=== PATIENT | female | born 1990 | race Caucasian/White ===

== ENCOUNTER 2016-08-03 22:09 | Emergency (ER) | payer SELFPAY ==
[2016-08-03 23:50] VITALS: BP 94/60
[2016-08-04 00:18] LABS: Basophils % (Auto) 0.7 % (0.0-1.8); Eosinophils % (Auto) 3.5 % (0.0-4.3); Hemoglobin 12.5 gm/dl (10.1-14.3); Mean Corpuscular HGB Conc 34 % (30-34); Mean Corpuscular Hemoglobin 29 pg (28-32); Mean Corpuscular Volume 86 fl (79-97); Platelet Count 288 K/mm3 (140-440); Red Cell Distribution Width 12.1 % (13.2-15.2); White Blood Count 9.9 K/mm3 (4.5-11.0)
--- NOTE | 2016-08-08 05:40 | ED Elopement Review ---
ED Pt Elopement review - Results review Lab results: Laboratory Tests 08/03/16 08/03/16 08/03/16 23:59 23:59 23:59 WBC 9.9 RBC 4.30 Hgb 12.5 Hct 37.0 MCV 86 MCH 29 MCHC 34 RDW 12.1 L Plt Count 288 Lymph % (Auto) 38.6 H [place] % (Auto) 7.2 Eos % (Auto) 3.5 Baso % (Auto) 0.7 Lymph # 3.8 [place] # 0.7 Eos # 0.3 Baso # 0.1 Seg Neutrophils % 50.0 Seg Neutrophils # 4.9 HCG, Quant 845.8 H Blood Type O POSITIVE Antibody Screen Negative - Call Back decision Pt Call Back Decision: Pt to F/U with PMD
== END 2016-08-04 17:20 | disposition left against medical advice (07) ==
LOC: ED 22:09
DX: N93.9 Abnormal uterine and vaginal bleeding, unspecified (principal); Z53.21 Procedure and treatment not carried out due to patient leaving prior to being seen by health care provider
CPT/HCPCS: 36415; 84702; 85025; 86850; 86900; 86901

== ENCOUNTER 2017-02-27 22:30 | Emergency (ER) | payer OTHER ==
[2017-02-27 22:49] VITALS: BP 97/64
[2017-02-28 00:12] LABS: Basophils % (Auto) 0.2 % (0.0-1.8); Eosinophils % (Auto) 0.8 % (0.0-4.3); Hematocrit 32.8 % (30.3-42.9); Hemoglobin 11.1 gm/dl (10.1-14.3); Mean Corpuscular HGB Conc 34 % (30-34); Mean Corpuscular Hemoglobin 29 pg (28-32); Mean Corpuscular Volume 86 fl (79-97); Platelet Count 206 K/mm3 (140-440); Red Blood Count 3.81 M/mm3 (3.65-5.03); Red Cell Distribution Width 13.1 % (13.2-15.2); White Blood Count 12.5 K/mm3 (4.5-11.0)
[2017-02-28 00:22] LABS: Albumin 3.6 g/dL (3.9-5); Albumin/Globulin Ratio 1.2 %; BUN/Creatinine Ratio 15.21; Calcium 8.8 mg/dL (8.4-10.2); Chloride 88.2 mmol/L (98-107); Potassium 3.3 mmol/L (3.6-5.0); Total Protein 6.7 g/dL (6.3-8.2)
[2017-02-28 03:52] LABS: Bacteria,Urine 4+ /HPF (Negative); Bilirubin,Urine SM (Negative); Blood,Urine SM (Negative); Ketones,Urine NEG (Negative); Leukocyte Esterase,Urine MOD (Negative); Mucus,Urine 3+ /HPF; Nitrite,Urine NEG (Negative); Urobilinogen,Urine < 2.0 mg/dL (<2.0)
[2017-02-28 03:56] LABS: Protein,Urine >500 mg/dL (Negative)
[2017-02-28 03:57] LABS: WBC,Urine > 182.0 /HPF (0.0-6.0)
== END 2017-02-27 23:31 | disposition left against medical advice (07) ==
LOC: ED 22:30
DX: R11.10 Vomiting, unspecified (principal); R51 Headache; Z53.21 Procedure and treatment not carried out due to patient leaving prior to being seen by health care provider
CPT/HCPCS: 36415; 80053; 81001; 83690; 85025

== ENCOUNTER 2017-02-28 11:05 | Inpatient (IN) | payer SELFPAY ==
[~2017-02-28 11:05] MED LIST: SYNTHROID IV SCH
[2017-02-28] MEDS ORDERED: NACL 0.9% 1000 ML 1,000 ML IV ONE ×4 (11:11→19:29)
[2017-02-28] MEDS ORDERED: LEVAQUIN 500MG/100ML 500 MG/100 ML BAG IV ONE (11:12)
[2017-02-28] MEDS ORDERED: ZOFRAN ONE (11:14)
[2017-02-28] MEDS ORDERED: REGLAN IV ONE (11:14)
[2017-02-28] MEDS ORDERED: VANCOMYCIN/NS 1 GM/250 ML 1 GM/250 ML BAG IV ONE (11:19)
[2017-02-28] MEDS ORDERED: ZOSYN/NS 4.5GM/100ML 4.5 GM/100 ML VIAL IV ONE (11:19)
--- NOTE | 2017-02-28 11:21 | Emergency Department Report ---
HPI - General Time Seen by Provider: 02/28/17 11:10 - HPI HPI: Room 2 The patient is a 26-year-old female presenting with a chief complaint of nausea vomiting and diarrhea. Patient states for the past 4-5 days she has had diffuse abdominal pain nausea vomiting and diarrhea. The patient came to the ED yesterday and labs drawn for left prior to being evaluated. Per EMS the patient was hypotensive with a systolic blood pressure in the 50s and found to be tachycardic in addition to hypoglycemic (40s). Patient was administered one half amp of D50 and a liter of IV fluid prior to arrival. Patient denies dysuria Location: Gastrointestinal system Duration: 4-5 days Quality: Pain Severity: Moderate Modifying factors: [see above] Context: [see above] Mode of transportation: [not driving] ED Past Medical Hx - Past Medical History Additional medical history: Hypothyroidism - Surgical History Past Surgical History?: No - Family History Family history: no significant - Social History Smoking Status: Never Smoker Substance Use Type: None - Medications Home Medications: Home Medications Medication Instructions Recorded Confirmed Last Taken Type Acetaminophen/Codeine [Tylenol #3] 1 tab PO Q6H PRN #30 tab 07/27/15 Unknown Rx Cephalexin [Keflex] 500 mg PO Q8HR #42 cap 07/27/15 Unknown Rx ED Review of Systems ROS: Stated complaint: ABD PAIN Other details as noted in HPI Comment: All other systems reviewed and negative Constitutional: weakness ENT: denies: ear pain, throat pain Respiratory: denies: cough, shortness of breath, wheezing Cardiovascular: denies: chest pain, palpitations Endocrine: no symptoms reported Gastrointestinal: abdominal pain, nausea, vomiting, diarrhea Genitourinary: denies: dysuria Musculoskeletal: denies: back pain, joint swelling, arthralgia Skin: denies: rash, lesions Neurological: denies: headache, weakness, paresthesias Psychiatric: denies: anxiety, depression Hematological/Lymphatic: denies: easy bleeding, easy bruising Physical Exam - Physical Exam Physical Exam: GENERAL: The patient is well-developed female appearing lethargic but responsive to questions HEENT: Normocephalic. Atraumatic. Extraocular motions are intact. Patient has dry lips NECK: Supple. Trachea midline CHEST/LUNGS: Clear to auscultation. There is no respiratory distress noted. HEART/CARDIOVASCULAR: Regular. There is tachycardia. There is no gallop rub or murmur. ABDOMEN: Abdomen is soft, with discomfort to palpation in the left abdomen. There is no rebound or guarding. Patient has normal bowel sounds. There is no abdominal distention. SKIN: There is no rash. There is no edema. There is no diaphoresis. NEURO: The patient is awake, alert, and oriented. The patient is cooperative. The patient has normal speech MUSCULOSKELETAL: There is no evidence of acute injury. ED Medical Decision Making - Lab Data Result diagrams: 02/28/17 12:03 02/28/17 12:03 Laboratory Tests 02/28/17 02/28/17 02/28/17 11:40 11:44 12:03 WBC 5.2 RBC 2.95 L Hgb 8.7 L Hct 25.7 L D MCV 87 MCH 30 MCHC 34 RDW 12.9 L Plt Count 109 L Lymph % (Auto) 22.8 [place] % (Auto) 2.2 Eos % (Auto) 1.2 Baso % (Auto) 0.2 Lymph # 1.2 [place] # 0.1 Eos # 0.1 Baso # 0.0 Seg Neutrophils % 73.6 H Seg Neutrophils # 3.8 Sodium Potassium Chloride Carbon Dioxide Anion Gap BUN Creatinine Estimated GFR BUN/Creatinine Ratio Glucose POC Glucose 69 L Calcium Total Bilirubin AST ALT Alkaline Phosphatase Total Creatine Kinase CK-MB (CK-2) CK-MB (CK-2) Rel Index Troponin T Total Protein Albumin Albumin/Globulin Ratio Lipase TSH Free T4 HCG, Qual Urine Color Yellow Urine Turbidity Cloudy Urine pH 5.0 Ur Specific [place] 1.015 Urine Protein 100 mg/dl Urine Glucose (UA) Neg Urine Ketones Neg Urine Blood Sm Urine Nitrite Neg Urine Bilirubin Neg Urine Urobilinogen < 2.0 Ur Leukocyte Esterase Lg Urine WBC (Auto) 80.0 H Urine RBC (Auto) 4.0 U Epithel Cells (Auto) 1.0 Urine Bacteria (Auto) 1+ Urine Mucus 1+ Blood Type Antibody Screen TEJAL Antibody Screen Crossmatch 02/28/17 02/28/17 02/28/17 12:03 12:03 12:03 WBC RBC Hgb Hct MCV MCH MCHC RDW Plt Count Lymph % (Auto) [place] % (Auto) Eos % (Auto) Baso % (Auto) Lymph # [place] # Eos # Baso # Seg Neutrophils % Seg Neutrophils # Sodium 132 L Potassium 3.8 Chloride 103.1 Carbon Dioxide 12 L Anion Gap 21 BUN 36 H Creatinine 2.2 H Estimated GFR 27 BUN/Creatinine Ratio 16.36 Glucose 112 H POC Glucose Calcium 5.6 L* D Total Bilirubin 0.90 AST 23 ALT 11 Alkaline Phosphatase 53 Total Creatine Kinase 56 CK-MB (CK-2) 1.4 CK-MB (CK-2) Rel Index 2.5 Troponin T < 0.010 Total Protein 4.3 L D Albumin 2.0 L Albumin/Globulin Ratio 0.9 Lipase 6 L TSH Free T4 HCG, Qual Negative Urine Color Urine Turbidity Urine pH Ur Specific [place] Urine Protein Urine Glucose (UA) Urine Ketones Urine Blood Urine Nitrite Urine Bilirubin Urine Urobilinogen Ur Leukocyte Esterase Urine WBC (Auto) Urine RBC (Auto) U Epithel Cells (Auto) Urine Bacteria (Auto) Urine Mucus Blood Type O POSITIVE Antibody Screen TNR TEJAL Antibody Screen Negative Crossmatch See Detail 02/28/17 12:03 WBC RBC Hgb Hct MCV MCH MCHC RDW Plt Count Lymph % (Auto) [place] % (Auto) Eos % (Auto) Baso % (Auto) Lymph # [place] # Eos # Baso # Seg Neutrophils % Seg Neutrophils # Sodium Potassium Chloride Carbon Dioxide Anion Gap BUN Creatinine Estimated GFR BUN/Creatinine Ratio Glucose POC Glucose Calcium Total Bilirubin AST ALT Alkaline Phosphatase Total Creatine Kinase CK-MB (CK-2) CK-MB (CK-2) Rel Index Troponin T Total Protein Albumin Albumin/Globulin Ratio Lipase TSH 58.000 H Free T4 0.41 L HCG, Qual Urine Color Urine Turbidity Urine pH Ur Specific [place] Urine Protein Urine Glucose (UA) Urine Ketones Urine Blood Urine Nitrite Urine Bilirubin Urine Urobilinogen Ur Leukocyte Esterase Urine WBC (Auto) Urine RBC (Auto) U Epithel Cells (Auto) Urine Bacteria (Auto) Urine Mucus Blood Type Antibody Screen TEJAL Antibody Screen Crossmatch Corrected calcium 7.2 - EKG Data -: EKG Interpreted by Me EKG shows normal: sinus rhythm Rate: tachycardia (107 bpm) - EKG Data When compared to previous EKG there are: previous EKG unavailable Interpretation: other (no ischemic changes seen) - Radiology Data Radiology results: report reviewed (CT abdomen and pelvis), image reviewed (CT abdomen and pelvis, chest x-ray) interpreted by me: Chest [id number] haziness in all lung chairez. No definite focal infiltrates. No pneumothorax CT abdomen and pelvis (read by radiologist)-borderline hepatomegaly. Pancreatic tail enlargement suggestive of possible acute pancreatitis. Mild ascites which is predominantly perihepatic. Normal pelvis. An appendix is not visualized. - Medical Decision Making Review of yesterday's labs when the patient left without treatment reveal significant UTI and negative test. - Differential Diagnosis sepsis, UTI Critical Care Time: Yes Critical care time in (mins) excluding proc time.: 45 Critical care attestation.: If time is entered above; I have spent that time in minutes in the direct care of this critically ill patient, excluding procedure time. ED Disposition Clinical Impression: Sepsis, UTI (urinary tract infection), Dehydration, Symptomatic anemia, Hypocalcemia, Hypoalbuminemia, Hypothyroid, Acute renal failure Disposition: OP ADMIT IP TO THIS HOSP Is pt being admited?: Yes Does the pt Need Aspirin: No Condition: Serious Referrals: PRIMARY CARE, [Primary Care Provider] - 3-5 Days Time of Disposition: 13:42 (Hospitalist notified) Blank Doc - Documentation Documentation: Central line note Consent was obtained verbally Location: Right femoral The site was prepped and draped in a sterile fashion Site was anesthetized with lidocaine 1% approximately 3 mL Landmarks identified and needle introduced until return of dark nonpulsatile blood Blood was obtained on first attempt Guidewire introduced using Seldinger technique and triple lumen catheter placed over guidewire There was blood return from all 3 ports Catheter was secured to patient by adhesive The patient tolerated procedure well There were no complications
[2017-02-28] MEDS ORDERED: ZOFRAN IV ONE (11:47)
[2017-02-28] MEDS ORDERED: LEVOPHED DRIP 4 MG/NS 250 ML 4 MG/250 ML BAG IV ONE (11:53)
[2017-02-28 12:06] LABS: Bacteria,Urine 1+ /HPF (Negative); Bilirubin,Urine NEG (Negative); Blood,Urine SM (Negative); Ketones,Urine NEG (Negative); Leukocyte Esterase,Urine LG (Negative); Mucus,Urine 1+ /HPF; Nitrite,Urine NEG (Negative); Urobilinogen,Urine < 2.0 mg/dL (<2.0)
[2017-02-28 12:22] LABS: Basophils % (Auto) 0.2 % (0.0-1.8); Eosinophils % (Auto) 1.2 % (0.0-4.3); Hematocrit 25.7 % (30.3-42.9); Hemoglobin 8.7 gm/dl (10.1-14.3); Mean Corpuscular HGB Conc 34 % (30-34); Mean Corpuscular Hemoglobin 30 pg (28-32); Mean Corpuscular Volume 87 fl (79-97); Platelet Count 109 K/mm3 (140-440); Red Blood Count 2.95 M/mm3 (3.65-5.03); Red Cell Distribution Width 12.9 % (13.2-15.2); White Blood Count 5.2 K/mm3 (4.5-11.0)
[2017-02-28] MEDS ORDERED: ZOSYN/NS 3.375GM/50ML 3.375 GM/50 ML BAG IV SCH (12:30)
[2017-02-28] MEDS ORDERED: SUBLIMAZE IV PRN (12:39)
[2017-02-28 12:44] LABS: Creatine Kinase MB 1.4 ng/mL (0.0-4.0)
[2017-02-28 12:45] LABS: Alanine Aminotransferase 11 units/L (7-56); Albumin/Globulin Ratio 0.9 %; Alkaline Phosphatase 53 units/L (35-129); Anion Gap 21 mmol/L; BUN/Creatinine Ratio 16.36; Blood Urea Nitrogen 36 mg/dL (7-17); Carbon Dioxide 12 mmol/L (22-30); Chloride 103.1 mmol/L (98-107); Creatine Kinase 56 units/L (30-135); Glucose 112 mg/dL (65-100); Lipase 6 units/L (13-60); Potassium 3.8 mmol/L (3.6-5.0); Sodium 132 mmol/L (137-145); Total Protein 4.3 g/dL (6.3-8.2)
[2017-02-28 13:05] LABS: Calcium 5.6 mg/dL (8.4-10.2)
[2017-02-28] MEDS ORDERED: NACL 0.9% 500 ML 500 ML IV ONE (13:22)
--- NOTE | 2017-02-28 13:27 | Cat Scan Report ---
CT ABDOMEN AND PELVIS WITHOUT CONTRAST: 02/28/17 11:05:00 CLINICAL:Abdominal pain and anemia. TECHNIQUE: Volumetric acquisition and 1.25 millimeter scan reconstructions from the lung bases through the iliac crest. The study was performed without oral contrast. FINDINGS: Abdomen:The liver is borderline-enlarged with the right lobe measuring 17 cm in length. No liver mass. Mild perihepatic ascites. Fluid in the dorcas hepatis and adjacent to the gallbladder. The gallbladder is normal normally distended with no stones. The gallbladder wall is thin and normal. Normal bile ducts. Stomach, duodenum and spleen. The pancreatic tail is relatively large and there is peripancreatic fluid. The body and head are normal. No pancreatic calcifications or hemorrhage. Normal adrenal glands and kidneys. The renal collecting systems and ureters are nondilated. Normal aorta and inferior vena cava. The small bowel and colon are normal. An appendix is not identified. Pelvis: Normal urinary bladder and uterus. Fluid in the rectum and sigmoid colon. Ovaries are not well imaged. Mild pelvic ascites.A right femoral venous catheter. IMPRESSION: 1. Borderline hepatomegaly. 2. Pancreatic tail enlargement suggestive of possible acute pancreatitis. 3. Mild ascites which is predominantly perihepatic. 4. Normal pelvis. 5. An appendix is not identified.
[2017-02-28] MEDS ORDERED: CALCIUM GLUCONATE 1,000 MG in NACL 0.9% 100 ML IV ONE (13:29)
--- NOTE | 2017-02-28 13:48 | History and Physical Report ---
History of Present Illness Chief complaint: I just feel sick History of present illness: 26 YO Female with Hypothyroidism presents to ED for evaluation. Pt states that she has experienced nausea, vomiting, and multiple episodes of loose stools over the past 5 days with worsening symptoms over the past 8 hours. Pt seen and evaluated in ED and found to have sepsis IAW hypovolemic shock. Pt treated IAW sepsis protocol. Pt does not provide additional history. Pt denies fever, chills , CP, Palpitations, Syncope, skin rash, recent ill contacts. The patient came to the ED yesterday and labs drawn for left prior to being evaluated. As per EMS, the patient was hypotensive with a systolic blood pressure in the 50's and found to be tachycardic, and hypoglycemic with serum glucose in the 40's. Past History Past Medical History: hypothyroidism Past Surgical History: No surgical history, Other (reviewed) Social history: single. denies: smoking, alcohol abuse, prescription drug abuse Family history: hypertension Medications and Allergies Allergies Allergy/AdvReac Type Severity Reaction Status Date / Time No Known Allergies Allergy Verified 07/26/15 20:16 Home Medications Medication Instructions Recorded Confirmed Last Taken Type Acetaminophen/Codeine [Tylenol #3] 1 tab PO Q6H PRN #30 tab 07/27/15 Unknown Rx Cephalexin [Keflex] 500 mg PO Q8HR #42 cap 07/27/15 Unknown Rx Active Meds: Active Medications Fentanyl (Sublimaze) 50 mcg IV ONCE PRN PRN Reason: Pain Piperacillin Sod/Tazobactam Sod (Zosyn/Ns 3.375gm/50ml) 3.375 gm in 50 mls @ 100 mls/hr IV Q6H NICOLE Norepinephrine (Levophed Drip 4 Mg/Ns 250 Ml) 4 mg in 250 mls @ 22.5 mls/hr IV TITR ONE; 6 MCG/MIN PRN Reason: Protocol Stop: 02/28/17 22:59 Last Admin: 02/28/17 12:27 Dose: 6 mcg/min, 22.5 mls/hr Review of Systems All systems: negative Constitutional: weight loss Ears, nose, mouth and throat: no ear pain, no nasal discharge Breasts: no swelling Cardiovascular: no chest pain Respiratory: no cough, no cough with sputum Gastrointestinal: nausea, vomiting, diarrhea Genitourinary Female: no pelvic pain, no flank pain Rectal: no pain Musculoskeletal: no neck stiffness, no neck pain Integumentary: no rash Neurological: no head injury Psychiatric: no anxiety Endocrine: no cold intolerance, no heat intolerance Hematologic/Lymphatic: no easy bruising, no easy bleeding Allergic/Immunologic: no urticaria Exam - Constitutional Vitals: Temp Pulse Resp BP Pulse Ox 105 H 22 64/37 94 02/28/17 11:52 02/28/17 11:52 02/28/17 11:52 02/28/17 11:52 General appearance: Present: severe distress - EENT Eyes: Present: PERRL ENT: hearing intact, clear oral mucosa - Neck Neck: Present: supple, normal ROM - Respiratory Respiratory effort: normal Respiratory: bilateral: CTA - Cardiovascular Rhythm: regular Heart Sounds: Present: S1 & S2 - Extremities Extremities: pulses symmetrical, No edema Peripheral Pulses: within normal limits - Abdominal General gastrointestinal: Present: soft, non-tender, non-distended - Integumentary Integumentary: Present: clear, dry - Musculoskeletal Musculoskeletal: generalized weakness - Psychiatric Psychiatric: cooperative - Neurologic Neurologic: CNII-XII intact, moves all extremities Results - Labs CBC & Chem 7: 02/28/17 12:03 02/28/17 12:03 Labs: Abnormal lab results 02/28/17 02/28/17 02/28/17 Range/Units 11:40 11:44 12:03 RBC 2.95 L (3.65-5.03) M/mm3 Hgb 8.7 L (10.1-14.3) gm/dl Hct 25.7 L D (30.3-42.9) % RDW 12.9 L (13.2-15.2) % Plt Count 109 L (140-440) K/mm3 Seg Neutrophils % 73.6 H (40.0-70.0) % Sodium (137-145) mmol/L Carbon Dioxide (22-30) mmol/L BUN (7-17) mg/dL Creatinine (0.7-1.2) mg/dL Glucose (65-100) mg/dL POC Glucose 69 L (70-105) Calcium (8.4-10.2) mg/dL Total Protein (6.3-8.2) g/dL Albumin (3.9-5) g/dL Lipase (13-60) units/L TSH (0.270-4.200) mlU/mL Free T4 (0.76-1.46) ng/dL Urine WBC (Auto) 80.0 H (0.0-6.0) /HPF Crossmatch 02/28/17 02/28/17 02/28/17 Range/Units 12:03 12:03 12:03 RBC (3.65-5.03) M/mm3 Hgb (10.1-14.3) gm/dl Hct (30.3-42.9) % RDW (13.2-15.2) % Plt Count (140-440) K/mm3 Seg Neutrophils % (40.0-70.0) % Sodium 132 L (137-145) mmol/L Carbon Dioxide 12 L (22-30) mmol/L BUN 36 H (7-17) mg/dL Creatinine 2.2 H (0.7-1.2) mg/dL Glucose 112 H (65-100) mg/dL POC Glucose (70-105) Calcium 5.6 L* D (8.4-10.2) mg/dL Total Protein 4.3 L D (6.3-8.2) g/dL Albumin 2.0 L (3.9-5) g/dL Lipase 6 L (13-60) units/L TSH 58.000 H (0.270-4.200) mlU/mL Free T4 0.41 L (0.76-1.46) ng/dL Urine WBC (Auto) (0.0-6.0) /HPF Crossmatch See Detail Assessment and Plan - Patient Problems (1) Sepsis Current Visit: Yes Status: Acute Qualifiers: Sepsis type: S Plan to address problem: Sepsis protocol: IV abx, IVF, monitor uop q shift, serial lactic acid, blood cultures, (2) Metabolic acidosis Current Visit: Yes Status: Acute Plan to address problem: Treat sepsis, IVF replacement, repeat bmp (3) Myxedema coma Current Visit: Yes Status: Acute Plan to address problem: Iv synthroid replacment therapy, steroid therapy (4) Acute renal failure Current Visit: Yes Status: Acute Qualifiers: Acute renal failure type: A Plan to address problem: IVF replacement, monitor uop q shift, repeat bmp (5) UTI (urinary tract infection) Current Visit: Yes Status: Acute Qualifiers: Urinary tract infection type: U Hematuria presence: H Indwelling urinary catheter type: I Encounter type: E Plan to address problem: IV abx, supportive care (6) DVT prophylaxis Current Visit: Yes Status: Acute
[2017-02-28] MEDS ORDERED: DULCOLAX PR PRN (13:56)
[2017-02-28] MEDS ORDERED: ALUM-MAG HYDROX-SIMETH 200-200-20MG/5ML PO PRN (13:56)
[2017-02-28] MEDS ORDERED: MILK OF MAGNESIA PO PRN (13:56)
[2017-02-28] MEDS ORDERED: VANCOMYCIN VIAL IV ONE (13:58)
[2017-02-28] MEDS ORDERED: VANCOMYCIN PHARMACY TO DOSE IV SCH (14:00)
[2017-02-28] MEDS ORDERED: INTROPIN DRIP 800 MG/D5W 250 ML 800 MG/250 ML BAG IV ONE ×2 (14:26→14:42)
--- NOTE | 2017-02-28 14:41 | XRay Report ---
FINAL REPORT EXAM: XR CHEST 1V AP HISTORY: hypotension TECHNIQUE: Single, portable chest x-ray. PRIORS: None. FINDINGS: Cardiac and mediastinal silhouette within normal limits. Lungs are normally expanded and show mild, but diffusely increased interstitial and probable airspace opacities scattered bilaterally. No focal consolidation or apparent pneumothorax. IMPRESSION: 1. Findings which may represent vascular congestion or mild edema versus nonspecific postinflammatory change, including bronchitis or pneumonitis, of uncertain etiology or chronicity. Clinical correlation and followup suggested.
[2017-02-28] MEDS ORDERED: NACL 0.9% 1000 ML IV ONE (15:00)
[2017-02-28] MEDS ORDERED: ROCEPHIN/NS 2 GM/100 ML 2 GM/100 ML BAG IV SCH (15:30)
[2017-02-28] MEDS: SYNTHROID IV SCH (15:30)
[2017-02-28] MEDS ORDERED: MORPHINE IV ONE (18:59)
[2017-02-28] MEDS: NACL 0.9% 1000 ML 1,000 ML IV SCH (19:19)
[2017-02-28] MEDS ORDERED: TYLENOL PO PRN (19:21)
--- NOTE | 2017-02-28 20:38 | XRay Report ---
FINAL REPORT EXAM: XR ABDOMEN 2V HISTORY: Abdominal pain TECHNIQUE: Supine and upright views of abdomen. PRIORS: None. FINDINGS: Nonspecific bowel gas pattern, including prominent or mildly dilated and gas-filled bowel loops projected over left upper quadrant. Otherwise, paucity of bowel gas. No apparent pneumoperitoneum. No abnormal calcifications. Mild levoconvex curvature of lumbar spine. Central vascular catheter projects over right inguinal region and lower quadrant. IMPRESSION: 1. Nonspecific bowel gas pattern, which may represent adynamic ileus. Mechanical small bowel obstruction not completely excluded, and followup may be warranted.
[2017-02-28] MEDS: ZOSYN/NS 2.25 GM/50ML 2.25 GM/50 ML BAG IV SCH (20:57)
[2017-02-28] MEDS: Vasostrict 20 UNIT in NACL 0.9% 100 ML IV SCH (23:35)
[2017-03-01] MEDS: MORPHINE IV PRN ×2 (01:50→07:31)
[2017-03-01] MEDS: NACL 0.9% 1000 ML 1,000 ML IV SCH ×2 (01:53→07:48)
[2017-03-01] MEDS: LEVOPHED DRIP 4 MG/NS 250 ML 4 MG/250 ML BAG IV SCH ×2 (02:49→08:55)
[2017-03-01] MEDS: ZOSYN/NS 2.25 GM/50ML 2.25 GM/50 ML BAG IV SCH ×3 (04:07→21:28)
[2017-03-01] MEDS: Vasostrict 20 UNIT in NACL 0.9% 100 ML IV SCH ×2 (07:49→16:12)
[2017-03-01] MEDS ORDERED: NACL 0.9% 1000 ML 2,000 ML IV ONE (09:06)
--- NOTE | 2017-03-01 09:14 | Admit Criteria Form ---
Admission Criteria Documentation: SEVERE SEPSIS Clinical Indications for Admission to Inpatient Care (Place 'X' for any and all applicable criteria): Hospital admission is needed for appropriate care of the patient because of ANY ONE of the following: [X]I. Hemodynamic instability indicated by ANY ONE of the following(1)(2)(3)( 4)(5): [X]a. Vital sign abnormality not readily corrected by appropriate treatment within 12 to 24 hours indicated by ANY ONE of the following: []i) Tachycardia that persists despite appropriate treatment [X]ii) Hypotension that persists despite appropriate treatment []iii) Orthostatic vital sign changes that persist despite appropriate treatment [X]b. Vital sign abnormality that is severe indicated by ANY ONE of the following: [X]i. Inadequate perfusion indicated by ANY ONE of the following: [X]1) Lactic acidosis (greater than 2 mmol/L) []2) New abnormal capillary refill (greater than 3 seconds) []3) Reduced urine output []4) New altered mental status []5) Myocardial Ischemia []ii. Mean arterial pressure [A] less than 60 mm Hg []iii. Mean arterial pressure[A] less than 70 mm Hg after 30 minutes of appropriate treatment (eg, fluid resuscitation) []iv. Sustained heart rate greater than 120 beats per minute in adult []v. IV inotropic or vasopressor medication required to maintain adequate blood pressure or perfusion [X]II. Systemic or infectious condition causing severe symptoms or findings not responsive to emergency or observation care treatment (as appropriate) indicated by ANY ONE of the following: []a. Cardiac arrhythmias of immediate concern(1)(2)(3) [X]b. Severe endocrine disorder (eg, thyrotoxicosis, adrenal insufficiency)(4)(5) []c. Seizures (eg, new or recurrent)(6) []d. New-onset end organ failure or dysfunction as indicated by ANY ONE of the following: []i. Acute unexplained hypoxemia (eg, not from lung infection or chronic disease)(7)(8)(9) []ii. Acute renal failure as indicated by new onset of ANY ONE of the following(10)(11)(12)(13)(14): []1) 3-fold rise in serum creatinine from baseline []2) Serum creatinine greater than 4 mg/dL (354 micromoles/L) with acute rise greater than 0.5 mg/dL (44.2 micromoles/L) []3) Reduction of more than 75% in estimated glomerular filtration rate from baseline. []4) Estimated glomerular filtration rate less than 35 mL/min/1.73m2 ( 0.59 mL/sec/1.73m2) in child younger than 18 years. []5) Cessation of urine output indicated by ALL of the following: []A. Adequate volume status []B. Inadequate urine output as indicated by ANY ONE of the following: []a. Urine output less than 0.3 mL/kg/hr for 24 hours []b. Anuria (urine output less than 0.1 mL/kg/hr) for 12 hours []iii. Acute mental status changes(15) []iv. Acute hepatic failure (eg, plasma bilirubin greater than 4 mg/ dL (68 micromoles/L), new INR greater than 2.0)(16)(17) []e. Unmanageable nausea and vomiting(18) []f. New-onset or uncontrolled central diabetes insipidus(19)(20) []g. Clinically significant dehydration(18)(21) []h. Hypoglycemia(22) []i. Acidosis (pH less than 7.35) or alkalosis (pH greater than 7.45)( 22)(23) []j. Toxic drug level that indicates need for specific monitoring or treatment(24)(25) []k. Severe electrolyte abnormalities indicated by ALL of the following( 1)(2)(3): []i. Electrolytes and associated findings are not as expected for patient baseline or acceptable treatment effects. []ii. Severe abnormalities indicated by ANY ONE of the following: []1) Sodium less than 130 mEq/L (mmol/L) (new) []2) Sodium less than 135 mEq/L (mmol/L) with ANY ONE of the following: []A. Uncorrectable (to near normal or chronic baseline) after trial of outpatient and emergency treatment []B. Altered mental status []C. Seizures []D. Severe medical etiology requiring inpatient management (eg , heart failure, hypovolemia) []3) Sodium greater than 155 mEq/L (mmol/L) []4) Sodium greater than 150 mEq/L (mmol/L) with ANY ONE of the following: []A. Uncorrectable (to near normal or chronic baseline) with outpatient and emergency treatment []B. Altered mental status []C. Seizures []D. Severe medical etiology (eg, hypovolemia, diabetes insipidus) []5) Potassium less than 2.5 mEq/L (mmol/L) despite outpatient and emergency treatment []6) Potassium less than 3 mEq/L (mmol/L) with ANY ONE of the following : []A. Weakness []B. Cardiac abnormality (eg, arrhythmia, conduction disturbance ) []C. Cardiac ischemia []D. Ileus []E. Ongoing medical cause requiring inpatient management (eg, acute renal wasting or SIADH) []F. Other severe symptoms []7) Potassium greater than 6.5 mEq/L (mmol/L) []8) Potassium greater than 5 mEq/L (mmol/L) with ANY ONE of the following: []A. Uncorrectable (to near normal or chronic baseline) with outpatient and emergency treatment []B. Severe ECG findings[A] []C. Acute worsening of renal failure (creatinine greater than 2.5 mg/dL (221 micromoles/L) or significant elevation for age and size) []D. Severe weakness []E. Severe medical etiology (eg, hemolysis, infection, drug overdose) []9) Calcium less than 7 mg/dL (1.75 mmol/L) despite outpatient and emergency treatment(5) []10) Calcium less than 8 mg/dL (2 mmol/L) with significant symptoms or findings (eg, altered mental status, muscle spasms, seizures, breathing difficulty, cardiac abnormality (eg, arrhythmia or conduction disturbance))(5) []11) Calcium greater than 14 mg/dL (3.5 mmol/L)(5) []12) Calcium greater than 12 mg/dL (3 mmol/L) with ANY ONE of the following(5): []A. Uncorrectable (to near normal or chronic baseline) with outpatient and emergency treatment []B. Significant dehydration or hypovolemia as indicated by ALL of the following(3)(6)(7): []a. Not resolved with initial treatments []b. Clinically significant dehydration as indicated by ANY ONE of the following: [](1) Vomiting refractory to outpatient treatment (ie, precluding oral rehydration) [](2) Inability to drink [](3) Hypernatremia or other electrolyte abnormality unable to be corrected with outpatient and emergency treatment [](4) Failure to remain hydrated with outpatient therapy [](5) Reduced urine output [](6) Hypotension [](7) Serious cause for dehydration requiring acute hospitalization ( eg, bowel obstruction, increased intracranial pressure, infectious cause) [](8) Child with ANY ONE of the following(8): [](i) Severe abdominal tenderness [](ii) Adequate care not available at home [](iii) Severe dehydration (greater than 9% loss of body weight) []C. Significant symptoms or findings (eg, altered mental status , cardiac abnormality (eg, arrhythmia, conduction disturbance), malignant etiology requiring inpatient treatment) []13) Phosphorus less than 1 mg/dL (0.32 mmol/L) []14) Phosphorus less than 1.5 mg/dL (0.48 mmol/L) with ANY ONE of the following: []A. Patient unresponsive to outpatient and emergency treatment []B. Significant symptoms or findings (eg, weakness, altered mental status, breathing difficulty, seizures, rhabdomyolysis) []15) Phosphorus greater than 10 mg/dL (3.2 mmol/L) []16) Phosphorus greater than 4.5 mg/dL (1.45 mmol/L) (new) with ANY ONE of the following: []A. Severe medical etiology (eg, crush injury, acute renal failure) []B. Associated hypocalcemia with significant findings (eg, neurologic symptoms, altered mental status, muscle spasms, seizures, breathing difficulty, cardiac abnormality (eg, arrhythmia, conduction disturbance)) []16) Magnesium less than 1 mg/dL (0.41 mmol/L) []17) Magnesium less than 1.5 mg/dL (0.62 mmol/L) with ANY ONE of the following: []A. Patient unresponsive to outpatient and emergency treatment []B. Associated hypocalcemia with significant findings (eg, altered mental status, muscle spasms, seizures, breathing difficulty, cardiac abnormality (eg, arrhythmia, conduction disturbance)) []C. Associated hypokalemia (potassium less than 3 mEq/L (mmol/L )) with risk of arrhythmia []18) Magnesium greater than 4 mEq/L (2 mmol/L) []19) Magnesium greater than 2.5 mEq/L (1.25 mmol/L) with significant symptoms or findings (eg, weakness, altered mental status, cardiac abnormality (eg, arrhythmia, conduction disturbance), breathing difficulty, severe medical etiology (eg, renal failure, hypovolemia)) []20) Uric acid greater than 20 mg/dL (1190 micromoles/L)(9) []21) Uric acid greater than 8 mg/dL (476 micromoles/L) with significant symptoms or findings of tumor lysis syndrome (eg, creatinine greater than 1.5 times upper limit of normal, cardiac abnormality (eg , arrhythmia, conduction disturbance), seizure)(9) []III. High fever or other high-risk infection situation as indicated by ANY ONE of the following(26)(27)(28): []a. Outpatient and observation care antimicrobial treatment unavailable, not effective, or not appropriate []b. Documented bacteremia []c. Temperature greater than 104.9 degrees F (40.5 degrees C) (oral) []d. Temperature greater than 103.1 degrees F (39.5 degrees C) (oral) or less than 96.8 degrees F (36 degrees C) (rectal) that does not respond to emergency treatment and observation care []IV. High-risk febrile neutropenia[A] as indicated by ANY ONE of the following(29)(30)(31)(32): []a. Profound neutropenia[B] anticipated to extend for more than 7 days []b. Hemodynamic instability []c. Hypoxemia []d. Tachypnea []e. Altered mental status []f. New-onset abdominal pain []g. New-onset vomiting or diarrhea []h. Oral or gastrointestinal mucositis that interferes with swallowing or causes severe diarrhea []i. Focal infection (eg, cellulitis, pneumonia, central line or catheter infection, perirectal abscess) []j. Renal insufficiency (eg, GFR of less than 30 mL/min/1.73m2 (0.5 mL/sec /1.73m2)). []k. Severe liver dysfunction (transaminase levels greater than 5 times normal) []l. Platelet count less than 50,000/mm3 (50 x109/L)(33) []m. Leukemia or lymphoma induction therapy []n. Leukemia not in complete remission or with evidence of disease progression []o. Bone marrow transplant patient []p. Alemtuzumab being used for therapy []q. [employer] Support[employer] Care in Cancer (MASCC) Risk Index score of less than 21[C](33)(35). []V. Isolation required (eg, tuberculosis that requires isolation, Ebola infection)[D](36)(37)(38)(39)(40) []. Gangrene that requires treatment beyond emergency or observation level care(41)(42) []VII. Antitoxin administration and ongoing observation required (eg, tetanus, botulism)(43)(44) []. Suspected infection with rapid progression or severe symptoms as indicated by ANY ONE of the following(45): []a. Streptococcal or staphylococcal toxic shock(46) []b. Diphtheria(47) []c. Hantavirus(48) []d. Severe acute respiratory syndrome(8)(49) []e. Anthrax(50) []f. Ebola[D](36)(37)(38) []g. Necrotizing soft tissue infection(41)(42) []h. Plague(50) []i. Other suspected infection that requires care beyond emergency or observation level care []VII. Severe adverse drug or systemic toxin reaction as indicated by ANY ONE of the following(24): []a. Serotonin syndrome(51)(52) []b. Neuroleptic malignant syndrome(51)(52) []c. Cholinergic syndrome with severe symptoms (eg, bronchorrhea, weakness , mental status changes, seizures)(53) []d. Anticholinergic syndrome []e. Sympathetic syndrome with severe symptoms (eg, seizures, mental status changes, cardiac dysrhythmias) []f. Other severe adverse drug or systemic toxin reaction that remains after emergency or observation level care (as appropriate) []VIII. Allergic reaction with severe symptoms (not responsive to emergency or observation care treatment as appropriate), including ANY ONE of the following(54): []a. Airway edema (pharyngeal, epiglottic, or laryngeal edema) []b. Stridor []c. Respiratory failure []d. Bronchospasm []e. Hypotension []IX. Environmental emergency (not responsive to emergency or observation care treatment as appropriate) as indicated by ANY ONE of the following(55)(56): []a. Hyperthermia []b. Heat stroke []c. Heat exhaustion []d. Hypothermia (temperature less than 95 degrees F (35 degrees C) rectal) (57) []e. Electrocution(58) []X. Complications of transplanted organ (ie, not covered elsewhere)[E] indicated by ANY ONE of the following(59): []a. Acute graft rejection (or graft vs. host disease)[F] requiring inpatient management (eg, intravenous immunosuppression)(60)(61)(62)( 63) []b. Acute failure of transplanted organ necessitating inpatient care (eg, cannot be managed in other setting) []c. Infection requiring inpatient management (eg, Hemodynamic instability, need for intravenous antimicrobial treatment)(64)(65) []d. Other complication of transplanted organ requiring inpatient management []XI. Systemic or Infectious Condition condition, symptom, or finding for which emergency and observation care have failed or are not considered appropriate. See General Criteria: Observation Care, General Admission Criteria or Pediatric General Admission Criteria guideline as appropriate. (Contents from SEVERE SEPSIS and SYSTEMIC OR INFECTIOUS CONDITION clinical indications for admission to inpatient care have been integrated in this form) The [facility] content [facility] by [facility] has been revised. The portions of the content which have been revised are identified through the use of italic text or in bold and [facility] has neither reviewed nor approved the modified material. All other unmodified content is copyright [facility]. Please see references footnoted in the original [facility] edition 2016 Admission Criteria Met: Yes
[2017-03-01] MEDS: LEVOPHED 8 MG in NACL 0.9% 250ML 242 ML IV SCH ×2 (10:11→15:26)
[2017-03-01] MEDS: SYNTHROID IV SCH (10:12)
[2017-03-01 10:38] LABS: Hemoglobin 12.6 gm/dl (10.1-14.3); Mean Corpuscular HGB Conc 32 % (30-34); Mean Corpuscular Hemoglobin 29 pg (28-32); Mean Corpuscular Volume 89 fl (79-97); Platelet Count 165 K/mm3 (140-440); Red Blood Count 4.38 M/mm3 (3.65-5.03); Red Cell Distribution Width 14.4 % (13.2-15.2)
[2017-03-01] MEDS: DILAUDID IV PRN ×2 (10:42→21:29)
[2017-03-01 10:56] LABS: Albumin 2.3 g/dL (3.9-5); Albumin/Globulin Ratio 0.7 %; BUN/Creatinine Ratio 21.53; Bilirubin,Total 4.8 mg/dL (0.1-1.2); Chloride 109.6 mmol/L (98-107); Total Protein 5.4 g/dL (6.3-8.2)
[2017-03-01 10:59] LABS: White Blood Count 28.6 K/mm3 (4.5-11.0)
[2017-03-01 11:21] LABS: Potassium 5.2 mmol/L (3.6-5.0)
[2017-03-01] MEDS ORDERED: D50W (25GM) Vial 50 ML IV ONE ×2 (11:22→11:23)
[2017-03-01] MEDS ORDERED: D50W (25GM) Vial IV PRN (11:32)
[2017-03-01 11:34] LABS: Basophils % (Manual) 0 % (0.0-1.8); Blastocytes % (Manual) 0 %; Eosinophils % (Manual) 0 % (0.0-4.3)
[2017-03-01 11:35] LABS: Burr Cells 2+; Diff Status Complete
[2017-03-01] MEDS ORDERED: CALCIUM GLUCONATE 1,000 MG in NACL 0.9% 100 ML IV ONE (13:35)
[2017-03-01] MEDS ORDERED: VANCOMYCIN 750 MG in NACL 0.9% 250ML 250 ML IV SCH (15:00)
--- NOTE | 2017-03-01 15:04 | Consultation ---
History of Present Illness Consult date: 03/01/17 Requesting physician: JILLIAN FARAH Reason for consult: other (sepsis) History of present illness: 26 yo admitted with several days of increased N/V/D, abd pain, weakness, confusion. Found to have hypotension on levophed and dopamine and also hypoglycemia. She cannot provide history as she is arousable but confused due to just receiving Dilaudid. Per family ? hx of an within past few months, details not known. Active Medications Acetaminophen (Tylenol) 650 mg PO Q6H PRN PRN Reason: Pain, Mild (1-3) Al Hydrox/Mg Hydrox/Simethicone (Alum-Mag Hydrox-Simeth [phone]/5ml) 30 ml PO Q4H PRN PRN Reason: Indigestion Bisacodyl (Dulcolax) 10 mg AK QDAY PRN PRN Reason: constipation unrelieved by MOM Dextrose (D50w (25gm)) 25 gm IV PRN PRN PRN Reason: Hypoglycemia Enoxaparin Sodium (Lovenox) 40 mg SUB-Q DAILY NICOLE Fentanyl (Sublimaze) 50 mcg IV ONCE PRN PRN Reason: Pain Last Admin: 02/28/17 15:56 Dose: 50 mcg Hydrocortisone Sodium Succinate (Solu-Cortef) 100 mg IV Q8H NICOLE Last Admin: 03/01/17 06:15 Dose: 100 mg Hydromorphone HCl (Dilaudid) 0.5 mg IV Q3H PRN PRN Reason: Pain , Severe (7-10) Last Admin: 03/01/17 10:42 Dose: 0.5 mg Sodium Chloride (Nacl 0.9% 1000 Ml) 1,000 mls @ 125 mls/hr IV DIRECT NICOLE Last Admin: 03/01/17 07:48 Dose: 125 mls/hr Piperacillin Sod/Tazobactam Sod (Zosyn/Ns 2.25 Gm/50ml) 2.25 gm in 50 mls @ 100 mls/hr IV Q8H NICOLE Last Admin: 03/01/17 12:40 Dose: 100 mls/hr Dopamine HCl/Dextrose (Intropin Drip 800 Mg/D5w 250 Ml) 800 mg in 250 mls @ 1.361 mls/hr IV TITR ONE; 2 MCG/KG/MIN PRN Reason: Protocol Stop: 03/08/17 06:23 Last Titration: 03/01/17 02:00 Dose: 0 mcg/kg/min, 0 mls/hr Vasopressin 20 unit/ Sodium (Chloride) 101 mls @ 9.09 mls/hr IV TITR NICOLE; 0.03 UNITS/MIN PRN Reason: Protocol Last Admin: 03/01/17 07:49 Dose: 0.03 units/min, 9.09 mls/hr Norepinephrine 8 mg/ Sodium (Chloride) 250 mls @ 3.75 mls/hr IV TITR NICOLE; 2 MCG /MIN PRN Reason: Protocol Last Admin: 03/01/17 10:11 Dose: 28 mcg/min, 52.5 mls/hr Vancomycin HCl 750 mg/ Sodium (Chloride) 265 mls @ 132.5 mls/hr IV Q24H NICOLE Levothyroxine Sodium (Synthroid) 100 mcg IV DAILY@0600 NICOLE Last Admin: 03/01/17 10:12 Dose: Not Given Magnesium Hydroxide (Milk Of Magnesia) 30 ml PO Q4H PRN PRN Reason: Constipation Vancomycin HCl (Vancomycin Pharmacy To Dose) 1 each IV PKCONSULT NICOLE PRN Reason: Protocol Past History Past Medical History: hypothyroidism Past Surgical History: No surgical history, Other (reviewed) Social history: single. denies: smoking, alcohol abuse, prescription drug abuse Family history: hypertension Medications and Allergies Allergies Allergy/AdvReac Type Severity Reaction Status Date / Time No Known Allergies Allergy Verified 07/26/15 20:16 Home Medications Medication Instructions Recorded Confirmed Last Taken Type Acetaminophen/Codeine [Tylenol #3] 1 tab PO Q6H PRN #30 tab 07/27/15 Unknown Rx Cephalexin [Keflex] 500 mg PO Q8HR #42 cap 07/27/15 Unknown Rx Active Meds: Active Medications Acetaminophen (Tylenol) 650 mg PO Q6H PRN PRN Reason: Pain, Mild (1-3) Al Hydrox/Mg Hydrox/Simethicone (Alum-Mag Hydrox-Simeth [phone]/5ml) 30 ml PO Q4H PRN PRN Reason: Indigestion Bisacodyl (Dulcolax) 10 mg AK QDAY PRN PRN Reason: constipation unrelieved by MOM Dextrose (D50w (25gm)) 25 gm IV PRN PRN PRN Reason: Hypoglycemia Enoxaparin Sodium (Lovenox) 40 mg SUB-Q DAILY NICOLE Fentanyl (Sublimaze) 50 mcg IV ONCE PRN PRN Reason: Pain Last Admin: 02/28/17 15:56 Dose: 50 mcg Hydrocortisone Sodium Succinate (Solu-Cortef) 100 mg IV Q8H NICOLE Last Admin: 03/01/17 06:15 Dose: 100 mg Hydromorphone HCl (Dilaudid) 0.5 mg IV Q3H PRN PRN Reason: Pain , Severe (7-10) Last Admin: 03/01/17 10:42 Dose: 0.5 mg Sodium Chloride (Nacl 0.9% 1000 Ml) 1,000 mls @ 125 mls/hr IV DIRECT NICOLE Last Admin: 03/01/17 07:48 Dose: 125 mls/hr Piperacillin Sod/Tazobactam Sod (Zosyn/Ns 2.25 Gm/50ml) 2.25 gm in 50 mls @ 100 mls/hr IV Q8H NICOLE Last Admin: 03/01/17 12:40 Dose: 100 mls/hr Dopamine HCl/Dextrose (Intropin Drip 800 Mg/D5w 250 Ml) 800 mg in 250 mls @ 1.361 mls/hr IV TITR ONE; 2 MCG/KG/MIN PRN Reason: Protocol Stop: 03/08/17 06:23 Last Titration: 03/01/17 02:00 Dose: 0 mcg/kg/min, 0 mls/hr Vasopressin 20 unit/ Sodium (Chloride) 101 mls @ 9.09 mls/hr IV TITR NICOLE; 0.03 UNITS/MIN PRN Reason: Protocol Last Admin: 03/01/17 07:49 Dose: 0.03 units/min, 9.09 mls/hr Norepinephrine 8 mg/ Sodium (Chloride) 250 mls @ 3.75 mls/hr IV TITR NICOLE; 2 MCG /MIN PRN Reason: Protocol Last Admin: 03/01/17 10:11 Dose: 28 mcg/min, 52.5 mls/hr Vancomycin HCl 750 mg/ Sodium (Chloride) 265 mls @ 132.5 mls/hr IV Q24H NICOLE Levothyroxine Sodium (Synthroid) 100 mcg IV DAILY@0600 NICOLE Last Admin: 03/01/17 10:12 Dose: Not Given Magnesium Hydroxide (Milk Of Magnesia) 30 ml PO Q4H PRN PRN Reason: Constipation Vancomycin HCl (Vancomycin Pharmacy To Dose) 1 each IV PKCONSULT NICOLE PRN Reason: Protocol Review of Systems ROS unobtainable: due to mental status Physical Examination Vital signs: Vital Signs Pulse Resp 104 H 15 02/28/17 10:56 02/28/17 10:56 Vital Signs - 24 hr 02/28/17 02/28/17 02/28/17 15:51 16:00 16:10 Temperature 98.4 F Pulse Rate 131 H 139 H 96 H Pulse Rate [ Apical] Pulse Rate [ From Monitor] Respiratory 16 Rate Respiratory Rate [Abdomen] Blood Pressure 84/54 O2 Sat by Pulse 69 L 96 Oximetry 02/28/17 02/28/17 02/28/17 16:19 16:20 16:30 Temperature Pulse Rate 105 H 112 H Pulse Rate [ Apical] Pulse Rate [ From Monitor] Respiratory 20 24 Rate Respiratory Rate [Abdomen] Blood Pressure 103/68 97/61 O2 Sat by Pulse 97 94 99 Oximetry 02/28/17 02/28/17 02/28/17 16:40 16:50 17:00 Temperature Pulse Rate 113 H 109 H 116 H Pulse Rate [ Apical] Pulse Rate [ From Monitor] Respiratory 25 H 24 24 Rate Respiratory Rate [Abdomen] Blood Pressure 103/68 91/58 68/37 O2 Sat by Pulse 97 100 100 Oximetry 02/28/17 02/28/17 02/28/17 17:10 17:20 17:30 Temperature Pulse Rate 109 H 109 H 108 H Pulse Rate [ Apical] Pulse Rate [ From Monitor] Respiratory 17 29 H 13 Rate Respiratory Rate [Abdomen] Blood Pressure 97/61 105/79 115/75 O2 Sat by Pulse 73 L 83 L 87 Oximetry 02/28/17 02/28/17 02/28/17 17:35 17:40 17:50 Temperature Pulse Rate 111 H 115 H Pulse Rate [ Apical] Pulse Rate [ 110 H From Monitor] Respiratory 19 20 22 Rate Respiratory Rate [Abdomen] Blood Pressure 115/75 102/75 O2 Sat by Pulse 97 87 99 Oximetry 02/28/17 02/28/17 02/28/17 18:00 18:10 18:20 Temperature Pulse Rate 114 H 120 H 115 H Pulse Rate [ Apical] Pulse Rate [ From Monitor] Respiratory 24 15 13 Rate Respiratory Rate [Abdomen] Blood Pressure 102/69 102/69 95/66 O2 Sat by Pulse 97 87 95 Oximetry 02/28/17 02/28/17 02/28/17 18:30 18:40 18:50 Temperature Pulse Rate 117 H 111 H 111 H Pulse Rate [ Apical] Pulse Rate [ From Monitor] Respiratory 18 17 12 Rate Respiratory Rate [Abdomen] Blood Pressure 95/66 95/66 99/74 O2 Sat by Pulse 92 85 94 Oximetry 02/28/17 02/28/17 02/28/17 19:00 19:10 19:20 Temperature Pulse Rate 105 H 110 H 116 H Pulse Rate [ Apical] Pulse Rate [ From Monitor] Respiratory 16 23 19 Rate Respiratory Rate [Abdomen] Blood Pressure 108/82 108/82 103/74 O2 Sat by Pulse 82 L 93 96 Oximetry 02/28/17 02/28/17 02/28/17 19:30 19:40 19:47 Temperature 98.8 F Pulse Rate 118 H 112 H Pulse Rate [ Apical] Pulse Rate [ From Monitor] Respiratory 17 16 Rate Respiratory Rate [Abdomen] Blood Pressure 96/64 96/64 O2 Sat by Pulse 73 L 81 L Oximetry 02/28/17 02/28/17 02/28/17 19:49 19:50 20:00 Temperature Pulse Rate Pulse Rate [ 140 H Apical] Pulse Rate [ 135 H From Monitor] Respiratory 31 H 31 H Rate Respiratory Rate [Abdomen] Blood Pressure 123/99 123/99 O2 Sat by Pulse 81 L 91 Oximetry 02/28/17 02/28/17 02/28/17 20:10 20:20 20:29 Temperature Pulse Rate 113 H Pulse Rate [ Apical] Pulse Rate [ From Monitor] Respiratory 28 H Rate Respiratory Rate [Abdomen] Blood Pressure 123/99 101/76 O2 Sat by Pulse 82 L 100 100 Oximetry 02/28/17 02/28/17 02/28/17 20:30 20:40 20:50 Temperature Pulse Rate 109 H 110 H 116 H Pulse Rate [ Apical] Pulse Rate [ From Monitor] Respiratory 16 15 24 Rate Respiratory Rate [Abdomen] Blood Pressure 101/76 101/73 103/80 O2 Sat by Pulse 82 L Oximetry 02/28/17 02/28/17 02/28/17 21:00 21:10 21:20 Temperature Pulse Rate 118 H 119 H 118 H Pulse Rate [ Apical] Pulse Rate [ From Monitor] Respiratory 31 H 17 17 Rate Respiratory Rate [Abdomen] Blood Pressure 103/80 99/74 101/73 O2 Sat by Pulse 100 Oximetry 02/28/17 02/28/17 02/28/17 21:30 21:40 21:50 Temperature Pulse Rate 116 H 114 H 120 H Pulse Rate [ Apical] Pulse Rate [ From Monitor] Respiratory 32 H 20 21 Rate Respiratory Rate [Abdomen] Blood Pressure 101/73 101/73 117/94 O2 Sat by Pulse 100 Oximetry 02/28/17 02/28/17 02/28/17 22:00 22:10 22:20 Temperature Pulse Rate 113 H 111 H 113 H Pulse Rate [ Apical] Pulse Rate [ From Monitor] Respiratory 33 H 16 22 Rate Respiratory 22 Rate [Abdomen] Blood Pressure 117/94 135/98 99/53 O2 Sat by Pulse Oximetry 02/28/17 02/28/17 02/28/17 22:30 22:40 22:50 Temperature Pulse Rate 112 H 108 H 111 H Pulse Rate [ Apical] Pulse Rate [ From Monitor] Respiratory 23 19 25 H Rate Respiratory Rate [Abdomen] Blood Pressure 91/59 91/59 135/98 O2 Sat by Pulse Oximetry 02/28/17 02/28/17 02/28/17 23:00 23:10 23:20 Temperature Pulse Rate 107 H 111 H 109 H Pulse Rate [ Apical] Pulse Rate [ From Monitor] Respiratory 18 24 28 H Rate Respiratory Rate [Abdomen] Blood Pressure 87/51 94/58 90/69 O2 Sat by Pulse 91 93 91 Oximetry 02/28/17 02/28/17 02/28/17 23:30 23:38 23:40 Temperature 97.8 F Pulse Rate 108 H 110 H Pulse Rate [ Apical] Pulse Rate [ From Monitor] Respiratory 22 12 Rate Respiratory Rate [Abdomen] Blood Pressure 85/61 85/61 O2 Sat by Pulse 77 L Oximetry 02/28/17 02/28/17 03/01/17 23:50 23:54 00:00 Temperature Pulse Rate 113 H 115 H 113 H Pulse Rate [ 124 H Apical] Pulse Rate [ 119 H From Monitor] Respiratory 22 23 26 H Rate Respiratory Rate [Abdomen] Blood Pressure 86/63 78/50 72/50 O2 Sat by Pulse 77 L 65 L Oximetry 03/01/17 03/01/17 03/01/17 00:10 00:20 00:30 Temperature Pulse Rate 111 H 110 H 110 H Pulse Rate [ Apical] Pulse Rate [ From Monitor] Respiratory 31 H 21 38 H Rate Respiratory Rate [Abdomen] Blood Pressure 93/63 76/47 53/33 O2 Sat by Pulse 43 L 69 L 86 Oximetry 03/01/17 03/01/17 03/01/17 00:40 00:50 01:00 Temperature Pulse Rate 108 H 104 H 106 H Pulse Rate [ Apical] Pulse Rate [ From Monitor] Respiratory 25 H 17 21 Rate Respiratory Rate [Abdomen] Blood Pressure 99/72 104/78 90/69 O2 Sat by Pulse 82 L 93 Oximetry 03/01/17 03/01/17 03/01/17 01:10 01:20 01:30 Temperature Pulse Rate 108 H 111 H 108 H Pulse Rate [ Apical] Pulse Rate [ From Monitor] Respiratory 19 20 17 Rate Respiratory Rate [Abdomen] Blood Pressure 98/76 98/75 O2 Sat by Pulse 97 98 97 Oximetry 03/01/17 03/01/17 03/01/17 01:41 01:50 01:51 Temperature Pulse Rate 105 H 111 H Pulse Rate [ Apical] Pulse Rate [ From Monitor] Respiratory 16 16 18 Rate Respiratory Rate [Abdomen] Blood Pressure 100/75 97/74 O2 Sat by Pulse 96 100 Oximetry 03/01/17 03/01/17 03/01/17 02:01 02:10 02:20 Temperature Pulse Rate 110 H 109 H Pulse Rate [ Apical] Pulse Rate [ From Monitor] Respiratory 17 21 15 Rate Respiratory Rate [Abdomen] Blood Pressure 78/51 86/52 O2 Sat by Pulse 98 94 Oximetry 03/01/17 03/01/17 03/01/17 02:21 02:30 02:40 Temperature Pulse Rate 108 H 107 H 109 H Pulse Rate [ Apical] Pulse Rate [ From Monitor] Respiratory 16 16 15 Rate Respiratory Rate [Abdomen] Blood Pressure 82/57 82/58 86/59 O2 Sat by Pulse Oximetry 03/01/17 03/01/17 03/01/17 02:51 03:00 03:11 Temperature Pulse Rate 108 H 107 H 106 H Pulse Rate [ Apical] Pulse Rate [ From Monitor] Respiratory 19 20 18 Rate Respiratory Rate [Abdomen] Blood Pressure 84/60 80/56 86/65 O2 Sat by Pulse 63 L 100 Oximetry 03/01/17 03/01/17 03/01/17 03:21 03:24 03:30 Temperature 97.5 F L Pulse Rate 108 H 106 H Pulse Rate [ Apical] Pulse Rate [ From Monitor] Respiratory 20 19 Rate Respiratory Rate [Abdomen] Blood Pressure 73/55 84/63 O2 Sat by Pulse 100 Oximetry 03/01/17 03/01/17 03/01/17 03:40 03:50 04:00 Temperature Pulse Rate 105 H 105 H 108 H Pulse Rate [ 112 H Apical] Pulse Rate [ 109 H From Monitor] Respiratory 20 21 23 Rate Respiratory Rate [Abdomen] Blood Pressure 84/58 84/60 97/71 O2 Sat by Pulse 100 82 L Oximetry 03/01/17 03/01/17 03/01/17 04:11 04:21 04:31 Temperature Pulse Rate 109 H 106 H 104 H Pulse Rate [ Apical] Pulse Rate [ From Monitor] Respiratory 22 24 24 Rate Respiratory Rate [Abdomen] Blood Pressure 97/71 107/61 107/61 O2 Sat by Pulse 69 L Oximetry 03/01/17 03/01/17 03/01/17 04:41 04:51 05:00 Temperature Pulse Rate 107 H 105 H 105 H Pulse Rate [ Apical] Pulse Rate [ From Monitor] Respiratory 30 H 18 23 Rate Respiratory Rate [Abdomen] Blood Pressure 97/71 88/58 83/60 O2 Sat by Pulse 99 Oximetry 03/01/17 03/01/17 03/01/17 05:11 05:21 05:30 Temperature Pulse Rate 102 H 107 H 108 H Pulse Rate [ Apical] Pulse Rate [ From Monitor] Respiratory 24 18 20 Rate Respiratory Rate [Abdomen] Blood Pressure 83/60 80/51 72/50 O2 Sat by Pulse Oximetry 03/01/17 03/01/17 03/01/17 05:40 05:50 06:00 Temperature Pulse Rate 104 H 104 H 103 H Pulse Rate [ Apical] Pulse Rate [ From Monitor] Respiratory 24 25 H 21 Rate Respiratory Rate [Abdomen] Blood Pressure 84/54 83/61 87/62 O2 Sat by Pulse 80 L 95 Oximetry 03/01/17 03/01/17 03/01/17 06:11 06:21 06:30 Temperature Pulse Rate 104 H 103 H 102 H Pulse Rate [ Apical] Pulse Rate [ From Monitor] Respiratory 17 22 22 Rate Respiratory Rate [Abdomen] Blood Pressure 96/72 83/58 85/61 O2 Sat by Pulse 90 89 Oximetry 03/01/17 03/01/17 03/01/17 06:40 06:50 07:01 Temperature Pulse Rate 103 H 100 H 99 H Pulse Rate [ Apical] Pulse Rate [ From Monitor] Respiratory 22 27 H 20 Rate Respiratory Rate [Abdomen] Blood Pressure 85/64 87/61 83/61 O2 Sat by Pulse 78 L Oximetry 03/01/17 03/01/17 03/01/17 07:11 07:20 07:30 Temperature Pulse Rate 102 H 101 H 98 H Pulse Rate [ Apical] Pulse Rate [ From Monitor] Respiratory 27 H 26 H 19 Rate Respiratory Rate [Abdomen] Blood Pressure 87/65 81/57 91/67 O2 Sat by Pulse 35 L 85 Oximetry 03/01/17 03/01/17 03/01/17 07:31 07:41 07:51 Temperature Pulse Rate 100 H 99 H Pulse Rate [ Apical] Pulse Rate [ From Monitor] Respiratory 24 16 15 Rate Respiratory Rate [Abdomen] Blood Pressure 91/67 82/49 O2 Sat by Pulse 97 Oximetry 03/01/17 03/01/17 03/01/17 08:00 08:11 08:21 Temperature 97.6 F Pulse Rate 104 H 99 H 99 H Pulse Rate [ Apical] Pulse Rate [ From Monitor] Respiratory 15 22 19 Rate Respiratory Rate [Abdomen] Blood Pressure 68/46 77/53 76/57 O2 Sat by Pulse 97 96 Oximetry 03/01/17 03/01/17 03/01/17 08:30 08:41 08:51 Temperature Pulse Rate 99 H 97 H 103 H Pulse Rate [ Apical] Pulse Rate [ From Monitor] Respiratory 24 15 26 H Rate Respiratory Rate [Abdomen] Blood Pressure 84/54 84/54 76/57 O2 Sat by Pulse 99 98 99 Oximetry 03/01/17 03/01/17 03/01/17 09:00 09:11 09:21 Temperature Pulse Rate 99 H 99 H 101 H Pulse Rate [ Apical] Pulse Rate [ From Monitor] Respiratory 21 17 30 H Rate Respiratory Rate [Abdomen] Blood Pressure 91/47 91/47 84/60 O2 Sat by Pulse 83 L Oximetry 03/01/17 03/01/17 03/01/17 09:30 09:41 09:51 Temperature Pulse Rate 97 H 99 H Pulse Rate [ Apical] Pulse Rate [ From Monitor] Respiratory 15 22 17 Rate Respiratory Rate [Abdomen] Blood Pressure 86/58 86/58 111/82 O2 Sat by Pulse 57 L Oximetry 08/02/0803/01/17 03/01/17 10:00 10:11 10:21 Temperature Pulse Rate 97 H 97 H 95 H Pulse Rate [ Apical] Pulse Rate [ From Monitor] Respiratory 15 16 14 Rate Respiratory Rate [Abdomen] Blood Pressure 84/60 84/60 88/62 O2 Sat by Pulse 82 L Oximetry 03/01/17 03/01/17 03/01/17 10:30 10:41 10:51 Temperature Pulse Rate 95 H 96 H 93 H Pulse Rate [ Apical] Pulse Rate [ From Monitor] Respiratory 16 15 15 Rate Respiratory Rate [Abdomen] Blood Pressure 77/46 77/46 89/52 O2 Sat by Pulse Oximetry 03/01/17 03/01/17 03/01/17 11:01 11:11 11:21 Temperature Pulse Rate 92 H 93 H 96 H Pulse Rate [ Apical] Pulse Rate [ From Monitor] Respiratory 11 L 18 13 Rate Respiratory Rate [Abdomen] Blood Pressure 104/76 104/76 86/55 O2 Sat by Pulse Oximetry 03/01/17 03/01/17 03/01/17 11:31 11:41 11:51 Temperature Pulse Rate 97 H 96 H 95 H Pulse Rate [ Apical] Pulse Rate [ From Monitor] Respiratory 14 12 15 Rate Respiratory Rate [Abdomen] Blood Pressure 72/34 96/41 90/56 O2 Sat by Pulse 100 Oximetry 03/01/17 03/01/17 12:00 12:11 Temperature 97.4 F L Pulse Rate 93 H 94 H Pulse Rate [ Apical] Pulse Rate [ From Monitor] Respiratory 15 15 Rate Respiratory Rate [Abdomen] Blood Pressure 88/54 88/54 O2 Sat by Pulse Oximetry General appearance: other (somnolent, easily arousable, moans, critically ill on pressors) Eyes: non-icteric ENT: oropharynx moist Effort: normal (good effort) Ascultation: Bilateral: clear Cardiovascular: regular rate and rhythm (no mrg) Gastrointestinal: normoactive bowel sounds, soft, non-distended, other (TTP throughout) Extremities: no cyanosis, no edema, pink and warm non-focal exam, pupils equal and round, CN II-XII normal mood appropriate, affect normal Results - Laboratory Findings CBC and BMP: 03/01/17 10:20 03/01/17 10:20 Abnormal lab findings: Abnormal Labs 02/28/17 02/28/17 03/01/17 20:00 Unknown 10:20 WBC 28.6 H Lymphocytes % (Manual) 2.5 L Seg Neutrophils # Man 16.6 H Lymphocytes # (Manual) 0.7 L Monocytes # (Manual) 1.4 H Potassium Chloride Carbon Dioxide BUN Creatinine Glucose Lactic Acid 3.50 H* 2.60 H* Calcium Total Bilirubin AST Total Protein Albumin 03/01/17 10:20 WBC Lymphocytes % (Manual) Seg Neutrophils # Man Lymphocytes # (Manual) Monocytes # (Manual) Potassium 5.2 H D Chloride 109.6 H Carbon Dioxide 11 L BUN 28 H Creatinine 1.3 H Glucose 29 L* Lactic Acid Calcium 6.0 L Total Bilirubin 4.80 H AST 89 H Total Protein 5.4 L D Albumin 2.3 L - Diagnostic Findings Chest x-ray: report reviewed, image reviewed (mild interstitial prominence, ? early pulm edema) Assessment and Plan Imp: 1. UTI 2. Sepsis/bacteremia 2/2 #1 but r/o biliary source also given worsening LFTs; Lipase is normal 3. Lactic acidosis 4. Hyperkalemia 5. SHAIHD 6. Hypocalcemia 7. Hypoglycemia 8. Metabolic encephalopathy Rec: 1. D/c Rocephin; Cont. Vanco/Zosyn; f/u cultures 2. Extra 2L NS bolus today 3. Repeat Ca Gluconate; check ABG as may need some bicarb; repeat K in 4 hours 4. Wean pressors to keep MAP > 65 5. Keep NPO; check RUQ US; consider GI evaluation re: LFTs; trend LFTs 6. IV Synthroid 7. DVT PPx 8. Prognosis is guarded; d/w family, they understand/agree with plan of care CCT 31 minutes
[2017-03-01] MEDS: LOVENOX SUB-Q SCH (15:26)
[2017-03-01 16:10] LABS: Albumin 2.1 g/dL (3.9-5); Albumin/Globulin Ratio 0.7 %; BUN/Creatinine Ratio 25.45; Bilirubin,Total 5.5 mg/dL (0.1-1.2); Chloride 111.3 mmol/L (98-107); Potassium 5.4 mmol/L (3.6-5.0); Total Protein 5.1 g/dL (6.3-8.2)
[2017-03-01 16:18] LABS: Calcium 5.9 mg/dL (8.4-10.2)
[2017-03-01] MEDS ORDERED: SODIUM BICARBONATE IV ONE ×2 (16:27→17:00)
--- NOTE | 2017-03-01 16:39 | Progress Note ---
Assessment and Plan Assessment and plan: 26 YO Female with Hypothyroidism presents to ED for evaluation. Pt states that she has experienced nausea, vomiting, and multiple episodes of loose stools over the past 5 days with worsening symptoms over the past 8 hours. Pt seen and evaluated in ED and found to have sepsis IAW hypovolemic shock. Pt treated IAW sepsis protocol. Pt does not provide additional history. Pt denies fever, chills , CP, Palpitations, Syncope, skin rash, recent ill contacts. The patient came to the ED yesterday and labs drawn for left prior to being evaluated. As per EMS, the patient was hypotensive with a systolic blood pressure in the 50's and found to be tachycardic, and hypoglycemic with serum glucose in the 40's. 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 * Electrolyte derrangement- Hyperkalemia, Hypocalcemia corrected to 7.4 * Replace CA, K correction modality * Severe protein calorie malnutrition * Nutrition consult * Acute Kidney Injury * Resolved. secondary to vasomotor nephropathy * Hypoglycemia * start on D5NS * DVT/GI prophy * Prognosis guarded, no family available at the time of my eval, call placed. * Rounded with am and pm nursing staff this morning. The high probability of a clinically significant, sudden or life threatening deterioration of the [VASCULAR, ENDOCRINE, GI ] system(s) required my full and direct attention, intervention and personal management. The aggregate critical care time was [35] minutes. This time is in addition to time spent performing reported procedures but includes the following: [X] Data Review and interpretation [X] Patient assessment and monitoring of vital signs [X] Documentation [X] Medication orders and management History Interval history: Patient seen and examined this morning complains of pain at the abdomen area. Denies any nausea vomiting diarrhea. Hospitalist Physical - Physical exam Narrative exam: VITAL SIGNS: Reviewed. GENERAL: The patient appeared in mild distress secondary to abdominal pain. Vital signs as documented. HEAD: No signs of head trauma. EYES: Pupils are equal. Extraocular motions intact. EARS: Hearing grossly intact. MOUTH: Oropharynx is normal. NECK: No adenopathy, no JVD. CHEST: Chest with clear breath sounds bilaterally. No wheezes, rales, or rhonchi. CARDIAC: Regular rate and rhythm. S1 and S2, without murmurs, gallops, or rubs. VASCULAR: No Edema. Peripheral pulses normal and equal in all extremities. ABDOMEN: Soft, tender. No sign of distention. No rebound or guarding, and no masses palpated. Bowel Sounds hypoactive MUSCULOSKELETAL: Good range of motion of all major joints. Extremities without clubbing, cyanosis or edema. NEUROLOGIC EXAM: Alert and oriented x 3. No focal sensory or strength deficits. Speech normal. Follows commands. PSYCHIATRIC: Mood normal. SKIN: No rash or lesions. - Constitutional Vitals: Temp Pulse Resp BP Pulse Ox 97.4 F L 91 H 12 97/72 100 03/01/17 12:00 03/01/17 15:51 03/01/17 15:51 03/01/17 15:51 03/01/17 15:53 General appearance: Present: severe distress Results - Labs CBC & Chem 7: 03/01/17 10:20 03/01/17 15:30 Labs: Laboratory Last Values WBC 28.6 K/mm3 (4.5-11.0) H 03/01/17 10:20 RBC 4.38 M/mm3 (3.65-5.03) 03/01/17 10:20 Hgb 12.6 gm/dl (10.1-14.3) D 03/01/17 10:20 Hct 39.0 % (30.3-42.9) D 03/01/17 10:20 MCV 89 fl (79-97) 03/01/17 10:20 MCH 29 pg (28-32) 03/01/17 10:20 MCHC 32 % (30-34) 03/01/17 10:20 RDW 14.4 % (13.2-15.2) 03/01/17 10:20 Plt Count 165 K/mm3 (140-440) 03/01/17 10:20 Lymph % (Auto) 22.8 % (13.4-35.0) 02/28/17 12:03 [place] % (Auto) 2.2 % (0.0-7.3) 02/28/17 12:03 Eos % (Auto) 1.2 % (0.0-4.3) 02/28/17 12:03 Baso % (Auto) 0.2 % (0.0-1.8) 02/28/17 12:03 Lymph # 1.2 K/mm3 (1.2-5.4) 02/28/17 12:03 [place] # 0.1 K/mm3 (0.0-0.8) 02/28/17 12:03 Eos # 0.1 K/mm3 (0.0-0.4) 02/28/17 12:03 Baso # 0.0 K/mm3 (0.0-0.1) 02/28/17 12:03 Add Manual Diff Complete 03/01/17 10:20 Total Counted 200 03/01/17 10:20 Seg Neutrophils % 73.6 % (40.0-70.0) H 02/28/17 12:03 Seg Neuts % (Manual) 58.0 % (40.0-70.0) 03/01/17 10:20 Band Neutrophils % 34.5 % 03/01/17 10:20 Lymphocytes % (Manual) 2.5 % (13.4-35.0) L 03/01/17 10:20 Reactive Lymphs % (Man) 0 % 03/01/17 10:20 Monocytes % (Manual) 5.0 % (0.0-7.3) 03/01/17 10:20 Eosinophils % (Manual) 0 % (0.0-4.3) 03/01/17 10:20 Basophils % (Manual) 0 % (0.0-1.8) 03/01/17 10:20 Metamyelocytes % 0 % 03/01/17 10:20 Myelocytes % 0 % 03/01/17 10:20 Promyelocytes % 0 % 03/01/17 10:20 Blast Cells % 0 % 03/01/17 10:20 Nucleated RBC % Not Reportable 03/01/17 10:20 Seg Neutrophils # 3.8 K/mm3 (1.8-7.7) 02/28/17 12:03 Seg Neutrophils # Man 16.6 K/mm3 (1.8-7.7) H 03/01/17 10:20 Band Neutrophils # 9.9 K/mm3 03/01/17 10:20 Lymphocytes # (Manual) 0.7 K/mm3 (1.2-5.4) L 03/01/17 10:20 Abs React Lymphs (Man) 0.0 K/mm3 03/01/17 10:20 Monocytes # (Manual) 1.4 K/mm3 (0.0-0.8) H 03/01/17 10:20 Eosinophils # (Manual) 0.0 K/mm3 (0.0-0.4) 03/01/17 10:20 Basophils # (Manual) 0.0 K/mm3 (0.0-0.1) 03/01/17 10:20 Metamyelocytes # 0.0 K/mm3 03/01/17 10:20 Myelocytes # 0.0 K/mm3 03/01/17 10:20 Promyelocytes # 0.0 K/mm3 03/01/17 10:20 Blast Cells # 0.0 K/mm3 03/01/17 10:20 WBC Morphology Not Reportable 03/01/17 10:20 Hypersegmented Neuts Not Reportable 03/01/17 10:20 Hyposegmented Neuts Not Reportable 03/01/17 10:20 Hypogranular Neuts Not Reportable 03/01/17 10:20 Smudge Cells Not Reportable 03/01/17 10:20 Toxic Granulation Not Reportable 03/01/17 10:20 Toxic Vacuolation Not Reportable 03/01/17 10:20 Dohle Bodies Not Reportable 03/01/17 10:20 Pelger-Huet Anomaly Not Reportable 03/01/17 10:20 Linda Rods Not Reportable 03/01/17 10:20 Platelet Estimate Appears normal 03/01/17 10:20 Clumped Platelets Not Reportable 03/01/17 10:20 Plt Clumps, EDTA Not Reportable 03/01/17 10:20 Large Platelets Not Reportable 03/01/17 10:20 Giant Platelets Not Reportable 03/01/17 10:20 Platelet Satelliting Not Reportable 03/01/17 10:20 Plt Morphology Comment Not Reportable 03/01/17 10:20 RBC Morphology Not Reportable 03/01/17 10:20 Dimorphic RBCs Not Reportable 03/01/17 10:20 Polychromasia Not Reportable 03/01/17 10:20 Hypochromasia Not Reportable 03/01/17 10:20 Poikilocytosis Not Reportable 03/01/17 10:20 Anisocytosis Not Reportable 03/01/17 10:20 Microcytosis Not Reportable 03/01/17 10:20 Macrocytosis Not Reportable 03/01/17 10:20 Spherocytes Not Reportable 03/01/17 10:20 Pappenheimer Bodies Not Reportable 03/01/17 10:20 Sickle Cells Not Reportable 03/01/17 10:20 Target Cells Not Reportable 03/01/17 10:20 Tear Drop Cells Not Reportable 03/01/17 10:20 Ovalocytes Not Reportable 03/01/17 10:20 Helmet Cells Not Reportable 03/01/17 10:20 [place] Bodies Not Reportable 03/01/17 10:20 [place] Rings Not Reportable 03/01/17 10:20 Teri Cells 2+ 03/01/17 10:20 Bite Cells Not Reportable 03/01/17 10:20 Crenated Cell Not Reportable 03/01/17 10:20 Elliptocytes Not Reportable 03/01/17 10:20 Acanthocytes (Spur) Not Reportable 03/01/17 10:20 Rouleaux Not Reportable 03/01/17 10:20 Hemoglobin C Crystals Not Reportable 03/01/17 10:20 Schistocytes Not Reportable 03/01/17 10:20 Malaria parasites Not Reportable 03/01/17 10:20 Charlie Bodies Not Reportable 03/01/17 10:20 Hem Pathologist Commnt No 03/01/17 10:20 Sodium 138 mmol/L (137-145) 03/01/17 10:20 Potassium 5.2 mmol/L (3.6-5.0) H D 03/01/17 10:20 Chloride 109.6 mmol/L (98-107) H 03/01/17 10:20 Carbon Dioxide 10 mmol/L (22-30) L 03/01/17 15:30 Anion Gap 23 mmol/L 03/01/17 10:20 BUN 28 mg/dL (7-17) H 03/01/17 15:30 Creatinine 1.1 mg/dL (0.7-1.2) 03/01/17 15:30 Estimated GFR 60 ml/min 03/01/17 15:30 BUN/Creatinine Ratio 25.45 % 03/01/17 15:30 Glucose 79 mg/dL (65-100) 03/01/17 15:30 POC Glucose 69 (70-105) L 02/28/17 11:44 Lactic Acid 2.60 mmol/L (0.7-2.0) H* 02/28/17 Unknown Calcium 5.9 mg/dL (8.4-10.2) L* 03/01/17 15:30 Total Bilirubin 5.50 mg/dL (0.1-1.2) H 03/01/17 15:30 AST 135 units/L (5-40) H 03/01/17 15:30 ALT 46 units/L (7-56) 03/01/17 15:30 Alkaline Phosphatase 78 units/L (35-129) 03/01/17 15:30 Total Creatine Kinase 56 units/L (30-135) 02/28/17 12:03 CK-MB (CK-2) 1.4 ng/mL (0.0-4.0) 02/28/17 12:03 CK-MB (CK-2) Rel Index 2.5 (0-4) 02/28/17 12:03 Troponin T < 0.010 ng/mL (0.00-0.029) 02/28/17 12:03 Total Protein 5.1 g/dL (6.3-8.2) L 03/01/17 15:30 Albumin 2.1 g/dL (3.9-5) L 03/01/17 15:30 Albumin/Globulin Ratio 0.7 % 03/01/17 15:30 Lipase 6 units/L (13-60) L 02/28/17 12:03 TSH 58.000 mlU/mL (0.270-4.200) H 02/28/17 12:03 Free T4 0.41 ng/dL (0.76-1.46) L 02/28/17 12:03 HCG, Qual Negative (Negative) 02/28/17 12:03 Urine Color Yellow (Yellow) 02/28/17 11:40 Urine Turbidity Cloudy (Clear) 02/28/17 11:40 Urine pH 5.0 (5.0-7.0) 02/28/17 11:40 Ur Specific [place] 1.015 (1.003-1.030) 02/28/17 11:40 Urine Protein 100 mg/dl mg/dL (Negative) 02/28/17 11:40 Urine Glucose (UA) Neg mg/dL (Negative) 02/28/17 11:40 Urine Ketones Neg mg/dL (Negative) 02/28/17 11:40 Urine Blood Sm (Negative) 02/28/17 11:40 Urine Nitrite Neg (Negative) 02/28/17 11:40 Urine Bilirubin Neg (Negative) 02/28/17 11:40 Urine Urobilinogen < 2.0 mg/dL (<2.0) 02/28/17 11:40 Ur Leukocyte Esterase Lg (Negative) 02/28/17 11:40 Urine WBC (Auto) 80.0 /HPF (0.0-6.0) H 02/28/17 11:40 Urine RBC (Auto) 4.0 /HPF (0.0-6.0) 02/28/17 11:40 U Epithel Cells (Auto) 1.0 /HPF (0-13.0) 02/28/17 11:40 Urine Bacteria (Auto) 1+ /HPF (Negative) 02/28/17 11:40 Urine Mucus 1+ /HPF 02/28/17 11:40 Random Vancomycin 5.7 ug/mL (0-40.0) 03/01/17 12:53 Blood Type O POSITIVE 02/28/17 12:03 Antibody Screen TNR 02/28/17 12:03 TEJAL Antibody Screen Negative 02/28/17 12:03 Crossmatch See Detail 02/28/17 12:03 - Imaging and Cardiology CT scan - abdomen: image reviewed (Pancreatitis)
[2017-03-01] MEDS ORDERED: CALCIUM GLUCONATE 2,000 MG in NACL 0.9% 100 ML IV ONE (17:00)
[2017-03-01] MEDS: D5NS IV SCH (17:25)
[2017-03-01] MEDS: SODIUM BICARBONATE IV SCH (17:25)
[2017-03-01] MEDS ORDERED: NACL 0.9% 1000 ML 1,000 ML with SODIUM BICARBONATE 50 MEQ IV SCH (17:30)
[2017-03-01 22:16] LABS: ISTAT Base Excess -19; ISTAT HCO3 10.2; ISTAT PCO2 29.9 (35-45); ISTAT PO2 149 (80-105); ISTAT SO2 99; ISTAT TCO2 11
[2017-03-01] MEDS ORDERED: ZOFRAN IV PRN (22:52)
[2017-03-02] MEDS: LEVOPHED 8 MG in NACL 0.9% 250ML 242 ML IV SCH ×2 (02:03→06:12)
[2017-03-02] MEDS: SODIUM BICARBONATE IV SCH (03:00)
[2017-03-02] MEDS: D5NS IV SCH (03:00)
[2017-03-02] MEDS: Vasostrict 20 UNIT in NACL 0.9% 100 ML IV SCH ×2 (03:01→13:30)
[2017-03-02] MEDS: ZOSYN/NS 2.25 GM/50ML 2.25 GM/50 ML BAG IV SCH (03:07)
[2017-03-02 05:23] LABS: Hematocrit 36.2 % (30.3-42.9); Hemoglobin 11.9 gm/dl (10.1-14.3); Mean Corpuscular HGB Conc 33 % (30-34); Mean Corpuscular Hemoglobin 29 pg (28-32); Mean Corpuscular Volume 87 fl (79-97); Platelet Count 139 K/mm3 (140-440); Red Blood Count 4.16 M/mm3 (3.65-5.03); Red Cell Distribution Width 14.5 % (13.2-15.2)
[2017-03-02 05:24] LABS: White Blood Count 23.5 K/mm3 (4.5-11.0)
[2017-03-02] MEDS: SYNTHROID IV SCH (05:38)
[2017-03-02 05:50] LABS: Albumin 2.1 g/dL (3.9-5); Bilirubin,Total 5.9 mg/dL (0.1-1.2); Calcium 6.6 mg/dL (8.4-10.2); Chloride 111.2 mmol/L (98-107); Magnesium 1.3 mg/dL (1.7-2.3); Phosphorous 4.5 mg/dL (2.5-4.5); Potassium 4.1 mmol/L (3.6-5.0); Total Protein 4.3 g/dL (6.3-8.2)
[2017-03-02 06:32] LABS: Anisocytosis 1+; Blastocytes % (Manual) 0 %; Burr Cells 1+; Eosinophils % (Manual) 0 % (0.0-4.3); Hypochromasia 1+
[2017-03-02 06:33] LABS: Diff Status Complete; Platelet Estimate Consistent w Auto
--- NOTE | 2017-03-02 08:23 | Ultrasound Report ---
ULTRASOUND ABDOMEN COMPLETE: Technique: Transabdominal ultrasound with color Doppler interrogation. History: Sepsis, bacteremia, elevated liver function tests, evaluate for cholangitis or cholecystitis. Findings: Compared to the CT abdomen pelvis without contrast performed 02/28/17. Small ascites and small to medium bilateral pleural effusions are identified. There is no evidence for cholelithiasis or sludge in the gallbladder. The gallbladder is not distended. There is nonspecific thickening of the gallbladder wall up to 6 mm which could be secondary to ascites. The CBD measures 2 mm. Low suspicion for acute cholecystitis. The liver parenchyma demonstrates normal echogenicity. No mass or disease is appreciated. Both kidneys are markedly echogenic suggesting advanced renal parenchymal disease or acute renal failure. No focal renal lesion, cystic disease, nephrolithiasis or hydronephrosis is appreciated. The bladder was not imaged. The spleen is unremarkable and measures 9.3 cm. The pancreas and aorta are within normal limits. IMPRESSION: No evidence for cholelithiasis or biliary dilatation. Nonspecific gallbladder wall thickening is suspected. Unremarkable liver on ultrasound and noncontrast CT. If there is concern for cholangitis, CT abdomen with contrast is recommended. Advanced renal parenchymal disease or acute renal failure. Small ascites and bilateral pleural effusions.
[2017-03-02] MEDS ORDERED: PERCOCET 5/325 PO PRN (08:51)
[2017-03-02] MEDS ORDERED: MAGNESIUM SULFATE 4GM/100ML 4 GM/100 ML BAG IV ONE (09:00)
[2017-03-02] MEDS ORDERED: VANCOMYCIN 750 MG in NACL 0.9% 250ML 250 ML IV SCH (10:00)
--- NOTE | 2017-03-02 10:01 | Gastroenterology Consultation ---
History of Present Illness - Reason for Consult Consult date: 03/02/17 persistent N/V Requesting physician: JILLIAN FARAH - History of Present Illness Patient is a 26 y/o female who was admitted for abd pain, N/V/D, weakness, and confusion that progressively worsened over the past 4 to 5 days. She was found to have hypotension and hypoglycemia. Currently she is on levophed and dopamine. She is drowsy from pain medication, but easily arroused. Oriented to person and place, but still slightly confused. No family at bedside. History received from chart review and pt. She reports having a recent , unclear on details or exact time of occurrence. Her LFTs are found to be elevated. She denies a hx or Fhx of liver disease or ETOH use. Her AST was elevated at 145 on 08/10 according to chart review. She states her N/V has now improved but still having generalized abd pain. Denies fever, wt loss, hematemesis, dysphagia, melena, constipation, or hematochezia. Past History Past Medical History: hypothyroidism Past Surgical History: Other () Social history: single, lives with family. denies: smoking, alcohol abuse, prescription drug abuse Family history: hypertension Medications and Allergies Allergies Allergy/AdvReac Type Severity Reaction Status Date / Time No Known Allergies Allergy Verified 07/26/15 20:16 Home Medications Medication Instructions Recorded Confirmed Last Taken Type Acetaminophen/Codeine [Tylenol #3] 1 tab PO Q6H PRN #30 tab 07/27/15 Unknown Rx Cephalexin [Keflex] 500 mg PO Q8HR #42 cap 07/27/15 Unknown Rx Active Meds: Active Medications Acetaminophen (Tylenol) 650 mg PO Q6H PRN PRN Reason: Pain, Mild (1-3) Bisacodyl (Dulcolax) 10 mg AL QDAY PRN PRN Reason: constipation unrelieved by MOM Dextrose (D50w (25gm)) 25 gm IV PRN PRN PRN Reason: Hypoglycemia Enoxaparin Sodium (Lovenox) 40 mg SUB-Q DAILY [facility] Last Admin: 03/01/17 15:26 Dose: 40 mg Hydrocortisone Sodium Succinate (Solu-Cortef) 100 mg IV Q8H NICOLE Last Admin: 03/02/17 05:41 Dose: 100 mg Dopamine HCl/Dextrose (Intropin Drip 800 Mg/D5w 250 Ml) 800 mg in 250 mls @ 1.361 mls/hr IV TITR ONE; 2 MCG/KG/MIN PRN Reason: Protocol Stop: 03/08/17 06:23 Last Titration: 03/01/17 02:00 Dose: 0 mcg/kg/min, 0 mls/hr Vasopressin 20 unit/ Sodium (Chloride) 101 mls @ 9.09 mls/hr IV TITR NICOLE; 0.03 UNITS/MIN PRN Reason: Protocol Last Admin: 03/02/17 03:01 Dose: 0.03 units/min, 9.09 mls/hr Norepinephrine 8 mg/ Sodium (Chloride) 250 mls @ 3.75 mls/hr IV TITR NICOLE; 2 MCG /MIN PRN Reason: Protocol Last Admin: 03/02/17 06:12 Dose: 12 mcg/min, 22.5 mls/hr Sodium Bicarbonate 50 meq/ (Dextrose/Sodium Chloride) 1,050 mls @ 125 mls/hr IV DIRECT NICOLE Last Admin: 03/02/17 03:00 Dose: 125 mls/hr Piperacillin Sod/Tazobactam Sod (Zosyn/Ns 4.5gm/100ml) 4.5 gm in 100 mls @ 200 mls/hr IV Q8HR NICOLE Vancomycin HCl 750 mg/ Sodium (Chloride) 265 mls @ 132.5 mls/hr IV BID NICOLE Magnesium Sulfate (Magnesium Sulfate 4gm/100ml) 4 gm in 100 mls @ 25 mls/hr IV ONCE ONE Stop: 03/02/17 12:59 Levothyroxine Sodium (Synthroid) 100 mcg IV DAILY@0600 [facility] Last Admin: 03/02/17 05:38 Dose: 100 mcg Lorazepam (Ativan) 1 mg IV Q4H PRN PRN Reason: Agitation Magnesium Hydroxide (Milk Of Magnesia) 30 ml PO Q4H PRN PRN Reason: Constipation Morphine Sulfate (Morphine) 2 mg IV Q4H PRN PRN Reason: Pain, Moderate (4-6) Ondansetron HCl (Zofran) 4 mg IV Q4H PRN PRN Reason: Nausea Oxycodone/Acetaminophen (Percocet 5/325) 2 tab PO Q6H PRN PRN Reason: Pain, Moderate (4-6) Vancomycin HCl (Vancomycin Pharmacy To Dose) 1 each IV PKCONSULT NICOLE PRN Reason: Protocol Review of Systems - Review of Systems All systems: negative Constitutional: weakness Gastrointestinal: abdominal pain, nausea, vomiting, other (loose stools) Neurological: other (confusion) Exam - Constitutional Vital Signs: Temp Pulse Resp BP Pulse Ox 97.6 F 92 H 22 99/75 91 03/02/17 08:00 03/02/17 09:15 03/02/17 09:15 03/02/17 09:15 03/02/17 09:15 General appearance: mild distress, well-nourished - EENT Eyes: PERRL, EOM intact ENT: hearing intact - Neck Neck: supple, normal ROM - Respiratory Respiratory: bilateral: CTA (anterior) - Cardiovascular Rhythm: regular Heart Sounds: Present: S1 & S2 Extremities: No edema - Gastrointestinal General gastrointestinal: Present: soft, tender (generalized), non-distended, normal bowel sounds - Integumentary Integumentary: Present: warm, dry - Neurologic Neurological: oriented to person, oriented to place - Psychiatric Psychiatric: cooperative - Labs CBC & Chem 7: 03/02/17 05:00 03/02/17 05:00 Lab Results: Laboratory Results - last 24 hr 03/01/17 03/01/17 03/01/17 10:20 10:20 11:15 WBC 28.6 H RBC 4.38 Hgb 12.6 D Hct 39.0 D MCV 89 MCH 29 MCHC 32 RDW 14.4 Plt Count 165 Add Manual Diff Complete Total Counted 200 Seg Neuts % (Manual) 58.0 Band Neutrophils % 34.5 Lymphocytes % (Manual) 2.5 L Reactive Lymphs % (Man) 0 Monocytes % (Manual) 5.0 Eosinophils % (Manual) 0 Basophils % (Manual) 0 Metamyelocytes % 0 Myelocytes % 0 Promyelocytes % 0 Blast Cells % 0 Nucleated RBC % Not Reportable Seg Neutrophils # Man 16.6 H Band Neutrophils # 9.9 Lymphocytes # (Manual) 0.7 L Abs React Lymphs (Man) 0.0 Monocytes # (Manual) 1.4 H Eosinophils # (Manual) 0.0 Basophils # (Manual) 0.0 Metamyelocytes # 0.0 Myelocytes # 0.0 Promyelocytes # 0.0 Blast Cells # 0.0 WBC Morphology Not Reportable Hypersegmented Neuts Not Reportable Hyposegmented Neuts Not Reportable Hypogranular Neuts Not Reportable Smudge Cells Not Reportable Toxic Granulation Not Reportable Toxic Vacuolation Not Reportable Dohle Bodies Not Reportable Pelger-Huet Anomaly Not Reportable Linda Rods Not Reportable Platelet Estimate Appears normal Clumped Platelets Not Reportable Plt Clumps, EDTA Not Reportable Large Platelets Not Reportable Giant Platelets Not Reportable Platelet Satelliting Not Reportable Plt Morphology Comment Not Reportable RBC Morphology Not Reportable Dimorphic RBCs Not Reportable Polychromasia Not Reportable Hypochromasia Not Reportable Poikilocytosis Not Reportable Anisocytosis Not Reportable Microcytosis Not Reportable Macrocytosis Not Reportable Spherocytes Not Reportable Pappenheimer Bodies Not Reportable Sickle Cells Not Reportable Target Cells Not Reportable Tear Drop Cells Not Reportable Ovalocytes Not Reportable Helmet Cells Not Reportable Sal-[place] Bodies Not Reportable [place] Rings Not Reportable Holcomb Cells 2+ Bite Cells Not Reportable Crenated Cell Not Reportable Elliptocytes Not Reportable Acanthocytes (Spur) Not Reportable Rouleaux Not Reportable Hemoglobin C Crystals Not Reportable Schistocytes Not Reportable Malaria parasites Not Reportable Charlie Bodies Not Reportable Hem Pathologist Commnt No POC ABG pH POC ABG pCO2 POC ABG pO2 POC ABG HCO3 POC ABG Total CO2 POC ABG O2 Sat POC ABG Base Excess FiO2 Sodium 138 Potassium 5.2 H D Chloride 109.6 H Carbon Dioxide 11 L Anion Gap 23 BUN 28 H Creatinine 1.3 H Estimated GFR 49 BUN/Creatinine Ratio 21.53 Glucose 29 L* POC Glucose < 40 L Lactic Acid Calcium 6.0 L Phosphorus Magnesium Total Bilirubin 4.80 H AST 89 H ALT 32 Alkaline Phosphatase 81 Total Protein 5.4 L D Albumin 2.3 L Albumin/Globulin Ratio 0.7 Random Vancomycin 03/01/17 03/01/17 03/01/17 12:17 12:53 15:30 WBC RBC Hgb Hct MCV MCH MCHC RDW Plt Count Add Manual Diff Total Counted Seg Neuts % (Manual) Band Neutrophils % Lymphocytes % (Manual) Reactive Lymphs % (Man) Monocytes % (Manual) Eosinophils % (Manual) Basophils % (Manual) Metamyelocytes % Myelocytes % Promyelocytes % Blast Cells % Nucleated RBC % Seg Neutrophils # Man Band Neutrophils # Lymphocytes # (Manual) Abs React Lymphs (Man) Monocytes # (Manual) Eosinophils # (Manual) Basophils # (Manual) Metamyelocytes # Myelocytes # Promyelocytes # Blast Cells # WBC Morphology Hypersegmented Neuts Hyposegmented Neuts Hypogranular Neuts Smudge Cells Toxic Granulation Toxic Vacuolation Dohle Bodies Pelger-Huet Anomaly Linda Rods Platelet Estimate Clumped Platelets Plt Clumps, EDTA Large Platelets Giant Platelets Platelet Satelliting Plt Morphology Comment RBC Morphology Dimorphic RBCs Polychromasia Hypochromasia Poikilocytosis Anisocytosis Microcytosis Macrocytosis Spherocytes Pappenheimer Bodies Sickle Cells Target Cells Tear Drop Cells Ovalocytes Helmet Cells Sal-[place] Bodies [place] Rings Teri Cells Bite Cells Crenated Cell Elliptocytes Acanthocytes (Spur) Rouleaux Hemoglobin C Crystals Schistocytes Malaria parasites Charlie Bodies Hem Pathologist Commnt POC ABG pH POC ABG pCO2 POC ABG pO2 POC ABG HCO3 POC ABG Total CO2 POC ABG O2 Sat POC ABG Base Excess FiO2 Sodium Potassium Chloride Carbon Dioxide 10 L Anion Gap BUN 28 H Creatinine 1.1 Estimated GFR 60 BUN/Creatinine Ratio 25.45 Glucose 79 POC Glucose 129 H Lactic Acid Calcium 5.9 L* Phosphorus Magnesium Total Bilirubin 5.50 H AST 135 H ALT 46 Alkaline Phosphatase 78 Total Protein 5.1 L Albumin 2.1 L Albumin/Globulin Ratio 0.7 Random Vancomycin 5.7 03/01/17 03/01/17 03/01/17 15:36 21:13 21:15 WBC RBC Hgb Hct MCV MCH MCHC RDW Plt Count Add Manual Diff Total Counted Seg Neuts % (Manual) Band Neutrophils % Lymphocytes % (Manual) Reactive Lymphs % (Man) Monocytes % (Manual) Eosinophils % (Manual) Basophils % (Manual) Metamyelocytes % Myelocytes % Promyelocytes % Blast Cells % Nucleated RBC % Seg Neutrophils # Man Band Neutrophils # Lymphocytes # (Manual) Abs React Lymphs (Man) Monocytes # (Manual) Eosinophils # (Manual) Basophils # (Manual) Metamyelocytes # Myelocytes # Promyelocytes # Blast Cells # WBC Morphology Hypersegmented Neuts Hyposegmented Neuts Hypogranular Neuts Smudge Cells Toxic Granulation Toxic Vacuolation Dohle Bodies Pelger-Huet Anomaly Linda Rods Platelet Estimate Clumped Platelets Plt Clumps, EDTA Large Platelets Giant Platelets Platelet Satelliting Plt Morphology Comment RBC Morphology Dimorphic RBCs Polychromasia Hypochromasia Poikilocytosis Anisocytosis Microcytosis Macrocytosis Spherocytes Pappenheimer Bodies Sickle Cells Target Cells Tear Drop Cells Ovalocytes Helmet Cells Sal-[place] Bodies [place] Rings Teri Cells Bite Cells Crenated Cell Elliptocytes Acanthocytes (Spur) Rouleaux Hemoglobin C Crystals Schistocytes Malaria parasites Charlie Bodies Hem Pathologist Commnt POC ABG pH POC ABG pCO2 POC ABG pO2 POC ABG HCO3 POC ABG Total CO2 POC ABG O2 Sat POC ABG Base Excess FiO2 Sodium Potassium Chloride Carbon Dioxide Anion Gap BUN Creatinine Estimated GFR BUN/Creatinine Ratio Glucose POC Glucose 210 H 98 Lactic Acid 2.40 H* Calcium Phosphorus Magnesium Total Bilirubin AST ALT Alkaline Phosphatase Total Protein Albumin Albumin/Globulin Ratio Random Vancomycin 03/01/17 03/01/17 03/02/17 22:08 23:53 04:40 WBC RBC Hgb Hct MCV MCH MCHC RDW Plt Count Add Manual Diff Total Counted Seg Neuts % (Manual) Band Neutrophils % Lymphocytes % (Manual) Reactive Lymphs % (Man) Monocytes % (Manual) Eosinophils % (Manual) Basophils % (Manual) Metamyelocytes % Myelocytes % Promyelocytes % Blast Cells % Nucleated RBC % Seg Neutrophils # Man Band Neutrophils # Lymphocytes # (Manual) Abs React Lymphs (Man) Monocytes # (Manual) Eosinophils # (Manual) Basophils # (Manual) Metamyelocytes # Myelocytes # Promyelocytes # Blast Cells # WBC Morphology Hypersegmented Neuts Hyposegmented Neuts Hypogranular Neuts Smudge Cells Toxic Granulation Toxic Vacuolation Dohle Bodies Pelger-Huet Anomaly Linda Rods Platelet Estimate Clumped Platelets Plt Clumps, EDTA Large Platelets Giant Platelets Platelet Satelliting Plt Morphology Comment RBC Morphology Dimorphic RBCs Polychromasia Hypochromasia Poikilocytosis Anisocytosis Microcytosis Macrocytosis Spherocytes Pappenheimer Bodies Sickle Cells Target Cells Tear Drop Cells Ovalocytes Helmet Cells Sal-[place] Bodies [place] Rings Teri Cells Bite Cells Crenated Cell Elliptocytes Acanthocytes (Spur) Rouleaux Hemoglobin C Crystals Schistocytes Malaria parasites Charlie Bodies Hem Pathologist Commnt POC ABG pH 7.140 L POC ABG pCO2 29.9 L POC ABG pO2 149 H POC ABG HCO3 10.2 POC ABG Total CO2 11 POC ABG O2 Sat 99 POC ABG Base Excess -19 FiO2 36 Sodium Potassium Chloride Carbon Dioxide Anion Gap BUN Creatinine Estimated GFR BUN/Creatinine Ratio Glucose POC Glucose 125 H 147 H Lactic Acid Calcium Phosphorus Magnesium Total Bilirubin AST ALT Alkaline Phosphatase Total Protein Albumin Albumin/Globulin Ratio Random Vancomycin 03/02/17 03/02/17 03/02/17 05:00 05:00 05:00 WBC 23.5 H RBC 4.16 Hgb 11.9 Hct 36.2 MCV 87 MCH 29 MCHC 33 RDW 14.5 Plt Count 139 L Add Manual Diff Complete Total Counted 100 Seg Neuts % (Manual) 34.0 L Band Neutrophils % 47.0 Lymphocytes % (Manual) 13.0 L Reactive Lymphs % (Man) 0 Monocytes % (Manual) 4.0 Eosinophils % (Manual) 0 Basophils % (Manual) Metamyelocytes % 2.0 Myelocytes % 0 Promyelocytes % 0 Blast Cells % 0 Nucleated RBC % Not Reportable Seg Neutrophils # Man 8.0 H Band Neutrophils # 11.0 Lymphocytes # (Manual) 3.1 Abs React Lymphs (Man) 0.0 Monocytes # (Manual) 0.9 H Eosinophils # (Manual) 0.0 Basophils # (Manual) 0.0 Metamyelocytes # 0.5 Myelocytes # 0.0 Promyelocytes # 0.0 Blast Cells # 0.0 WBC Morphology Not Reportable Hypersegmented Neuts Not Reportable Hyposegmented Neuts Not Reportable Hypogranular Neuts Not Reportable Smudge Cells Not Reportable Toxic Granulation Not Reportable Toxic Vacuolation Not Reportable Dohle Bodies Not Reportable Pelger-Huet Anomaly Not Reportable Linda Rods Not Reportable Platelet Estimate Consistent w auto Clumped Platelets Not Reportable Plt Clumps, EDTA Not Reportable Large Platelets Not Reportable Giant Platelets Not Reportable Platelet Satelliting Not Reportable Plt Morphology Comment Not Reportable RBC Morphology Not Reportable Dimorphic RBCs Not Reportable Polychromasia Not Reportable Hypochromasia 1+ Poikilocytosis Not Reportable Anisocytosis 1+ Microcytosis Not Reportable Macrocytosis Not Reportable Spherocytes Not Reportable Pappenheimer Bodies Not Reportable Sickle Cells Not Reportable Target Cells Not Reportable Tear Drop Cells Not Reportable Ovalocytes Not Reportable Helmet Cells Not Reportable Sal-[place] Bodies Not Reportable [place] Rings Not Reportable Holcomb Cells 1+ Bite Cells Not Reportable Crenated Cell Not Reportable Elliptocytes Not Reportable Acanthocytes (Spur) Not Reportable Rouleaux Not Reportable Hemoglobin C Crystals Not Reportable Schistocytes Not Reportable Malaria parasites Not Reportable Charlie Bodies Not Reportable Hem Pathologist Commnt No POC ABG pH POC ABG pCO2 POC ABG pO2 POC ABG HCO3 POC ABG Total CO2 POC ABG O2 Sat POC ABG Base Excess FiO2 Sodium 141 Potassium 4.1 D Chloride 111.2 H Carbon Dioxide 13 L Anion Gap 21 BUN 33 H Creatinine 1.1 Estimated GFR 60 BUN/Creatinine Ratio 30.00 Glucose 148 H POC Glucose Lactic Acid 2.30 H* Calcium 6.6 L Phosphorus 4.50 Magnesium 1.30 L Total Bilirubin 5.90 H AST 159 H ALT 54 Alkaline Phosphatase 127 Total Protein 4.3 L Albumin 2.1 L Albumin/Globulin Ratio 1.0 Random Vancomycin Assessment and Plan 1.N/V 2.abd pain 3.elevated LFTs 4.sepsis-UTI with underlying possible pancreatitis 5.septic shock 6.possible myxedema coma -WBC-23.5 -afebrile -T.farrah 5.9, AST 159 -ALT, Alk phos, and Lipase-WNL -abd CT-revealed borderline hepatomegaly, pancreatic tail enlargement suggestive of possible acute pancreatitis, mild ascites -abd u/s-revealed no evidence for cholelithiasis or biliary dilatation, and nonspecific gall bladder wall thickening -an abd CT with contrast is pending for today -etiology- unclear at this time -will order further lab work to r/o other possible causes of elevated LFTs to include hepatitis panel, RIVER, AMA, ASMA, alpha 1 antitrypsin, alpha fetoprotein , ceruloplasmin, and ferritin -N/V has now improved -continue supportive care with IVFs, antimetics, pain medication, and f/u labs -will follow
[2017-03-02] MEDS: LOVENOX SUB-Q SCH (10:08)
[2017-03-02] MEDS: MORPHINE IV PRN (10:08)
[2017-03-02] MEDS ORDERED: SODIUM BICARBONATE 150 MEQ in D5W 1,000 ML IV ONE (11:00)
[2017-03-02] MEDS: VANCOMYCIN 750 MG in NACL 0.9% 250ML 250 ML IV SCH ×2 (11:00→22:17)
--- NOTE | 2017-03-02 11:55 | Progress Note ---
Assessment and Plan Imp: 1. UTI 2. Sepsis/bacteremia 2/2 #1 but r/o biliary source also given worsening LFTs; Lipase is normal 3. Lactic acidosis 4. Hyperkalemia, better 5. SHAHID, better 6. Hypocalcemia 7. Hypoglycemia, better 8. Metabolic encephalopathy Rec: 1. Cont. Vanco/Zosyn; f/u blood/urine culture ID/sens. 2. 3 amps of bicarb in 1L of D5W and run at 125mL/hour for now; repeat ABG today 3. Replete mag 4. Wean pressors to keep MAP > 65 5. Keep NPO; for CT a/p with IV/PO contrast; GI on board 6. IV Synthroid 7. DVT PPx 8. PICC line 9. Prognosis is guarded; d/w family, they understand/agree with plan of care CCT 31 minutes Subjective Date of service: 03/02/17 Principal diagnosis: Sepsis Interval history: Remains on Vaso 0.03 units/min and Levophed down to 12 mcg. On bicarb drip. Sleepy after Morphine but easily arouses and respiratory effort is good. Active Medications Acetaminophen (Tylenol) 650 mg PO Q6H PRN PRN Reason: Pain, Mild (1-3) Bisacodyl (Dulcolax) 10 mg HI QDAY PRN PRN Reason: constipation unrelieved by MOM Dextrose (D50w (25gm)) 25 gm IV PRN PRN PRN Reason: Hypoglycemia Enoxaparin Sodium (Lovenox) 40 mg SUB-Q DAILY [facility] Last Admin: 03/02/17 10:08 Dose: 40 mg Hydrocortisone Sodium Succinate (Solu-Cortef) 100 mg IV Q8H NICOLE Last Admin: 03/02/17 05:41 Dose: 100 mg Dopamine HCl/Dextrose (Intropin Drip 800 Mg/D5w 250 Ml) 800 mg in 250 mls @ 1.361 mls/hr IV TITR ONE; 2 MCG/KG/MIN PRN Reason: Protocol Stop: 03/08/17 06:23 Last Titration: 03/01/17 02:00 Dose: 0 mcg/kg/min, 0 mls/hr Vasopressin 20 unit/ Sodium (Chloride) 101 mls @ 9.09 mls/hr IV TITR NICOLE; 0.03 UNITS/MIN PRN Reason: Protocol Last Admin: 03/02/17 03:01 Dose: 0.03 units/min, 9.09 mls/hr Norepinephrine 8 mg/ Sodium (Chloride) 250 mls @ 3.75 mls/hr IV TITR NICOLE; 2 MCG /MIN PRN Reason: Protocol Last Admin: 03/02/17 06:12 Dose: 12 mcg/min, 22.5 mls/hr Piperacillin Sod/Tazobactam Sod (Zosyn/Ns 4.5gm/100ml) 4.5 gm in 100 mls @ 200 mls/hr IV Q8HR NICOLE Vancomycin HCl 750 mg/ Sodium (Chloride) 265 mls @ 132.5 mls/hr IV BID NICOLE Magnesium Sulfate (Magnesium Sulfate 4gm/100ml) 4 gm in 100 mls @ 25 mls/hr IV ONCE ONE Stop: 03/02/17 12:59 Sodium Bicarbonate 150 meq/ (Dextrose) 1,150 mls @ 125 mls/hr IV DIRECT ONE Stop: 03/02/17 20:11 Levothyroxine Sodium (Synthroid) 100 mcg IV DAILY@0600 [facility] Last Admin: 03/02/17 05:38 Dose: 100 mcg Lorazepam (Ativan) 1 mg IV Q4H PRN PRN Reason: Agitation Magnesium Hydroxide (Milk Of Magnesia) 30 ml PO Q4H PRN PRN Reason: Constipation Morphine Sulfate (Morphine) 2 mg IV Q4H PRN PRN Reason: Pain, Moderate (4-6) Last Admin: 03/02/17 10:08 Dose: 2 mg Ondansetron HCl (Zofran) 4 mg IV Q4H PRN PRN Reason: Nausea Oxycodone/Acetaminophen (Percocet 5/325) 2 tab PO Q6H PRN PRN Reason: Pain, Moderate (4-6) Vancomycin HCl (Vancomycin Pharmacy To Dose) 1 each IV PKCONSULT NICOLE PRN Reason: Protocol Objective Vital Signs - 12hr 03/02/17 03/02/17 03/02/17 00:00 00:15 00:30 Temperature 97.8 F Pulse Rate 96 H 92 H 93 H Pulse Rate [ From Monitor] Respiratory 20 12 11 L Rate Blood Pressure 103/64 97/66 93/67 O2 Sat by Pulse 100 100 Oximetry 03/02/17 03/02/17 03/02/17 00:45 01:00 01:15 Temperature Pulse Rate 91 H 91 H 91 H Pulse Rate [ From Monitor] Respiratory 12 11 L 14 Rate Blood Pressure 93/66 95/66 92/67 O2 Sat by Pulse 100 98 100 Oximetry 03/02/17 03/02/17 03/02/17 01:30 01:45 02:00 Temperature Pulse Rate 91 H 90 90 Pulse Rate [ From Monitor] Respiratory 13 13 13 Rate Blood Pressure 99/69 92/67 95/68 O2 Sat by Pulse 95 100 100 Oximetry 03/02/17 03/02/17 03/02/17 02:15 02:30 02:45 Temperature Pulse Rate 91 H 101 H 95 H Pulse Rate [ From Monitor] Respiratory 15 16 15 Rate Blood Pressure 96/66 93/61 50/19 O2 Sat by Pulse 98 98 Oximetry 03/02/17 03/02/17 03/02/17 03:01 03:15 03:31 Temperature Pulse Rate 94 H 94 H 94 H Pulse Rate [ From Monitor] Respiratory 14 16 21 Rate Blood Pressure 96/47 81/54 89/52 O2 Sat by Pulse 74 L Oximetry 03/02/17 03/02/17 03/02/17 03:45 04:00 04:15 Temperature 97.6 F Pulse Rate 98 H 93 H 93 H Pulse Rate [ 93 H From Monitor] Respiratory 11 L 19 18 Rate Blood Pressure 108/70 98/70 98/70 O2 Sat by Pulse 98 Oximetry 03/02/17 03/02/17 03/02/17 04:30 04:45 04:51 Temperature Pulse Rate 95 H 92 H 95 H Pulse Rate [ From Monitor] Respiratory 15 19 Rate Blood Pressure 81/54 90/68 O2 Sat by Pulse 80 L 97 Oximetry 03/02/17 03/02/17 03/02/17 05:00 05:15 05:30 Temperature Pulse Rate 93 H 97 H 92 H Pulse Rate [ From Monitor] Respiratory 14 21 16 Rate Blood Pressure 89/54 91/63 101/75 O2 Sat by Pulse 96 92 Oximetry 03/02/17 03/02/17 03/02/17 05:45 06:01 06:15 Temperature Pulse Rate 90 95 H 94 H Pulse Rate [ From Monitor] Respiratory 19 20 26 H Rate Blood Pressure 97/69 94/64 97/70 O2 Sat by Pulse 98 99 97 Oximetry 08/08/17 08/08/17 08/08/17 06:30 06:45 07:00 Temperature Pulse Rate 90 91 H 96 H Pulse Rate [ From Monitor] Respiratory 21 12 12 Rate Blood Pressure 96/68 95/64 96/65 O2 Sat by Pulse 96 98 98 Oximetry 03/02/17 03/02/17 03/02/17 07:15 07:30 07:45 Temperature Pulse Rate 91 H 96 H 102 H Pulse Rate [ From Monitor] Respiratory 21 11 L 17 Rate Blood Pressure 92/57 75/47 84/50 O2 Sat by Pulse 99 100 97 Oximetry 03/02/17 03/02/17 03/02/17 08:00 08:01 08:02 Temperature 97.6 F Pulse Rate 104 H Pulse Rate [ From Monitor] Respiratory 17 17 Rate Blood Pressure 104/74 104/74 O2 Sat by Pulse 98 83 L 98 Oximetry 03/02/17 03/02/17 03/02/17 08:15 08:31 08:45 Temperature Pulse Rate 94 H 94 H 100 H Pulse Rate [ From Monitor] Respiratory 20 20 27 H Rate Blood Pressure 100/69 83/28 95/65 O2 Sat by Pulse 98 100 Oximetry 03/02/17 03/02/17 03/02/17 09:00 09:15 09:31 Temperature Pulse Rate 96 H 92 H 96 H Pulse Rate [ From Monitor] Respiratory 25 H 22 17 Rate Blood Pressure 97/58 99/75 97/58 O2 Sat by Pulse 100 91 Oximetry 03/02/17 03/02/17 03/02/17 09:45 10:01 10:15 Temperature Pulse Rate 97 H 91 H 90 Pulse Rate [ From Monitor] Respiratory 22 24 18 Rate Blood Pressure 89/55 97/75 91/65 O2 Sat by Pulse 100 Oximetry 03/02/17 03/02/17 03/02/17 10:30 11:19 11:30 Temperature Pulse Rate 87 95 H 95 H Pulse Rate [ From Monitor] Respiratory 12 17 16 Rate Blood Pressure 100/66 103/72 O2 Sat by Pulse 100 98 Oximetry Constitutional: other (somnolent, easily arousable, moans, critically ill on pressors) Eyes: non-icteric ENT: oropharynx moist Effort: normal (good effort) Ascultation: Bilateral: rhonchi (minimal bilaterally) Cardiovascular: regular rate and rhythm (no mrg) Gastrointestinal: normoactive bowel sounds, soft, non-distended, other (TTP throughout) Extremities: no cyanosis, no edema, pink and warm Neurologic: non-focal exam, pupils equal and round, CN II-XII normal Psychiatric: mood appropriate, affect normal CBC and BMP: 03/02/17 05:00 03/02/17 05:00 ABG, PT/INR, D-dimer: ABG POC ABG pH 7.140 (7.35-7.45) L 03/01/17 22:08 POC ABG pCO2 29.9 (35-45) L 03/01/17 22:08 POC ABG pO2 149 (80-105) H 03/01/17 22:08 POC ABG HCO3 10.2 03/01/17 22:08 POC ABG Total CO2 11 03/01/17 22:08 POC ABG O2 Sat 99 03/01/17 22:08 Abnormal lab findings: Abnormal Labs 02/28/17 02/28/17 03/01/17 20:00 Unknown 10:20 WBC 28.6 H Plt Count Seg Neuts % (Manual) Lymphocytes % (Manual) 2.5 L Seg Neutrophils # Man 16.6 H Lymphocytes # (Manual) 0.7 L Monocytes # (Manual) 1.4 H POC ABG pH POC ABG pCO2 POC ABG pO2 Potassium Chloride Carbon Dioxide BUN Creatinine Glucose POC Glucose Lactic Acid 3.50 H* 2.60 H* Calcium Magnesium Total Bilirubin AST Total Protein Albumin 03/01/17 03/01/17 03/01/17 10:20 11:15 12:17 WBC Plt Count Seg Neuts % (Manual) Lymphocytes % (Manual) Seg Neutrophils # Man Lymphocytes # (Manual) Monocytes # (Manual) POC ABG pH POC ABG pCO2 POC ABG pO2 Potassium 5.2 H D Chloride 109.6 H Carbon Dioxide 11 L BUN 28 H Creatinine 1.3 H Glucose 29 L* POC Glucose < 40 L 129 H Lactic Acid Calcium 6.0 L Magnesium Total Bilirubin 4.80 H AST 89 H Total Protein 5.4 L D Albumin 2.3 L 03/01/17 03/01/17 03/01/17 15:30 15:36 21:15 WBC Plt Count Seg Neuts % (Manual) Lymphocytes % (Manual) Seg Neutrophils # Man Lymphocytes # (Manual) Monocytes # (Manual) POC ABG pH POC ABG pCO2 POC ABG pO2 Potassium Chloride Carbon Dioxide 10 L BUN 28 H Creatinine Glucose POC Glucose 210 H Lactic Acid 2.40 H* Calcium 5.9 L* Magnesium Total Bilirubin 5.50 H AST 135 H Total Protein 5.1 L Albumin 2.1 L 03/01/17 03/01/17 03/02/17 22:08 23:53 04:40 WBC Plt Count Seg Neuts % (Manual) Lymphocytes % (Manual) Seg Neutrophils # Man Lymphocytes # (Manual) Monocytes # (Manual) POC ABG pH 7.140 L POC ABG pCO2 29.9 L POC ABG pO2 149 H Potassium Chloride Carbon Dioxide BUN Creatinine Glucose POC Glucose 125 H 147 H Lactic Acid Calcium Magnesium Total Bilirubin AST Total Protein Albumin 03/02/17 03/02/17 03/02/17 05:00 05:00 05:00 WBC 23.5 H Plt Count 139 L Seg Neuts % (Manual) 34.0 L Lymphocytes % (Manual) 13.0 L Seg Neutrophils # Man 8.0 H Lymphocytes # (Manual) Monocytes # (Manual) 0.9 H POC ABG pH POC ABG pCO2 POC ABG pO2 Potassium Chloride 111.2 H Carbon Dioxide 13 L BUN 33 H Creatinine Glucose 148 H POC Glucose Lactic Acid 2.30 H* Calcium 6.6 L Magnesium 1.30 L Total Bilirubin 5.90 H AST 159 H Total Protein 4.3 L Albumin 2.1 L Chest x-ray: report reviewed, image reviewed
--- NOTE | 2017-03-02 12:41 | Cat Scan Report ---
CT SCAN OF THE ABDOMEN AND PELVIS WITH CONTRAST: HISTORY: Abdominal pain. TECHNIQUE: Helical CT in 1.25mm intervals following IV contrast. Sagittal and coronal reconstructions. FINDINGS: Large bilateral pleural effusions and moderate ascites has developed since 02/28/17 exam. The liver is slightly hypodense suggesting fatty infiltration. No parenchymal disease or mass is appreciated. There is nonspecific gallbladder wall edema. No obvious gallstones or biliary dilatation. The CBD is within normal limits. The spleen and pancreas demonstrate a normal size and attenuation with no evidence of abnormal mass. Subtle perfusion defects are suspected in the right kidney. This could represent right pyelonephritis. The left kidney is unremarkable. The ureters and bladder are within normal limits. The adrenal glands are normal. The abdominal aorta is normal caliber. Mild circumferential thickening is identified in the ascending colon which may represent a mild colitis. The remaining bowel loops are unremarkable. The appendix is not confidently identified. The uterus and adnexa are unremarkable. There is no evidence of peritoneal air or fluid. There is no evidence of any abnormal masses or fluid collections within the pelvis. No adenopathy is identified. IMPRESSION: Large pleural effusions and moderate ascites has developed since the exam 2 days ago. Right pyelonephritis is suspected. Please correlate with the patient. The proximal colon is thickened consistent with a nonspecific colitis.
[2017-03-02 13:22] LABS: Iron 19 ug/dL (37-170); Total Iron Binding Capacity 96 mcg/dL (250-450)
[2017-03-02] MEDS: ZOSYN/NS 4.5GM/100ML 4.5 GM/100 ML VIAL IV SCH ×2 (13:34→21:55)
[2017-03-02 13:42] LABS: ISTAT Base Excess -13; ISTAT HCO3 14.8; ISTAT PCO2 35.3 (35-45); ISTAT PH 7.232 (7.35-7.45); ISTAT PO2 127 (80-105); ISTAT SO2 98; ISTAT TCO2 16
--- NOTE | 2017-03-02 14:26 | XRay Report ---
AP CHEST: HISTORY: Right arm PICC placement The right arm PICC terminates near the cavoatrial junction. Mild pulmonary venous congestion and small to medium bilateral pleural effusions have developed since 02/28/17. Heart size remains within normal limits. There is mild bibasilar atelectasis but no obvious pneumonia or pneumothorax. IMPRESSION: Adequate placement of a right arm PICC. Mild volume overload.
[2017-03-02] MEDS: ATIVAN IV PRN (17:00)
[2017-03-02] MEDS: SODIUM BICARBONATE 150 MEQ in D5W 1,000 ML IV SCH (21:54)
[2017-03-03] MEDS: Vasostrict 20 UNIT in NACL 0.9% 100 ML IV SCH (03:54)
[2017-03-03] MEDS: LEVOPHED 8 MG in NACL 0.9% 250ML 242 ML IV SCH (03:54)
[2017-03-03 04:38] LABS: Hematocrit 27.9 % (30.3-42.9); Hemoglobin 9.5 gm/dl (10.1-14.3); Mean Corpuscular HGB Conc 34 % (30-34); Mean Corpuscular Hemoglobin 29 pg (28-32); Mean Corpuscular Volume 86 fl (79-97); Red Blood Count 3.27 M/mm3 (3.65-5.03); Red Cell Distribution Width 14.6 % (13.2-15.2); White Blood Count 12.9 K/mm3 (4.5-11.0)
[2017-03-03 04:46] LABS: Platelet Count 97 K/mm3 (140-440)
[2017-03-03 04:56] LABS: Alanine Aminotransferase 154 units/L (7-56); Albumin/Globulin Ratio 0.8 %; Alkaline Phosphatase 198 units/L (35-129); BUN/Creatinine Ratio 51.66; Blood Urea Nitrogen 31 mg/dL (7-17); Carbon Dioxide 33 mmol/L (22-30); Chloride 97.7 mmol/L (98-107); Sodium 139 mmol/L (137-145); Total Protein 4.4 g/dL (6.3-8.2)
[2017-03-03 05:14] LABS: C-Reactive Protein 22.5 mg/dL (0.00-1.30); Potassium 2.7 mmol/L (3.6-5.0)
[2017-03-03 05:15] LABS: Anion Gap 11 mmol/L
[2017-03-03 05:18] LABS: Glucose TNR mg/dL (65-100)
[2017-03-03 05:36] LABS: Anisocytosis 1+; Basophils % (Manual) 0 % (0.0-1.8); Blastocytes % (Manual) 0 %; Diff Status Complete; Eosinophils % (Manual) 0 % (0.0-4.3); Hypochromasia 1+; Platelet Estimate Consistent w Auto
[2017-03-03] MEDS: ZOSYN/NS 4.5GM/100ML 4.5 GM/100 ML VIAL IV SCH ×3 (06:44→22:14)
[2017-03-03] MEDS: SYNTHROID IV SCH (06:45)
[2017-03-03 07:01] LABS: INR 1.29 (0.87-1.13)
[2017-03-03 07:03] LABS: Blood Urea Nitrogen 35 mg/dL (7-17); Calcium 6.8 mg/dL (8.4-10.2); Carbon Dioxide 20 mmol/L (22-30); Chloride 108.2 mmol/L (98-107); Glucose 167 mg/dL (65-100); Potassium 3.5 mmol/L (3.6-5.0); Sodium 143 mmol/L (137-145)
[2017-03-03 07:04] LABS: Anion Gap 18 mmol/L
[2017-03-03] MEDS: SODIUM BICARBONATE 150 MEQ in D5W 1,000 ML IV SCH ×2 (08:20→20:36)
[2017-03-03] MEDS: VANCOMYCIN 750 MG in NACL 0.9% 250ML 250 ML IV SCH (10:03)
--- NOTE | 2017-03-03 10:15 | Gastroenterology Progress Note ---
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 farrah 5.9) -plt- 97 -INR 1.29 -CRP- 22.5 -Lipase- 7 -HBV and HCV- negative -repeat abd CT- revealed nonspecific gallbladder wall edema, no obvious gallstones or biliary dilatation, CBD within normal imits, pancreas demonstrates a normal size, development of large pleural effusions and moderate ascites, right pyelonephritis, and nonspecific colitis in proximal colon -abd u/s-revealed no evidence for cholelithiasis or biliary dilatation, and nonspecific gall bladder wall thickening -etiology of elevated LFTs- unclear at this time -possible shock liver vs metabolic (thyroid) vs other- doubt pancreatitis - RIVER, AMA, ASMA, alpha 1 antitrypsin, alpha fetoprotein, ceruloplasmin, ferritin- pending -unable to do liver bx at this time due to instability of pt's condition -if pt's condition continues to progress toward acute liver failure, would consider transferring to a tertiary facility once stable from an endocrine and hemodynamic standpoint -N/V -resolved -continue supportive care with IVFs, antimetics, pain medication, and f/u labs -will follow Subjective Date of service: 03/03/17 Principal diagnosis: abd pain/N/V/elevated LFTs Interval history: Patient drowsy but easily aroused. Confused and in restraints. No episodes of N/ V overnight or this am. Denies abd pain but abdomen squeegee tender to palpation. Currently on levophed, VSS. Objective - Constitutional Vitals: Temp Pulse Resp BP Pulse Ox 98 F 97 H 23 105/77 99 03/03/17 08:00 03/03/17 07:15 03/03/17 07:15 03/03/17 07:15 03/03/17 08:20 General appearance: mild distress, other (drowsy, confused) - Respiratory Respiratory: bilateral: rhonchi (mild) - Cardiovascular Rhythm: other (tachycardia) Heart Sounds: Present: S1 & S2 - Gastrointestinal General gastrointestinal: Present: soft, tender (generalized), non-distended, normal bowel sounds - Neurologic Neurological: disoriented - Psychiatric Psychiatric: other (restless) - Labs CBC & Chem 7: 03/03/17 04:00 03/03/17 06:37 Labs: Laboratory Results - last 24 hr 03/02/17 03/02/17 03/02/17 07:57 11:41 12:15 WBC RBC Hgb Hct MCV MCH MCHC RDW Plt Count Add Manual Diff Total Counted Seg Neuts % (Manual) Band Neutrophils % Lymphocytes % (Manual) Reactive Lymphs % (Man) Monocytes % (Manual) Eosinophils % (Manual) Basophils % (Manual) Metamyelocytes % Myelocytes % Promyelocytes % Blast Cells % Nucleated RBC % Seg Neutrophils # Man Band Neutrophils # Lymphocytes # (Manual) Abs React Lymphs (Man) Monocytes # (Manual) Eosinophils # (Manual) Basophils # (Manual) Metamyelocytes # Myelocytes # Promyelocytes # Blast Cells # WBC Morphology Hypersegmented Neuts Hyposegmented Neuts Hypogranular Neuts Smudge Cells Toxic Granulation Toxic Vacuolation Dohle Bodies Pelger-Huet Anomaly Linda Rods Platelet Estimate Clumped Platelets Plt Clumps, EDTA Large Platelets Giant Platelets Platelet Satelliting Plt Morphology Comment RBC Morphology Dimorphic RBCs Polychromasia Hypochromasia Poikilocytosis Anisocytosis Microcytosis Macrocytosis Spherocytes Pappenheimer Bodies Sickle Cells Target Cells Tear Drop Cells Ovalocytes Helmet Cells Sal-Daniels Bodies [place] Rings Teri Cells Bite Cells Crenated Cell Elliptocytes Acanthocytes (Spur) Rouleaux Hemoglobin C Crystals Schistocytes Malaria parasites Charlie Bodies Hem Pathologist Commnt PT INR POC ABG pH POC ABG pCO2 POC ABG pO2 POC ABG HCO3 POC ABG Total CO2 POC ABG O2 Sat POC ABG Base Excess FiO2 Sodium Potassium Chloride Carbon Dioxide Anion Gap BUN Creatinine Estimated GFR BUN/Creatinine Ratio Glucose POC Glucose 135 H 146 H Calcium Magnesium Iron TIBC Ferritin Total Bilirubin AST ALT Alkaline Phosphatase C-Reactive Protein Total Protein Albumin Albumin/Globulin Ratio Lipase Hep Bs Antigen Hepatitis C Antibody Non-reactive 03/02/17 03/02/17 03/02/17 12:15 12:15 12:15 WBC RBC Hgb Hct MCV MCH MCHC RDW Plt Count Add Manual Diff Total Counted Seg Neuts % (Manual) Band Neutrophils % Lymphocytes % (Manual) Reactive Lymphs % (Man) Monocytes % (Manual) Eosinophils % (Manual) Basophils % (Manual) Metamyelocytes % Myelocytes % Promyelocytes % Blast Cells % Nucleated RBC % Seg Neutrophils # Man Band Neutrophils # Lymphocytes # (Manual) Abs React Lymphs (Man) Monocytes # (Manual) Eosinophils # (Manual) Basophils # (Manual) Metamyelocytes # Myelocytes # Promyelocytes # Blast Cells # WBC Morphology Hypersegmented Neuts Hyposegmented Neuts Hypogranular Neuts Smudge Cells Toxic Granulation Toxic Vacuolation Dohle Bodies Pelger-Huet Anomaly Linda Rods Platelet Estimate Clumped Platelets Plt Clumps, EDTA Large Platelets Giant Platelets Platelet Satelliting Plt Morphology Comment RBC Morphology Dimorphic RBCs Polychromasia Hypochromasia Poikilocytosis Anisocytosis Microcytosis Macrocytosis Spherocytes Pappenheimer Bodies Sickle Cells Target Cells Tear Drop Cells Ovalocytes Helmet Cells Sal-Daniels Bodies [place] Teri Cells Bite Cells Crenated Cell Elliptocytes Acanthocytes (Spur) Rouleaux Hemoglobin C Crystals Schistocytes Malaria parasites Charlie Bodies Hem Pathologist Commnt PT INR POC ABG pH POC ABG pCO2 POC ABG pO2 POC ABG HCO3 POC ABG Total CO2 POC ABG O2 Sat POC ABG Base Excess FiO2 Sodium Potassium Chloride Carbon Dioxide Anion Gap BUN Creatinine Estimated GFR BUN/Creatinine Ratio Glucose POC Glucose Calcium Magnesium Iron 19 L TIBC 96 L Ferritin 1802.0 H Total Bilirubin AST ALT Alkaline Phosphatase C-Reactive Protein Total Protein Albumin Albumin/Globulin Ratio Lipase Hep Bs Antigen Non-reactive Hepatitis C Antibody 03/02/17 03/02/17 03/02/17 13:34 15:42 20:22 WBC RBC Hgb Hct MCV MCH MCHC RDW Plt Count Add Manual Diff Total Counted Seg Neuts % (Manual) Band Neutrophils % Lymphocytes % (Manual) Reactive Lymphs % (Man) Monocytes % (Manual) Eosinophils % (Manual) Basophils % (Manual) Metamyelocytes % Myelocytes % Promyelocytes % Blast Cells % Nucleated RBC % Seg Neutrophils # Man Band Neutrophils # Lymphocytes # (Manual) Abs React Lymphs (Man) Monocytes # (Manual) Eosinophils # (Manual) Basophils # (Manual) Metamyelocytes # Myelocytes # Promyelocytes # Blast Cells # WBC Morphology Hypersegmented Neuts Hyposegmented Neuts Hypogranular Neuts Smudge Cells Toxic Granulation Toxic Vacuolation Dohle Bodies Pelger-Huet Anomaly Linda Rods Platelet Estimate Clumped Platelets Plt Clumps, EDTA Large Platelets Giant Platelets Platelet Satelliting Plt Morphology Comment RBC Morphology Dimorphic RBCs Polychromasia Hypochromasia Poikilocytosis Anisocytosis Microcytosis Macrocytosis Spherocytes Pappenheimer Bodies Sickle Cells Target Cells Tear Drop Cells Ovalocytes Helmet Cells Sal-Daniels Bodies [place] Cells Bite Cells Crenated Cell Elliptocytes Acanthocytes (Spur) Rouleaux Hemoglobin C Crystals Schistocytes Malaria parasites Charlie Bodies Hem Pathologist Commnt PT INR POC ABG pH 7.232 L POC ABG pCO2 35.3 POC ABG pO2 127 H POC ABG HCO3 14.8 POC ABG Total CO2 16 POC ABG O2 Sat 98 POC ABG Base Excess -13 FiO2 36 Sodium Potassium Chloride Carbon Dioxide Anion Gap BUN Creatinine Estimated GFR BUN/Creatinine Ratio Glucose POC Glucose 159 H 161 H Calcium Magnesium Iron TIBC Ferritin Total Bilirubin AST ALT Alkaline Phosphatase C-Reactive Protein Total Protein Albumin Albumin/Globulin Ratio Lipase Hep Bs Antigen Hepatitis C Antibody 03/02/17 03/03/17 03/03/17 23:27 03:59 04:00 WBC RBC Hgb Hct MCV MCH MCHC RDW Plt Count Add Manual Diff Total Counted Seg Neuts % (Manual) Band Neutrophils % Lymphocytes % (Manual) Reactive Lymphs % (Man) Monocytes % (Manual) Eosinophils % (Manual) Basophils % (Manual) Metamyelocytes % Myelocytes % Promyelocytes % Blast Cells % Nucleated RBC % Seg Neutrophils # Man Band Neutrophils # Lymphocytes # (Manual) Abs React Lymphs (Man) Monocytes # (Manual) Eosinophils # (Manual) Basophils # (Manual) Metamyelocytes # Myelocytes # Promyelocytes # Blast Cells # WBC Morphology Hypersegmented Neuts Hyposegmented Neuts Hypogranular Neuts Smudge Cells Toxic Granulation Toxic Vacuolation Dohle Bodies Pelger-Huet Anomaly Linda Rods Platelet Estimate Clumped Platelets Plt Clumps, EDTA Large Platelets Giant Platelets Platelet Satelliting Plt Morphology Comment RBC Morphology Dimorphic RBCs Polychromasia Hypochromasia Poikilocytosis Anisocytosis Microcytosis Macrocytosis Spherocytes Pappenheimer Bodies Sickle Cells Target Cells Tear Drop Cells Ovalocytes Helmet Cells Sal-Daniels Bodies [place] Cells Bite Cells Crenated Cell Elliptocytes Acanthocytes (Spur) Rouleaux Hemoglobin C Crystals Schistocytes Malaria parasites Charlie Bodies Hem Pathologist Commnt PT INR POC ABG pH POC ABG pCO2 POC ABG pO2 POC ABG HCO3 POC ABG Total CO2 POC ABG O2 Sat POC ABG Base Excess FiO2 Sodium Potassium Chloride Carbon Dioxide Anion Gap BUN Creatinine Estimated GFR BUN/Creatinine Ratio Glucose POC Glucose 166 H 161 H Calcium Magnesium Iron TIBC Ferritin Total Bilirubin AST ALT Alkaline Phosphatase C-Reactive Protein 22.50 H Total Protein Albumin Albumin/Globulin Ratio Lipase 7 L Hep Bs Antigen Hepatitis C Antibody 03/03/17 03/03/17 03/03/17 04:00 04:00 06:22 WBC 12.9 H RBC 3.27 L Hgb 9.5 L Hct 27.9 L D MCV 86 MCH 29 MCHC 34 RDW 14.6 Plt Count 97 L Add Manual Diff Complete Total Counted 100 Seg Neuts % (Manual) 77.0 H Band Neutrophils % 10.0 Lymphocytes % (Manual) 6.0 L Reactive Lymphs % (Man) 0 Monocytes % (Manual) 7.0 Eosinophils % (Manual) 0 Basophils % (Manual) 0 Metamyelocytes % 0 Myelocytes % 0 Promyelocytes % 0 Blast Cells % 0 Nucleated RBC % Not Reportable Seg Neutrophils # Man 9.9 H Band Neutrophils # 1.3 Lymphocytes # (Manual) 0.8 L Abs React Lymphs (Man) 0.0 Monocytes # (Manual) 0.9 H Eosinophils # (Manual) 0.0 Basophils # (Manual) 0.0 Metamyelocytes # 0.0 Myelocytes # 0.0 Promyelocytes # 0.0 Blast Cells # 0.0 WBC Morphology Not Reportable Hypersegmented Neuts Not Reportable Hyposegmented Neuts Not Reportable Hypogranular Neuts Not Reportable Smudge Cells Not Reportable Toxic Granulation Not Reportable Toxic Vacuolation Not Reportable Dohle Bodies Not Reportable Pelger-Huet Anomaly Not Reportable Linda Rods Not Reportable Platelet Estimate Consistent w auto Clumped Platelets Not Reportable Plt Clumps, EDTA Not Reportable Large Platelets Not Reportable Giant Platelets Not Reportable Platelet Satelliting Not Reportable Plt Morphology Comment Not Reportable RBC Morphology Not Reportable Dimorphic RBCs Not Reportable Polychromasia Not Reportable Hypochromasia 1+ Poikilocytosis Not Reportable Anisocytosis 1+ Microcytosis Not Reportable Macrocytosis Not Reportable Spherocytes Not Reportable Pappenheimer Bodies Not Reportable Sickle Cells Not Reportable Target Cells Not Reportable Tear Drop Cells Not Reportable Ovalocytes Not Reportable Helmet Cells Not Reportable Sal-Daniels Bodies Not Reportable [place] Rings Not Reportable [place] Cells Not Reportable Bite Cells Not Reportable Crenated Cell Not Reportable Elliptocytes Not Reportable Acanthocytes (Spur) Not Reportable Rouleaux Not Reportable Hemoglobin C Crystals Not Reportable Schistocytes Not Reportable Malaria parasites Not Reportable Charlie Bodies Not Reportable Hem Pathologist Commnt No PT 16.8 H INR 1.29 H POC ABG pH POC ABG pCO2 POC ABG pO2 POC ABG HCO3 POC ABG Total CO2 POC ABG O2 Sat POC ABG Base Excess FiO2 Sodium 139 Potassium 2.7 L* D Chloride 97.7 L Carbon Dioxide 33 H D Anion Gap 11 BUN 31 H Creatinine 0.6 L Estimated GFR > 60 BUN/Creatinine Ratio 51.66 Glucose TNR POC Glucose Calcium 6.0 L Magnesium 2.20 Iron TIBC Ferritin Total Bilirubin 4.50 H AST 398 H ALT 154 H Alkaline Phosphatase 198 H C-Reactive Protein Total Protein 4.4 L Albumin 2.0 L Albumin/Globulin Ratio 0.8 Lipase Hep Bs Antigen Hepatitis C Antibody 03/03/17 03/03/17 06:37 08:11 WBC RBC Hgb Hct MCV MCH MCHC RDW Plt Count Add Manual Diff Total Counted Seg Neuts % (Manual) Band Neutrophils % Lymphocytes % (Manual) Reactive Lymphs % (Man) Monocytes % (Manual) Eosinophils % (Manual) Basophils % (Manual) Metamyelocytes % Myelocytes % Promyelocytes % Blast Cells % Nucleated RBC % Seg Neutrophils # Man Band Neutrophils # Lymphocytes # (Manual) Abs React Lymphs (Man) Monocytes # (Manual) Eosinophils # (Manual) Basophils # (Manual) Metamyelocytes # Myelocytes # Promyelocytes # Blast Cells # WBC Morphology Hypersegmented Neuts Hyposegmented Neuts Hypogranular Neuts Smudge Cells Toxic Granulation Toxic Vacuolation Dohle Bodies Pelger-Huet Anomaly Linda Rods Platelet Estimate Clumped Platelets Plt Clumps, EDTA Large Platelets Giant Platelets Platelet Satelliting Plt Morphology Comment RBC Morphology Dimorphic RBCs Polychromasia Hypochromasia Poikilocytosis Anisocytosis Microcytosis Macrocytosis Spherocytes Pappenheimer Bodies Sickle Cells Target Cells Tear Drop Cells Ovalocytes Helmet Cells Sal-Daniels Bodies [place] Teri Cells Bite Cells Crenated Cell Elliptocytes Acanthocytes (Spur) Rouleaux Hemoglobin C Crystals Schistocytes Malaria parasites Charlie Bodies Hem Pathologist Commnt PT INR POC ABG pH POC ABG pCO2 POC ABG pO2 POC ABG HCO3 POC ABG Total CO2 POC ABG O2 Sat POC ABG Base Excess FiO2 Sodium 143 Potassium 3.5 L D Chloride 108.2 H Carbon Dioxide 20 L D Anion Gap 18 BUN 35 H Creatinine 0.7 Estimated GFR > 60 BUN/Creatinine Ratio 50.00 Glucose 167 H POC Glucose 156 H Calcium 6.8 L Magnesium Iron TIBC Ferritin Total Bilirubin AST ALT Alkaline Phosphatase C-Reactive Protein Total Protein Albumin Albumin/Globulin Ratio Lipase Hep Bs Antigen Hepatitis C Antibody
[2017-03-03] MEDS: LOVENOX SUB-Q SCH (10:42)
[2017-03-03] MEDS: MORPHINE IV PRN (11:50)
--- NOTE | 2017-03-03 13:45 | Progress Note ---
Assessment and Plan Assessment and plan: 26 YO Female with Hypothyroidism presents to ED for evaluation. Pt states that she has experienced nausea, vomiting, and multiple episodes of loose stools over 5 days with worsening symptoms over the past 8 hours. She was admitted for sepsis, aspirin her cousin she was not compliant with Synthroid at home because she does not have insurance. Her Cousin believes she has a history of polysubstance abuse, including etoh Gram-negative septicemia/UTI * ID input appreciated, continue broad-spectrum antibiotics Septic shock * Continue IV fluids, continue IV pressors Shock Liver. Abdominal pain * Continue IV fluids, continue supportive care continue bowel rest * pancreatitis ruled out- lipase was negative * Viral Hepatitis serologies negative, HIV negative * GI consult appreciated * CT abdomen and pelvis; Large pleural effusions and moderate ascites. Right pyelonephritis suspected. Proximal colon is thickened consistent with nonspecific colitis. Delirium tremens/alcohol withdrawal * Continue CIWA protocol Metabolic encephalopathy * Most likely due to sepsis and delirium tremens, continue supportive care Severe hypothyroidism * Continue thyroid replacement therapy Severe Metabolic Acidosis * Continue Sodium bicarb Recent * pelvic and transvaginal ultrasound were performed and did not show any remnants, therefore not a contributor to sepsis Severe malnutrition * dietitian consults, patient will need to be started on either diets, and several nutrition or TPN when medically improved Electrolyte derrangement- Hypokalemia, Hypocalcemia, hypomagnesemia * Continue to replete electrolytes as necessary daily, and medically rx * pseudohypocalcemia due to low albumin, corrected Ca is 8.1 Acute Kidney Injury * Resolved with IVF. secondary to vasomotor nephropathy Hypoglycemia * resolved with dextrose * Prognosis guarded, case discussed with her cousin Karla Darden, her phone number is [phone]. Her parents are in [place] and not currently reachable The high probability of a clinically significant, sudden or life threatening deterioration of the [VASCULAR, ENDOCRINE, GI ] system(s) required my full and direct attention, intervention and personal management. The aggregate critical care time was [35] minutes. This time is in addition to time spent performing reported procedures but includes the following: [X] Data Review and interpretation [X] Patient assessment and monitoring of vital signs [X] Documentation [X] Medication orders and management History Interval history: She has waxing and waning episodes of confusion. At this time she has received some medication so she is calm and cooperative but somnolent Hospitalist Physical - Physical exam Narrative exam: General: Toxic appearance, has been doughy appearance of her face HEENT: MMM, EOMI, scleral icterus cardiac: S1-S2 heard lungs: clear to auscultation, abdomen: soft, suprapubic tenderness, moderately distended with shifting dullness bowel sounds positive extremities: Nonpitting, doughy edema of lower extremities Skin: no rash or lesion Neuro: no gross focal deficit Psych, obeys commands, pleasant. Has episodes of agitation - Constitutional Vitals: Temp Pulse Resp BP Pulse Ox 98 F 97 H 23 105/77 99 03/03/17 08:00 03/03/17 07:15 03/03/17 07:15 03/03/17 07:15 03/03/17 08:20 Results - Labs CBC & Chem 7: 03/04/17 Unknown 03/05/17 06:25 Labs: Laboratory Last Values WBC 12.9 K/mm3 (4.5-11.0) H 03/03/17 04:00 RBC 3.27 M/mm3 (3.65-5.03) L 03/03/17 04:00 Hgb 9.5 gm/dl (10.1-14.3) L 03/03/17 04:00 Hct 27.9 % (30.3-42.9) L D 03/03/17 04:00 MCV 86 fl (79-97) 03/03/17 04:00 MCH 29 pg (28-32) 03/03/17 04:00 MCHC 34 % (30-34) 03/03/17 04:00 RDW 14.6 % (13.2-15.2) 03/03/17 04:00 Plt Count 97 K/mm3 (140-440) L 03/03/17 04:00 Lymph % (Auto) 22.8 % (13.4-35.0) 02/28/17 12:03 [place] % (Auto) 2.2 % (0.0-7.3) 02/28/17 12:03 Eos % (Auto) 1.2 % (0.0-4.3) 02/28/17 12:03 Baso % (Auto) 0.2 % (0.0-1.8) 02/28/17 12:03 Lymph # 1.2 K/mm3 (1.2-5.4) 02/28/17 12:03 [place] # 0.1 K/mm3 (0.0-0.8) 02/28/17 12:03 Eos # 0.1 K/mm3 (0.0-0.4) 02/28/17 12:03 Baso # 0.0 K/mm3 (0.0-0.1) 02/28/17 12:03 Add Manual Diff Complete 03/03/17 04:00 Total Counted 100 03/03/17 04:00 Seg Neutrophils % 73.6 % (40.0-70.0) H 02/28/17 12:03 Seg Neuts % (Manual) 77.0 % (40.0-70.0) H 03/03/17 04:00 Band Neutrophils % 10.0 % 03/03/17 04:00 Lymphocytes % (Manual) 6.0 % (13.4-35.0) L 03/03/17 04:00 Reactive Lymphs % (Man) 0 % 03/03/17 04:00 Monocytes % (Manual) 7.0 % (0.0-7.3) 03/03/17 04:00 Eosinophils % (Manual) 0 % (0.0-4.3) 03/03/17 04:00 Basophils % (Manual) 0 % (0.0-1.8) 03/03/17 04:00 Metamyelocytes % 0 % 03/03/17 04:00 Myelocytes % 0 % 03/03/17 04:00 Promyelocytes % 0 % 03/03/17 04:00 Blast Cells % 0 % 03/03/17 04:00 Nucleated RBC % Not Reportable 03/03/17 04:00 Seg Neutrophils # 3.8 K/mm3 (1.8-7.7) 02/28/17 12:03 Seg Neutrophils # Man 9.9 K/mm3 (1.8-7.7) H 03/03/17 04:00 Band Neutrophils # 1.3 K/mm3 03/03/17 04:00 Lymphocytes # (Manual) 0.8 K/mm3 (1.2-5.4) L 03/03/17 04:00 Abs React Lymphs (Man) 0.0 K/mm3 03/03/17 04:00 Monocytes # (Manual) 0.9 K/mm3 (0.0-0.8) H 03/03/17 04:00 Eosinophils # (Manual) 0.0 K/mm3 (0.0-0.4) 03/03/17 04:00 Basophils # (Manual) 0.0 K/mm3 (0.0-0.1) 03/03/17 04:00 Metamyelocytes # 0.0 K/mm3 03/03/17 04:00 Myelocytes # 0.0 K/mm3 03/03/17 04:00 Promyelocytes # 0.0 K/mm3 03/03/17 04:00 Blast Cells # 0.0 K/mm3 03/03/17 04:00 WBC Morphology Not Reportable 03/03/17 04:00 Hypersegmented Neuts Not Reportable 03/03/17 04:00 Hyposegmented Neuts Not Reportable 03/03/17 04:00 Hypogranular Neuts Not Reportable 03/03/17 04:00 Smudge Cells Not Reportable 03/03/17 04:00 Toxic Granulation Not Reportable 03/03/17 04:00 Toxic Vacuolation Not Reportable 03/03/17 04:00 Dohle Bodies Not Reportable 03/03/17 04:00 Pelger-Huet Anomaly Not Reportable 03/03/17 04:00 Linda Rods Not Reportable 03/03/17 04:00 Platelet Estimate Consistent w auto 03/03/17 04:00 Clumped Platelets Not Reportable 03/03/17 04:00 Plt Clumps, EDTA Not Reportable 03/03/17 04:00 Large Platelets Not Reportable 03/03/17 04:00 Giant Platelets Not Reportable 03/03/17 04:00 Platelet Satelliting Not Reportable 03/03/17 04:00 Plt Morphology Comment Not Reportable 03/03/17 04:00 RBC Morphology Not Reportable 03/03/17 04:00 Dimorphic RBCs Not Reportable 03/03/17 04:00 Polychromasia Not Reportable 03/03/17 04:00 Hypochromasia 1+ 03/03/17 04:00 Poikilocytosis Not Reportable 03/03/17 04:00 Anisocytosis 1+ 03/03/17 04:00 Microcytosis Not Reportable 03/03/17 04:00 Macrocytosis Not Reportable 03/03/17 04:00 Spherocytes Not Reportable 03/03/17 04:00 Pappenheimer Bodies Not Reportable 03/03/17 04:00 Sickle Cells Not Reportable 03/03/17 04:00 Target Cells Not Reportable 03/03/17 04:00 Tear Drop Cells Not Reportable 03/03/17 04:00 Ovalocytes Not Reportable 03/03/17 04:00 Helmet Cells Not Reportable 03/03/17 04:00 Sal-[place] Bodies Not Reportable 03/03/17 04:00 [place] Rings Not Reportable 03/03/17 04:00 [place] Cells Not Reportable 03/03/17 04:00 Bite Cells Not Reportable 03/03/17 04:00 Crenated Cell Not Reportable 03/03/17 04:00 Elliptocytes Not Reportable 03/03/17 04:00 Acanthocytes (Spur) Not Reportable 03/03/17 04:00 Rouleaux Not Reportable 03/03/17 04:00 Hemoglobin C Crystals Not Reportable 03/03/17 04:00 Schistocytes Not Reportable 03/03/17 04:00 Malaria parasites Not Reportable 03/03/17 04:00 Charlie Bodies Not Reportable 03/03/17 04:00 Hem Pathologist Commnt No 03/03/17 04:00 PT 16.8 Sec. (12.2-14.9) H 03/03/17 06:22 INR 1.29 (0.87-1.13) H 03/03/17 06:22 POC ABG pH 7.232 (7.35-7.45) L 03/02/17 13:34 POC ABG pCO2 35.3 (35-45) 03/02/17 13:34 POC ABG pO2 127 (80-105) H 03/02/17 13:34 POC ABG HCO3 14.8 03/02/17 13:34 POC ABG Total CO2 16 03/02/17 13:34 POC ABG O2 Sat 98 03/02/17 13:34 POC ABG Base Excess -13 03/02/17 13:34 FiO2 36 % 03/02/17 13:34 Sodium 143 mmol/L (137-145) 03/03/17 06:37 Potassium 3.5 mmol/L (3.6-5.0) L D 03/03/17 06:37 Chloride 108.2 mmol/L (98-107) H 03/03/17 06:37 Carbon Dioxide 20 mmol/L (22-30) L D 03/03/17 06:37 Anion Gap 18 mmol/L 03/03/17 06:37 BUN 35 mg/dL (7-17) H 03/03/17 06:37 Creatinine 0.7 mg/dL (0.7-1.2) 03/03/17 06:37 Estimated GFR > 60 ml/min 03/03/17 06:37 BUN/Creatinine Ratio 50.00 % 03/03/17 06:37 Glucose 167 mg/dL (65-100) H 03/03/17 06:37 POC Glucose 156 (70-105) H 03/03/17 08:11 Lactic Acid 2.30 mmol/L (0.7-2.0) H* 03/02/17 05:00 Calcium 6.8 mg/dL (8.4-10.2) L 03/03/17 06:37 Phosphorus 4.50 mg/dL (2.5-4.5) 03/02/17 05:00 Magnesium 2.20 mg/dL (1.7-2.3) 03/03/17 04:00 Iron 19 ug/dL (37-170) L 03/02/17 12:15 TIBC 96 mcg/dL (250-450) L 03/02/17 12:15 Ferritin 1802.0 ng/mL (13.0-400.0) H 03/02/17 12:15 Total Bilirubin 4.50 mg/dL (0.1-1.2) H 03/03/17 04:00 AST 398 units/L (5-40) H 03/03/17 04:00 ALT 154 units/L (7-56) H 03/03/17 04:00 Alkaline Phosphatase 198 units/L (35-129) H 03/03/17 04:00 Total Creatine Kinase 56 units/L (30-135) 02/28/17 12:03 CK-MB (CK-2) 1.4 ng/mL (0.0-4.0) 02/28/17 12:03 CK-MB (CK-2) Rel Index 2.5 (0-4) 02/28/17 12:03 Troponin T < 0.010 ng/mL (0.00-0.029) 02/28/17 12:03 C-Reactive Protein 22.50 mg/dL (0.00-1.30) H 03/03/17 04:00 Total Protein 4.4 g/dL (6.3-8.2) L 03/03/17 04:00 Albumin 2.0 g/dL (3.9-5) L 03/03/17 04:00 Albumin/Globulin Ratio 0.8 % 03/03/17 04:00 Lipase 7 units/L (13-60) L 03/03/17 04:00 TSH 58.000 mlU/mL (0.270-4.200) H 02/28/17 12:03 Free T4 0.41 ng/dL (0.76-1.46) L 02/28/17 12:03 HCG, Qual Negative (Negative) 02/28/17 12:03 Urine Color Yellow (Yellow) 02/28/17 11:40 Urine Turbidity Cloudy (Clear) 02/28/17 11:40 Urine pH 5.0 (5.0-7.0) 02/28/17 11:40 Ur Specific [place] 1.015 (1.003-1.030) 02/28/17 11:40 Urine Protein 100 mg/dl mg/dL (Negative) 02/28/17 11:40 Urine Glucose (UA) Neg mg/dL (Negative) 02/28/17 11:40 Urine Ketones Neg mg/dL (Negative) 02/28/17 11:40 Urine Blood Sm (Negative) 02/28/17 11:40 Urine Nitrite Neg (Negative) 02/28/17 11:40 Urine Bilirubin Neg (Negative) 02/28/17 11:40 Urine Urobilinogen < 2.0 mg/dL (<2.0) 02/28/17 11:40 Ur Leukocyte Esterase Lg (Negative) 02/28/17 11:40 Urine WBC (Auto) 80.0 /HPF (0.0-6.0) H 02/28/17 11:40 Urine RBC (Auto) 4.0 /HPF (0.0-6.0) 02/28/17 11:40 U Epithel Cells (Auto) 1.0 /HPF (0-13.0) 02/28/17 11:40 Urine Bacteria (Auto) 1+ /HPF (Negative) 02/28/17 11:40 Urine Mucus 1+ /HPF 02/28/17 11:40 Random Vancomycin 5.7 ug/mL (0-40.0) 03/01/17 12:53 Hep Bs Antigen Non-reactive (Negative) 03/02/17 12:15 Hepatitis C Antibody Non-reactive (NonReactive) 03/02/17 12:15 Blood Type O POSITIVE 02/28/17 12:03 Antibody Screen TNR 02/28/17 12:03 TEJAL Antibody Screen Negative 02/28/17 12:03 Crossmatch See Detail 02/28/17 12:03
--- NOTE | 2017-03-03 13:45 | Progress Note ---
Assessment and Plan Assessment and plan: Assessment and Plan Assessment and plan: 26 YO Female with Hypothyroidism presents to ED for evaluation. Pt states that she has experienced nausea, vomiting, and multiple episodes of loose stools over 5 days with worsening symptoms over the past 8 hours. She was admitted for sepsis, aspirin her cousin she was not compliant with Synthroid at home because she does not have insurance. Her Cousin believes she has a history of polysubstance abuse, including etoh Gram-negative septicemia/UTI * ID input appreciated, continue broad-spectrum antibiotics Septic shock * Continue IV fluids, continue IV pressors Shock Liver. Abdominal pain * Continue IV fluids, continue supportive care continue bowel rest * pancreatitis ruled out- lipase was negative * Viral Hepatitis serologies negative, HIV negative * GI consult pending * CT abdomen and pelvis; Large pleural effusions and moderate ascites. Right pyelonephritis suspected. Proximal colon is thickened consistent with nonspecific colitis. Delirium tremens/alcohol withdrawal * Continue CIWA protocol Metabolic encephalopathy * Most likely due to sepsis and delirium tremens, continue supportive care Severe hypothyroidism * Continue thyroid replacement therapy Severe Metabolic Acidosis * Continue Sodium bicarb Recent * Obtain pelvic and transvaginal ultrasound to rule out retained products Severe malnutrition * dietitian consults, patient will need to be started on either diets, and several nutrition or TPN when medically improved Electrolyte derrangement- Hyperkalemia, Hypocalcemia, hypomagnesemia * electrolytes have been repleted, and medically rx * pseudohypocalcemia due to low albumin, corrected Ca is 8.1 Acute Kidney Injury * Resolved with IVF. secondary to vasomotor nephropathy Hypoglycemia * resolved with dextrose * Prognosis guarded, case discussed with her cousin Karla Darden, her phone number is [phone]. Her parents are in [place] and not currently reachable The high probability of a clinically significant, sudden or life threatening deterioration of the [VASCULAR, ENDOCRINE, GI ] system(s) required my full and direct attention, intervention and personal management. The aggregate critical care time was [35] minutes. This time is in addition to time spent performing reported procedures but includes the following: [X] Data Review and interpretation [X] Patient assessment and monitoring of vital signs [X] Documentation [X] Medication orders and management History Interval history: She has waxing and waning episodes of confusion. At this time she has received some medication so she is calm and cooperative but somnolent Hospitalist Physical - Physical exam Narrative exam: General: Toxic appearance, has been doughy appearance of her face HEENT: MMM, EOMI, scleral icterus cardiac: S1-S2 heard lungs: clear to auscultation, abdomen: soft, suprapubic tenderness, moderately distended with shifting dullness bowel sounds positive extremities: Nonpitting, doughy edema of lower extremities Skin: no rash or lesion Neuro: no gross focal deficit Psych, obeys commands, pleasant. Has episodes of agitation - Constitutional Vitals: Temp Pulse Resp BP Pulse Ox 98 F 97 H 23 105/77 99 03/03/17 08:00 03/03/17 07:15 03/03/17 07:15 03/03/17 07:15 03/03/17 08:20 General appearance: Present: severe distress Results - Labs CBC & Chem 7: 03/04/17 Unknown 03/05/17 06:25 Labs: Laboratory Last Values WBC 12.9 K/mm3 (4.5-11.0) H 03/03/17 04:00 RBC 3.27 M/mm3 (3.65-5.03) L 03/03/17 04:00 Hgb 9.5 gm/dl (10.1-14.3) L 03/03/17 04:00 Hct 27.9 % (30.3-42.9) L D 03/03/17 04:00 MCV 86 fl (79-97) 03/03/17 04:00 MCH 29 pg (28-32) 03/03/17 04:00 MCHC 34 % (30-34) 03/03/17 04:00 RDW 14.6 % (13.2-15.2) 03/03/17 04:00 Plt Count 97 K/mm3 (140-440) L 03/03/17 04:00 Lymph % (Auto) 22.8 % (13.4-35.0) 02/28/17 12:03 [place] % (Auto) 2.2 % (0.0-7.3) 02/28/17 12:03 Eos % (Auto) 1.2 % (0.0-4.3) 02/28/17 12:03 Baso % (Auto) 0.2 % (0.0-1.8) 02/28/17 12:03 Lymph # 1.2 K/mm3 (1.2-5.4) 02/28/17 12:03 [place] # 0.1 K/mm3 (0.0-0.8) 02/28/17 12:03 Eos # 0.1 K/mm3 (0.0-0.4) 02/28/17 12:03 Baso # 0.0 K/mm3 (0.0-0.1) 02/28/17 12:03 Add Manual Diff Complete 03/03/17 04:00 Total Counted 100 03/03/17 04:00 Seg Neutrophils % 73.6 % (40.0-70.0) H 02/28/17 12:03 Seg Neuts % (Manual) 77.0 % (40.0-70.0) H 03/03/17 04:00 Band Neutrophils % 10.0 % 03/03/17 04:00 Lymphocytes % (Manual) 6.0 % (13.4-35.0) L 03/03/17 04:00 Reactive Lymphs % (Man) 0 % 03/03/17 04:00 Monocytes % (Manual) 7.0 % (0.0-7.3) 03/03/17 04:00 Eosinophils % (Manual) 0 % (0.0-4.3) 03/03/17 04:00 Basophils % (Manual) 0 % (0.0-1.8) 03/03/17 04:00 Metamyelocytes % 0 % 03/03/17 04:00 Myelocytes % 0 % 03/03/17 04:00 Promyelocytes % 0 % 03/03/17 04:00 Blast Cells % 0 % 03/03/17 04:00 Nucleated RBC % Not Reportable 03/03/17 04:00 Seg Neutrophils # 3.8 K/mm3 (1.8-7.7) 02/28/17 12:03 Seg Neutrophils # Man 9.9 K/mm3 (1.8-7.7) H 03/03/17 04:00 Band Neutrophils # 1.3 K/mm3 03/03/17 04:00 Lymphocytes # (Manual) 0.8 K/mm3 (1.2-5.4) L 03/03/17 04:00 Abs React Lymphs (Man) 0.0 K/mm3 03/03/17 04:00 Monocytes # (Manual) 0.9 K/mm3 (0.0-0.8) H 03/03/17 04:00 Eosinophils # (Manual) 0.0 K/mm3 (0.0-0.4) 03/03/17 04:00 Basophils # (Manual) 0.0 K/mm3 (0.0-0.1) 03/03/17 04:00 Metamyelocytes # 0.0 K/mm3 03/03/17 04:00 Myelocytes # 0.0 K/mm3 03/03/17 04:00 Promyelocytes # 0.0 K/mm3 03/03/17 04:00 Blast Cells # 0.0 K/mm3 03/03/17 04:00 WBC Morphology Not Reportable 03/03/17 04:00 Hypersegmented Neuts Not Reportable 03/03/17 04:00 Hyposegmented Neuts Not Reportable 03/03/17 04:00 Hypogranular Neuts Not Reportable 03/03/17 04:00 Smudge Cells Not Reportable 03/03/17 04:00 Toxic Granulation Not Reportable 03/03/17 04:00 Toxic Vacuolation Not Reportable 03/03/17 04:00 Dohle Bodies Not Reportable 03/03/17 04:00 Pelger-Huet Anomaly Not Reportable 03/03/17 04:00 Linda Rods Not Reportable 03/03/17 04:00 Platelet Estimate Consistent w auto 03/03/17 04:00 Clumped Platelets Not Reportable 03/03/17 04:00 Plt Clumps, EDTA Not Reportable 03/03/17 04:00 Large Platelets Not Reportable 03/03/17 04:00 Giant Platelets Not Reportable 03/03/17 04:00 Platelet Satelliting Not Reportable 03/03/17 04:00 Plt Morphology Comment Not Reportable 03/03/17 04:00 RBC Morphology Not Reportable 03/03/17 04:00 Dimorphic RBCs Not Reportable 03/03/17 04:00 Polychromasia Not Reportable 03/03/17 04:00 Hypochromasia 1+ 03/03/17 04:00 Poikilocytosis Not Reportable 03/03/17 04:00 Anisocytosis 1+ 03/03/17 04:00 Microcytosis Not Reportable 03/03/17 04:00 Macrocytosis Not Reportable 03/03/17 04:00 Spherocytes Not Reportable 03/03/17 04:00 Pappenheimer Bodies Not Reportable 03/03/17 04:00 Sickle Cells Not Reportable 03/03/17 04:00 Target Cells Not Reportable 03/03/17 04:00 Tear Drop Cells Not Reportable 03/03/17 04:00 Ovalocytes Not Reportable 03/03/17 04:00 Helmet Cells Not Reportable 03/03/17 04:00 [place] Bodies Not Reportable 03/03/17 04:00 [place] Rings Not Reportable 03/03/17 04:00 [place] Cells Not Reportable 03/03/17 04:00 Bite Cells Not Reportable 03/03/17 04:00 Crenated Cell Not Reportable 03/03/17 04:00 Elliptocytes Not Reportable 03/03/17 04:00 Acanthocytes (Spur) Not Reportable 03/03/17 04:00 Rouleaux Not Reportable 03/03/17 04:00 Hemoglobin C Crystals Not Reportable 03/03/17 04:00 Schistocytes Not Reportable 03/03/17 04:00 Malaria parasites Not Reportable 03/03/17 04:00 Charlie Bodies Not Reportable 03/03/17 04:00 Hem Pathologist Commnt No 03/03/17 04:00 PT 16.8 Sec. (12.2-14.9) H 03/03/17 06:22 INR 1.29 (0.87-1.13) H 03/03/17 06:22 POC ABG pH 7.232 (7.35-7.45) L 03/02/17 13:34 POC ABG pCO2 35.3 (35-45) 03/02/17 13:34 POC ABG pO2 127 (80-105) H 03/02/17 13:34 POC ABG HCO3 14.8 03/02/17 13:34 POC ABG Total CO2 16 03/02/17 13:34 POC ABG O2 Sat 98 03/02/17 13:34 POC ABG Base Excess -13 03/02/17 13:34 FiO2 36 % 03/02/17 13:34 Sodium 143 mmol/L (137-145) 03/03/17 06:37 Potassium 3.5 mmol/L (3.6-5.0) L D 03/03/17 06:37 Chloride 108.2 mmol/L (98-107) H 03/03/17 06:37 Carbon Dioxide 20 mmol/L (22-30) L D 03/03/17 06:37 Anion Gap 18 mmol/L 03/03/17 06:37 BUN 35 mg/dL (7-17) H 03/03/17 06:37 Creatinine 0.7 mg/dL (0.7-1.2) 03/03/17 06:37 Estimated GFR > 60 ml/min 03/03/17 06:37 BUN/Creatinine Ratio 50.00 % 03/03/17 06:37 Glucose 167 mg/dL (65-100) H 03/03/17 06:37 POC Glucose 156 (70-105) H 03/03/17 08:11 Lactic Acid 2.30 mmol/L (0.7-2.0) H* 03/02/17 05:00 Calcium 6.8 mg/dL (8.4-10.2) L 03/03/17 06:37 Phosphorus 4.50 mg/dL (2.5-4.5) 03/02/17 05:00 Magnesium 2.20 mg/dL (1.7-2.3) 03/03/17 04:00 Iron 19 ug/dL (37-170) L 03/02/17 12:15 TIBC 96 mcg/dL (250-450) L 03/02/17 12:15 Ferritin 1802.0 ng/mL (13.0-400.0) H 03/02/17 12:15 Total Bilirubin 4.50 mg/dL (0.1-1.2) H 03/03/17 04:00 AST 398 units/L (5-40) H 03/03/17 04:00 ALT 154 units/L (7-56) H 03/03/17 04:00 Alkaline Phosphatase 198 units/L (35-129) H 03/03/17 04:00 Total Creatine Kinase 56 units/L (30-135) 02/28/17 12:03 CK-MB (CK-2) 1.4 ng/mL (0.0-4.0) 02/28/17 12:03 CK-MB (CK-2) Rel Index 2.5 (0-4) 02/28/17 12:03 Troponin T < 0.010 ng/mL (0.00-0.029) 02/28/17 12:03 C-Reactive Protein 22.50 mg/dL (0.00-1.30) H 03/03/17 04:00 Total Protein 4.4 g/dL (6.3-8.2) L 03/03/17 04:00 Albumin 2.0 g/dL (3.9-5) L 03/03/17 04:00 Albumin/Globulin Ratio 0.8 % 03/03/17 04:00 Lipase 7 units/L (13-60) L 03/03/17 04:00 TSH 58.000 mlU/mL (0.270-4.200) H 02/28/17 12:03 Free T4 0.41 ng/dL (0.76-1.46) L 02/28/17 12:03 HCG, Qual Negative (Negative) 02/28/17 12:03 Urine Color Yellow (Yellow) 02/28/17 11:40 Urine Turbidity Cloudy (Clear) 02/28/17 11:40 Urine pH 5.0 (5.0-7.0) 02/28/17 11:40 Ur Specific [place] 1.015 (1.003-1.030) 02/28/17 11:40 Urine Protein 100 mg/dl mg/dL (Negative) 02/28/17 11:40 Urine Glucose (UA) Neg mg/dL (Negative) 02/28/17 11:40 Urine Ketones Neg mg/dL (Negative) 02/28/17 11:40 Urine Blood Sm (Negative) 02/28/17 11:40 Urine Nitrite Neg (Negative) 02/28/17 11:40 Urine Bilirubin Neg (Negative) 02/28/17 11:40 Urine Urobilinogen < 2.0 mg/dL (<2.0) 02/28/17 11:40 Ur Leukocyte Esterase Lg (Negative) 02/28/17 11:40 Urine WBC (Auto) 80.0 /HPF (0.0-6.0) H 02/28/17 11:40 Urine RBC (Auto) 4.0 /HPF (0.0-6.0) 02/28/17 11:40 U Epithel Cells (Auto) 1.0 /HPF (0-13.0) 02/28/17 11:40 Urine Bacteria (Auto) 1+ /HPF (Negative) 02/28/17 11:40 Urine Mucus 1+ /HPF 02/28/17 11:40 Random Vancomycin 5.7 ug/mL (0-40.0) 03/01/17 12:53 Hep Bs Antigen Non-reactive (Negative) 03/02/17 12:15 Hepatitis C Antibody Non-reactive (NonReactive) 03/02/17 12:15 Blood Type O POSITIVE 02/28/17 12:03 Antibody Screen TNR 02/28/17 12:03 TEJAL Antibody Screen Negative 02/28/17 12:03 Crossmatch See Detail 02/28/17 12:03
--- NOTE | 2017-03-03 14:26 | Progress Note ---
Assessment and Plan Imp: 1. UTI/pyelonephritis 2. Sepsis/bacteremia 2/2 #1 3. Lactic acidosis 4. Hyperkalemia, better 5. SHAHID, better 6. Hypocalcemia 7. Hypoglycemia, better 8. Metabolic encephalopathy 9. Thrombocytopenia, prob 2/2 sepsis/zosyn/liver failure 10. Hepatic failure Rec: 1. Cultures show bowden-sens E.coli; continue Zosyn and d/c Vanco; surveillance cultures done 2. 3 amps of bicarb in 1L of D5W, and decrease rate to 50mL/hour 3. Replete K 4. Wean pressors to keep MAP > 65; taper steroids once off pressors 5. Keep NPO; consider TFs or TPN if unable to eat in next 1-2 days 6. IV Synthroid 7. DVT PPx 8. PICC line done 9. Duonebs QID given wheezing 10. Stop PRN Tylenol and Percocet 11. Prognosis is guarded; d/w family, they understand/agree with plan of care CCT 31 minutes Subjective Date of service: 03/03/17 Principal diagnosis: abd pain/N/V/elevated LFTs Interval history: Off Vaso and Levophed down to 4 mcg. On bicarb drip. Sleepy after Morphine but easily arouses and respiratory effort is good. Active Medications Acetaminophen (Tylenol) 650 mg PO Q6H PRN PRN Reason: Pain, Mild (1-3) Albuterol/Ipratropium (Duoneb *Not For Prn Use*) 1 ampul IH QIDRT [facility] Bisacodyl (Dulcolax) 10 mg LA QDAY PRN PRN Reason: constipation unrelieved by MOM Dextrose (D50w (25gm)) 25 gm IV PRN PRN PRN Reason: Hypoglycemia Enoxaparin Sodium (Lovenox) 40 mg SUB-Q DAILY [facility] Last Admin: 03/03/17 10:42 Dose: 40 mg Hydrocortisone Sodium Succinate (Solu-Cortef) 100 mg IV Q8H [facility] Last Admin: 03/03/17 06:44 Dose: 100 mg Vasopressin 20 unit/ Sodium (Chloride) 101 mls @ 9.09 mls/hr IV TITR NICOLE; 0.03 UNITS/MIN PRN Reason: Protocol Last Titration: 03/03/17 08:00 Dose: 0 units/min, 0 mls/hr Norepinephrine 8 mg/ Sodium (Chloride) 250 mls @ 3.75 mls/hr IV TITR NICOLE; 2 MCG /MIN PRN Reason: Protocol Last Titration: 03/03/17 10:01 Dose: 6 mcg/min, 11.25 mls/hr Piperacillin Sod/Tazobactam Sod (Zosyn/Ns 4.5gm/100ml) 4.5 gm in 100 mls @ 200 mls/hr IV Q8HR [facility] Last Admin: 03/03/17 06:44 Dose: 200 mls/hr Sodium Bicarbonate 150 meq/ (Dextrose) 1,150 mls @ 50 mls/hr IV DIRECT [facility] Last Admin: 03/03/17 08:20 Dose: 125 mls/hr Potassium Chloride (Kcl 20meq/100ml) 20 meq in 100 mls @ 100 mls/hr IV Q1H [facility] Stop: 03/03/17 15:59 Levothyroxine Sodium (Synthroid) 100 mcg IV DAILY@0600 [facility] Last Admin: 03/03/17 06:45 Dose: 100 mcg Lorazepam (Ativan) 1 mg IV Q4H PRN PRN Reason: Agitation Last Admin: 03/02/17 17:00 Dose: 1 mg Magnesium Hydroxide (Milk Of Magnesia) 30 ml PO Q4H PRN PRN Reason: Constipation Morphine Sulfate (Morphine) 2 mg IV Q4H PRN PRN Reason: Pain, Moderate (4-6) Last Admin: 03/03/17 11:50 Dose: 2 mg Ondansetron HCl (Zofran) 4 mg IV Q4H PRN PRN Reason: Nausea Oxycodone/Acetaminophen (Percocet 5/325) 2 tab PO Q6H PRN PRN Reason: Pain, Moderate (4-6) Objective Vital Signs - 12hr 03/03/17 03/03/17 03/03/17 02:30 02:45 03:00 Temperature Pulse Rate 95 H 96 H 100 H Respiratory 21 19 26 H Rate Blood Pressure 104/71 105/82 111/86 O2 Sat by Pulse 100 100 Oximetry 03/03/17 03/03/17 03/03/17 03:15 03:30 03:45 Temperature Pulse Rate 99 H 100 H 100 H Respiratory 22 26 H 30 H Rate Blood Pressure 111/89 112/84 108/87 O2 Sat by Pulse 74 L 92 89 Oximetry 03/03/17 03/03/17 03/03/17 04:00 04:15 04:30 Temperature 97.1 F L Pulse Rate 97 H 96 H 95 H Respiratory 19 19 22 Rate Blood Pressure 106/81 105/75 106/76 O2 Sat by Pulse 100 100 Oximetry 03/03/17 03/03/17 03/03/17 04:45 05:00 05:15 Temperature Pulse Rate 95 H 95 H 95 H Respiratory 21 21 21 Rate Blood Pressure 102/78 102/77 106/72 O2 Sat by Pulse 100 99 Oximetry 03/03/17 03/03/17 03/03/17 05:30 05:45 06:00 Temperature Pulse Rate 96 H 96 H 96 H Respiratory 21 20 22 Rate Blood Pressure 110/77 107/82 109/79 O2 Sat by Pulse 100 Oximetry 03/03/17 03/03/17 03/03/17 06:15 06:31 06:45 Temperature Pulse Rate 101 H 104 H 101 H Respiratory 27 H 32 H 16 Rate Blood Pressure 109/79 68/19 105/81 O2 Sat by Pulse 100 85 99 Oximetry 03/03/17 03/03/17 03/03/17 07:00 07:15 08:00 Temperature 98 F Pulse Rate 103 H 97 H Respiratory 19 23 Rate Blood Pressure 108/80 105/77 O2 Sat by Pulse Oximetry 03/03/17 08:20 Temperature Pulse Rate Respiratory Rate Blood Pressure O2 Sat by Pulse 99 Oximetry Constitutional: other (somnolent, easily arousable, moans, critically ill on pressors) Eyes: non-icteric ENT: oropharynx moist Effort: normal (good effort) Ascultation: Bilateral: wheezes, rhonchi (minimal bilaterally) Cardiovascular: regular rate and rhythm (no mrg) Gastrointestinal: normoactive bowel sounds, soft, non-distended, other (TTP throughout) Extremities: no cyanosis, no edema, pink and warm Neurologic: non-focal exam, pupils equal and round, CN II-XII normal Psychiatric: mood appropriate, affect normal CBC and BMP: 03/03/17 04:00 03/03/17 06:37 ABG, PT/INR, D-dimer: ABG POC ABG pH 7.232 (7.35-7.45) L 03/02/17 13:34 POC ABG pCO2 35.3 (35-45) 03/02/17 13:34 POC ABG pO2 127 (80-105) H 03/02/17 13:34 POC ABG HCO3 14.8 03/02/17 13:34 POC ABG Total CO2 16 03/02/17 13:34 POC ABG O2 Sat 98 03/02/17 13:34 PT/INR, D-dimer PT 16.8 Sec. (12.2-14.9) H 03/03/17 06:22 INR 1.29 (0.87-1.13) H 03/03/17 06:22 Abnormal lab findings: Abnormal Labs 02/28/17 02/28/17 03/01/17 20:00 Unknown 10:20 WBC 28.6 H RBC Hgb Hct Plt Count Seg Neuts % (Manual) Lymphocytes % (Manual) 2.5 L Seg Neutrophils # Man 16.6 H Lymphocytes # (Manual) 0.7 L Monocytes # (Manual) 1.4 H PT INR POC ABG pH POC ABG pCO2 POC ABG pO2 Potassium Chloride Carbon Dioxide BUN Creatinine Glucose POC Glucose Lactic Acid 3.50 H* 2.60 H* Calcium Magnesium Iron TIBC Ferritin Total Bilirubin AST ALT Alkaline Phosphatase C-Reactive Protein Total Protein Albumin Lipase 03/01/17 03/01/17 03/01/17 10:20 11:15 12:17 WBC RBC Hgb Hct Plt Count Seg Neuts % (Manual) Lymphocytes % (Manual) Seg Neutrophils # Man Lymphocytes # (Manual) Monocytes # (Manual) PT INR POC ABG pH POC ABG pCO2 POC ABG pO2 Potassium 5.2 H D Chloride 109.6 H Carbon Dioxide 11 L BUN 28 H Creatinine 1.3 H Glucose 29 L* POC Glucose < 40 L 129 H Lactic Acid Calcium 6.0 L Magnesium Iron TIBC Ferritin Total Bilirubin 4.80 H AST 89 H ALT Alkaline Phosphatase C-Reactive Protein Total Protein 5.4 L D Albumin 2.3 L Lipase 03/01/17 03/01/17 03/01/17 15:30 15:36 21:15 WBC RBC Hgb Hct Plt Count Seg Neuts % (Manual) Lymphocytes % (Manual) Seg Neutrophils # Man Lymphocytes # (Manual) Monocytes # (Manual) PT INR POC ABG pH POC ABG pCO2 POC ABG pO2 Potassium Chloride Carbon Dioxide 10 L BUN 28 H Creatinine Glucose POC Glucose 210 H Lactic Acid 2.40 H* Calcium 5.9 L* Magnesium Iron TIBC Ferritin Total Bilirubin 5.50 H AST 135 H ALT Alkaline Phosphatase C-Reactive Protein Total Protein 5.1 L Albumin 2.1 L Lipase 03/01/17 03/01/17 03/02/17 22:08 23:53 04:40 WBC RBC Hgb Hct Plt Count Seg Neuts % (Manual) Lymphocytes % (Manual) Seg Neutrophils # Man Lymphocytes # (Manual) Monocytes # (Manual) PT INR POC ABG pH 7.140 L POC ABG pCO2 29.9 L POC ABG pO2 149 H Potassium Chloride Carbon Dioxide BUN Creatinine Glucose POC Glucose 125 H 147 H Lactic Acid Calcium Magnesium Iron TIBC Ferritin Total Bilirubin AST ALT Alkaline Phosphatase C-Reactive Protein Total Protein Albumin Lipase 03/02/17 03/02/17 03/02/17 05:00 05:00 05:00 WBC 23.5 H RBC Hgb Hct Plt Count 139 L Seg Neuts % (Manual) 34.0 L Lymphocytes % (Manual) 13.0 L Seg Neutrophils # Man 8.0 H Lymphocytes # (Manual) Monocytes # (Manual) 0.9 H PT INR POC ABG pH POC ABG pCO2 POC ABG pO2 Potassium Chloride 111.2 H Carbon Dioxide 13 L BUN 33 H Creatinine Glucose 148 H POC Glucose Lactic Acid 2.30 H* Calcium 6.6 L Magnesium 1.30 L Iron TIBC Ferritin Total Bilirubin 5.90 H AST 159 H ALT Alkaline Phosphatase C-Reactive Protein Total Protein 4.3 L Albumin 2.1 L Lipase 03/02/17 03/02/17 03/02/17 07:57 11:41 12:15 WBC RBC Hgb Hct Plt Count Seg Neuts % (Manual) Lymphocytes % (Manual) Seg Neutrophils # Man Lymphocytes # (Manual) Monocytes # (Manual) PT INR POC ABG pH POC ABG pCO2 POC ABG pO2 Potassium Chloride Carbon Dioxide BUN Creatinine Glucose POC Glucose 135 H 146 H Lactic Acid Calcium Magnesium Iron TIBC Ferritin 1802.0 H Total Bilirubin AST ALT Alkaline Phosphatase C-Reactive Protein Total Protein Albumin Lipase 03/02/17 03/02/17 03/02/17 12:15 13:34 15:42 WBC RBC Hgb Hct Plt Count Seg Neuts % (Manual) Lymphocytes % (Manual) Seg Neutrophils # Man Lymphocytes # (Manual) Monocytes # (Manual) PT INR POC ABG pH 7.232 L POC ABG pCO2 POC ABG pO2 127 H Potassium Chloride Carbon Dioxide BUN Creatinine Glucose POC Glucose 159 H Lactic Acid Calcium Magnesium Iron 19 L TIBC 96 L Ferritin Total Bilirubin AST ALT Alkaline Phosphatase C-Reactive Protein Total Protein Albumin Lipase 03/02/17 03/02/17 03/03/17 20:22 23:27 03:59 WBC RBC Hgb Hct Plt Count Seg Neuts % (Manual) Lymphocytes % (Manual) Seg Neutrophils # Man Lymphocytes # (Manual) Monocytes # (Manual) PT INR POC ABG pH POC ABG pCO2 POC ABG pO2 Potassium Chloride Carbon Dioxide BUN Creatinine Glucose POC Glucose 161 H 166 H 161 H Lactic Acid Calcium Magnesium Iron TIBC Ferritin Total Bilirubin AST ALT Alkaline Phosphatase C-Reactive Protein Total Protein Albumin Lipase 03/03/17 03/03/17 03/03/17 04:00 04:00 04:00 WBC 12.9 H RBC 3.27 L Hgb 9.5 L Hct 27.9 L D Plt Count 97 L Seg Neuts % (Manual) 77.0 H Lymphocytes % (Manual) 6.0 L Seg Neutrophils # Man 9.9 H Lymphocytes # (Manual) 0.8 L Monocytes # (Manual) 0.9 H PT INR POC ABG pH POC ABG pCO2 POC ABG pO2 Potassium 2.7 L* D Chloride 97.7 L Carbon Dioxide 33 H D BUN 31 H Creatinine 0.6 L Glucose POC Glucose Lactic Acid Calcium 6.0 L Magnesium Iron TIBC Ferritin Total Bilirubin 4.50 H AST 398 H ALT 154 H Alkaline Phosphatase 198 H C-Reactive Protein 22.50 H Total Protein 4.4 L Albumin 2.0 L Lipase 7 L 03/03/17 03/03/17 03/03/17 06:22 06:37 08:11 WBC RBC Hgb Hct Plt Count Seg Neuts % (Manual) Lymphocytes % (Manual) Seg Neutrophils # Man Lymphocytes # (Manual) Monocytes # (Manual) PT 16.8 H INR 1.29 H POC ABG pH POC ABG pCO2 POC ABG pO2 Potassium 3.5 L D Chloride 108.2 H Carbon Dioxide 20 L D BUN 35 H Creatinine Glucose 167 H POC Glucose 156 H Lactic Acid Calcium 6.8 L Magnesium Iron TIBC Ferritin Total Bilirubin AST ALT Alkaline Phosphatase C-Reactive Protein Total Protein Albumin Lipase Chest x-ray: report reviewed (bilateral effusions)
[2017-03-03] MEDS: KCL 20MEQ/100ML 20 MEQ/100 ML BAG IV SCH ×2 (14:34→15:30)
[2017-03-03] MEDS: DUONEB *Not for PRN Use IH SCH ×2 (15:18→20:03)
--- NOTE | 2017-03-03 19:51 | Ultrasound Report ---
FINAL REPORT PROCEDURE: Transabdominal pelvic ultrasound. TECHNIQUE: Real-time transabdominal sonography in multiple planes of pelvis was performed with image documentation. This examination was performed without Doppler. Vascular abnormalities, including ovarian torsion, will not be detectable without Doppler evaluation. CPT 47413 HISTORY: Recent , sepsis. COMPARISON: No prior studies are available for comparison. FINDINGS: The uterus measures 8.5 centimeters x 3.9 centimeters x 4.8 centimeters. The myometrium appears grossly normal. There are no uterine masses. The endometrial echo complex appears normal and measures 3.5 millimeters. There is no evidence of retained products of conception. Both ovaries appear normal in size. There is a small complex cyst in the left ovary measuring 1.0 centimeters in diameter. There is a large amount of free fluid in the pelvis. IMPRESSION: No evidence of retained products of conception. Large amount of free pelvic fluid.
--- NOTE | 2017-03-03 19:56 | Ultrasound Report ---
FINAL REPORT PROCEDURE: Transvaginal pelvic ultrasound. TECHNIQUE: Real-time transvaginal sonography in multiple planes of the pelvis was performed with image documentation. This examination was performed without Doppler. Vascular abnormalities, including ovarian torsion, will not be detectable without Doppler evaluation. CPT 81455 HISTORY: Recent , sepsis, suspected retained products. COMPARISON: No prior studies are available for comparison. FINDINGS: The uterus is normal in size. There is a small hypoechoic area in the anterior portion of the lower uterus. This may represent a small leiomyoma. It could also represent a nabothian cyst. The endometrial echo complex is thin and measures 3.5 millimeters. There are no definite retained products. Both ovaries are normal in size. There is a small cyst in the right ovary measuring 1.0 centimeters. There is a small cyst in the left ovary measuring 8.5 millimeters. There is a large volume of free fluid in the pelvis. IMPRESSION: Abnormal free fluid in the pelvis. No significant abnormality identified in the uterus or ovaries.
[2017-03-04] MEDS: ATIVAN IV PRN ×4 (00:44→21:39)
[2017-03-04] MEDS: ZOSYN/NS 4.5GM/100ML 4.5 GM/100 ML VIAL IV SCH (05:10)
[2017-03-04] MEDS: SYNTHROID IV SCH (05:11)
[2017-03-04] MEDS: LEVOPHED 8 MG in NACL 0.9% 250ML 242 ML IV SCH (05:13)
[2017-03-04 08:20] LABS: Hematocrit 30.1 % (30.3-42.9); Hemoglobin 10.4 gm/dl (10.1-14.3); Mean Corpuscular HGB Conc 35 % (30-34); Mean Corpuscular Hemoglobin 30 pg (28-32); Mean Corpuscular Volume 86 fl (79-97); Red Blood Count 3.51 M/mm3 (3.65-5.03); Red Cell Distribution Width 14.5 % (13.2-15.2)
[2017-03-04 08:37] LABS: Alanine Aminotransferase 197 units/L (7-56); Albumin 2.4 g/dL (3.9-5); Albumin/Globulin Ratio 0.8 %; Alkaline Phosphatase 207 units/L (35-129); Blood Urea Nitrogen 26 mg/dL (7-17); Calcium 7.1 mg/dL (8.4-10.2); Carbon Dioxide 29 mmol/L (22-30); Glucose 117 mg/dL (65-100); Potassium 3.4 mmol/L (3.6-5.0); Sodium 146 mmol/L (137-145); Total Protein 5.4 g/dL (6.3-8.2)
[2017-03-04 08:39] LABS: Anion Gap 14 mmol/L
[2017-03-04 08:40] LABS: Platelet Count 95 K/mm3 (140-440)
[2017-03-04 09:18] LABS: Basophils % (Manual) 0 % (0.0-1.8); Blastocytes % (Manual) 0 %; Eosinophils % (Manual) 0 % (0.0-4.3)
[2017-03-04 09:19] LABS: Anisocytosis 1+; Diff Status Complete; Hypochromasia 1+; Platelet Estimate Consistent w Auto
--- NOTE | 2017-03-04 09:26 | Consultation ---
History of Present Illness - Reason for Consult Consult date: 03/04/17 Septic Shock Requesting physician: PATRICIA HOOD - History of Present Illness Ms. Jon is [id number] woman who is presently in the ICU with septic shock of uncertain origin. She is unable to provide a history. History is therefore obtained from the medical record, the patient's nurse and the patient' s female relative who is at the bedside. The patient is originally from [place] and was presumably in a normal state of health until a few days prior to admission. She had tested positive for and reportedly attempted medical termination of the . It is unknown what specifically transpired thereafter, but the patient presented to the hospital 4 days ago with repeated episodes of nausea, emesis and loose BMs. A CT abdomen/ pelvis on admission showed possible acute pancreatitis, also mild ascites and a normal pelvis. The appendix was not visualized. A follow-up abdominal ultrasound showed no evidence of cholelithasis or biliary dilatation. There was mild gallbladder wall thickening and small bilateral pleural effusions noted. Pelvic and transvaginal ultrasound imaging failed to show retained products of conception. Also, repeat CT imaging of the abdomen/ pelvis showed increased size of pleural effusions and now moderate ascites. Blood and urine cultures are positive for growth of E coli. She has been receiving Zosyn, but continues to be in septic shock requiring 8 mcg/min of Vasopressin. ID consultation is requested for further evaluation and treatment recommendations. Past History Past Medical History: hypothyroidism Past Surgical History: Other () Social history: single, lives with family. denies: smoking, alcohol abuse, prescription drug abuse Family history: hypertension Medications and Allergies Allergies Allergy/AdvReac Type Severity Reaction Status Date / Time No Known Allergies Allergy Verified 07/26/15 20:16 Home Medications Medication Instructions Recorded Confirmed Last Taken Type Acetaminophen/Codeine [Tylenol #3] 1 tab PO Q6H PRN #30 tab 07/27/15 Unknown Rx Cephalexin [Keflex] 500 mg PO Q8HR #42 cap 07/27/15 Unknown Rx Active Meds: Active Medications Albuterol/Ipratropium (Duoneb *Not For Prn Use*) 1 ampul IH QIDRT [facility] [place] Last Admin: 03/03/17 20:03 Dose: 1 ampul Bisacodyl (Dulcolax) 10 mg [place] QDAY PRN PRN Reason: constipation unrelieved by MOM Dextrose (D50w (25gm)) 25 gm IV PRN PRN PRN Reason: Hypoglycemia Enoxaparin Sodium (Lovenox) 40 mg SUB-Q DAILY [facility] [place] Last Admin: 03/03/17 10:42 Dose: 40 mg Hydrocortisone Sodium Succinate (Solu-Cortef) 100 mg IV Q8H [facility] Last Admin: 03/04/17 05:11 Dose: 100 mg Vasopressin 20 unit/ Sodium (Chloride) 101 mls @ 9.09 mls/hr IV TITR NICOLE; 0.03 UNITS/MIN PRN Reason: Protocol Last Titration: 03/03/17 08:00 Dose: 0 units/min, 0 mls/hr Norepinephrine 8 mg/ Sodium (Chloride) 250 mls @ 3.75 mls/hr IV TITR NICOLE; 2 MCG /MIN PRN Reason: Protocol Last Admin: 03/04/17 05:13 Dose: 4 mcg/min, 7.5 mls/hr Piperacillin Sod/Tazobactam Sod (Zosyn/Ns 4.5gm/100ml) 4.5 gm in 100 mls @ 200 mls/hr IV Q8HR [facility] Last Admin: 03/04/17 05:10 Dose: 200 mls/hr Sodium Bicarbonate 150 meq/ (Dextrose) 1,150 mls @ 50 mls/hr IV DIRECT [facility] Last Admin: 03/03/17 20:36 Dose: 125 mls/hr Levothyroxine Sodium (Synthroid) 100 mcg IV DAILY@0600 [facility] Last Admin: 03/04/17 05:11 Dose: 100 mcg Lorazepam (Ativan) 1 mg IV Q4H PRN PRN Reason: Agitation Last Admin: 03/04/17 00:44 Dose: 1 mg Magnesium Hydroxide (Milk Of Magnesia) 30 ml PO Q4H PRN PRN Reason: Constipation Morphine Sulfate (Morphine) 2 mg IV Q4H PRN PRN Reason: Pain, Moderate (4-6) Last Admin: 03/03/17 11:50 Dose: 2 mg Ondansetron HCl (Zofran) 4 mg IV Q4H PRN PRN Reason: Nausea Review of Systems ROS unobtainable: due to mental status Physical Examination - Constitutional Vitals: Vital Signs Temp Pulse Resp BP Pulse Ox 97.9 F 116 H 17 119/39 75 L 03/04/17 08:00 03/04/17 08:30 03/04/17 08:30 03/04/17 08:30 03/04/17 08:30 Temperature -Last 24 Hours Temperature 97.9 F Temperature 97.8 F Temperature 97.7 F Temperature 98.8 F Temperature 98 F Temperature 98.1 F Requiring 8 mcg Vasopressin General appearance: Present: mild distress (thrashing and yelling out in bed), well-nourished - EENT Eyes: Absent: scleral icterus, conjunctival injection - Neck Neck: Present: supple - Respiratory Respiratory effort: normal Respiratory: bilateral: CTA, negative: rales, rhonchi - Cardiovascular Rhythm: regular (borderline tachycardic) Heart Sounds: Present: S1 & S2 - Extremities Extremities: No edema - Abdominal General gastrointestinal: Present: soft, non-distended, other (unable to reliably discern tenderness) Female genitourinary: Present: other (Port[place] in place; vaginal bleeding noted) - Integumentary Integumentary: Present: clear. Absent: rash - Psychiatric Psychiatric: agitated - Neurologic Neurologic: moves all extremities Results - Labs CBC & Chem 7: 03/04/17 Unknown 03/04/17 Unknown Labs: Abnormal lab results 03/02/17 03/03/17 03/03/17 Range/Units 12:15 08:11 11:42 RBC (3.65-5.03) M/mm3 Hct (30.3-42.9) % MCHC (30-34) % Plt Count (140-440) K/mm3 Seg Neuts % (Manual) (40.0-70.0) % Lymphocytes % (Manual) (13.4-35.0) % Nucleated RBC % (0.0-0.9) % Seg Neutrophils # Man (1.8-7.7) K/mm3 Lymphocytes # (Manual) (1.2-5.4) K/mm3 Fibrinogen (211-480) mg/dl Sodium (137-145) mmol/L Potassium (3.6-5.0) mmol/L BUN (7-17) mg/dL Creatinine (0.7-1.2) mg/dL Glucose (65-100) mg/dL POC Glucose 156 H 163 H (70-105) Calcium (8.4-10.2) mg/dL Total Bilirubin (0.1-1.2) mg/dL AST (5-40) units/L ALT (7-56) units/L Alkaline Phosphatase (35-129) units/L Total Protein (6.3-8.2) g/dL Albumin (3.9-5) g/dL Qrggp-9-Tkudkmuperc 257 H (83-199) mg/dL 03/03/17 03/03/17 03/03/17 Range/Units 16:38 17:06 21:48 RBC (3.65-5.03) M/mm3 Hct (30.3-42.9) % MCHC (30-34) % Plt Count (140-440) K/mm3 Seg Neuts % (Manual) (40.0-70.0) % Lymphocytes % (Manual) (13.4-35.0) % Nucleated RBC % (0.0-0.9) % Seg Neutrophils # Man (1.8-7.7) K/mm3 Lymphocytes # (Manual) (1.2-5.4) K/mm3 Fibrinogen 556 H (211-480) mg/dl Sodium (137-145) mmol/L Potassium (3.6-5.0) mmol/L BUN (7-17) mg/dL Creatinine (0.7-1.2) mg/dL Glucose (65-100) mg/dL POC Glucose 124 H 126 H (70-105) Calcium (8.4-10.2) mg/dL Total Bilirubin (0.1-1.2) mg/dL AST (5-40) units/L ALT (7-56) units/L Alkaline Phosphatase (35-129) units/L Total Protein (6.3-8.2) g/dL Albumin (3.9-5) g/dL Jzkbs-8-Aqyhoafqudx (83-199) mg/dL 03/04/17 03/04/17 03/04/17 Range/Units 01:56 05:41 Unknown RBC 3.51 L (3.65-5.03) M/mm3 Hct 30.1 L (30.3-42.9) % MCHC 35 H (30-34) % Plt Count 95 L (140-440) K/mm3 Seg Neuts % (Manual) 88.0 H (40.0-70.0) % Lymphocytes % (Manual) 5.0 L (13.4-35.0) % Nucleated RBC % 1.0 H (0.0-0.9) % Seg Neutrophils # Man 8.8 H (1.8-7.7) K/mm3 Lymphocytes # (Manual) 0.5 L (1.2-5.4) K/mm3 Fibrinogen (211-480) mg/dl Sodium (137-145) mmol/L Potassium (3.6-5.0) mmol/L BUN (7-17) mg/dL Creatinine (0.7-1.2) mg/dL Glucose (65-100) mg/dL POC Glucose 128 H 118 H (70-105) Calcium (8.4-10.2) mg/dL Total Bilirubin (0.1-1.2) mg/dL AST (5-40) units/L ALT (7-56) units/L Alkaline Phosphatase (35-129) units/L Total Protein (6.3-8.2) g/dL Albumin (3.9-5) g/dL Eknje-0-Nzwhvfrxaon (83-199) mg/dL 03/04/17 Range/Units Unknown RBC (3.65-5.03) M/mm3 Hct (30.3-42.9) % MCHC (30-34) % Plt Count (140-440) K/mm3 Seg Neuts % (Manual) (40.0-70.0) % Lymphocytes % (Manual) (13.4-35.0) % Nucleated RBC % (0.0-0.9) % Seg Neutrophils # Man (1.8-7.7) K/mm3 Lymphocytes # (Manual) (1.2-5.4) K/mm3 Fibrinogen (211-480) mg/dl Sodium 146 H (137-145) mmol/L Potassium 3.4 L (3.6-5.0) mmol/L BUN 26 H (7-17) mg/dL Creatinine 0.4 L (0.7-1.2) mg/dL Glucose 117 H (65-100) mg/dL POC Glucose (70-105) Calcium 7.1 L (8.4-10.2) mg/dL Total Bilirubin 4.00 H (0.1-1.2) mg/dL AST 332 H (5-40) units/L ALT 197 H (7-56) units/L Alkaline Phosphatase 207 H (35-129) units/L Total Protein 5.4 L D (6.3-8.2) g/dL Albumin 2.4 L (3.9-5) g/dL Iplxp-7-Xllhmpkqnnk (83-199) mg/dL Microbiology 02/28/17 23:15 Peripheral/Venous Blood Culture - Preliminary NO GROWTH AFTER 72 HOURS 03/02/17 14:55 Peripheral/Venous Blood Culture - Preliminary NO GROWTH AFTER 24 HOURS 03/02/17 14:48 Peripheral/Venous Blood Culture - Preliminary NO GROWTH AFTER 24 HOURS 02/28/17 11:40 Urine,[place] Urine Culture - Final Escherichia Coli 02/28/17 11:15 Peripheral/Venous Blood Culture - Final Escherichia Coli - Imaging and Cardiology Chest x-ray: report reviewed Abdominal x-ray: report reviewed CT scan - abdomen: report reviewed Assessment and Plan - Patient Problems (1) Septic shock Current Visit: Yes Status: Acute Plan to address problem: 1. Patient is more severely ill than would be expected for likely urosepsis/ bacteremia. 2. Recommend CT or ultrasound imaging of neck. 3. Will screen for HIV infection. 4. I am broadening antibiotic coverage empirically pending further evaluation.
[2017-03-04] MEDS: LOVENOX SUB-Q SCH (09:36)
[2017-03-04] MEDS: MORPHINE IV PRN (09:43)
[2017-03-04] MEDS: DUONEB *Not for PRN Use IH SCH ×5 (10:29→21:22)
[2017-03-04] MEDS ORDERED: VANCOMYCIN/NS 1 GM/250 ML 1 GM/250 ML BAG IV SCH (11:00)
[2017-03-04] MEDS: VANCOMYCIN/NS 1 GM/250 ML 1 GM/250 ML BAG IV SCH ×2 (11:38→18:14)
[2017-03-04 12:00] LABS: INR 1.31 (0.87-1.13)
[2017-03-04 12:01] LABS: Partial Thromboplastin Time 30.1 Sec. (24.2-36.6)
[2017-03-04] MEDS: KCL 20MEQ/100ML 20 MEQ/100 ML BAG IV SCH ×2 (12:02→13:42)
[2017-03-04] MEDS: MERREM 1,000 MG in NACL 0.9% 100 ML IV SCH ×2 (12:03→18:15)
[2017-03-04] MEDS: D5/0.45NS 1,000 ML IV SCH (12:03)
[2017-03-04 12:20] LABS: Albumin 2.5 g/dL (3.9-5); Albumin/Globulin Ratio 0.8 %; Bilirubin,Direct 2.9 mg/dL (0-0.2); Bilirubin,Indirect 1.1 mg/dL; Total Protein 5.7 g/dL (6.3-8.2)
--- NOTE | 2017-03-04 12:40 | Progress Note ---
Assessment and Plan Imp: 1. UTI/pyelonephritis 2. Sepsis/bacteremia 2/2 #1 3. Lactic acidosis 4. Hyperkalemia, better 5. SHAHID, better 6. Hypocalcemia 7. Hypoglycemia, better 8. Metabolic encephalopathy 9. Thrombocytopenia, prob 2/2 sepsis/zosyn/liver failure 10. Hepatic failure 11. Ascites Rec: 1. Cultures show bowden-sens E.coli; surveillance cultures done neg; ABX per ID 2. D/c bicarp drip; change to D5 1/2 NS since sodium is creeping up 3. Replete K 4. Wean pressors to keep MAP > 65; taper steroids once off pressors 5. Keep NPO; consider TFs or TPN if unable to eat in next 1-2 days 6. IV Synthroid 7. DVT PPx; platelets are low likely due to sepsis and Vanco/Zosyn; doubt HIT on Lovenox but if platelets drop further will stop and check HIT 8. PICC line done 9. Duonebs QID given wheezing 10. Stopped PRN Tylenol and Percocet 11. Prognosis is guarded; hemodynamics and labs seem to be improving slowly 12. Complex patient/decision-making; no family present Subjective Date of service: 03/04/17 Principal diagnosis: abd pain/N/V/elevated LFTs Interval history: Off Vaso and Levophed down to 2 mcg. On bicarb drip. Sleepy after Morphine but easily arouses and respiratory effort is good. Active Medications Albuterol/Ipratropium (Duoneb *Not For Prn Use*) 1 ampul IH QIDRT [facility] Last Admin: 03/04/17 10:29 Dose: 1 ampul Bisacodyl (Dulcolax) 10 mg MD QDAY PRN PRN Reason: constipation unrelieved by MOM Dextrose (D50w (25gm)) 25 gm IV PRN PRN PRN Reason: Hypoglycemia Enoxaparin Sodium (Lovenox) 40 mg SUB-Q DAILY [facility] Last Admin: 03/04/17 09:36 Dose: 40 mg Hydrocortisone Sodium Succinate (Solu-Cortef) 100 mg IV Q8H [facility] Last Admin: 03/04/17 05:11 Dose: 100 mg Vasopressin 20 unit/ Sodium (Chloride) 101 mls @ 9.09 mls/hr IV TITR NICOLE; 0.03 UNITS/MIN PRN Reason: Protocol Last Titration: 03/03/17 08:00 Dose: 0 units/min, 0 mls/hr Norepinephrine 8 mg/ Sodium (Chloride) 250 mls @ 3.75 mls/hr IV TITR NICOLE; 2 MCG /MIN PRN Reason: Protocol Last Admin: 03/04/17 05:13 Dose: 4 mcg/min, 7.5 mls/hr Meropenem 1,000 mg/ Sodium (Chloride) 100 mls @ 100 mls/hr IV Q8H NICOLE PRN Reason: Protocol Last Admin: 03/04/17 12:03 Dose: 100 mls/hr Vancomycin HCl (Vancomycin/Ns 1 Gm/250 Ml) 1 gm in 250 mls @ 166.667 mls/hr IV Q8H NICOLE Last Admin: 03/04/17 11:38 Dose: 166.667 mls/hr Dextrose/Sodium Chloride (D5/0.45ns) 1,000 mls @ 50 mls/hr IV DIRECT NICOLE Last Admin: 03/04/17 12:03 Dose: 50 mls/hr Potassium Chloride (Kcl 20meq/100ml) 20 meq in 100 mls @ 100 mls/hr IV Q1H NICOLE Stop: 03/04/17 13:59 Last Admin: 03/04/17 12:02 Dose: 100 mls/hr Levothyroxine Sodium (Synthroid) 100 mcg IV DAILY@0600 NICOLE Last Admin: 03/04/17 05:11 Dose: 100 mcg Lorazepam (Ativan) 1 mg IV Q4H PRN PRN Reason: Agitation Last Admin: 03/04/17 09:44 Dose: 1 mg Magnesium Hydroxide (Milk Of Magnesia) 30 ml PO Q4H PRN PRN Reason: Constipation Morphine Sulfate (Morphine) 2 mg IV Q4H PRN PRN Reason: Pain, Moderate (4-6) Last Admin: 03/04/17 09:43 Dose: 2 mg Ondansetron HCl (Zofran) 4 mg IV Q4H PRN PRN Reason: Nausea Objective Vital Signs - 12hr 03/04/17 03/04/17 03/04/17 00:45 01:00 01:15 Temperature Pulse Rate 95 H 94 H 89 Respiratory 15 19 23 Rate Blood Pressure 107/73 101/71 96/64 O2 Sat by Pulse 100 98 100 Oximetry 03/04/17 03/04/17 03/04/17 01:30 01:45 02:00 Temperature Pulse Rate 90 89 90 Respiratory 21 21 20 Rate Blood Pressure 100/68 97/70 98/69 O2 Sat by Pulse 100 100 100 Oximetry 03/04/17 03/04/17 03/04/17 02:15 02:30 02:45 Temperature Pulse Rate 91 H 92 H 92 H Respiratory 28 H 24 25 H Rate Blood Pressure 108/68 107/71 106/78 O2 Sat by Pulse 100 100 100 Oximetry 03/04/17 03/04/17 03/04/17 03:00 03:15 03:30 Temperature Pulse Rate 94 H 93 H 91 H Respiratory 18 22 22 Rate Blood Pressure 108/71 105/76 111/72 O2 Sat by Pulse 100 99 98 Oximetry 03/04/17 03/04/17 03/04/17 03:45 04:00 04:15 Temperature 97.8 F Pulse Rate 92 H 91 H 98 H Respiratory 22 23 23 Rate Blood Pressure 106/77 107/75 106/80 O2 Sat by Pulse 100 100 100 Oximetry 03/04/17 03/04/17 03/04/17 04:30 04:45 05:00 Temperature Pulse Rate 95 H 93 H 93 H Respiratory 16 15 19 Rate Blood Pressure 105/73 104/75 110/67 O2 Sat by Pulse 100 100 100 Oximetry 03/04/17 03/04/17 03/04/17 05:15 05:30 05:45 Temperature Pulse Rate 102 H 113 H 101 H Respiratory 23 15 22 Rate Blood Pressure 111/84 77/48 75/49 O2 Sat by Pulse 99 100 100 Oximetry 03/04/17 03/04/17 03/04/17 06:00 06:15 06:30 Temperature Pulse Rate 95 H 93 H 91 H Respiratory 18 17 17 Rate Blood Pressure 108/72 102/77 95/71 O2 Sat by Pulse 100 100 100 Oximetry 03/04/17 03/04/17 03/04/17 06:45 07:00 07:16 Temperature Pulse Rate 94 H 112 H 112 H Respiratory 18 19 19 Rate Blood Pressure 106/76 95/75 O2 Sat by Pulse 100 100 96 Oximetry 03/04/17 03/04/17 03/04/17 07:30 07:45 08:00 Temperature 97.9 F Pulse Rate 111 H 111 H 94 H Respiratory 28 H 23 19 Rate Blood Pressure 100/82 109/73 111/81 O2 Sat by Pulse 100 100 100 Oximetry 03/04/17 03/04/17 08:15 08:30 Temperature Pulse Rate 95 H 116 H Respiratory 21 17 Rate Blood Pressure 108/73 119/39 O2 Sat by Pulse 100 75 L Oximetry Constitutional: other (somnolent, easily arousable, moans, critically ill on pressors) Eyes: non-icteric ENT: oropharynx moist Effort: normal (good effort) Ascultation: Bilateral: wheezes, rhonchi (minimal bilaterally) Cardiovascular: other (mildly tachy, RR; no mrg) Gastrointestinal: normoactive bowel sounds, soft, non-distended, other (TTP throughout) Extremities: no cyanosis, no edema, pink and warm Neurologic: non-focal exam, pupils equal and round, CN II-XII normal Psychiatric: mood appropriate, affect normal CBC and BMP: 03/04/17 Unknown 03/04/17 Unknown ABG, PT/INR, D-dimer: ABG POC ABG pH 7.232 (7.35-7.45) L 03/02/17 13:34 POC ABG pCO2 35.3 (35-45) 03/02/17 13:34 POC ABG pO2 127 (80-105) H 03/02/17 13:34 POC ABG HCO3 14.8 03/02/17 13:34 POC ABG Total CO2 16 03/02/17 13:34 POC ABG O2 Sat 98 03/02/17 13:34 PT/INR, D-dimer PT 16.2 Sec. (12.2-14.9) H 03/04/17 11:22 INR 1.31 (0.87-1.13) H 03/04/17 11:22 Abnormal lab findings: Abnormal Labs 02/28/17 02/28/17 03/01/17 20:00 Unknown 10:20 WBC 28.6 H RBC Hgb Hct MCHC Plt Count Seg Neuts % (Manual) Lymphocytes % (Manual) 2.5 L Nucleated RBC % Seg Neutrophils # Man 16.6 H Lymphocytes # (Manual) 0.7 L Monocytes # (Manual) 1.4 H PT INR Fibrinogen POC ABG pH POC ABG pCO2 POC ABG pO2 Sodium Potassium Chloride Carbon Dioxide BUN Creatinine Glucose POC Glucose Lactic Acid 3.50 H* 2.60 H* Calcium Magnesium Iron TIBC Ferritin Total Bilirubin Direct Bilirubin AST ALT Alkaline Phosphatase C-Reactive Protein Total Protein Albumin Inhwc-6-Finpbhwzzmt Lipase 03/01/17 03/01/17 03/01/17 10:20 11:15 12:17 WBC RBC Hgb Hct MCHC Plt Count Seg Neuts % (Manual) Lymphocytes % (Manual) Nucleated RBC % Seg Neutrophils # Man Lymphocytes # (Manual) Monocytes # (Manual) PT INR Fibrinogen POC ABG pH POC ABG pCO2 POC ABG pO2 Sodium Potassium 5.2 H D Chloride 109.6 H Carbon Dioxide 11 L BUN 28 H Creatinine 1.3 H Glucose 29 L* POC Glucose < 40 L 129 H Lactic Acid Calcium 6.0 L Magnesium Iron TIBC Ferritin Total Bilirubin 4.80 H Direct Bilirubin AST 89 H ALT Alkaline Phosphatase C-Reactive Protein Total Protein 5.4 L D Albumin 2.3 L Tfueu-7-Apllcgagztm Lipase 03/01/17 03/01/17 03/01/17 15:30 15:36 21:15 WBC RBC Hgb Hct MCHC Plt Count Seg Neuts % (Manual) Lymphocytes % (Manual) Nucleated RBC % Seg Neutrophils # Man Lymphocytes # (Manual) Monocytes # (Manual) PT INR Fibrinogen POC ABG pH POC ABG pCO2 POC ABG pO2 Sodium Potassium Chloride Carbon Dioxide 10 L BUN 28 H Creatinine Glucose POC Glucose 210 H Lactic Acid 2.40 H* Calcium 5.9 L* Magnesium Iron TIBC Ferritin Total Bilirubin 5.50 H Direct Bilirubin AST 135 H ALT Alkaline Phosphatase C-Reactive Protein Total Protein 5.1 L Albumin 2.1 L Medcz-9-Zjjpxwcpfnc Lipase 03/01/17 03/01/17 03/02/17 22:08 23:53 04:40 WBC RBC Hgb Hct MCHC Plt Count Seg Neuts % (Manual) Lymphocytes % (Manual) Nucleated RBC % Seg Neutrophils # Man Lymphocytes # (Manual) Monocytes # (Manual) PT INR Fibrinogen POC ABG pH 7.140 L POC ABG pCO2 29.9 L POC ABG pO2 149 H Sodium Potassium Chloride Carbon Dioxide BUN Creatinine Glucose POC Glucose 125 H 147 H Lactic Acid Calcium Magnesium Iron TIBC Ferritin Total Bilirubin Direct Bilirubin AST ALT Alkaline Phosphatase C-Reactive Protein Total Protein Albumin Czyvm-7-Rtyncriyohz Lipase 03/02/17 03/02/17 03/02/17 05:00 05:00 05:00 WBC 23.5 H RBC Hgb Hct MCHC Plt Count 139 L Seg Neuts % (Manual) 34.0 L Lymphocytes % (Manual) 13.0 L Nucleated RBC % Seg Neutrophils # Man 8.0 H Lymphocytes # (Manual) Monocytes # (Manual) 0.9 H PT INR Fibrinogen POC ABG pH POC ABG pCO2 POC ABG pO2 Sodium Potassium Chloride 111.2 H Carbon Dioxide 13 L BUN 33 H Creatinine Glucose 148 H POC Glucose Lactic Acid 2.30 H* Calcium 6.6 L Magnesium 1.30 L Iron TIBC Ferritin Total Bilirubin 5.90 H Direct Bilirubin AST 159 H ALT Alkaline Phosphatase C-Reactive Protein Total Protein 4.3 L Albumin 2.1 L Bslla-8-Luppcoycmlm Lipase 03/02/17 03/02/17 03/02/17 07:57 11:41 12:15 WBC RBC Hgb Hct MCHC Plt Count Seg Neuts % (Manual) Lymphocytes % (Manual) Nucleated RBC % Seg Neutrophils # Man Lymphocytes # (Manual) Monocytes # (Manual) PT INR Fibrinogen POC ABG pH POC ABG pCO2 POC ABG pO2 Sodium Potassium Chloride Carbon Dioxide BUN Creatinine Glucose POC Glucose 135 H 146 H Lactic Acid Calcium Magnesium Iron TIBC Ferritin 1802.0 H Total Bilirubin Direct Bilirubin AST ALT Alkaline Phosphatase C-Reactive Protein Total Protein Albumin Gvnrv-8-Hgwwqifxsji Lipase 03/02/17 03/02/17 03/02/17 12:15 12:15 13:34 WBC RBC Hgb Hct MCHC Plt Count Seg Neuts % (Manual) Lymphocytes % (Manual) Nucleated RBC % Seg Neutrophils # Man Lymphocytes # (Manual) Monocytes # (Manual) PT INR Fibrinogen POC ABG pH 7.232 L POC ABG pCO2 POC ABG pO2 127 H Sodium Potassium Chloride Carbon Dioxide BUN Creatinine Glucose POC Glucose Lactic Acid Calcium Magnesium Iron 19 L TIBC 96 L Ferritin Total Bilirubin Direct Bilirubin AST ALT Alkaline Phosphatase C-Reactive Protein Total Protein Albumin Mtvvk-8-Cunknicnash 257 H Lipase 03/02/17 03/02/17 03/02/17 15:42 20:22 23:27 WBC RBC Hgb Hct MCHC Plt Count Seg Neuts % (Manual) Lymphocytes % (Manual) Nucleated RBC % Seg Neutrophils # Man Lymphocytes # (Manual) Monocytes # (Manual) PT INR Fibrinogen POC ABG pH POC ABG pCO2 POC ABG pO2 Sodium Potassium Chloride Carbon Dioxide BUN Creatinine Glucose POC Glucose 159 H 161 H 166 H Lactic Acid Calcium Magnesium Iron TIBC Ferritin Total Bilirubin Direct Bilirubin AST ALT Alkaline Phosphatase C-Reactive Protein Total Protein Albumin Cjdfr-8-Tyunytdnlwa Lipase 03/03/17 03/03/17 03/03/17 03:59 04:00 04:00 WBC 12.9 H RBC 3.27 L Hgb 9.5 L Hct 27.9 L D MCHC Plt Count 97 L Seg Neuts % (Manual) 77.0 H Lymphocytes % (Manual) 6.0 L Nucleated RBC % Seg Neutrophils # Man 9.9 H Lymphocytes # (Manual) 0.8 L Monocytes # (Manual) 0.9 H PT INR Fibrinogen POC ABG pH POC ABG pCO2 POC ABG pO2 Sodium Potassium Chloride Carbon Dioxide BUN Creatinine Glucose POC Glucose 161 H Lactic Acid Calcium Magnesium Iron TIBC Ferritin Total Bilirubin Direct Bilirubin AST ALT Alkaline Phosphatase C-Reactive Protein 22.50 H Total Protein Albumin Rsvcx-6-Wfznhaowdfp Lipase 7 L 03/03/17 03/03/17 03/03/17 04:00 06:22 06:37 WBC RBC Hgb Hct MCHC Plt Count Seg Neuts % (Manual) Lymphocytes % (Manual) Nucleated RBC % Seg Neutrophils # Man Lymphocytes # (Manual) Monocytes # (Manual) PT 16.8 H INR 1.29 H Fibrinogen POC ABG pH POC ABG pCO2 POC ABG pO2 Sodium Potassium 2.7 L* D 3.5 L D Chloride 97.7 L 108.2 H Carbon Dioxide 33 H D 20 L D BUN 31 H 35 H Creatinine 0.6 L Glucose 167 H POC Glucose Lactic Acid Calcium 6.0 L 6.8 L Magnesium Iron TIBC Ferritin Total Bilirubin 4.50 H Direct Bilirubin AST 398 H ALT 154 H Alkaline Phosphatase 198 H C-Reactive Protein Total Protein 4.4 L Albumin 2.0 L Lvzyz-5-Blzpeqwrmpk Lipase 03/03/17 03/03/17 03/03/17 08:11 11:42 16:38 WBC RBC Hgb Hct MCHC Plt Count Seg Neuts % (Manual) Lymphocytes % (Manual) Nucleated RBC % Seg Neutrophils # Man Lymphocytes # (Manual) Monocytes # (Manual) PT INR Fibrinogen 556 H POC ABG pH POC ABG pCO2 POC ABG pO2 Sodium Potassium Chloride Carbon Dioxide BUN Creatinine Glucose POC Glucose 156 H 163 H Lactic Acid Calcium Magnesium Iron TIBC Ferritin Total Bilirubin Direct Bilirubin AST ALT Alkaline Phosphatase C-Reactive Protein Total Protein Albumin Zielv-8-Ipezmakzyii Lipase 03/03/17 03/03/17 03/04/17 17:06 21:48 01:56 WBC RBC Hgb Hct MCHC Plt Count Seg Neuts % (Manual) Lymphocytes % (Manual) Nucleated RBC % Seg Neutrophils # Man Lymphocytes # (Manual) Monocytes # (Manual) PT INR Fibrinogen POC ABG pH POC ABG pCO2 POC ABG pO2 Sodium Potassium Chloride Carbon Dioxide BUN Creatinine Glucose POC Glucose 124 H 126 H 128 H Lactic Acid Calcium Magnesium Iron TIBC Ferritin Total Bilirubin Direct Bilirubin AST ALT Alkaline Phosphatase C-Reactive Protein Total Protein Albumin Iorzy-1-Kkbmygdmyoy Lipase 03/04/17 03/04/17 03/04/17 05:41 09:54 11:22 WBC RBC Hgb Hct MCHC Plt Count Seg Neuts % (Manual) Lymphocytes % (Manual) Nucleated RBC % Seg Neutrophils # Man Lymphocytes # (Manual) Monocytes # (Manual) PT 16.2 H INR 1.31 H Fibrinogen POC ABG pH POC ABG pCO2 POC ABG pO2 Sodium Potassium Chloride Carbon Dioxide BUN Creatinine Glucose POC Glucose 118 H 127 H Lactic Acid Calcium Magnesium Iron TIBC Ferritin Total Bilirubin Direct Bilirubin AST ALT Alkaline Phosphatase C-Reactive Protein Total Protein Albumin Vpbci-3-Luuxkiyytzy Lipase 03/04/17 03/04/17 03/04/17 11:22 Unknown Unknown WBC RBC 3.51 L Hgb Hct 30.1 L MCHC 35 H Plt Count 95 L Seg Neuts % (Manual) 88.0 H Lymphocytes % (Manual) 5.0 L Nucleated RBC % 1.0 H Seg Neutrophils # Man 8.8 H Lymphocytes # (Manual) 0.5 L Monocytes # (Manual) PT INR Fibrinogen POC ABG pH POC ABG pCO2 POC ABG pO2 Sodium 146 H Potassium 3.4 L Chloride Carbon Dioxide BUN 26 H Creatinine 0.4 L Glucose 117 H POC Glucose Lactic Acid Calcium 7.1 L Magnesium Iron TIBC Ferritin Total Bilirubin 4.00 H 4.00 H Direct Bilirubin 2.9 H AST 312 H 332 H ALT 202 H 197 H Alkaline Phosphatase 187 H 207 H C-Reactive Protein Total Protein 5.7 L 5.4 L D Albumin 2.5 L 2.4 L Eawqj-4-Zlfsrypwimm Lipase Chest x-ray: report reviewed, image reviewed
--- NOTE | 2017-03-04 14:26 | Procedure Note ---
Date of procedure: 03/04/17 Pre-op diagnosis: ascites Post-op diagnosis: same Procedure: paracentesis Findings: small pocket straw colored fluid Anesthesia: local Surgeon: DIMITRIS YADAV Estimated blood loss: none Pathology: list (120cc ascitic fluid) Specimen disposition: to lab Condition: stable Disposition: floor
[2017-03-04 15:30] LABS: Basophils Body Fluid 0 %; Eosinophils Body Fluid 0 %; Reactive Lymph Body Fluid 0 %
--- NOTE | 2017-03-04 16:28 | Gastroenterology Progress Note ---
Assessment and Plan Liver: sepsis w/ hypotension now +E.coli noted increase LFT's - noted decrease ast/alt and slight increase T. bili - suspect liver disease due to shock vs infection vs other - no need liver bx at this time - hemodynamic management per primary team - await ID input - await pending serologies - will follwo closely Subjective Date of service: 03/04/17 Principal diagnosis: abd pain/N/V/elevated LFTs Interval history: - pt somewhat more stable per staff but still confused, still on pressor support. No other changes per staff Objective - Constitutional Vitals: Temp Pulse Resp BP Pulse Ox 98.4 F 116 H 17 119/39 75 L 03/04/17 12:00 03/04/17 08:30 03/04/17 08:30 03/04/17 08:30 03/04/17 08:30 General appearance: no acute distress - Respiratory Respiratory: bilateral: CTA - Cardiovascular Rhythm: regular Heart Sounds: Present: S1 & S2 - Gastrointestinal General gastrointestinal: Present: soft, non-tender - Labs CBC & Chem 7: 03/04/17 Unknown 03/04/17 Unknown Labs: Laboratory Results - last 24 hr 03/02/17 03/02/17 03/03/17 12:15 12:15 11:42 WBC RBC Hgb Hct MCV MCH MCHC RDW Plt Count Add Manual Diff Total Counted Seg Neuts % (Manual) Band Neutrophils % Lymphocytes % (Manual) Reactive Lymphs % (Man) Monocytes % (Manual) Eosinophils % (Manual) Basophils % (Manual) Metamyelocytes % Myelocytes % Promyelocytes % Blast Cells % Nucleated RBC % Seg Neutrophils # Man Band Neutrophils # Lymphocytes # (Manual) Abs React Lymphs (Man) Monocytes # (Manual) Eosinophils # (Manual) Basophils # (Manual) Metamyelocytes # Myelocytes # Promyelocytes # Blast Cells # WBC Morphology Hypersegmented Neuts Hyposegmented Neuts Hypogranular Neuts Smudge Cells Toxic Granulation Toxic Vacuolation Dohle Bodies Pelger-Huet Anomaly Linda Rods Platelet Estimate Clumped Platelets Plt Clumps, EDTA Large Platelets Giant Platelets Platelet Satelliting Plt Morphology Comment RBC Morphology Dimorphic RBCs Polychromasia Hypochromasia Poikilocytosis Anisocytosis Microcytosis Macrocytosis Spherocytes Pappenheimer Bodies Sickle Cells Target Cells Tear Drop Cells Ovalocytes Helmet Cells Sal-[place] Bodies [place] Teri Cells Bite Cells Crenated Cell Elliptocytes Acanthocytes (Spur) Rouleaux Hemoglobin C Crystals Schistocytes Malaria parasites Charlie Bodies Hem Pathologist Commnt PT INR APTT Fibrinogen Sodium Potassium Chloride Carbon Dioxide Anion Gap BUN Creatinine Estimated GFR BUN/Creatinine Ratio Glucose POC Glucose 163 H Calcium Magnesium Total Bilirubin Direct Bilirubin Indirect Bilirubin AST ALT Alkaline Phosphatase Total Protein Albumin Albumin/Globulin Ratio [id number] 257 H Ceruloplasmin 32 Fluid Type Fluid Color Fluid Appearance Fluid WBC Fluid RBC Fluid Seg Neutrophils Fluid Lymphocytes Fluid Reactive Lymphs Fluid Monocytes Fluid Eosinophils Fluid Basophils 03/03/17 03/03/17 03/03/17 16:38 17:06 21:48 WBC RBC Hgb Hct MCV MCH MCHC RDW Plt Count Add Manual Diff Total Counted Seg Neuts % (Manual) Band Neutrophils % Lymphocytes % (Manual) Reactive Lymphs % (Man) Monocytes % (Manual) Eosinophils % (Manual) Basophils % (Manual) Metamyelocytes % Myelocytes % Promyelocytes % Blast Cells % Nucleated RBC % Seg Neutrophils # Man Band Neutrophils # Lymphocytes # (Manual) Abs React Lymphs (Man) Monocytes # (Manual) Eosinophils # (Manual) Basophils # (Manual) Metamyelocytes # Myelocytes # Promyelocytes # Blast Cells # WBC Morphology Hypersegmented Neuts Hyposegmented Neuts Hypogranular Neuts Smudge Cells Toxic Granulation Toxic Vacuolation Dohle Bodies Pelger-Huet Anomaly Linda Rods Platelet Estimate Clumped Platelets Plt Clumps, EDTA Large Platelets Giant Platelets Platelet Satelliting Plt Morphology Comment RBC Morphology Dimorphic RBCs Polychromasia Hypochromasia Poikilocytosis Anisocytosis Microcytosis Macrocytosis Spherocytes Pappenheimer Bodies Sickle Cells Target Cells Tear Drop Cells Ovalocytes Helmet Cells Sal-[place] Bodies [place] Teri Cells Bite Cells Crenated Cell Elliptocytes Acanthocytes (Spur) Rouleaux Hemoglobin C Crystals Schistocytes Malaria parasites Charlie Bodies Hem Pathologist Commnt PT INR APTT Fibrinogen 556 H Sodium Potassium Chloride Carbon Dioxide Anion Gap BUN Creatinine Estimated GFR BUN/Creatinine Ratio Glucose POC Glucose 124 H 126 H Calcium Magnesium Total Bilirubin Direct Bilirubin Indirect Bilirubin AST ALT Alkaline Phosphatase Total Protein Albumin Albumin/Globulin Ratio [id number] Ceruloplasmin Fluid Type Fluid Color Fluid Appearance Fluid WBC Fluid RBC Fluid Seg Neutrophils Fluid Lymphocytes Fluid Reactive Lymphs Fluid Monocytes Fluid Eosinophils Fluid Basophils 03/04/17 03/04/17 03/04/17 01:56 05:41 09:54 WBC RBC Hgb Hct MCV MCH MCHC RDW Plt Count Add Manual Diff Total Counted Seg Neuts % (Manual) Band Neutrophils % Lymphocytes % (Manual) Reactive Lymphs % (Man) Monocytes % (Manual) Eosinophils % (Manual) Basophils % (Manual) Metamyelocytes % Myelocytes % Promyelocytes % Blast Cells % Nucleated RBC % Seg Neutrophils # Man Band Neutrophils # Lymphocytes # (Manual) Abs React Lymphs (Man) Monocytes # (Manual) Eosinophils # (Manual) Basophils # (Manual) Metamyelocytes # Myelocytes # Promyelocytes # Blast Cells # WBC Morphology Hypersegmented Neuts Hyposegmented Neuts Hypogranular Neuts Smudge Cells Toxic Granulation Toxic Vacuolation Dohle Bodies Pelger-Huet Anomaly Linda Rods Platelet Estimate Clumped Platelets Plt Clumps, EDTA Large Platelets Giant Platelets Platelet Satelliting Plt Morphology Comment RBC Morphology Dimorphic RBCs Polychromasia Hypochromasia Poikilocytosis Anisocytosis Microcytosis Macrocytosis Spherocytes Pappenheimer Bodies Sickle Cells Target Cells Tear Drop Cells Ovalocytes Helmet Cells Sal-[place] Bodies [place] Teri Cells Bite Cells Crenated Cell Elliptocytes Acanthocytes (Spur) Rouleaux Hemoglobin C Crystals Schistocytes Malaria parasites Charlie Bodies Hem Pathologist Commnt PT INR APTT Fibrinogen Sodium Potassium Chloride Carbon Dioxide Anion Gap BUN Creatinine Estimated GFR BUN/Creatinine Ratio Glucose POC Glucose 128 H 118 H 127 H Calcium Magnesium Total Bilirubin Direct Bilirubin Indirect Bilirubin AST ALT Alkaline Phosphatase Total Protein Albumin Albumin/Globulin Ratio [id number] Ceruloplasmin Fluid Type Fluid Color Fluid Appearance Fluid WBC Fluid RBC Fluid Seg Neutrophils Fluid Lymphocytes Fluid Reactive Lymphs Fluid Monocytes Fluid Eosinophils Fluid Basophils 03/04/17 03/04/17 03/04/17 11:22 11:22 11:22 WBC RBC Hgb Hct MCV MCH MCHC RDW Plt Count Add Manual Diff Total Counted Seg Neuts % (Manual) Band Neutrophils % Lymphocytes % (Manual) Reactive Lymphs % (Man) Monocytes % (Manual) Eosinophils % (Manual) Basophils % (Manual) Metamyelocytes % Myelocytes % Promyelocytes % Blast Cells % Nucleated RBC % Seg Neutrophils # Man Band Neutrophils # Lymphocytes # (Manual) Abs React Lymphs (Man) Monocytes # (Manual) Eosinophils # (Manual) Basophils # (Manual) Metamyelocytes # Myelocytes # Promyelocytes # Blast Cells # WBC Morphology Hypersegmented Neuts Hyposegmented Neuts Hypogranular Neuts Smudge Cells Toxic Granulation Toxic Vacuolation Dohle Bodies Pelger-Huet Anomaly Linda Rods Platelet Estimate Clumped Platelets Plt Clumps, EDTA Large Platelets Giant Platelets Platelet Satelliting Plt Morphology Comment RBC Morphology Dimorphic RBCs Polychromasia Hypochromasia Poikilocytosis Anisocytosis Microcytosis Macrocytosis Spherocytes Pappenheimer Bodies Sickle Cells Target Cells Tear Drop Cells Ovalocytes Helmet Cells Sal-[place] Bodies [place] Teri Cells Bite Cells Crenated Cell Elliptocytes Acanthocytes (Spur) Rouleaux Hemoglobin C Crystals Schistocytes Malaria parasites Charlie Bodies Hem Pathologist Commnt PT 16.2 H INR 1.31 H APTT 30.1 Fibrinogen Sodium Potassium Chloride Carbon Dioxide Anion Gap BUN Creatinine Estimated GFR BUN/Creatinine Ratio Glucose POC Glucose Calcium Magnesium 2.10 Total Bilirubin 4.00 H Direct Bilirubin 2.9 H Indirect Bilirubin 1.1 AST 312 H ALT 202 H Alkaline Phosphatase 187 H Total Protein 5.7 L Albumin 2.5 L Albumin/Globulin Ratio 0.8 [id number] Ceruloplasmin Fluid Type Fluid Color Fluid Appearance Fluid WBC Fluid RBC Fluid Seg Neutrophils Fluid Lymphocytes Fluid Reactive Lymphs Fluid Monocytes Fluid Eosinophils Fluid Basophils 03/04/17 03/04/17 03/04/17 Unknown Unknown Unknown WBC 10.0 RBC 3.51 L Hgb 10.4 Hct 30.1 L MCV 86 MCH 30 MCHC 35 H RDW 14.5 Plt Count 95 L Add Manual Diff Complete Total Counted 100 Seg Neuts % (Manual) 88.0 H Band Neutrophils % 0 Lymphocytes % (Manual) 5.0 L Reactive Lymphs % (Man) 0 Monocytes % (Manual) 7.0 Eosinophils % (Manual) 0 Basophils % (Manual) 0 Metamyelocytes % 0 Myelocytes % 0 Promyelocytes % 0 Blast Cells % 0 Nucleated RBC % 1.0 H Seg Neutrophils # Man 8.8 H Band Neutrophils # 0.0 Lymphocytes # (Manual) 0.5 L Abs React Lymphs (Man) 0.0 Monocytes # (Manual) 0.7 Eosinophils # (Manual) 0.0 Basophils # (Manual) 0.0 Metamyelocytes # 0.0 Myelocytes # 0.0 Promyelocytes # 0.0 Blast Cells # 0.0 WBC Morphology Not Reportable Hypersegmented Neuts Not Reportable Hyposegmented Neuts Not Reportable Hypogranular Neuts Not Reportable Smudge Cells Not Reportable Toxic Granulation Not Reportable Toxic Vacuolation Not Reportable Dohle Bodies Not Reportable Pelger-Huet Anomaly Not Reportable Linda Rods Not Reportable Platelet Estimate Consistent w auto Clumped Platelets Not Reportable Plt Clumps, EDTA Not Reportable Large Platelets Not Reportable Giant Platelets Not Reportable Platelet Satelliting Not Reportable Plt Morphology Comment Not Reportable RBC Morphology Not Reportable Dimorphic RBCs Not Reportable Polychromasia Not Reportable Hypochromasia 1+ Poikilocytosis Not Reportable Anisocytosis 1+ Microcytosis Not Reportable Macrocytosis Not Reportable Spherocytes Not Reportable Pappenheimer Bodies Not Reportable Sickle Cells Not Reportable Target Cells Not Reportable Tear Drop Cells Not Reportable Ovalocytes Not Reportable Helmet Cells Not Reportable Sal-[place] Bodies Not Reportable [place] Rings Not Reportable Teri Cells Not Reportable Bite Cells Not Reportable Crenated Cell Not Reportable Elliptocytes Not Reportable Acanthocytes (Spur) Not Reportable Rouleaux Not Reportable Hemoglobin C Crystals Not Reportable Schistocytes Not Reportable Malaria parasites Not Reportable Charlie Bodies Not Reportable Hem Pathologist Commnt No PT INR APTT Fibrinogen Sodium 146 H Potassium 3.4 L Chloride 106.0 Carbon Dioxide 29 D Anion Gap 14 BUN 26 H Creatinine 0.4 L Estimated GFR > 60 BUN/Creatinine Ratio 65.00 Glucose 117 H POC Glucose Calcium 7.1 L Magnesium Total Bilirubin 4.00 H Direct Bilirubin Indirect Bilirubin AST 332 H ALT 197 H Alkaline Phosphatase 207 H Total Protein 5.4 L D Albumin 2.4 L Albumin/Globulin Ratio 0.8 [id number] Ceruloplasmin Fluid Type Ascitic Fluid Color Yellow Fluid Appearance Hazy Fluid WBC 485 Fluid RBC 1950 Fluid Seg Neutrophils 82.0 Fluid Lymphocytes 6.0 Fluid Reactive Lymphs 0 Fluid Monocytes 12.0 Fluid Eosinophils 0 Fluid Basophils 0
--- NOTE | 2017-03-04 16:51 | Ultrasound Report ---
Ultrasound guided paracentesis: Imaging of the abdomen demonstrated a relatively small volume of localized peritoneal fluid. An optimal approach site was identified in the right lower quadrant. The skin was cleansed and 1% lidocaine used for local anesthesia. The skin was draped. Through a small skin neck a 5 [place] Yueh catheter was placed removing 120 cc of straw-colored fluid placed in 2 separate syringes. This was sent to the laboratory. No complication encountered.
--- NOTE | 2017-03-04 18:56 | Progress Note ---
Assessment and Plan Assessment and plan: 26 YO Female with Hypothyroidism presents to ED for evaluation. Pt states that she has experienced nausea, vomiting, and multiple episodes of loose stools over 5 days with worsening symptoms over the past 8 hours. She was admitted for sepsis, aspirin her cousin she was not compliant with Synthroid at home because she does not have insurance. Her Cousin believes she has a history of polysubstance abuse, including etoh Gram-negative septicemia/UTI * ID input appreciated, continue broad-spectrum antibiotics * mononucleosis screen pending Septic shock * Continue IV fluids, continue IV pressors Shock Liver. Abdominal pain * Continue IV fluids, continue supportive care continue bowel rest * pancreatitis ruled out- lipase was negative * Viral Hepatitis serologies negative, HIV negative * GI consult appreciated * CT abdomen and pelvis; Large pleural effusions and moderate ascites. Right pyelonephritis seen. Proximal colon is thickened consistent with nonspecific colitis. Ascites * obtain paracentesis to r/o SPB Delirium tremens/alcohol withdrawal * Continue CIWA protocol Metabolic encephalopathy * Most likely due to sepsis and delirium tremens, continue supportive care Severe hypothyroidism * Continue thyroid replacement therapy Severe Metabolic Acidosis * improved sp Sodium bicarb Recent * pelvic and transvaginal ultrasound were performed and did not show any remnants, therefore not a contributor to sepsis Severe malnutrition * dietitian consults, patient will need to be started on either diets, and several nutrition or TPN when medically improved Electrolyte derrangement- Hypokalemia, Hypocalcemia, hypomagnesemia * Continue to replete electrolytes as necessary daily, and medically rx * pseudohypocalcemia due to low albumin, corrected Ca is 8.1 Acute Kidney Injury * Resolved with IVF. secondary to vasomotor nephropathy Hypoglycemia * resolved with dextrose * Prognosis guarded, case discussed with her cousin Karla Darden, her phone number is [phone]. Her parents are in [place] and not currently reachable The high probability of a clinically significant, sudden or life threatening deterioration of the [VASCULAR, ENDOCRINE, GI ] system(s) required my full and direct attention, intervention and personal management. The aggregate critical care time was [35] minutes. This time is in addition to time spent performing reported procedures but includes the following: [X] Data Review and interpretation [X] Patient assessment and monitoring of vital signs [X] Documentation [X] Medication orders and management History Interval history: She has waxing and waning episodes of confusion. At this time she has received some medication so she is calm and cooperative but somnolent Hospitalist Physical - Physical exam Narrative exam: General: Toxic appearance, has been doughy appearance of her face HEENT: MMM, EOMI, scleral icterus cardiac: S1-S2 heard lungs: clear to auscultation, abdomen: soft, suprapubic tenderness, moderately distended with shifting dullness bowel sounds positive extremities: Nonpitting, doughy edema of lower extremities Skin: no rash or lesion Neuro: no gross focal deficit Psych, obeys commands, pleasant. Has episodes of agitation - Constitutional Vitals: Temp Pulse Resp BP Pulse Ox 98.4 F 87 17 110/75 100 03/04/17 12:00 03/04/17 18:15 03/04/17 18:15 03/04/17 18:15 03/04/17 18:15 General appearance: Present: mild distress (thrashing and yelling out in bed), well-nourished Results - Labs CBC & Chem 7: 03/04/17 Unknown 03/05/17 06:25 Labs: Laboratory Last Values WBC 10.0 K/mm3 (4.5-11.0) 03/04/17 Unknown RBC 3.51 M/mm3 (3.65-5.03) L 03/04/17 Unknown Hgb 10.4 gm/dl (10.1-14.3) 03/04/17 Unknown Hct 30.1 % (30.3-42.9) L 03/04/17 Unknown MCV 86 fl (79-97) 03/04/17 Unknown MCH 30 pg (28-32) 03/04/17 Unknown MCHC 35 % (30-34) H 03/04/17 Unknown RDW 14.5 % (13.2-15.2) 03/04/17 Unknown Plt Count 95 K/mm3 (140-440) L 03/04/17 Unknown Lymph % (Auto) 22.8 % (13.4-35.0) 02/28/17 12:03 [place] % (Auto) 2.2 % (0.0-7.3) 02/28/17 12:03 Eos % (Auto) 1.2 % (0.0-4.3) 02/28/17 12:03 Baso % (Auto) 0.2 % (0.0-1.8) 02/28/17 12:03 Lymph # 1.2 K/mm3 (1.2-5.4) 02/28/17 12:03 [place] # 0.1 K/mm3 (0.0-0.8) 02/28/17 12:03 Eos # 0.1 K/mm3 (0.0-0.4) 02/28/17 12:03 Baso # 0.0 K/mm3 (0.0-0.1) 02/28/17 12:03 Add Manual Diff Complete 03/04/17 Unknown Total Counted 100 03/04/17 Unknown Seg Neutrophils % 73.6 % (40.0-70.0) H 02/28/17 12:03 Seg Neuts % (Manual) 88.0 % (40.0-70.0) H 03/04/17 Unknown Band Neutrophils % 0 % 03/04/17 Unknown Lymphocytes % (Manual) 5.0 % (13.4-35.0) L 03/04/17 Unknown Reactive Lymphs % (Man) 0 % 03/04/17 Unknown Monocytes % (Manual) 7.0 % (0.0-7.3) 03/04/17 Unknown Eosinophils % (Manual) 0 % (0.0-4.3) 03/04/17 Unknown Basophils % (Manual) 0 % (0.0-1.8) 03/04/17 Unknown Metamyelocytes % 0 % 03/04/17 Unknown Myelocytes % 0 % 03/04/17 Unknown Promyelocytes % 0 % 03/04/17 Unknown Blast Cells % 0 % 03/04/17 Unknown Nucleated RBC % 1.0 % (0.0-0.9) H 03/04/17 Unknown Seg Neutrophils # 3.8 K/mm3 (1.8-7.7) 02/28/17 12:03 Seg Neutrophils # Man 8.8 K/mm3 (1.8-7.7) H 03/04/17 Unknown Band Neutrophils # 0.0 K/mm3 03/04/17 Unknown Lymphocytes # (Manual) 0.5 K/mm3 (1.2-5.4) L 03/04/17 Unknown Abs React Lymphs (Man) 0.0 K/mm3 03/04/17 Unknown Monocytes # (Manual) 0.7 K/mm3 (0.0-0.8) 03/04/17 Unknown Eosinophils # (Manual) 0.0 K/mm3 (0.0-0.4) 03/04/17 Unknown Basophils # (Manual) 0.0 K/mm3 (0.0-0.1) 03/04/17 Unknown Metamyelocytes # 0.0 K/mm3 03/04/17 Unknown Myelocytes # 0.0 K/mm3 03/04/17 Unknown Promyelocytes # 0.0 K/mm3 03/04/17 Unknown Blast Cells # 0.0 K/mm3 03/04/17 Unknown WBC Morphology Not Reportable 03/04/17 Unknown Hypersegmented Neuts Not Reportable 03/04/17 Unknown Hyposegmented Neuts Not Reportable 03/04/17 Unknown Hypogranular Neuts Not Reportable 03/04/17 Unknown Smudge Cells Not Reportable 03/04/17 Unknown Toxic Granulation Not Reportable 03/04/17 Unknown Toxic Vacuolation Not Reportable 03/04/17 Unknown Dohle Bodies Not Reportable 03/04/17 Unknown Pelger-Huet Anomaly Not Reportable 03/04/17 Unknown Linda Rods Not Reportable 03/04/17 Unknown Platelet Estimate Consistent w auto 03/04/17 Unknown Clumped Platelets Not Reportable 03/04/17 Unknown Plt Clumps, EDTA Not Reportable 03/04/17 Unknown Large Platelets Not Reportable 03/04/17 Unknown Giant Platelets Not Reportable 03/04/17 Unknown Platelet Satelliting Not Reportable 03/04/17 Unknown Plt Morphology Comment Not Reportable 03/04/17 Unknown RBC Morphology Not Reportable 03/04/17 Unknown Dimorphic RBCs Not Reportable 03/04/17 Unknown Polychromasia Not Reportable 03/04/17 Unknown Hypochromasia 1+ 03/04/17 Unknown Poikilocytosis Not Reportable 03/04/17 Unknown Anisocytosis 1+ 03/04/17 Unknown Microcytosis Not Reportable 03/04/17 Unknown Macrocytosis Not Reportable 03/04/17 Unknown Spherocytes Not Reportable 03/04/17 Unknown Pappenheimer Bodies Not Reportable 03/04/17 Unknown Sickle Cells Not Reportable 03/04/17 Unknown Target Cells Not Reportable 03/04/17 Unknown Tear Drop Cells Not Reportable 03/04/17 Unknown Ovalocytes Not Reportable 03/04/17 Unknown Helmet Cells Not Reportable 03/04/17 Unknown Sal-[place] Bodies Not Reportable 03/04/17 Unknown [place] Rings Not Reportable 03/04/17 Unknown Teri Cells Not Reportable 03/04/17 Unknown Bite Cells Not Reportable 03/04/17 Unknown Crenated Cell Not Reportable 03/04/17 Unknown Elliptocytes Not Reportable 03/04/17 Unknown Acanthocytes (Spur) Not Reportable 03/04/17 Unknown Rouleaux Not Reportable 03/04/17 Unknown Hemoglobin C Crystals Not Reportable 03/04/17 Unknown Schistocytes Not Reportable 03/04/17 Unknown Malaria parasites Not Reportable 03/04/17 Unknown Charlie Bodies Not Reportable 03/04/17 Unknown Hem Pathologist Commnt No 03/04/17 Unknown PT 16.2 Sec. (12.2-14.9) H 03/04/17 11:22 INR 1.31 (0.87-1.13) H 03/04/17 11:22 APTT 30.1 Sec. (24.2-36.6) 03/04/17 11:22 Fibrinogen 556 mg/dl (211-480) H 03/03/17 16:38 POC ABG pH 7.232 (7.35-7.45) L 03/02/17 13:34 POC ABG pCO2 35.3 (35-45) 03/02/17 13:34 POC ABG pO2 127 (80-105) H 03/02/17 13:34 POC ABG HCO3 14.8 03/02/17 13:34 POC ABG Total CO2 16 03/02/17 13:34 POC ABG O2 Sat 98 03/02/17 13:34 POC ABG Base Excess -13 03/02/17 13:34 FiO2 36 % 03/02/17 13:34 Sodium 146 mmol/L (137-145) H 03/04/17 Unknown Potassium 3.4 mmol/L (3.6-5.0) L 03/04/17 Unknown Chloride 106.0 mmol/L (98-107) 03/04/17 Unknown Carbon Dioxide 29 mmol/L (22-30) D 03/04/17 Unknown Anion Gap 14 mmol/L 03/04/17 Unknown BUN 26 mg/dL (7-17) H 03/04/17 Unknown Creatinine 0.4 mg/dL (0.7-1.2) L 03/04/17 Unknown Estimated GFR > 60 ml/min 03/04/17 Unknown BUN/Creatinine Ratio 65.00 % 03/04/17 Unknown Glucose 117 mg/dL (65-100) H 03/04/17 Unknown POC Glucose 127 (70-105) H 03/04/17 09:54 Lactic Acid 2.30 mmol/L (0.7-2.0) H* 03/02/17 05:00 Calcium 7.1 mg/dL (8.4-10.2) L 03/04/17 Unknown Phosphorus 4.50 mg/dL (2.5-4.5) 03/02/17 05:00 Magnesium 2.10 mg/dL (1.7-2.3) 03/04/17 11:22 Iron 19 ug/dL (37-170) L 03/02/17 12:15 TIBC 96 mcg/dL (250-450) L 03/02/17 12:15 Ferritin 1802.0 ng/mL (13.0-400.0) H 03/02/17 12:15 Total Bilirubin 4.00 mg/dL (0.1-1.2) H 03/04/17 Unknown Direct Bilirubin 2.9 mg/dL (0-0.2) H 03/04/17 11:22 Indirect Bilirubin 1.1 mg/dL 03/04/17 11:22 AST 332 units/L (5-40) H 03/04/17 Unknown ALT 197 units/L (7-56) H 03/04/17 Unknown Alkaline Phosphatase 207 units/L (35-129) H 03/04/17 Unknown Total Creatine Kinase 56 units/L (30-135) 02/28/17 12:03 CK-MB (CK-2) 1.4 ng/mL (0.0-4.0) 02/28/17 12:03 CK-MB (CK-2) Rel Index 2.5 (0-4) 02/28/17 12:03 Troponin T < 0.010 ng/mL (0.00-0.029) 02/28/17 12:03 C-Reactive Protein 22.50 mg/dL (0.00-1.30) H 03/03/17 04:00 Total Protein 5.4 g/dL (6.3-8.2) L D 03/04/17 Unknown Albumin 2.4 g/dL (3.9-5) L 03/04/17 Unknown Albumin/Globulin Ratio 0.8 % 03/04/17 Unknown [id number] 257 mg/dL (83-199) H 03/02/17 12:15 Ceruloplasmin 32 mg/dL (18-53) 03/02/17 12:15 Lipase 7 units/L (13-60) L 03/03/17 04:00 TSH 58.000 mlU/mL (0.270-4.200) H 02/28/17 12:03 Free T4 0.41 ng/dL (0.76-1.46) L 02/28/17 12:03 HCG, Qual Negative (Negative) 02/28/17 12:03 Urine Color Yellow (Yellow) 02/28/17 11:40 Urine Turbidity Cloudy (Clear) 02/28/17 11:40 Urine pH 5.0 (5.0-7.0) 02/28/17 11:40 Ur Specific [place] 1.015 (1.003-1.030) 02/28/17 11:40 Urine Protein 100 mg/dl mg/dL (Negative) 02/28/17 11:40 Urine Glucose (UA) Neg mg/dL (Negative) 02/28/17 11:40 Urine Ketones Neg mg/dL (Negative) 02/28/17 11:40 Urine Blood Sm (Negative) 02/28/17 11:40 Urine Nitrite Neg (Negative) 02/28/17 11:40 Urine Bilirubin Neg (Negative) 02/28/17 11:40 Urine Urobilinogen < 2.0 mg/dL (<2.0) 02/28/17 11:40 Ur Leukocyte Esterase Lg (Negative) 02/28/17 11:40 Urine WBC (Auto) 80.0 /HPF (0.0-6.0) H 02/28/17 11:40 Urine RBC (Auto) 4.0 /HPF (0.0-6.0) 02/28/17 11:40 U Epithel Cells (Auto) 1.0 /HPF (0-13.0) 02/28/17 11:40 Urine Bacteria (Auto) 1+ /HPF (Negative) 02/28/17 11:40 Urine Mucus 1+ /HPF 02/28/17 11:40 Fluid Type Ascitic 03/04/17 Unknown Fluid Color Yellow 03/04/17 Unknown Fluid Appearance Hazy 03/04/17 Unknown Fluid WBC 485 /mm3 03/04/17 Unknown Fluid RBC 1950 /mm3 03/04/17 Unknown Fluid Seg Neutrophils 82.0 % 03/04/17 Unknown Fluid Lymphocytes 6.0 % 03/04/17 Unknown Fluid Reactive Lymphs 0 % 03/04/17 Unknown Fluid Monocytes 12.0 % 03/04/17 Unknown Fluid Eosinophils 0 % 03/04/17 Unknown Fluid Basophils 0 % 03/04/17 Unknown Random Vancomycin 5.7 ug/mL (0-40.0) 03/01/17 12:53 Hep Bs Antigen Non-reactive (Negative) 03/02/17 12:15 Hepatitis C Antibody Non-reactive (NonReactive) 03/02/17 12:15 Blood Type O POSITIVE 02/28/17 12:03 Antibody Screen TNR 02/28/17 12:03 TEJAL Antibody Screen Negative 02/28/17 12:03 Crossmatch See Detail 02/28/17 12:03 - Imaging and Cardiology US - abdomen: image reviewed (ascites)
[2017-03-04 20:25] LABS: HIV-1 Antigen p24 Non React (Non React); HIVR-1/2 Ab Non React (Non React)
[2017-03-04] MEDS ORDERED: ATIVAN IV PRN (21:25)
[2017-03-05] MEDS: ATIVAN IV PRN ×5 (02:55→15:16)
[2017-03-05 03:15] LABS: Urine Drugs of Abuse Note Disclamer
[2017-03-05] MEDS: MERREM 1,000 MG in NACL 0.9% 100 ML IV SCH ×3 (04:10→20:18)
[2017-03-05] MEDS: VANCOMYCIN/NS 1 GM/250 ML 1 GM/250 ML BAG IV SCH ×3 (04:13→20:19)
[2017-03-05] MEDS: SYNTHROID PO SCH (05:45)
[2017-03-05 06:51] LABS: INR 1.34 (0.87-1.13)
[2017-03-05 06:52] LABS: Partial Thromboplastin Time 28.2 Sec. (24.2-36.6)
[2017-03-05 07:27] LABS: Alanine Aminotransferase 153 units/L (7-56); Albumin 2.5 g/dL (3.9-5); Alkaline Phosphatase 144 units/L (35-129); Anion Gap 16 mmol/L; Blood Urea Nitrogen 21 mg/dL (7-17); Calcium 6.9 mg/dL (8.4-10.2); Carbon Dioxide 28 mmol/L (22-30); Chloride 110.4 mmol/L (98-107); Glucose 121 mg/dL (65-100); Potassium 3.4 mmol/L (3.6-5.0); Sodium 151 mmol/L (137-145)
[2017-03-05] MEDS: DUONEB *Not for PRN Use IH SCH ×4 (08:30→20:32)
[2017-03-05] MEDS: LOVENOX SUB-Q SCH (09:47)
--- NOTE | 2017-03-05 10:24 | Progress Note ---
Assessment and Plan - Patient Problems (1) Septic shock Current Visit: Yes Status: Acute Plan to address problem: 1. Unclear etiology of patient's current clinical state. 2. Presently on broad antibiotics. Will add antifungal coverage. 3. Requesting imaging of neck, also recommend LP to assay for meningoencephalitis (WNV, HSV, etc). (2) Bacteremia due to Escherichia coli Current Visit: Yes Status: Acute Plan to address problem: 1. Continuing broad antibiotics, including Meropenem. (3) Delirium Current Visit: Yes Status: Acute Plan to address problem: Uncertain etiology. Obtaining head and neck imaging, also lumbar puncture to assay for bacterial or viral causes. Subjective Date of service: 03/05/17 Principal diagnosis: Septic Shock; E coli Bacteremia Interval history: Remains critically ill in ICU. Uncertain etiology of her clinical state. Had paracentesis yesterday. Objective - Constitutional Vitals: Vital Signs Temp Pulse Resp BP Pulse Ox 97.3 F L 106 H 20 108/73 98 03/05/17 08:00 03/05/17 09:15 03/05/17 09:15 03/05/17 09:15 03/05/17 09:15 Temperature -Last 24 Hours Temperature 97.3 F Temperature 98.4 F Temperature 98.6 F Temperature 98.3 F Temperature 98.4 F General appearance: Present: other (thrashing about in bed, in mitten restraints ) - EENT Eyes: no scleral icterus ENT: other (dry mucus membranes) - Neck Neck: supple, no enlarged thyroid, no cervical LAD - Respiratory Respiratory effort: accessory muscle use Respiratory: bilateral: rhonchi, wheezing - Cardiovascular Rhythm: regular (tachycardic) Heart Sounds: Present: S1 & S2 Extremities: No edema - Gastrointestinal General gastrointestinal: Present: soft, non-distended - Genitourinary Female genitourinary: other ([place] with yellow urine noted) - Integumentary Integumentary: clear, no rash - Neurologic Neurologic: moves all extremities - Psychiatric Psychiatric: agitated - Additional findings Additional findings: Microbiology 03/04/17 Unknown Ascities Fluid Body Fluid Culture - Preliminary 02/28/17 23:15 Peripheral/Venous Blood Culture - Preliminary NO GROWTH AFTER 4 DAYS 03/02/17 14:55 Peripheral/Venous Blood Culture - Preliminary NO GROWTH AFTER 48 HOURS 03/02/17 14:48 Peripheral/Venous Blood Culture - Preliminary NO GROWTH AFTER 48 HOURS 02/28/17 11:40 Urine,[place] Urine Culture - Final Escherichia Coli 02/28/17 11:15 Peripheral/Venous Blood Culture - Final Escherichia Coli - Labs CBC & Chem 7: 03/04/17 Unknown 03/05/17 06:25 Labs: Abnormal lab results 03/04/17 03/04/17 03/04/17 Range/Units 11:22 11:22 20:16 PT 16.2 H (12.2-14.9) Sec. INR 1.31 H (0.87-1.13) Sodium (137-145) mmol/L Potassium (3.6-5.0) mmol/L Chloride (98-107) mmol/L BUN (7-17) mg/dL Creatinine (0.7-1.2) mg/dL Glucose (65-100) mg/dL POC Glucose 113 H (70-105) Calcium (8.4-10.2) mg/dL Total Bilirubin 4.00 H (0.1-1.2) mg/dL Direct Bilirubin 2.9 H (0-0.2) mg/dL AST 312 H (5-40) units/L ALT 202 H (7-56) units/L Alkaline Phosphatase 187 H (35-129) units/L Total Protein 5.7 L (6.3-8.2) g/dL Albumin 2.5 L (3.9-5) g/dL 03/04/17 03/05/17 03/05/17 Range/Units 23:32 04:04 06:25 PT 16.5 H (12.2-14.9) Sec. INR 1.34 H (0.87-1.13) Sodium (137-145) mmol/L Potassium (3.6-5.0) mmol/L Chloride (98-107) mmol/L BUN (7-17) mg/dL Creatinine (0.7-1.2) mg/dL Glucose (65-100) mg/dL POC Glucose 138 H 154 H (70-105) Calcium (8.4-10.2) mg/dL Total Bilirubin (0.1-1.2) mg/dL Direct Bilirubin (0-0.2) mg/dL AST (5-40) units/L ALT (7-56) units/L Alkaline Phosphatase (35-129) units/L Total Protein (6.3-8.2) g/dL Albumin (3.9-5) g/dL 03/05/17 03/05/17 Range/Units 06:25 07:38 PT (12.2-14.9) Sec. INR (0.87-1.13) Sodium 151 H (137-145) mmol/L Potassium 3.4 L (3.6-5.0) mmol/L Chloride 110.4 H (98-107) mmol/L BUN 21 H (7-17) mg/dL Creatinine 0.3 L (0.7-1.2) mg/dL Glucose 121 H (65-100) mg/dL POC Glucose 135 H (70-105) Calcium 6.9 L (8.4-10.2) mg/dL Total Bilirubin 2.80 H (0.1-1.2) mg/dL Direct Bilirubin (0-0.2) mg/dL AST 170 H (5-40) units/L ALT 153 H (7-56) units/L Alkaline Phosphatase 144 H (35-129) units/L Total Protein 5.0 L (6.3-8.2) g/dL Albumin 2.5 L (3.9-5) g/dL Microbiology 03/04/17 Unknown Ascities Fluid Body Fluid Culture - Preliminary 02/28/17 23:15 Peripheral/Venous Blood Culture - Preliminary NO GROWTH AFTER 4 DAYS 03/02/17 14:55 Peripheral/Venous Blood Culture - Preliminary NO GROWTH AFTER 48 HOURS 03/02/17 14:48 Peripheral/Venous Blood Culture - Preliminary NO GROWTH AFTER 48 HOURS 02/28/17 11:40 Urine,[place] Port Urine Culture - Final Escherichia Coli 02/28/17 11:15 Peripheral/Venous Blood Culture - Final Escherichia Coli
[2017-03-05] MEDS: D5/0.45NS 1,000 ML IV SCH (11:06)
--- NOTE | 2017-03-05 11:41 | Progress Note ---
Assessment and Plan Assessment and plan: 26 YO Female with Hypothyroidism presents to ED for evaluation. Pt states that she has experienced nausea, vomiting, and multiple episodes of loose stools over 5 days with worsening symptoms over the past 8 hours. She was admitted for sepsis, aspirin her cousin she was not compliant with Synthroid at home because she does not have insurance. Her Cousin believes she has a history of polysubstance abuse, including etoh Gram-negative septicemia/UTI * ID input appreciated, continue broad-spectrum antibiotics * mononucleosis screen negative Septic shock * Continue IV fluids, continue IV pressors Shock Liver. Abdominal pain * Continue IV fluids, continue supportive care continue bowel rest * pancreatitis ruled out- lipase was negative * Viral Hepatitis serologies negative, HIV negative * GI consult appreciated * CT abdomen and pelvis; Large pleural effusions and moderate ascites. Right pyelonephritis seen. Proximal colon is thickened consistent with nonspecific colitis. Ascites * Status post paracentesis on 03/04, appeared to be a traumatic tap, but absolute neutrophil count is only 82 dear for not consistent with SBP, and also contributed to sepsis. Delirium tremens/alcohol withdrawal * Continue CIWA protocol Metabolic encephalopathy * Most likely due to sepsis and delirium tremens, continue supportive care Severe hypothyroidism * Continue thyroid replacement therapy Severe Metabolic Acidosis * improved sp Sodium bicarb Recent * pelvic and transvaginal ultrasound were performed and did not show any remnants, therefore not a contributor to sepsis Severe malnutrition * dietitian consults, if mental status tolerates it we'll start her on a soft diet today Electrolyte derrangement- Hypokalemia, Hypocalcemia, hypomagnesemia * Continue to replete electrolytes as necessary daily, and medically rx * pseudohypocalcemia due to low albumin, corrected Ca is 8.1 Acute Kidney Injury * Resolved with IVF. secondary to vasomotor nephropathy Hypoglycemia * resolved with dextrose * Prognosis guarded, case discussed with her cousin Karla Draden, her phone number is [phone]. Her parents are in [place] and not currently reachable The high probability of a clinically significant, sudden or life threatening deterioration of the [VASCULAR, ENDOCRINE, GI ] system(s) required my full and direct attention, intervention and personal management. The aggregate critical care time was [35] minutes. This time is in addition to time spent performing reported procedures but includes the following: [X] Data Review and interpretation [X] Patient assessment and monitoring of vital signs [X] Documentation [X] Medication orders and management History Interval history: She has waxing and waning episodes of confusion. At this time she has received some medication so she is calm and cooperative but somnolent Hospitalist Physical - Physical exam Narrative exam: General: Toxic appearance, has been doughy appearance of her face HEENT: MMM, EOMI, scleral icterus cardiac: S1-S2 heard lungs: clear to auscultation, abdomen: soft, suprapubic tenderness, moderately distended with shifting dullness bowel sounds positive extremities: Nonpitting, doughy edema of lower extremities Skin: no rash or lesion Neuro: no gross focal deficit Psych, obeys commands, pleasant. Has episodes of agitation - Constitutional Vitals: Temp Pulse Resp BP Pulse Ox 97.3 F L 106 H 28 H 108/73 100 03/05/17 08:00 03/05/17 11:31 03/05/17 11:31 03/05/17 09:15 03/05/17 11:37 General appearance: Present: mild distress (thrashing and yelling out in bed), well-nourished Results - Labs CBC & Chem 7: 03/04/17 Unknown 03/05/17 06:25 Labs: Laboratory Last Values WBC 10.0 K/mm3 (4.5-11.0) 03/04/17 Unknown RBC 3.51 M/mm3 (3.65-5.03) L 03/04/17 Unknown Hgb 10.4 gm/dl (10.1-14.3) 03/04/17 Unknown Hct 30.1 % (30.3-42.9) L 03/04/17 Unknown MCV 86 fl (79-97) 03/04/17 Unknown MCH 30 pg (28-32) 03/04/17 Unknown MCHC 35 % (30-34) H 03/04/17 Unknown RDW 14.5 % (13.2-15.2) 03/04/17 Unknown Plt Count 95 K/mm3 (140-440) L 03/04/17 Unknown Lymph % (Auto) 22.8 % (13.4-35.0) 02/28/17 12:03 [place] % (Auto) 2.2 % (0.0-7.3) 02/28/17 12:03 Eos % (Auto) 1.2 % (0.0-4.3) 02/28/17 12:03 Baso % (Auto) 0.2 % (0.0-1.8) 02/28/17 12:03 Lymph # 1.2 K/mm3 (1.2-5.4) 02/28/17 12:03 [place] # 0.1 K/mm3 (0.0-0.8) 02/28/17 12:03 Eos # 0.1 K/mm3 (0.0-0.4) 02/28/17 12:03 Baso # 0.0 K/mm3 (0.0-0.1) 02/28/17 12:03 Add Manual Diff Complete 03/04/17 Unknown Total Counted 100 03/04/17 Unknown Seg Neutrophils % 73.6 % (40.0-70.0) H 02/28/17 12:03 Seg Neuts % (Manual) 88.0 % (40.0-70.0) H 03/04/17 Unknown Band Neutrophils % 0 % 03/04/17 Unknown Lymphocytes % (Manual) 5.0 % (13.4-35.0) L 03/04/17 Unknown Reactive Lymphs % (Man) 0 % 03/04/17 Unknown Monocytes % (Manual) 7.0 % (0.0-7.3) 03/04/17 Unknown Eosinophils % (Manual) 0 % (0.0-4.3) 03/04/17 Unknown Basophils % (Manual) 0 % (0.0-1.8) 03/04/17 Unknown Metamyelocytes % 0 % 03/04/17 Unknown Myelocytes % 0 % 03/04/17 Unknown Promyelocytes % 0 % 03/04/17 Unknown Blast Cells % 0 % 03/04/17 Unknown Nucleated RBC % 1.0 % (0.0-0.9) H 03/04/17 Unknown Seg Neutrophils # 3.8 K/mm3 (1.8-7.7) 02/28/17 12:03 Seg Neutrophils # Man 8.8 K/mm3 (1.8-7.7) H 03/04/17 Unknown Band Neutrophils # 0.0 K/mm3 03/04/17 Unknown Lymphocytes # (Manual) 0.5 K/mm3 (1.2-5.4) L 03/04/17 Unknown Abs React Lymphs (Man) 0.0 K/mm3 03/04/17 Unknown Monocytes # (Manual) 0.7 K/mm3 (0.0-0.8) 03/04/17 Unknown Eosinophils # (Manual) 0.0 K/mm3 (0.0-0.4) 03/04/17 Unknown Basophils # (Manual) 0.0 K/mm3 (0.0-0.1) 03/04/17 Unknown Metamyelocytes # 0.0 K/mm3 03/04/17 Unknown Myelocytes # 0.0 K/mm3 03/04/17 Unknown Promyelocytes # 0.0 K/mm3 03/04/17 Unknown Blast Cells # 0.0 K/mm3 03/04/17 Unknown WBC Morphology Not Reportable 03/04/17 Unknown Hypersegmented Neuts Not Reportable 03/04/17 Unknown Hyposegmented Neuts Not Reportable 03/04/17 Unknown Hypogranular Neuts Not Reportable 03/04/17 Unknown Smudge Cells Not Reportable 03/04/17 Unknown Toxic Granulation Not Reportable 03/04/17 Unknown Toxic Vacuolation Not Reportable 03/04/17 Unknown Dohle Bodies Not Reportable 03/04/17 Unknown Pelger-Huet Anomaly Not Reportable 03/04/17 Unknown Linda Rods Not Reportable 03/04/17 Unknown Platelet Estimate Consistent w auto 03/04/17 Unknown Clumped Platelets Not Reportable 03/04/17 Unknown Plt Clumps, EDTA Not Reportable 03/04/17 Unknown Large Platelets Not Reportable 03/04/17 Unknown Giant Platelets Not Reportable 03/04/17 Unknown Platelet Satelliting Not Reportable 03/04/17 Unknown Plt Morphology Comment Not Reportable 03/04/17 Unknown RBC Morphology Not Reportable 03/04/17 Unknown Dimorphic RBCs Not Reportable 03/04/17 Unknown Polychromasia Not Reportable 03/04/17 Unknown Hypochromasia 1+ 03/04/17 Unknown Poikilocytosis Not Reportable 03/04/17 Unknown Anisocytosis 1+ 03/04/17 Unknown Microcytosis Not Reportable 03/04/17 Unknown Macrocytosis Not Reportable 03/04/17 Unknown Spherocytes Not Reportable 03/04/17 Unknown Pappenheimer Bodies Not Reportable 03/04/17 Unknown Sickle Cells Not Reportable 03/04/17 Unknown Target Cells Not Reportable 03/04/17 Unknown Tear Drop Cells Not Reportable 03/04/17 Unknown Ovalocytes Not Reportable 03/04/17 Unknown Helmet Cells Not Reportable 03/04/17 Unknown [place] Bodies Not Reportable 03/04/17 Unknown [place] Rings Not Reportable 03/04/17 Unknown Teri Cells Not Reportable 03/04/17 Unknown Bite Cells Not Reportable 03/04/17 Unknown Crenated Cell Not Reportable 03/04/17 Unknown Elliptocytes Not Reportable 03/04/17 Unknown Acanthocytes (Spur) Not Reportable 03/04/17 Unknown Rouleaux Not Reportable 03/04/17 Unknown Hemoglobin C Crystals Not Reportable 03/04/17 Unknown Schistocytes Not Reportable 03/04/17 Unknown Malaria parasites Not Reportable 03/04/17 Unknown Charlie Bodies Not Reportable 03/04/17 Unknown Hem Pathologist Commnt No 03/04/17 Unknown PT 16.5 Sec. (12.2-14.9) H 03/05/17 06:25 INR 1.34 (0.87-1.13) H 03/05/17 06:25 APTT 28.2 Sec. (24.2-36.6) 03/05/17 06:25 Fibrinogen 556 mg/dl (211-480) H 03/03/17 16:38 POC ABG pH 7.232 (7.35-7.45) L 03/02/17 13:34 POC ABG pCO2 35.3 (35-45) 03/02/17 13:34 POC ABG pO2 127 (80-105) H 03/02/17 13:34 POC ABG HCO3 14.8 03/02/17 13:34 POC ABG Total CO2 16 03/02/17 13:34 POC ABG O2 Sat 98 03/02/17 13:34 POC ABG Base Excess -13 03/02/17 13:34 FiO2 36 % 03/02/17 13:34 Sodium 151 mmol/L (137-145) H 03/05/17 06:25 Potassium 3.4 mmol/L (3.6-5.0) L 03/05/17 06:25 Chloride 110.4 mmol/L (98-107) H 03/05/17 06:25 Carbon Dioxide 28 mmol/L (22-30) 03/05/17 06:25 Anion Gap 16 mmol/L 03/05/17 06:25 BUN 21 mg/dL (7-17) H 03/05/17 06:25 Creatinine 0.3 mg/dL (0.7-1.2) L 03/05/17 06:25 Estimated GFR > 60 ml/min 03/05/17 06:25 BUN/Creatinine Ratio 70.00 % 03/05/17 06:25 Glucose 121 mg/dL (65-100) H 03/05/17 06:25 POC Glucose 135 (70-105) H 03/05/17 07:38 Lactic Acid 2.30 mmol/L (0.7-2.0) H* 03/02/17 05:00 Calcium 6.9 mg/dL (8.4-10.2) L 03/05/17 06:25 Phosphorus 4.50 mg/dL (2.5-4.5) 03/02/17 05:00 Magnesium 2.10 mg/dL (1.7-2.3) 03/04/17 11:22 Iron 19 ug/dL (37-170) L 03/02/17 12:15 TIBC 96 mcg/dL (250-450) L 03/02/17 12:15 Ferritin 1802.0 ng/mL (13.0-400.0) H 03/02/17 12:15 Total Bilirubin 2.80 mg/dL (0.1-1.2) H 03/05/17 06:25 Direct Bilirubin 2.9 mg/dL (0-0.2) H 03/04/17 11:22 Indirect Bilirubin 1.1 mg/dL 03/04/17 11:22 AST 170 units/L (5-40) H 03/05/17 06:25 ALT 153 units/L (7-56) H 03/05/17 06:25 Alkaline Phosphatase 144 units/L (35-129) H 03/05/17 06:25 Total Creatine Kinase 56 units/L (30-135) 02/28/17 12:03 CK-MB (CK-2) 1.4 ng/mL (0.0-4.0) 02/28/17 12:03 CK-MB (CK-2) Rel Index 2.5 (0-4) 02/28/17 12:03 Troponin T < 0.010 ng/mL (0.00-0.029) 02/28/17 12:03 C-Reactive Protein 22.50 mg/dL (0.00-1.30) H 03/03/17 04:00 Total Protein 5.0 g/dL (6.3-8.2) L 03/05/17 06:25 Albumin 2.5 g/dL (3.9-5) L 03/05/17 06:25 Albumin/Globulin Ratio 1.0 % 03/05/17 06:25 [id number] 257 mg/dL (83-199) H 03/02/17 12:15 Ceruloplasmin 32 mg/dL (18-53) 03/02/17 12:15 Lipase 7 units/L (13-60) L 03/03/17 04:00 TSH 58.000 mlU/mL (0.270-4.200) H 02/28/17 12:03 Free T4 0.41 ng/dL (0.76-1.46) L 02/28/17 12:03 HCG, Qual Negative (Negative) 02/28/17 12:03 Urine Color Yellow (Yellow) 02/28/17 11:40 Urine Turbidity Cloudy (Clear) 02/28/17 11:40 Urine pH 5.0 (5.0-7.0) 02/28/17 11:40 Ur Specific [place] 1.015 (1.003-1.030) 02/28/17 11:40 Urine Protein 100 mg/dl mg/dL (Negative) 02/28/17 11:40 Urine Glucose (UA) Neg mg/dL (Negative) 02/28/17 11:40 Urine Ketones Neg mg/dL (Negative) 02/28/17 11:40 Urine Blood Sm (Negative) 02/28/17 11:40 Urine Nitrite Neg (Negative) 02/28/17 11:40 Urine Bilirubin Neg (Negative) 02/28/17 11:40 Urine Urobilinogen < 2.0 mg/dL (<2.0) 02/28/17 11:40 Ur Leukocyte Esterase Lg (Negative) 02/28/17 11:40 Urine WBC (Auto) 80.0 /HPF (0.0-6.0) H 02/28/17 11:40 Urine RBC (Auto) 4.0 /HPF (0.0-6.0) 02/28/17 11:40 U Epithel Cells (Auto) 1.0 /HPF (0-13.0) 02/28/17 11:40 Urine Bacteria (Auto) 1+ /HPF (Negative) 02/28/17 11:40 Urine Mucus 1+ /HPF 02/28/17 11:40 Fluid Type Ascitic 03/04/17 Unknown Fluid Color Yellow 03/04/17 Unknown Fluid Appearance Hazy 03/04/17 Unknown Fluid WBC 485 /mm3 03/04/17 Unknown Fluid RBC 1950 /mm3 03/04/17 Unknown Fluid Seg Neutrophils 82.0 % 03/04/17 Unknown Fluid Lymphocytes 6.0 % 03/04/17 Unknown Fluid Reactive Lymphs 0 % 03/04/17 Unknown Fluid Monocytes 12.0 % 03/04/17 Unknown Fluid Eosinophils 0 % 03/04/17 Unknown Fluid Basophils 0 % 03/04/17 Unknown Random Vancomycin 5.7 ug/mL (0-40.0) 03/01/17 12:53 Urine Opiates Screen Presumptive negative 03/05/17 02:55 Urine Methadone Screen Presumptive negative 03/05/17 02:55 Ur Barbiturates Screen Presumptive negative 03/05/17 02:55 Ur Phencyclidine Scrn Presumptive negative 03/05/17 02:55 Ur Amphetamines Screen Presumptive negative 03/05/17 02:55 U Benzodiazepines Scrn Presumptive negative 03/05/17 02:55 Urine Cocaine Screen Presumptive negative 03/05/17 02:55 U Marijuana (THC) Screen Presumptive negative 03/05/17 02:55 Drugs of Abuse Note Disclamer 03/05/17 02:55 Actin IgG Antibody <20 U (<20) 03/02/17 12:15 Hep Bs Antigen Non-reactive (Negative) 03/02/17 12:15 Hep B Core Total Ab Nonreactive (Nonreactive) 03/02/17 12:15 Hepatitis C Antibody Non-reactive (NonReactive) 03/02/17 12:15 Monoscreen Negative (Negative) 03/05/17 06:25 HIV 1&2 Antibody Rapid Non react (Non React) 03/04/17 19:18 HIV P24 Antigen Non react (Non React) 03/04/17 19:18 Blood Type O POSITIVE 02/28/17 12:03 Antibody Screen TNR 02/28/17 12:03 TEJAL Antibody Screen Negative 02/28/17 12:03 Crossmatch See Detail 02/28/17 12:03
[2017-03-05] MEDS: MORPHINE IV PRN ×3 (12:13→22:24)
[2017-03-05] MEDS: LASIX IV SCH ×2 (12:31→17:14)
[2017-03-05] MEDS: KCL 20 MEQ in D5W 1,000 ML IV SCH (12:35)
[2017-03-05] MEDS ORDERED: SIMPLE SYRUP FEEDTUBE PRN ×2 (12:46)
[2017-03-05] MEDS ORDERED: PANCREAZE DR 10,500 UNIT FEEDTUBE PRN (12:46)
[2017-03-05] MEDS ORDERED: SODIUM BICARBONATE FEEDTUBE PRN (12:46)
--- NOTE | 2017-03-05 13:32 | Progress Note ---
Assessment and Plan Imp: 1. UTI/pyelonephritis 2. Sepsis/bacteremia 2/2 #1 3. Lactic acidosis 4. Hyperkalemia, better 5. SHAHID, better 6. Hypocalcemia 7. Hypoglycemia, better 8. Metabolic/toxic encephalopathy +/- DTs/meth withdrawal 9. Thrombocytopenia, prob 2/2 sepsis/zosyn/liver failure 10. Hepatic failure 11. Ascites 12. Methamphetamine and EtOH abuse 13. Hypernatremia Rec: 1. Cultures show bowden-sens E.coli; surveillance cultures done neg; ABX per ID 2. Change to D5W 3. Replete K 4. Taper Solu-cortef & give IV Lasix since off pressors 5. Keep NPO; DHT -> TFs/PO meds 6. PO Synthroid per DHT 7. DVT PPx; platelets are low likely due to sepsis and Vanco/Zosyn; doubt HIT on Lovenox but if platelets drop further will stop and check HIT 8. PICC line done 9. Duonebs QID given wheezing 10. CIWA 11. Aspiration precautions 12. Prognosis is guarded; hemodynamics and labs seem to be improving slowly CCT 31 minutes; plan of care reviewed w/ family (cousin), she understands/ agrees (was told is incarcerated and parents live in [place]) Subjective Date of service: 03/05/17 Principal diagnosis: Septic Shock; E coli Bacteremia Interval history: Off pressors for nearly 24 hours. Agitated/thrashing in bed, now on CIWA protocol. Unable to give any coherent history. Active Medications Albuterol/Ipratropium (Duoneb *Not For Prn Use*) 1 ampul IH QIDRT [facility] Last Admin: 03/05/17 11:35 Dose: 1 ampul Lipase/Protease/Amylase (Leeanna Pham 10,500 Unit) 1 each FEEDTUBE PRN PRN PRN Reason: For Clogged Feeding Tube Bisacodyl (Dulcolax) 10 mg NJ QDAY PRN PRN Reason: constipation unrelieved by MOM Dextrose (D50w (25gm)) 25 gm IV PRN PRN PRN Reason: Hypoglycemia Enoxaparin Sodium (Lovenox) 40 mg SUB-Q DAILY [facility] Last Admin: 03/05/17 09:47 Dose: 40 mg Furosemide (Lasix) 20 mg IV 0600,1800 [facility] Last Admin: 03/05/17 12:31 Dose: 20 mg Hydrocortisone Sodium Succinate (Solu-Cortef) 50 mg IV Q8H [facility] Last Admin: 03/05/17 12:40 Dose: 50 mg Vasopressin 20 unit/ Sodium (Chloride) 101 mls @ 9.09 mls/hr IV TITR NICOLE; 0.03 UNITS/MIN PRN Reason: Protocol Last Titration: 03/03/17 08:00 Dose: 0 units/min, 0 mls/hr Norepinephrine 8 mg/ Sodium (Chloride) 250 mls @ 3.75 mls/hr IV TITR NICOLE; 2 MCG /MIN PRN Reason: Protocol Last Titration: 03/05/17 04:05 Dose: 0 mcg/min, 0 mls/hr Meropenem 1,000 mg/ Sodium (Chloride) 100 mls @ 100 mls/hr IV Q8H NICOLE PRN Reason: Protocol Last Admin: 03/05/17 11:05 Dose: 100 mls/hr Vancomycin HCl (Vancomycin/Ns 1 Gm/250 Ml) 1 gm in 250 mls @ 166.667 mls/hr IV Q8H [facility] Last Admin: 03/05/17 11:04 Dose: 166.667 mls/hr Potassium Chloride 20 meq/ (Dextrose) 1,010 mls @ 75 mls/hr IV DIRECT [facility] Last Admin: 03/05/17 12:35 Dose: 75 mls/hr Levothyroxine Sodium (Synthroid) 150 mcg PO DAILY@0600 [facility] Last Admin: 03/05/17 05:45 Dose: Not Given Lorazepam (Ativan) 1 mg IV Q4H PRN PRN Reason: Agitation Last Admin: 03/04/17 17:13 Dose: 1 mg Lorazepam (Ativan) 2 mg IV Q1HR PRN PRN Reason: CIWA-Ar 8-15 Last Admin: 03/05/17 10:52 Dose: 2 mg Lorazepam (Ativan) 4 mg IV Q1HR PRN PRN Reason: CIWA-Ar 16-25 Last Admin: 03/05/17 02:55 Dose: 4 mg Lorazepam (Ativan) 4 mg IV Q15MIN PRN PRN Reason: CIWA-Ar >25 Magnesium Hydroxide (Milk Of Magnesia) 30 ml PO Q4H PRN PRN Reason: Constipation Morphine Sulfate (Morphine) 2 mg IV Q4H PRN PRN Reason: Pain, Moderate (4-6) Last Admin: 03/05/17 12:13 Dose: 2 mg Ondansetron HCl (Zofran) 4 mg IV Q4H PRN PRN Reason: Nausea Simple Syrup (Simple Syrup) 15 ml FEEDTUBE PRN PRN PRN Reason: Hypoglycemia Simple Syrup (Simple Syrup) 30 ml FEEDTUBE PRN PRN PRN Reason: Hypoglycemia Sodium Bicarbonate (Sodium Bicarbonate) 325 mg FEEDTUBE PRN PRN PRN Reason: For Clogged Feeding Tube Objective Vital Signs - 12hr 03/05/17 03/05/17 03/05/17 01:30 01:45 02:00 Temperature Pulse Rate 109 H 112 H 103 H Pulse Rate [ Anterior Bilateral Throughout] Pulse Rate [ From Monitor] Pulse Rate [ Posterior Bases ] Respiratory 20 30 H 24 Rate Respiratory Rate [Anterior Bilateral Throughout] Respiratory Rate [Posterior Bases] Blood Pressure 110/78 114/84 116/82 O2 Sat by Pulse 100 100 100 Oximetry 03/05/17 03/05/17 03/05/17 02:15 02:30 02:45 Temperature Pulse Rate 115 H 104 H 106 H Pulse Rate [ Anterior Bilateral Throughout] Pulse Rate [ From Monitor] Pulse Rate [ Posterior Bases ] Respiratory 29 H 31 H 32 H Rate Respiratory Rate [Anterior Bilateral Throughout] Respiratory Rate [Posterior Bases] Blood Pressure 106/78 113/85 110/80 O2 Sat by Pulse 99 100 100 Oximetry 03/05/17 03/05/17 03/05/17 03:00 03:15 03:25 Temperature Pulse Rate 94 H 91 H 89 Pulse Rate [ Anterior Bilateral Throughout] Pulse Rate [ From Monitor] Pulse Rate [ Posterior Bases ] Respiratory 20 17 18 Rate Respiratory Rate [Anterior Bilateral Throughout] Respiratory Rate [Posterior Bases] Blood Pressure 103/74 105/78 O2 Sat by Pulse 93 100 100 Oximetry 03/05/17 03/05/17 03/05/17 03:30 03:45 04:00 Temperature 98.4 F Pulse Rate 89 88 87 Pulse Rate [ Anterior Bilateral Throughout] Pulse Rate [ From Monitor] Pulse Rate [ Posterior Bases ] Respiratory 22 14 19 Rate Respiratory Rate [Anterior Bilateral Throughout] Respiratory Rate [Posterior Bases] Blood Pressure 109/78 105/75 109/77 O2 Sat by Pulse 100 100 100 Oximetry 03/05/17 03/05/17 03/05/17 04:15 04:30 04:34 Temperature Pulse Rate 87 88 87 Pulse Rate [ Anterior Bilateral Throughout] Pulse Rate [ From Monitor] Pulse Rate [ Posterior Bases ] Respiratory 19 20 Rate Respiratory Rate [Anterior Bilateral Throughout] Respiratory Rate [Posterior Bases] Blood Pressure 108/76 103/76 O2 Sat by Pulse 100 100 Oximetry 03/05/17 03/05/17 03/05/17 04:36 04:45 05:00 Temperature Pulse Rate 87 86 Pulse Rate [ Anterior Bilateral Throughout] Pulse Rate [ From Monitor] Pulse Rate [ Posterior Bases ] Respiratory 19 19 Rate Respiratory Rate [Anterior Bilateral Throughout] Respiratory Rate [Posterior Bases] Blood Pressure 102/78 112/74 O2 Sat by Pulse 100 100 100 Oximetry 03/05/17 03/05/17 03/05/17 05:15 05:30 05:45 Temperature Pulse Rate 106 H 87 86 Pulse Rate [ Anterior Bilateral Throughout] Pulse Rate [ From Monitor] Pulse Rate [ Posterior Bases ] Respiratory 19 18 21 Rate Respiratory Rate [Anterior Bilateral Throughout] Respiratory Rate [Posterior Bases] Blood Pressure 105/69 116/88 111/81 O2 Sat by Pulse 100 100 100 Oximetry 03/05/17 03/05/17 03/05/17 06:00 06:15 06:30 Temperature Pulse Rate 85 84 83 Pulse Rate [ Anterior Bilateral Throughout] Pulse Rate [ From Monitor] Pulse Rate [ Posterior Bases ] Respiratory 18 21 18 Rate Respiratory Rate [Anterior Bilateral Throughout] Respiratory Rate [Posterior Bases] Blood Pressure 109/79 104/77 106/78 O2 Sat by Pulse 99 100 100 Oximetry 03/05/17 03/05/17 03/05/17 06:45 07:00 07:15 Temperature Pulse Rate 83 82 80 Pulse Rate [ Anterior Bilateral Throughout] Pulse Rate [ From Monitor] Pulse Rate [ Posterior Bases ] Respiratory 21 18 19 Rate Respiratory Rate [Anterior Bilateral Throughout] Respiratory Rate [Posterior Bases] Blood Pressure 111/81 111/80 112/72 O2 Sat by Pulse 100 100 100 Oximetry 03/05/17 03/05/17 03/05/17 07:30 07:46 08:00 Temperature 97.3 F L Pulse Rate 96 H 97 H 82 Pulse Rate [ Anterior Bilateral Throughout] Pulse Rate [ 81 From Monitor] Pulse Rate [ Posterior Bases ] Respiratory 25 H 29 H 17 Rate Respiratory Rate [Anterior Bilateral Throughout] Respiratory Rate [Posterior Bases] Blood Pressure 102/79 110/83 113/85 O2 Sat by Pulse 100 100 100 Oximetry 03/05/17 03/05/17 03/05/17 08:15 08:20 08:30 Temperature Pulse Rate 82 98 H Pulse Rate [ Anterior Bilateral Throughout] Pulse Rate [ From Monitor] Pulse Rate [ 83 Posterior Bases ] Respiratory 20 20 Rate Respiratory Rate [Anterior Bilateral Throughout] Respiratory 22 Rate [Posterior Bases] Blood Pressure 116/75 109/74 O2 Sat by Pulse 100 Oximetry 03/05/17 03/05/17 03/05/17 08:33 08:45 09:00 Temperature Pulse Rate 108 H 108 H Pulse Rate [ Anterior Bilateral Throughout] Pulse Rate [ From Monitor] Pulse Rate [ 84 Posterior Bases ] Respiratory 20 20 Rate Respiratory Rate [Anterior Bilateral Throughout] Respiratory 22 Rate [Posterior Bases] Blood Pressure 107/66 108/74 O2 Sat by Pulse 100 97 94 Oximetry 03/05/17 03/05/17 03/05/17 09:15 11:31 11:37 Temperature Pulse Rate 106 H Pulse Rate [ 106 H Anterior Bilateral Throughout] Pulse Rate [ From Monitor] Pulse Rate [ Posterior Bases ] Respiratory 20 Rate Respiratory 28 H Rate [Anterior Bilateral Throughout] Respiratory Rate [Posterior Bases] Blood Pressure 108/73 O2 Sat by Pulse 98 100 Oximetry 03/05/17 11:54 Temperature Pulse Rate Pulse Rate [ 119 H Anterior Bilateral Throughout] Pulse Rate [ From Monitor] Pulse Rate [ Posterior Bases ] Respiratory Rate Respiratory 32 H Rate [Anterior Bilateral Throughout] Respiratory Rate [Posterior Bases] Blood Pressure O2 Sat by Pulse Oximetry Constitutional: other (somnolent, easily arousable, moans, thrashing) Eyes: non-icteric ENT: oropharynx moist Effort: mildly labored Ascultation: Bilateral: wheezes, rhonchi (minimal bilaterally) Cardiovascular: other (mildly tachy, RR; no mrg) Gastrointestinal: normoactive bowel sounds, soft, non-distended, other (TTP throughout) Integumentary: normal Extremities: no cyanosis, no edema, pink and warm Neurologic: non-focal exam, pupils equal and round, CN II-XII normal Psychiatric: anxious CBC and BMP: 03/04/17 Unknown 03/05/17 06:25 ABG, PT/INR, D-dimer: ABG POC ABG pH 7.232 (7.35-7.45) L 03/02/17 13:34 POC ABG pCO2 35.3 (35-45) 03/02/17 13:34 POC ABG pO2 127 (80-105) H 03/02/17 13:34 POC ABG HCO3 14.8 03/02/17 13:34 POC ABG Total CO2 16 03/02/17 13:34 POC ABG O2 Sat 98 03/02/17 13:34 PT/INR, D-dimer PT 16.5 Sec. (12.2-14.9) H 03/05/17 06:25 INR 1.34 (0.87-1.13) H 03/05/17 06:25 Abnormal lab findings: Abnormal Labs 02/28/17 02/28/17 03/01/17 20:00 Unknown 10:20 WBC 28.6 H RBC Hgb Hct MCHC Plt Count Seg Neuts % (Manual) Lymphocytes % (Manual) 2.5 L Nucleated RBC % Seg Neutrophils # Man 16.6 H Lymphocytes # (Manual) 0.7 L Monocytes # (Manual) 1.4 H PT INR Fibrinogen POC ABG pH POC ABG pCO2 POC ABG pO2 Sodium Potassium Chloride Carbon Dioxide BUN Creatinine Glucose POC Glucose Lactic Acid 3.50 H* 2.60 H* Calcium Magnesium Iron TIBC Ferritin Total Bilirubin Direct Bilirubin AST ALT Alkaline Phosphatase C-Reactive Protein Total Protein Albumin Bygck-5-Opdcejqemcz Lipase 03/01/17 03/01/17 03/01/17 10:20 11:15 12:17 WBC RBC Hgb Hct MCHC Plt Count Seg Neuts % (Manual) Lymphocytes % (Manual) Nucleated RBC % Seg Neutrophils # Man Lymphocytes # (Manual) Monocytes # (Manual) PT INR Fibrinogen POC ABG pH POC ABG pCO2 POC ABG pO2 Sodium Potassium 5.2 H D Chloride 109.6 H Carbon Dioxide 11 L BUN 28 H Creatinine 1.3 H Glucose 29 L* POC Glucose < 40 L 129 H Lactic Acid Calcium 6.0 L Magnesium Iron TIBC Ferritin Total Bilirubin 4.80 H Direct Bilirubin AST 89 H ALT Alkaline Phosphatase C-Reactive Protein Total Protein 5.4 L D Albumin 2.3 L Majzt-4-Qlwaiutvfme Lipase 03/01/17 03/01/17 03/01/17 15:30 15:36 21:15 WBC RBC Hgb Hct MCHC Plt Count Seg Neuts % (Manual) Lymphocytes % (Manual) Nucleated RBC % Seg Neutrophils # Man Lymphocytes # (Manual) Monocytes # (Manual) PT INR Fibrinogen POC ABG pH POC ABG pCO2 POC ABG pO2 Sodium Potassium Chloride Carbon Dioxide 10 L BUN 28 H Creatinine Glucose POC Glucose 210 H Lactic Acid 2.40 H* Calcium 5.9 L* Magnesium Iron TIBC Ferritin Total Bilirubin 5.50 H Direct Bilirubin AST 135 H ALT Alkaline Phosphatase C-Reactive Protein Total Protein 5.1 L Albumin 2.1 L Vynle-4-Bvnpjgcvnbl Lipase 03/01/17 03/01/17 03/02/17 22:08 23:53 04:40 WBC RBC Hgb Hct MCHC Plt Count Seg Neuts % (Manual) Lymphocytes % (Manual) Nucleated RBC % Seg Neutrophils # Man Lymphocytes # (Manual) Monocytes # (Manual) PT INR Fibrinogen POC ABG pH 7.140 L POC ABG pCO2 29.9 L POC ABG pO2 149 H Sodium Potassium Chloride Carbon Dioxide BUN Creatinine Glucose POC Glucose 125 H 147 H Lactic Acid Calcium Magnesium Iron TIBC Ferritin Total Bilirubin Direct Bilirubin AST ALT Alkaline Phosphatase C-Reactive Protein Total Protein Albumin Rpdiu-0-Ihgtjiycgha Lipase 03/02/17 03/02/17 03/02/17 05:00 05:00 05:00 WBC 23.5 H RBC Hgb Hct MCHC Plt Count 139 L Seg Neuts % (Manual) 34.0 L Lymphocytes % (Manual) 13.0 L Nucleated RBC % Seg Neutrophils # Man 8.0 H Lymphocytes # (Manual) Monocytes # (Manual) 0.9 H PT INR Fibrinogen POC ABG pH POC ABG pCO2 POC ABG pO2 Sodium Potassium Chloride 111.2 H Carbon Dioxide 13 L BUN 33 H Creatinine Glucose 148 H POC Glucose Lactic Acid 2.30 H* Calcium 6.6 L Magnesium 1.30 L Iron TIBC Ferritin Total Bilirubin 5.90 H Direct Bilirubin AST 159 H ALT Alkaline Phosphatase C-Reactive Protein Total Protein 4.3 L Albumin 2.1 L Xmdzc-6-Hvhcfspclvb Lipase 03/02/17 03/02/17 03/02/17 07:57 11:41 12:15 WBC RBC Hgb Hct MCHC Plt Count Seg Neuts % (Manual) Lymphocytes % (Manual) Nucleated RBC % Seg Neutrophils # Man Lymphocytes # (Manual) Monocytes # (Manual) PT INR Fibrinogen POC ABG pH POC ABG pCO2 POC ABG pO2 Sodium Potassium Chloride Carbon Dioxide BUN Creatinine Glucose POC Glucose 135 H 146 H Lactic Acid Calcium Magnesium Iron TIBC Ferritin 1802.0 H Total Bilirubin Direct Bilirubin AST ALT Alkaline Phosphatase C-Reactive Protein Total Protein Albumin Cqytx-6-Jwgvquigykd Lipase 03/02/17 03/02/17 03/02/17 12:15 12:15 13:34 WBC RBC Hgb Hct MCHC Plt Count Seg Neuts % (Manual) Lymphocytes % (Manual) Nucleated RBC % Seg Neutrophils # Man Lymphocytes # (Manual) Monocytes # (Manual) PT INR Fibrinogen POC ABG pH 7.232 L POC ABG pCO2 POC ABG pO2 127 H Sodium Potassium Chloride Carbon Dioxide BUN Creatinine Glucose POC Glucose Lactic Acid Calcium Magnesium Iron 19 L TIBC 96 L Ferritin Total Bilirubin Direct Bilirubin AST ALT Alkaline Phosphatase C-Reactive Protein Total Protein Albumin Jnpuw-4-Gobxbgupmlk 257 H Lipase 03/02/17 03/02/17 03/02/17 15:42 20:22 23:27 WBC RBC Hgb Hct MCHC Plt Count Seg Neuts % (Manual) Lymphocytes % (Manual) Nucleated RBC % Seg Neutrophils # Man Lymphocytes # (Manual) Monocytes # (Manual) PT INR Fibrinogen POC ABG pH POC ABG pCO2 POC ABG pO2 Sodium Potassium Chloride Carbon Dioxide BUN Creatinine Glucose POC Glucose 159 H 161 H 166 H Lactic Acid Calcium Magnesium Iron TIBC Ferritin Total Bilirubin Direct Bilirubin AST ALT Alkaline Phosphatase C-Reactive Protein Total Protein Albumin Wunro-0-Dhmqqyjylow Lipase 03/03/17 03/03/17 03/03/17 03:59 04:00 04:00 WBC 12.9 H RBC 3.27 L Hgb 9.5 L Hct 27.9 L D MCHC Plt Count 97 L Seg Neuts % (Manual) 77.0 H Lymphocytes % (Manual) 6.0 L Nucleated RBC % Seg Neutrophils # Man 9.9 H Lymphocytes # (Manual) 0.8 L Monocytes # (Manual) 0.9 H PT INR Fibrinogen POC ABG pH POC ABG pCO2 POC ABG pO2 Sodium Potassium Chloride Carbon Dioxide BUN Creatinine Glucose POC Glucose 161 H Lactic Acid Calcium Magnesium Iron TIBC Ferritin Total Bilirubin Direct Bilirubin AST ALT Alkaline Phosphatase C-Reactive Protein 22.50 H Total Protein Albumin Pryav-9-Gpiwnhctmqe Lipase 7 L 03/03/17 03/03/17 03/03/17 04:00 06:22 06:37 WBC RBC Hgb Hct MCHC Plt Count Seg Neuts % (Manual) Lymphocytes % (Manual) Nucleated RBC % Seg Neutrophils # Man Lymphocytes # (Manual) Monocytes # (Manual) PT 16.8 H INR 1.29 H Fibrinogen POC ABG pH POC ABG pCO2 POC ABG pO2 Sodium Potassium 2.7 L* D 3.5 L D Chloride 97.7 L 108.2 H Carbon Dioxide 33 H D 20 L D BUN 31 H 35 H Creatinine 0.6 L Glucose 167 H POC Glucose Lactic Acid Calcium 6.0 L 6.8 L Magnesium Iron TIBC Ferritin Total Bilirubin 4.50 H Direct Bilirubin AST 398 H ALT 154 H Alkaline Phosphatase 198 H C-Reactive Protein Total Protein 4.4 L Albumin 2.0 L Wbjpf-1-Wsrzrmiqqus Lipase 03/03/17 03/03/17 03/03/17 08:11 11:42 16:38 WBC RBC Hgb Hct MCHC Plt Count Seg Neuts % (Manual) Lymphocytes % (Manual) Nucleated RBC % Seg Neutrophils # Man Lymphocytes # (Manual) Monocytes # (Manual) PT INR Fibrinogen 556 H POC ABG pH POC ABG pCO2 POC ABG pO2 Sodium Potassium Chloride Carbon Dioxide BUN Creatinine Glucose POC Glucose 156 H 163 H Lactic Acid Calcium Magnesium Iron TIBC Ferritin Total Bilirubin Direct Bilirubin AST ALT Alkaline Phosphatase C-Reactive Protein Total Protein Albumin Cckck-4-Lzuyghwmzzt Lipase 03/03/17 03/03/17 03/04/17 17:06 21:48 01:56 WBC RBC Hgb Hct MCHC Plt Count Seg Neuts % (Manual) Lymphocytes % (Manual) Nucleated RBC % Seg Neutrophils # Man Lymphocytes # (Manual) Monocytes # (Manual) PT INR Fibrinogen POC ABG pH POC ABG pCO2 POC ABG pO2 Sodium Potassium Chloride Carbon Dioxide BUN Creatinine Glucose POC Glucose 124 H 126 H 128 H Lactic Acid Calcium Magnesium Iron TIBC Ferritin Total Bilirubin Direct Bilirubin AST ALT Alkaline Phosphatase C-Reactive Protein Total Protein Albumin Lgbmx-1-Ggqvaclsgkr Lipase 03/04/17 03/04/17 03/04/17 05:41 09:54 11:22 WBC RBC Hgb Hct MCHC Plt Count Seg Neuts % (Manual) Lymphocytes % (Manual) Nucleated RBC % Seg Neutrophils # Man Lymphocytes # (Manual) Monocytes # (Manual) PT 16.2 H INR 1.31 H Fibrinogen POC ABG pH POC ABG pCO2 POC ABG pO2 Sodium Potassium Chloride Carbon Dioxide BUN Creatinine Glucose POC Glucose 118 H 127 H Lactic Acid Calcium Magnesium Iron TIBC Ferritin Total Bilirubin Direct Bilirubin AST ALT Alkaline Phosphatase C-Reactive Protein Total Protein Albumin Dgnpi-5-Usugvkqscxm Lipase 03/04/17 03/04/17 03/04/17 11:22 20:16 23:32 WBC RBC Hgb Hct MCHC Plt Count Seg Neuts % (Manual) Lymphocytes % (Manual) Nucleated RBC % Seg Neutrophils # Man Lymphocytes # (Manual) Monocytes # (Manual) PT INR Fibrinogen POC ABG pH POC ABG pCO2 POC ABG pO2 Sodium Potassium Chloride Carbon Dioxide BUN Creatinine Glucose POC Glucose 113 H 138 H Lactic Acid Calcium Magnesium Iron TIBC Ferritin Total Bilirubin 4.00 H Direct Bilirubin 2.9 H AST 312 H ALT 202 H Alkaline Phosphatase 187 H C-Reactive Protein Total Protein 5.7 L Albumin 2.5 L Ifleb-6-Zyyhnhdacye Lipase 03/04/17 03/04/17 03/05/17 Unknown Unknown 04:04 WBC RBC 3.51 L Hgb Hct 30.1 L MCHC 35 H Plt Count 95 L Seg Neuts % (Manual) 88.0 H Lymphocytes % (Manual) 5.0 L Nucleated RBC % 1.0 H Seg Neutrophils # Man 8.8 H Lymphocytes # (Manual) 0.5 L Monocytes # (Manual) PT INR Fibrinogen POC ABG pH POC ABG pCO2 POC ABG pO2 Sodium 146 H Potassium 3.4 L Chloride Carbon Dioxide BUN 26 H Creatinine 0.4 L Glucose 117 H POC Glucose 154 H Lactic Acid Calcium 7.1 L Magnesium Iron TIBC Ferritin Total Bilirubin 4.00 H Direct Bilirubin AST 332 H ALT 197 H Alkaline Phosphatase 207 H C-Reactive Protein Total Protein 5.4 L D Albumin 2.4 L Itwdk-5-Ujcgmrupbvz Lipase 03/05/17 03/05/17 03/05/17 06:25 06:25 07:38 WBC RBC Hgb Hct MCHC Plt Count Seg Neuts % (Manual) Lymphocytes % (Manual) Nucleated RBC % Seg Neutrophils # Man Lymphocytes # (Manual) Monocytes # (Manual) PT 16.5 H INR 1.34 H Fibrinogen POC ABG pH POC ABG pCO2 POC ABG pO2 Sodium 151 H Potassium 3.4 L Chloride 110.4 H Carbon Dioxide BUN 21 H Creatinine 0.3 L Glucose 121 H POC Glucose 135 H Lactic Acid Calcium 6.9 L Magnesium Iron TIBC Ferritin Total Bilirubin 2.80 H Direct Bilirubin AST 170 H ALT 153 H Alkaline Phosphatase 144 H C-Reactive Protein Total Protein 5.0 L Albumin 2.5 L Anuhv-2-Baiveipcosd Lipase 03/05/17 11:42 WBC RBC Hgb Hct MCHC Plt Count Seg Neuts % (Manual) Lymphocytes % (Manual) Nucleated RBC % Seg Neutrophils # Man Lymphocytes # (Manual) Monocytes # (Manual) PT INR Fibrinogen POC ABG pH POC ABG pCO2 POC ABG pO2 Sodium Potassium Chloride Carbon Dioxide BUN Creatinine Glucose POC Glucose 136 H Lactic Acid Calcium Magnesium Iron TIBC Ferritin Total Bilirubin Direct Bilirubin AST ALT Alkaline Phosphatase C-Reactive Protein Total Protein Albumin Wucbr-4-Cgnaynxhxzs Lipase Chest x-ray: report reviewed, image reviewed
--- NOTE | 2017-03-05 15:31 | XRay Report ---
Portable chest: Respiratory distress. There is a moderate right pleural effusion and a smaller left pleural effusion. There is vascular congestion. The heart appears normal in size. Right PICC line tip is in the mid SVC. Compared to prior examination of March 02 the findings are not substantially changed. Impressions: Pleural effusions greater on right than left. Vascular congestion/pulmonary edema.
[2017-03-05 16:25] LABS: ISTAT Base Excess 7; ISTAT DEVICE 0; ISTAT HCO3 30.1; ISTAT PO2 65 (80-105); ISTAT SO2 95; ISTAT TCO2 31
--- NOTE | 2017-03-05 17:07 | Gastroenterology Progress Note ---
Assessment and Plan Liver: pt w/ improving LFT's - suspect sepsis vs shock vs other - management other medical issues per primary team - no need liver bx at this time - continue to follow lft's - Dr. Dhillon on this weekend, call if needed Subjective Date of service: 03/05/17 Principal diagnosis: Septic Shock; E coli Bacteremia Interval history: - no GI issues overnight Objective - Constitutional Vitals: Temp Pulse Resp BP Pulse Ox 97.7 F 109 H 25 H 112/83 97 03/05/17 12:00 03/05/17 16:11 03/05/17 16:11 03/05/17 14:15 03/05/17 14:00 General appearance: no acute distress - Respiratory Respiratory: bilateral: CTA - Cardiovascular Rhythm: regular Heart Sounds: Present: S1 & S2 - Gastrointestinal General gastrointestinal: Present: soft, non-tender - Labs CBC & Chem 7: 03/04/17 Unknown 03/05/17 06:25 Labs: Laboratory Results - last 24 hr 03/02/17 03/02/17 03/04/17 12:15 12:15 19:18 PT INR APTT POC ABG pH POC ABG pCO2 POC ABG pO2 POC ABG HCO3 POC ABG Total CO2 POC ABG O2 Sat POC ABG Base Excess FiO2 Sodium Potassium Chloride Carbon Dioxide Anion Gap BUN Creatinine Estimated GFR BUN/Creatinine Ratio Glucose POC Glucose Calcium Total Bilirubin AST ALT Alkaline Phosphatase Total Protein Albumin Albumin/Globulin Ratio Urine Opiates Screen Urine Methadone Screen Ur Barbiturates Screen Ur Phencyclidine Scrn Ur Amphetamines Screen U Benzodiazepines Scrn Urine Cocaine Screen U Marijuana (THC) Screen Drugs of Abuse Note Actin IgG Antibody <20 Hep B Core Total Ab Nonreactive Monoscreen HIV 1&2 Antibody Rapid Non react HIV P24 Antigen Non react 03/04/17 03/04/17 03/05/17 20:16 23:32 02:55 PT INR APTT POC ABG pH POC ABG pCO2 POC ABG pO2 POC ABG HCO3 POC ABG Total CO2 POC ABG O2 Sat POC ABG Base Excess FiO2 Sodium Potassium Chloride Carbon Dioxide Anion Gap BUN Creatinine Estimated GFR BUN/Creatinine Ratio Glucose POC Glucose 113 H 138 H Calcium Total Bilirubin AST ALT Alkaline Phosphatase Total Protein Albumin Albumin/Globulin Ratio Urine Opiates Screen Presumptive negative Urine Methadone Screen Presumptive negative Ur Barbiturates Screen Presumptive negative Ur Phencyclidine Scrn Presumptive negative Ur Amphetamines Screen Presumptive negative U Benzodiazepines Scrn Presumptive negative Urine Cocaine Screen Presumptive negative U Marijuana (THC) Screen Presumptive negative Drugs of Abuse Note Disclamer Actin IgG Antibody Hep B Core Total Ab Monoscreen HIV 1&2 Antibody Rapid HIV P24 Antigen 03/05/17 03/05/17 03/05/17 04:04 06:25 06:25 PT 16.5 H INR 1.34 H APTT 28.2 POC ABG pH POC ABG pCO2 POC ABG pO2 POC ABG HCO3 POC ABG Total CO2 POC ABG O2 Sat POC ABG Base Excess FiO2 Sodium 151 H Potassium 3.4 L Chloride 110.4 H Carbon Dioxide 28 Anion Gap 16 BUN 21 H Creatinine 0.3 L Estimated GFR > 60 BUN/Creatinine Ratio 70.00 Glucose 121 H POC Glucose 154 H Calcium 6.9 L Total Bilirubin 2.80 H AST 170 H ALT 153 H Alkaline Phosphatase 144 H Total Protein 5.0 L Albumin 2.5 L Albumin/Globulin Ratio 1.0 Urine Opiates Screen Urine Methadone Screen Ur Barbiturates Screen Ur Phencyclidine Scrn Ur Amphetamines Screen U Benzodiazepines Scrn Urine Cocaine Screen U Marijuana (THC) Screen Drugs of Abuse Note Actin IgG Antibody Hep B Core Total Ab Monoscreen HIV 1&2 Antibody Rapid HIV P24 Antigen 03/05/17 03/05/17 03/05/17 06:25 07:38 11:42 PT INR APTT POC ABG pH POC ABG pCO2 POC ABG pO2 POC ABG HCO3 POC ABG Total CO2 POC ABG O2 Sat POC ABG Base Excess FiO2 Sodium Potassium Chloride Carbon Dioxide Anion Gap BUN Creatinine Estimated GFR BUN/Creatinine Ratio Glucose POC Glucose 135 H 136 H Calcium Total Bilirubin AST ALT Alkaline Phosphatase Total Protein Albumin Albumin/Globulin Ratio Urine Opiates Screen Urine Methadone Screen Ur Barbiturates Screen Ur Phencyclidine Scrn Ur Amphetamines Screen U Benzodiazepines Scrn Urine Cocaine Screen U Marijuana (THC) Screen Drugs of Abuse Note Actin IgG Antibody Hep B Core Total Ab Monoscreen Negative HIV 1&2 Antibody Rapid HIV P24 Antigen 03/05/17 16:18 PT INR APTT POC ABG pH 7.530 H POC ABG pCO2 36.0 POC ABG pO2 65 L POC ABG HCO3 30.1 POC ABG Total CO2 31 POC ABG O2 Sat 95 POC ABG Base Excess 7 FiO2 21 Sodium Potassium Chloride Carbon Dioxide Anion Gap BUN Creatinine Estimated GFR BUN/Creatinine Ratio Glucose POC Glucose Calcium Total Bilirubin AST ALT Alkaline Phosphatase Total Protein Albumin Albumin/Globulin Ratio Urine Opiates Screen Urine Methadone Screen Ur Barbiturates Screen Ur Phencyclidine Scrn Ur Amphetamines Screen U Benzodiazepines Scrn Urine Cocaine Screen U Marijuana (THC) Screen Drugs of Abuse Note Actin IgG Antibody Hep B Core Total Ab Monoscreen HIV 1&2 Antibody Rapid HIV P24 Antigen
--- NOTE | 2017-03-05 21:25 | XRay Report ---
FINAL REPORT EXAM: XR ABDOMEN 1V AP HISTORY: Dobhoff placement TECHNIQUE: Single-view abdomen 1 image PRIORS: Abdomen radiograph 02/28/2017 FINDINGS: Bowel-gas pattern is not specific. There is a metallic tip feeding tube with the distal aspect coiled in proximal stomach. No acute osseous abnormality is identified. IMPRESSION: 1. Metallic tip feeding tube courses to the proximal stomach.
[2017-03-06] MEDS: MERREM 1,000 MG in NACL 0.9% 100 ML IV SCH ×3 (03:26→20:52)
[2017-03-06] MEDS: MORPHINE IV PRN ×2 (03:26→20:53)
[2017-03-06] MEDS: VANCOMYCIN/NS 1 GM/250 ML 1 GM/250 ML BAG IV SCH ×3 (03:27→20:53)
[2017-03-06] MEDS: KCL 20 MEQ in D5W 1,000 ML IV SCH (03:38)
[2017-03-06] MEDS: LASIX IV SCH ×2 (05:49→18:22)
[2017-03-06] MEDS: SYNTHROID PO SCH (05:50)
[2017-03-06 07:00] LABS: Hematocrit 29.3 % (30.3-42.9); Hemoglobin 9.6 gm/dl (10.1-14.3); Mean Corpuscular HGB Conc 33 % (30-34); Mean Corpuscular Hemoglobin 29 pg (28-32); Mean Corpuscular Volume 88 fl (79-97); Platelet Count 121 K/mm3 (140-440); Red Blood Count 3.34 M/mm3 (3.65-5.03); Red Cell Distribution Width 14.6 % (13.2-15.2); White Blood Count 11.1 K/mm3 (4.5-11.0)
[2017-03-06] MEDS: DUONEB *Not for PRN Use IH SCH ×4 (07:38→19:19)
[2017-03-06 07:42] LABS: Sodium TNR mmol/L (137-145)
[2017-03-06 07:43] LABS: Anion Gap TNR mmol/L; BUN/Creatinine Ratio TNR; Blood Urea Nitrogen TNR mg/dL (7-17); Carbon Dioxide TNR mmol/L (22-30); Chloride TNR mmol/L (98-107); Glucose TNR mg/dL (65-100); Potassium TNR mmol/L (3.6-5.0)
[2017-03-06 07:44] LABS: Alanine Aminotransferase TNR units/L (7-56); Albumin TNR g/dL (3.9-5); Albumin/Globulin Ratio TNR %; Alkaline Phosphatase TNR units/L (35-129); Bilirubin,Total TNR mg/dL (0.1-1.2); Calcium TNR mg/dL (8.4-10.2); Total Protein TNR g/dL (6.3-8.2)
[2017-03-06 08:50] LABS: Basophils % (Manual) 0 % (0.0-1.8); Blastocytes % (Manual) 0 %; Eosinophils % (Manual) 0 % (0.0-4.3)
[2017-03-06 08:51] LABS: Anisocytosis 1+; Diff Status Complete; Hypochromasia 1+; Platelet Estimate Consistent w Auto; Stomatocytes Few
--- NOTE | 2017-03-06 12:16 | Progress Note ---
Assessment and Plan UTI/pyelonephritis Sepsis shock episode secondary to Escherichia coli bacteremia Lactic acidosis. Hyperkalemia, improving SHAHID, better Hypocalcemia. Improving Hypoglycemia, better Metabolic/toxic encephalopathy- DTs/meth withdrawal Thrombocytopenia, prob 2/2 sepsis/zosyn/liver failure Hepatic failure Ascites Methamphetamine and EtOH abuse. On CIWA protocol Hypernatremia. Pending new laboratory report. Also noted to be slightly hypotensive with upward trend in sodium values, suggesting the patient may still need free water replacement Recomendations Continue antibiotics Monitor hemodynamics and intake and output Monitor serial electrolytes and replace/correct as needed Continue monitoring mental status and watch for withdrawal symptoms Continue free water replacement, 250 mL boluses if sodium remains over 150 Update BNP. The patient had prior hypertension associated with low EF, which is suspicious for the presence of myocardial dysfunction in the setting of sepsis. The problem persists will ask cardiology opinion on this matter. Discussed with family in detail. All questions answered. Critical care time was 31 minutes of [id number] evaluation and coordination of care. Subjective Date of service: 03/06/17 Principal diagnosis: Septic Shock; E coli Bacteremia Interval history: Slightly upset and uncomfortable per family this morning. Some cough noted. No shortness of breath with oximetry of 100% at the bedside on nasal cannula Objective Vital Signs - 12hr 03/06/17 03/06/17 03/06/17 00:16 00:30 00:46 Temperature Pulse Rate 99 H 102 H 94 H Pulse Rate [ Bilateral Throughout] Respiratory 15 16 16 Rate Respiratory Rate [Bilateral Throughout] Blood Pressure 97/65 97/65 97/65 O2 Sat by Pulse 99 100 100 Oximetry 03/06/17 03/06/17 03/06/17 01:00 01:16 01:30 Temperature Pulse Rate 92 H 99 H 92 H Pulse Rate [ Bilateral Throughout] Respiratory 15 13 15 Rate Respiratory Rate [Bilateral Throughout] Blood Pressure 101/68 101/68 101/68 O2 Sat by Pulse 100 98 100 Oximetry 03/06/17 03/06/17 03/06/17 01:46 02:00 02:16 Temperature Pulse Rate 92 H 89 88 Pulse Rate [ Bilateral Throughout] Respiratory 16 14 13 Rate Respiratory Rate [Bilateral Throughout] Blood Pressure 101/68 94/64 101/68 O2 Sat by Pulse 100 100 100 Oximetry 03/06/17 03/06/17 03/06/17 02:30 02:46 03:00 Temperature Pulse Rate 100 H 108 H 92 H Pulse Rate [ Bilateral Throughout] Respiratory 19 16 17 Rate Respiratory Rate [Bilateral Throughout] Blood Pressure 101/68 101/68 104/71 O2 Sat by Pulse 100 100 100 Oximetry 03/06/17 03/06/17 03/06/17 03:16 03:30 03:46 Temperature Pulse Rate 94 H 88 88 Pulse Rate [ Bilateral Throughout] Respiratory 15 9 L 10 L Rate Respiratory Rate [Bilateral Throughout] Blood Pressure 104/71 104/71 104/71 O2 Sat by Pulse 100 100 100 Oximetry 03/06/17 03/06/17 03/06/17 04:00 04:16 04:30 Temperature 98.3 F Pulse Rate 84 86 85 Pulse Rate [ Bilateral Throughout] Respiratory 11 L 13 11 L Rate Respiratory Rate [Bilateral Throughout] Blood Pressure 98/72 98/72 98/72 O2 Sat by Pulse 100 100 100 Oximetry 03/06/17 03/06/17 03/06/17 04:46 05:00 05:16 Temperature Pulse Rate 83 82 107 H Pulse Rate [ Bilateral Throughout] Respiratory 11 L 12 14 Rate Respiratory Rate [Bilateral Throughout] Blood Pressure 98/72 102/72 102/72 O2 Sat by Pulse 100 100 98 Oximetry 03/06/17 03/06/17 03/06/17 05:30 05:46 06:00 Temperature Pulse Rate 81 96 H 87 Pulse Rate [ Bilateral Throughout] Respiratory 11 L 16 13 Rate Respiratory Rate [Bilateral Throughout] Blood Pressure 102/72 102/72 109/75 O2 Sat by Pulse 100 100 Oximetry 03/06/17 03/06/17 03/06/17 06:16 06:30 06:46 Temperature Pulse Rate 88 84 85 Pulse Rate [ Bilateral Throughout] Respiratory 11 L 12 11 L Rate Respiratory Rate [Bilateral Throughout] Blood Pressure 109/75 109/75 109/75 O2 Sat by Pulse 100 100 100 Oximetry 03/06/17 03/06/17 03/06/17 07:00 07:16 07:30 Temperature Pulse Rate 85 83 91 H Pulse Rate [ Bilateral Throughout] Respiratory 11 L 13 18 Rate Respiratory Rate [Bilateral Throughout] Blood Pressure 108/81 108/81 108/81 O2 Sat by Pulse 94 100 100 Oximetry 03/06/17 03/06/17 03/06/17 07:36 07:38 07:46 Temperature Pulse Rate 114 H Pulse Rate [ 88 Bilateral Throughout] Respiratory 29 H Rate Respiratory 16 Rate [Bilateral Throughout] Blood Pressure 108/81 O2 Sat by Pulse 100 100 Oximetry 03/06/17 03/06/17 03/06/17 08:00 08:16 08:30 Temperature 98.1 F Pulse Rate 89 89 95 H Pulse Rate [ 99 H Bilateral Throughout] Respiratory 16 14 14 Rate Respiratory 18 Rate [Bilateral Throughout] Blood Pressure 116/81 116/81 116/81 O2 Sat by Pulse 100 100 Oximetry 03/06/17 03/06/17 03/06/17 08:46 09:00 09:16 Temperature Pulse Rate 95 H 89 88 Pulse Rate [ Bilateral Throughout] Respiratory 16 18 13 Rate Respiratory Rate [Bilateral Throughout] Blood Pressure 116/81 115/86 115/86 O2 Sat by Pulse 100 100 100 Oximetry 03/06/17 03/06/17 03/06/17 09:30 09:46 10:00 Temperature Pulse Rate 85 85 113 H Pulse Rate [ Bilateral Throughout] Respiratory 13 14 17 Rate Respiratory Rate [Bilateral Throughout] Blood Pressure 115/86 115/86 115/86 O2 Sat by Pulse 100 100 100 Oximetry 03/06/17 03/06/17 03/06/17 10:16 10:30 10:46 Temperature Pulse Rate 87 97 H Pulse Rate [ Bilateral Throughout] Respiratory 14 20 Rate Respiratory Rate [Bilateral Throughout] Blood Pressure 105/84 105/84 105/84 O2 Sat by Pulse 100 100 92 Oximetry 03/06/17 03/06/17 03/06/17 11:00 11:16 11:25 Temperature Pulse Rate 95 H 105 H Pulse Rate [ 99 H Bilateral Throughout] Respiratory 19 14 Rate Respiratory 20 Rate [Bilateral Throughout] Blood Pressure 99/72 99/72 O2 Sat by Pulse 100 100 Oximetry 03/06/17 03/06/17 11:30 11:39 Temperature Pulse Rate 91 H Pulse Rate [ 106 H Bilateral Throughout] Respiratory 17 Rate Respiratory 20 Rate [Bilateral Throughout] Blood Pressure 99/72 O2 Sat by Pulse 100 Oximetry Constitutional: asleep, other (Carr[place], moans, thrashing during the exam) Eyes: non-icteric ENT: oropharynx moist Effort: mildly labored Ascultation: Bilateral: rhonchi (scattered at bases) Cardiovascular: other Gastrointestinal: normoactive bowel sounds, soft, non-distended Integumentary: normal Extremities: no cyanosis, no edema, pink and warm Neurologic: non-focal exam, pupils equal and round, CN II-XII normal, unable to assess (not very cooperative patient) Psychiatric: depressed CBC and BMP: 03/06/17 05:55 03/06/17 05:55 ABG, PT/INR, D-dimer: ABG POC ABG pH 7.530 (7.35-7.45) H 03/05/17 16:18 POC ABG pCO2 36.0 (35-45) 03/05/17 16:18 POC ABG pO2 65 (80-105) L 03/05/17 16:18 POC ABG HCO3 30.1 03/05/17 16:18 POC ABG Total CO2 31 03/05/17 16:18 POC ABG O2 Sat 95 03/05/17 16:18 PT/INR, D-dimer PT 16.5 Sec. (12.2-14.9) H 03/05/17 06:25 INR 1.34 (0.87-1.13) H 03/05/17 06:25 Abnormal lab findings: Abnormal Labs 02/28/17 02/28/17 03/01/17 20:00 Unknown 10:20 WBC 28.6 H RBC Hgb Hct MCHC Plt Count Seg Neuts % (Manual) Lymphocytes % (Manual) 2.5 L Monocytes % (Manual) Nucleated RBC % Seg Neutrophils # Man 16.6 H Lymphocytes # (Manual) 0.7 L Monocytes # (Manual) 1.4 H PT INR Fibrinogen POC ABG pH POC ABG pCO2 POC ABG pO2 Sodium Potassium Chloride Carbon Dioxide BUN Creatinine Glucose POC Glucose Lactic Acid 3.50 H* 2.60 H* Calcium Magnesium Iron TIBC Ferritin Total Bilirubin Direct Bilirubin AST ALT Alkaline Phosphatase C-Reactive Protein Total Protein Albumin Tjzuu-0-Ehfdajkvpjq Lipase 03/01/17 03/01/17 03/01/17 10:20 11:15 12:17 WBC RBC Hgb Hct MCHC Plt Count Seg Neuts % (Manual) Lymphocytes % (Manual) Monocytes % (Manual) Nucleated RBC % Seg Neutrophils # Man Lymphocytes # (Manual) Monocytes # (Manual) PT INR Fibrinogen POC ABG pH POC ABG pCO2 POC ABG pO2 Sodium Potassium 5.2 H D Chloride 109.6 H Carbon Dioxide 11 L BUN 28 H Creatinine 1.3 H Glucose 29 L* POC Glucose < 40 L 129 H Lactic Acid Calcium 6.0 L Magnesium Iron TIBC Ferritin Total Bilirubin 4.80 H Direct Bilirubin AST 89 H ALT Alkaline Phosphatase C-Reactive Protein Total Protein 5.4 L D Albumin 2.3 L Spapa-1-Ptksjvagpwq Lipase 03/01/17 03/01/17 03/01/17 15:30 15:36 21:15 WBC RBC Hgb Hct MCHC Plt Count Seg Neuts % (Manual) Lymphocytes % (Manual) Monocytes % (Manual) Nucleated RBC % Seg Neutrophils # Man Lymphocytes # (Manual) Monocytes # (Manual) PT INR Fibrinogen POC ABG pH POC ABG pCO2 POC ABG pO2 Sodium Potassium Chloride Carbon Dioxide 10 L BUN 28 H Creatinine Glucose POC Glucose 210 H Lactic Acid 2.40 H* Calcium 5.9 L* Magnesium Iron TIBC Ferritin Total Bilirubin 5.50 H Direct Bilirubin AST 135 H ALT Alkaline Phosphatase C-Reactive Protein Total Protein 5.1 L Albumin 2.1 L Uybgm-3-Letrctffxjc Lipase 03/01/17 03/01/17 03/02/17 22:08 23:53 04:40 WBC RBC Hgb Hct MCHC Plt Count Seg Neuts % (Manual) Lymphocytes % (Manual) Monocytes % (Manual) Nucleated RBC % Seg Neutrophils # Man Lymphocytes # (Manual) Monocytes # (Manual) PT INR Fibrinogen POC ABG pH 7.140 L POC ABG pCO2 29.9 L POC ABG pO2 149 H Sodium Potassium Chloride Carbon Dioxide BUN Creatinine Glucose POC Glucose 125 H 147 H Lactic Acid Calcium Magnesium Iron TIBC Ferritin Total Bilirubin Direct Bilirubin AST ALT Alkaline Phosphatase C-Reactive Protein Total Protein Albumin Nbthn-6-Bcypukqcxam Lipase 03/02/17 03/02/17 03/02/17 05:00 05:00 05:00 WBC 23.5 H RBC Hgb Hct MCHC Plt Count 139 L Seg Neuts % (Manual) 34.0 L Lymphocytes % (Manual) 13.0 L Monocytes % (Manual) Nucleated RBC % Seg Neutrophils # Man 8.0 H Lymphocytes # (Manual) Monocytes # (Manual) 0.9 H PT INR Fibrinogen POC ABG pH POC ABG pCO2 POC ABG pO2 Sodium Potassium Chloride 111.2 H Carbon Dioxide 13 L BUN 33 H Creatinine Glucose 148 H POC Glucose Lactic Acid 2.30 H* Calcium 6.6 L Magnesium 1.30 L Iron TIBC Ferritin Total Bilirubin 5.90 H Direct Bilirubin AST 159 H ALT Alkaline Phosphatase C-Reactive Protein Total Protein 4.3 L Albumin 2.1 L Ugqwx-4-Xzmlavrjflv Lipase 03/02/17 03/02/17 03/02/17 07:57 11:41 12:15 WBC RBC Hgb Hct MCHC Plt Count Seg Neuts % (Manual) Lymphocytes % (Manual) Monocytes % (Manual) Nucleated RBC % Seg Neutrophils # Man Lymphocytes # (Manual) Monocytes # (Manual) PT INR Fibrinogen POC ABG pH POC ABG pCO2 POC ABG pO2 Sodium Potassium Chloride Carbon Dioxide BUN Creatinine Glucose POC Glucose 135 H 146 H Lactic Acid Calcium Magnesium Iron TIBC Ferritin 1802.0 H Total Bilirubin Direct Bilirubin AST ALT Alkaline Phosphatase C-Reactive Protein Total Protein Albumin Flnur-1-Inbpbhaiqyh Lipase 03/02/17 03/02/17 03/02/17 12:15 12:15 13:34 WBC RBC Hgb Hct MCHC Plt Count Seg Neuts % (Manual) Lymphocytes % (Manual) Monocytes % (Manual) Nucleated RBC % Seg Neutrophils # Man Lymphocytes # (Manual) Monocytes # (Manual) PT INR Fibrinogen POC ABG pH 7.232 L POC ABG pCO2 POC ABG pO2 127 H Sodium Potassium Chloride Carbon Dioxide BUN Creatinine Glucose POC Glucose Lactic Acid Calcium Magnesium Iron 19 L TIBC 96 L Ferritin Total Bilirubin Direct Bilirubin AST ALT Alkaline Phosphatase C-Reactive Protein Total Protein Albumin Caoch-0-Phsxlvkwdrf 257 H Lipase 03/02/17 03/02/17 03/02/17 15:42 20:22 23:27 WBC RBC Hgb Hct MCHC Plt Count Seg Neuts % (Manual) Lymphocytes % (Manual) Monocytes % (Manual) Nucleated RBC % Seg Neutrophils # Man Lymphocytes # (Manual) Monocytes # (Manual) PT INR Fibrinogen POC ABG pH POC ABG pCO2 POC ABG pO2 Sodium Potassium Chloride Carbon Dioxide BUN Creatinine Glucose POC Glucose 159 H 161 H 166 H Lactic Acid Calcium Magnesium Iron TIBC Ferritin Total Bilirubin Direct Bilirubin AST ALT Alkaline Phosphatase C-Reactive Protein Total Protein Albumin Rumkc-5-Aoncliqyczs Lipase 03/03/17 03/03/17 03/03/17 03:59 04:00 04:00 WBC 12.9 H RBC 3.27 L Hgb 9.5 L Hct 27.9 L D MCHC Plt Count 97 L Seg Neuts % (Manual) 77.0 H Lymphocytes % (Manual) 6.0 L Monocytes % (Manual) Nucleated RBC % Seg Neutrophils # Man 9.9 H Lymphocytes # (Manual) 0.8 L Monocytes # (Manual) 0.9 H PT INR Fibrinogen POC ABG pH POC ABG pCO2 POC ABG pO2 Sodium Potassium Chloride Carbon Dioxide BUN Creatinine Glucose POC Glucose 161 H Lactic Acid Calcium Magnesium Iron TIBC Ferritin Total Bilirubin Direct Bilirubin AST ALT Alkaline Phosphatase C-Reactive Protein 22.50 H Total Protein Albumin Moqzu-9-Sqvsxvuneka Lipase 7 L 03/03/17 03/03/17 03/03/17 04:00 06:22 06:37 WBC RBC Hgb Hct MCHC Plt Count Seg Neuts % (Manual) Lymphocytes % (Manual) Monocytes % (Manual) Nucleated RBC % Seg Neutrophils # Man Lymphocytes # (Manual) Monocytes # (Manual) PT 16.8 H INR 1.29 H Fibrinogen POC ABG pH POC ABG pCO2 POC ABG pO2 Sodium Potassium 2.7 L* D 3.5 L D Chloride 97.7 L 108.2 H Carbon Dioxide 33 H D 20 L D BUN 31 H 35 H Creatinine 0.6 L Glucose 167 H POC Glucose Lactic Acid Calcium 6.0 L 6.8 L Magnesium Iron TIBC Ferritin Total Bilirubin 4.50 H Direct Bilirubin AST 398 H ALT 154 H Alkaline Phosphatase 198 H C-Reactive Protein Total Protein 4.4 L Albumin 2.0 L Ppufz-4-Kreztmfvcbh Lipase 03/03/17 03/03/17 03/03/17 08:11 11:42 16:38 WBC RBC Hgb Hct MCHC Plt Count Seg Neuts % (Manual) Lymphocytes % (Manual) Monocytes % (Manual) Nucleated RBC % Seg Neutrophils # Man Lymphocytes # (Manual) Monocytes # (Manual) PT INR Fibrinogen 556 H POC ABG pH POC ABG pCO2 POC ABG pO2 Sodium Potassium Chloride Carbon Dioxide BUN Creatinine Glucose POC Glucose 156 H 163 H Lactic Acid Calcium Magnesium Iron TIBC Ferritin Total Bilirubin Direct Bilirubin AST ALT Alkaline Phosphatase C-Reactive Protein Total Protein Albumin Jnwgl-3-Klajpbpplcd Lipase 03/03/17 03/03/17 03/04/17 17:06 21:48 01:56 WBC RBC Hgb Hct MCHC Plt Count Seg Neuts % (Manual) Lymphocytes % (Manual) Monocytes % (Manual) Nucleated RBC % Seg Neutrophils # Man Lymphocytes # (Manual) Monocytes # (Manual) PT INR Fibrinogen POC ABG pH POC ABG pCO2 POC ABG pO2 Sodium Potassium Chloride Carbon Dioxide BUN Creatinine Glucose POC Glucose 124 H 126 H 128 H Lactic Acid Calcium Magnesium Iron TIBC Ferritin Total Bilirubin Direct Bilirubin AST ALT Alkaline Phosphatase C-Reactive Protein Total Protein Albumin Ardvk-8-Vagblxooonw Lipase 03/04/17 03/04/17 03/04/17 05:41 09:54 11:22 WBC RBC Hgb Hct MCHC Plt Count Seg Neuts % (Manual) Lymphocytes % (Manual) Monocytes % (Manual) Nucleated RBC % Seg Neutrophils # Man Lymphocytes # (Manual) Monocytes # (Manual) PT 16.2 H INR 1.31 H Fibrinogen POC ABG pH POC ABG pCO2 POC ABG pO2 Sodium Potassium Chloride Carbon Dioxide BUN Creatinine Glucose POC Glucose 118 H 127 H Lactic Acid Calcium Magnesium Iron TIBC Ferritin Total Bilirubin Direct Bilirubin AST ALT Alkaline Phosphatase C-Reactive Protein Total Protein Albumin Cpzrm-5-Bicqmzssrvh Lipase 03/04/17 03/04/17 03/04/17 11:22 20:16 23:32 WBC RBC Hgb Hct MCHC Plt Count Seg Neuts % (Manual) Lymphocytes % (Manual) Monocytes % (Manual) Nucleated RBC % Seg Neutrophils # Man Lymphocytes # (Manual) Monocytes # (Manual) PT INR Fibrinogen POC ABG pH POC ABG pCO2 POC ABG pO2 Sodium Potassium Chloride Carbon Dioxide BUN Creatinine Glucose POC Glucose 113 H 138 H Lactic Acid Calcium Magnesium Iron TIBC Ferritin Total Bilirubin 4.00 H Direct Bilirubin 2.9 H AST 312 H ALT 202 H Alkaline Phosphatase 187 H C-Reactive Protein Total Protein 5.7 L Albumin 2.5 L Paxnx-3-Hrskogzutbt Lipase 03/04/17 03/04/17 03/05/17 Unknown Unknown 04:04 WBC RBC 3.51 L Hgb Hct 30.1 L MCHC 35 H Plt Count 95 L Seg Neuts % (Manual) 88.0 H Lymphocytes % (Manual) 5.0 L Monocytes % (Manual) Nucleated RBC % 1.0 H Seg Neutrophils # Man 8.8 H Lymphocytes # (Manual) 0.5 L Monocytes # (Manual) PT INR Fibrinogen POC ABG pH POC ABG pCO2 POC ABG pO2 Sodium 146 H Potassium 3.4 L Chloride Carbon Dioxide BUN 26 H Creatinine 0.4 L Glucose 117 H POC Glucose 154 H Lactic Acid Calcium 7.1 L Magnesium Iron TIBC Ferritin Total Bilirubin 4.00 H Direct Bilirubin AST 332 H ALT 197 H Alkaline Phosphatase 207 H C-Reactive Protein Total Protein 5.4 L D Albumin 2.4 L Jmiub-4-Ymmcjfsdjsb Lipase 03/05/17 03/05/17 03/05/17 06:25 06:25 07:38 WBC RBC Hgb Hct MCHC Plt Count Seg Neuts % (Manual) Lymphocytes % (Manual) Monocytes % (Manual) Nucleated RBC % Seg Neutrophils # Man Lymphocytes # (Manual) Monocytes # (Manual) PT 16.5 H INR 1.34 H Fibrinogen POC ABG pH POC ABG pCO2 POC ABG pO2 Sodium 151 H Potassium 3.4 L Chloride 110.4 H Carbon Dioxide BUN 21 H Creatinine 0.3 L Glucose 121 H POC Glucose 135 H Lactic Acid Calcium 6.9 L Magnesium Iron TIBC Ferritin Total Bilirubin 2.80 H Direct Bilirubin AST 170 H ALT 153 H Alkaline Phosphatase 144 H C-Reactive Protein Total Protein 5.0 L Albumin 2.5 L Bwebq-4-Ummilrowixp Lipase 03/05/17 03/05/17 03/05/17 11:42 16:18 17:15 WBC RBC Hgb Hct MCHC Plt Count Seg Neuts % (Manual) Lymphocytes % (Manual) Monocytes % (Manual) Nucleated RBC % Seg Neutrophils # Man Lymphocytes # (Manual) Monocytes # (Manual) PT INR Fibrinogen POC ABG pH 7.530 H POC ABG pCO2 POC ABG pO2 65 L Sodium Potassium Chloride Carbon Dioxide BUN Creatinine Glucose POC Glucose 136 H 157 H Lactic Acid Calcium Magnesium Iron TIBC Ferritin Total Bilirubin Direct Bilirubin AST ALT Alkaline Phosphatase C-Reactive Protein Total Protein Albumin Afoac-1-Welsqlgfvby Lipase 03/05/17 03/06/17 03/06/17 21:45 05:55 07:54 WBC 11.1 H RBC 3.34 L Hgb 9.6 L Hct 29.3 L MCHC Plt Count 121 L Seg Neuts % (Manual) 79.0 H Lymphocytes % (Manual) 8.0 L Monocytes % (Manual) 9.0 H Nucleated RBC % 5.0 H Seg Neutrophils # Man 8.8 H Lymphocytes # (Manual) 0.9 L Monocytes # (Manual) 1.0 H PT INR Fibrinogen POC ABG pH POC ABG pCO2 POC ABG pO2 Sodium Potassium Chloride Carbon Dioxide BUN Creatinine Glucose POC Glucose 160 H 116 H Lactic Acid Calcium Magnesium Iron TIBC Ferritin Total Bilirubin Direct Bilirubin AST ALT Alkaline Phosphatase C-Reactive Protein Total Protein Albumin Tgimr-0-Jhcunakhoiw Lipase Chest x-ray: report reviewed
--- NOTE | 2017-03-06 12:27 | Progress Note ---
Assessment and Plan Assessment and plan: 26 YO Female with Hypothyroidism presents to ED for evaluation. Pt states that she has experienced nausea, vomiting, and multiple episodes of loose stools over 5 days with worsening symptoms over the past 8 hours. She was admitted for sepsis, aspirin her cousin she was not compliant with Synthroid at home because she does not have insurance. Her Cousin believes she has a history of polysubstance abuse, including etoh Severev Gram-negative septicemia/UTI * ID input appreciated, continue broad-spectrum antibiotics and antifungals * mononucleosis screen negative * Will discuss case with ID, as patient is improving, and question the utility of Neck imaging and LP at this point * RIVER positive, titer was 1:80, with speckled pattern, consider autoimmune contributor to severe sepsis Septic shock * Continue IV fluids, was weaned off pressors Shock Liver. Abdominal pain * Continue IV fluids, continue supportive care continue bowel rest * pancreatitis ruled out- lipase was negative * Viral Hepatitis serologies negative, HIV negative * GI consult appreciated * CT abdomen and pelvis; Large pleural effusions and moderate ascites. Right pyelonephritis seen. Proximal colon is thickened consistent with nonspecific colitis. Ascites * Status post paracentesis on 03/04, appeared to be a traumatic tap, but absolute neutrophil count is only 82 dear for not consistent with SBP, and not a contributor to sepsis. Fluid overload continue lasix Delirium tremens/alcohol withdrawal * Continue CIWA protocol Metabolic encephalopathy * Most likely due to sepsis and delirium tremens, continue supportive care Severe hypothyroidism * Continue thyroid replacement therapy Severe Metabolic Acidosis * improved sp Sodium bicarb Recent * pelvic and transvaginal ultrasound were performed and did not show any remnants, therefore not a contributor to sepsis Severe malnutrition * dietitian consults * continue tube feeding via NGT Electrolyte derrangement- Hypokalemia, Hypocalcemia, hypomagnesemia * Continue to replete electrolytes as necessary daily, and medically rx * pseudohypocalcemia due to low albumin, corrected Ca is 8.1 Acute Kidney Injury * Resolved with IVF. secondary to vasomotor nephropathy Hypoglycemia * resolved with dextrose * Prognosis guarded, case discussed with her cousin Karla Darden, her phone number is [phone]. Her parents are in [place] and not currently reachable The high probability of a clinically significant, sudden or life threatening deterioration of the [VASCULAR, ENDOCRINE, GI ] system(s) required my full and direct attention, intervention and personal management. The aggregate critical care time was [35] minutes. This time is in addition to time spent performing reported procedures but includes the following: [X] Data Review and interpretation [X] Patient assessment and monitoring of vital signs [X] Documentation [X] Medication orders and management History Interval history: She has waxing and waning episodes of confusion. At this time she has received some medication so she is calm and cooperative but somnolent Hospitalist Physical - Physical exam Narrative exam: General: Toxic appearance, has been doughy appearance of her face HEENT: MMM, EOMI, scleral icterus cardiac: S1-S2 heard lungs: clear to auscultation, abdomen: soft, suprapubic tenderness, moderately distended with shifting dullness bowel sounds positive extremities: Nonpitting, doughy edema of lower extremities Skin: no rash or lesion Neuro: no gross focal deficit Psych, obeys commands, pleasant. Has episodes of agitation - Constitutional Vitals: Temp Pulse Resp BP Pulse Ox 98.1 F 106 H 20 99/72 100 03/06/17 08:00 03/06/17 11:39 03/06/17 11:39 03/06/17 11:30 03/06/17 11:30 General appearance: Present: other (thrashing about in bed, in mitten restraints ) Results - Labs CBC & Chem 7: 03/07/17 08:58 03/07/17 08:58 Labs: Laboratory Last Values WBC 11.1 K/mm3 (4.5-11.0) H 03/06/17 05:55 RBC 3.34 M/mm3 (3.65-5.03) L 03/06/17 05:55 Hgb 9.6 gm/dl (10.1-14.3) L 03/06/17 05:55 Hct 29.3 % (30.3-42.9) L 03/06/17 05:55 MCV 88 fl (79-97) 03/06/17 05:55 MCH 29 pg (28-32) 03/06/17 05:55 MCHC 33 % (30-34) 03/06/17 05:55 RDW 14.6 % (13.2-15.2) 03/06/17 05:55 Plt Count 121 K/mm3 (140-440) L 03/06/17 05:55 Lymph % (Auto) 22.8 % (13.4-35.0) 02/28/17 12:03 [place] % (Auto) 2.2 % (0.0-7.3) 02/28/17 12:03 Eos % (Auto) 1.2 % (0.0-4.3) 02/28/17 12:03 Baso % (Auto) 0.2 % (0.0-1.8) 02/28/17 12:03 Lymph # 1.2 K/mm3 (1.2-5.4) 02/28/17 12:03 [place] # 0.1 K/mm3 (0.0-0.8) 02/28/17 12:03 Eos # 0.1 K/mm3 (0.0-0.4) 02/28/17 12:03 Baso # 0.0 K/mm3 (0.0-0.1) 02/28/17 12:03 Add Manual Diff Complete 03/06/17 05:55 Total Counted 100 03/06/17 05:55 Seg Neutrophils % 73.6 % (40.0-70.0) H 02/28/17 12:03 Seg Neuts % (Manual) 79.0 % (40.0-70.0) H 03/06/17 05:55 Band Neutrophils % 4.0 % 03/06/17 05:55 Lymphocytes % (Manual) 8.0 % (13.4-35.0) L 03/06/17 05:55 Reactive Lymphs % (Man) 0 % 03/06/17 05:55 Monocytes % (Manual) 9.0 % (0.0-7.3) H 03/06/17 05:55 Eosinophils % (Manual) 0 % (0.0-4.3) 03/06/17 05:55 Basophils % (Manual) 0 % (0.0-1.8) 03/06/17 05:55 Metamyelocytes % 0 % 03/06/17 05:55 Myelocytes % 0 % 03/06/17 05:55 Promyelocytes % 0 % 03/06/17 05:55 Blast Cells % 0 % 03/06/17 05:55 Nucleated RBC % 5.0 % (0.0-0.9) H 03/06/17 05:55 Seg Neutrophils # 3.8 K/mm3 (1.8-7.7) 02/28/17 12:03 Seg Neutrophils # Man 8.8 K/mm3 (1.8-7.7) H 03/06/17 05:55 Band Neutrophils # 0.4 K/mm3 03/06/17 05:55 Lymphocytes # (Manual) 0.9 K/mm3 (1.2-5.4) L 03/06/17 05:55 Abs React Lymphs (Man) 0.0 K/mm3 03/06/17 05:55 Monocytes # (Manual) 1.0 K/mm3 (0.0-0.8) H 03/06/17 05:55 Eosinophils # (Manual) 0.0 K/mm3 (0.0-0.4) 03/06/17 05:55 Basophils # (Manual) 0.0 K/mm3 (0.0-0.1) 03/06/17 05:55 Metamyelocytes # 0.0 K/mm3 03/06/17 05:55 Myelocytes # 0.0 K/mm3 03/06/17 05:55 Promyelocytes # 0.0 K/mm3 03/06/17 05:55 Blast Cells # 0.0 K/mm3 03/06/17 05:55 WBC Morphology Not Reportable 03/06/17 05:55 Hypersegmented Neuts Not Reportable 03/06/17 05:55 Hyposegmented Neuts Not Reportable 03/06/17 05:55 Hypogranular Neuts Not Reportable 03/06/17 05:55 Smudge Cells Not Reportable 03/06/17 05:55 Toxic Granulation Not Reportable 03/06/17 05:55 Toxic Vacuolation Not Reportable 03/06/17 05:55 Dohle Bodies Not Reportable 03/06/17 05:55 Pelger-Huet Anomaly Not Reportable 03/06/17 05:55 Linda Rods Not Reportable 03/06/17 05:55 Platelet Estimate Consistent w auto 03/06/17 05:55 Clumped Platelets Not Reportable 03/06/17 05:55 Plt Clumps, EDTA Not Reportable 03/06/17 05:55 Large Platelets Not Reportable 03/06/17 05:55 Giant Platelets Not Reportable 03/06/17 05:55 Platelet Satelliting Not Reportable 03/06/17 05:55 Plt Morphology Comment Not Reportable 03/06/17 05:55 RBC Morphology Not Reportable 03/06/17 05:55 Dimorphic RBCs Not Reportable 03/06/17 05:55 Polychromasia Not Reportable 03/06/17 05:55 Hypochromasia 1+ 03/06/17 05:55 Poikilocytosis Not Reportable 03/06/17 05:55 Anisocytosis 1+ 03/06/17 05:55 Microcytosis Not Reportable 03/06/17 05:55 Macrocytosis Not Reportable 03/06/17 05:55 Spherocytes Not Reportable 03/06/17 05:55 Pappenheimer Bodies Not Reportable 03/06/17 05:55 Sickle Cells Not Reportable 03/06/17 05:55 Target Cells Not Reportable 03/06/17 05:55 Tear Drop Cells Not Reportable 03/06/17 05:55 Ovalocytes Not Reportable 03/06/17 05:55 Stomatocytes Few 03/06/17 05:55 Helmet Cells Not Reportable 03/06/17 05:55 [place] Bodies Not Reportable 03/06/17 05:55 [place] Rings Not Reportable 03/06/17 05:55 Teri Cells Not Reportable 03/06/17 05:55 Bite Cells Not Reportable 03/06/17 05:55 Crenated Cell Not Reportable 03/06/17 05:55 Elliptocytes Not Reportable 03/06/17 05:55 Acanthocytes (Spur) Not Reportable 03/06/17 05:55 Rouleaux Not Reportable 03/06/17 05:55 Hemoglobin C Crystals Not Reportable 03/06/17 05:55 Schistocytes Not Reportable 03/06/17 05:55 Malaria parasites Not Reportable 03/06/17 05:55 Charlie Bodies Not Reportable 03/06/17 05:55 Hem Pathologist Commnt No 03/06/17 05:55 PT 16.5 Sec. (12.2-14.9) H 03/05/17 06:25 INR 1.34 (0.87-1.13) H 03/05/17 06:25 APTT 28.2 Sec. (24.2-36.6) 03/05/17 06:25 Fibrinogen 556 mg/dl (211-480) H 03/03/17 16:38 POC ABG pH 7.530 (7.35-7.45) H 03/05/17 16:18 POC ABG pCO2 36.0 (35-45) 03/05/17 16:18 POC ABG pO2 65 (80-105) L 03/05/17 16:18 POC ABG HCO3 30.1 03/05/17 16:18 POC ABG Total CO2 31 03/05/17 16:18 POC ABG O2 Sat 95 03/05/17 16:18 POC ABG Base Excess 7 03/05/17 16:18 FiO2 21 % 03/05/17 16:18 Sodium TNR 03/06/17 05:55 Potassium TNR 03/06/17 05:55 Chloride TNR 03/06/17 05:55 Carbon Dioxide TNR 03/06/17 05:55 Anion Gap TNR 03/06/17 05:55 BUN TNR 03/06/17 05:55 Creatinine TNR 03/06/17 05:55 Estimated GFR TNR 03/06/17 05:55 BUN/Creatinine Ratio TNR 03/06/17 05:55 Glucose TNR 03/06/17 05:55 POC Glucose 116 (70-105) H 03/06/17 07:54 Lactic Acid 2.30 mmol/L (0.7-2.0) H* 03/02/17 05:00 Calcium TNR 03/06/17 05:55 Phosphorus 4.50 mg/dL (2.5-4.5) 03/02/17 05:00 Magnesium 2.10 mg/dL (1.7-2.3) 03/04/17 11:22 Iron 19 ug/dL (37-170) L 03/02/17 12:15 TIBC 96 mcg/dL (250-450) L 03/02/17 12:15 Ferritin 1802.0 ng/mL (13.0-400.0) H 03/02/17 12:15 Total Bilirubin TNR 03/06/17 05:55 Direct Bilirubin 2.9 mg/dL (0-0.2) H 03/04/17 11:22 Indirect Bilirubin 1.1 mg/dL 03/04/17 11:22 AST TNR 03/06/17 05:55 ALT TNR 03/06/17 05:55 Alkaline Phosphatase TNR 03/06/17 05:55 Total Creatine Kinase 56 units/L (30-135) 02/28/17 12:03 CK-MB (CK-2) 1.4 ng/mL (0.0-4.0) 02/28/17 12:03 CK-MB (CK-2) Rel Index 2.5 (0-4) 02/28/17 12:03 Troponin T < 0.010 ng/mL (0.00-0.029) 02/28/17 12:03 C-Reactive Protein 22.50 mg/dL (0.00-1.30) H 03/03/17 04:00 Total Protein TNR 03/06/17 05:55 Albumin TNR 03/06/17 05:55 Albumin/Globulin Ratio TNR 03/06/17 05:55 Wstfq-0-Ntsqunubluy 257 mg/dL (83-199) H 03/02/17 12:15 Ceruloplasmin 32 mg/dL (18-53) 03/02/17 12:15 Lipase 7 units/L (13-60) L 03/03/17 04:00 TSH 58.000 mlU/mL (0.270-4.200) H 02/28/17 12:03 Free T4 0.41 ng/dL (0.76-1.46) L 02/28/17 12:03 HCG, Qual Negative (Negative) 02/28/17 12:03 Urine Color Yellow (Yellow) 02/28/17 11:40 Urine Turbidity Cloudy (Clear) 02/28/17 11:40 Urine pH 5.0 (5.0-7.0) 02/28/17 11:40 Ur Specific [place] 1.015 (1.003-1.030) 02/28/17 11:40 Urine Protein 100 mg/dl mg/dL (Negative) 02/28/17 11:40 Urine Glucose (UA) Neg mg/dL (Negative) 02/28/17 11:40 Urine Ketones Neg mg/dL (Negative) 02/28/17 11:40 Urine Blood Sm (Negative) 02/28/17 11:40 Urine Nitrite Neg (Negative) 02/28/17 11:40 Urine Bilirubin Neg (Negative) 02/28/17 11:40 Urine Urobilinogen < 2.0 mg/dL (<2.0) 02/28/17 11:40 Ur Leukocyte Esterase Lg (Negative) 02/28/17 11:40 Urine WBC (Auto) 80.0 /HPF (0.0-6.0) H 02/28/17 11:40 Urine RBC (Auto) 4.0 /HPF (0.0-6.0) 02/28/17 11:40 U Epithel Cells (Auto) 1.0 /HPF (0-13.0) 02/28/17 11:40 Urine Bacteria (Auto) 1+ /HPF (Negative) 02/28/17 11:40 Urine Mucus 1+ /HPF 02/28/17 11:40 Fluid Type Ascitic 03/04/17 Unknown Fluid Color Yellow 03/04/17 Unknown Fluid Appearance Hazy 03/04/17 Unknown Fluid WBC 485 /mm3 03/04/17 Unknown Fluid RBC 1950 /mm3 03/04/17 Unknown Fluid Seg Neutrophils 82.0 % 03/04/17 Unknown Fluid Lymphocytes 6.0 % 03/04/17 Unknown Fluid Reactive Lymphs 0 % 03/04/17 Unknown Fluid Monocytes 12.0 % 03/04/17 Unknown Fluid Eosinophils 0 % 03/04/17 Unknown Fluid Basophils 0 % 03/04/17 Unknown Random Vancomycin 5.7 ug/mL (0-40.0) 03/01/17 12:53 Urine Opiates Screen Presumptive negative 03/05/17 02:55 Urine Methadone Screen Presumptive negative 03/05/17 02:55 Ur Barbiturates Screen Presumptive negative 03/05/17 02:55 Ur Phencyclidine Scrn Presumptive negative 03/05/17 02:55 Ur Amphetamines Screen Presumptive negative 03/05/17 02:55 U Benzodiazepines Scrn Presumptive negative 03/05/17 02:55 Urine Cocaine Screen Presumptive negative 03/05/17 02:55 U Marijuana (THC) Screen Presumptive negative 03/05/17 02:55 Drugs of Abuse Note Disclamer 03/05/17 02:55 Actin IgG Antibody <20 U (<20) 03/02/17 12:15 Hep Bs Antigen Non-reactive (Negative) 03/02/17 12:15 Hep B Core Total Ab Nonreactive (Nonreactive) 03/02/17 12:15 Hepatitis C Antibody Non-reactive (NonReactive) 03/02/17 12:15 Monoscreen Negative (Negative) 03/05/17 06:25 HIV 1&2 Antibody Rapid Non react (Non React) 03/04/17 19:18 HIV P24 Antigen Non react (Non React) 03/04/17 19:18 Miscellaneous Test Flexitest 1 03/02/17 12:22 Blood Type O POSITIVE 02/28/17 12:03 Antibody Screen TNR 02/28/17 12:03 TEJAL Antibody Screen Negative 02/28/17 12:03 Crossmatch See Detail 02/28/17 12:03
[2017-03-06 12:47] LABS: BUN/Creatinine Ratio 53.33; Blood Urea Nitrogen 16 mg/dL (7-17); Total Protein 5.3 g/dL (6.3-8.2)
[2017-03-06] MEDS: LOVENOX SUB-Q SCH (13:01)
[2017-03-06 14:07] LABS: Sodium 142 mmol/L (137-145)
[2017-03-06 14:08] LABS: Anion Gap 15 mmol/L; Carbon Dioxide 29 mmol/L (22-30); Chloride 101.7 mmol/L (98-107); Glucose 122 mg/dL (65-100); Potassium 3.2 mmol/L (3.6-5.0)
[2017-03-06 14:09] LABS: Alanine Aminotransferase 123 units/L (7-56); Albumin 2.6 g/dL (3.9-5); Alkaline Phosphatase 121 units/L (35-129); Calcium 7.4 mg/dL (8.4-10.2)
[2017-03-06] MEDS ORDERED: POTASSIUM CHLORIDE FEEDTUBE ONE ×2 (15:00→21:00)
--- NOTE | 2017-03-06 18:12 | Progress Note ---
Assessment and Plan - Patient Problems (1) Septic shock Current Visit: Yes Status: Acute Plan to address problem: Continue current broad antimicrobial therapy. (2) Bacteremia due to Escherichia coli Current Visit: Yes Status: Acute Plan to address problem: Per above. Broad coverage to also include coverage of E coli. (3) Delirium Current Visit: Yes Status: Acute Plan to address problem: Lumbar puncture requested. Await study and results of CSF analysis. Subjective Date of service: 03/06/17 Principal diagnosis: Septic Shock; E coli Bacteremia Interval history: Remains critically ill in ICU. Improved mental status. Objective - Constitutional Vitals: Vital Signs Temp Pulse Resp BP Pulse Ox 98.1 F 101 H 16 114/85 100 03/06/17 16:00 03/06/17 18:00 03/06/17 18:00 03/06/17 18:00 03/06/17 18:00 Temperature -Last 24 Hours Temperature 98.1 F Temperature 97.6 F Temperature 98.1 F Temperature 98.3 F Temperature 98.2 F Temperature 98.7 F General appearance: Present: no acute distress, other (in 4-point restraints) - EENT ENT: other (Dobhoff tube removed, on patient's chest) - Respiratory Respiratory effort: normal Respiratory: bilateral: CTA - Cardiovascular Rhythm: regular (tachycardic) Heart Sounds: Present: S1 & S2 Extremities: No edema - Gastrointestinal General gastrointestinal: Present: soft, non-tender, non-distended - Integumentary Integumentary: no jaundice, no rash - Neurologic Neurologic: other (oriented to self only) - Psychiatric Psychiatric: other (thrashing in bed) - Labs CBC & Chem 7: 03/06/17 05:55 03/06/17 12:32 Labs: Abnormal lab results 03/02/17 03/05/17 03/06/17 Range/Units 12:15 21:45 05:55 WBC 11.1 H (4.5-11.0) K/mm3 RBC 3.34 L (3.65-5.03) M/mm3 Hgb 9.6 L (10.1-14.3) gm/dl Hct 29.3 L (30.3-42.9) % Plt Count 121 L (140-440) K/mm3 Seg Neuts % (Manual) 79.0 H (40.0-70.0) % Lymphocytes % (Manual) 8.0 L (13.4-35.0) % Monocytes % (Manual) 9.0 H (0.0-7.3) % Nucleated RBC % 5.0 H (0.0-0.9) % Seg Neutrophils # Man 8.8 H (1.8-7.7) K/mm3 Lymphocytes # (Manual) 0.9 L (1.2-5.4) K/mm3 Monocytes # (Manual) 1.0 H (0.0-0.8) K/mm3 Potassium (3.6-5.0) mmol/L Creatinine (0.7-1.2) mg/dL Glucose (65-100) mg/dL POC Glucose 160 H (70-105) Calcium (8.4-10.2) mg/dL Total Bilirubin (0.1-1.2) mg/dL AST (5-40) units/L ALT (7-56) units/L NT-Pro-B Natriuret Pep (0-450) pg/mL Total Protein (6.3-8.2) g/dL Albumin (3.9-5) g/dL RIVER Screen Positive H (Negative) 03/06/17 03/06/17 03/06/17 Range/Units 07:54 12:32 12:32 WBC (4.5-11.0) K/mm3 RBC (3.65-5.03) M/mm3 Hgb (10.1-14.3) gm/dl Hct (30.3-42.9) % Plt Count (140-440) K/mm3 Seg Neuts % (Manual) (40.0-70.0) % Lymphocytes % (Manual) (13.4-35.0) % Monocytes % (Manual) (0.0-7.3) % Nucleated RBC % (0.0-0.9) % Seg Neutrophils # Man (1.8-7.7) K/mm3 Lymphocytes # (Manual) (1.2-5.4) K/mm3 Monocytes # (Manual) (0.0-0.8) K/mm3 Potassium 3.2 L (3.6-5.0) mmol/L Creatinine 0.3 L (0.7-1.2) mg/dL Glucose 122 H (65-100) mg/dL POC Glucose 116 H (70-105) Calcium 7.4 L (8.4-10.2) mg/dL Total Bilirubin 1.60 H (0.1-1.2) mg/dL AST 102 H (5-40) units/L ALT 123 H (7-56) units/L NT-Pro-B Natriuret Pep 42431 H (0-450) pg/mL Total Protein 5.3 L (6.3-8.2) g/dL Albumin 2.6 L (3.9-5) g/dL RIVER Screen (Negative) 03/06/17 03/06/17 Range/Units 12:48 15:48 WBC (4.5-11.0) K/mm3 RBC (3.65-5.03) M/mm3 Hgb (10.1-14.3) gm/dl Hct (30.3-42.9) % Plt Count (140-440) K/mm3 Seg Neuts % (Manual) (40.0-70.0) % Lymphocytes % (Manual) (13.4-35.0) % Monocytes % (Manual) (0.0-7.3) % Nucleated RBC % (0.0-0.9) % Seg Neutrophils # Man (1.8-7.7) K/mm3 Lymphocytes # (Manual) (1.2-5.4) K/mm3 Monocytes # (Manual) (0.0-0.8) K/mm3 Potassium (3.6-5.0) mmol/L Creatinine (0.7-1.2) mg/dL Glucose (65-100) mg/dL POC Glucose 124 H 132 H (70-105) Calcium (8.4-10.2) mg/dL Total Bilirubin (0.1-1.2) mg/dL AST (5-40) units/L ALT (7-56) units/L NT-Pro-B Natriuret Pep (0-450) pg/mL Total Protein (6.3-8.2) g/dL Albumin (3.9-5) g/dL RIVER Screen (Negative) Microbiology 03/02/17 14:55 Peripheral/Venous Blood Culture - Preliminary NO GROWTH AFTER 4 DAYS 03/02/17 14:48 Peripheral/Venous Blood Culture - Preliminary NO GROWTH AFTER 4 DAYS 08/06/17 23:15 Peripheral/Venous Blood Culture - Final NO GROWTH AFTER 5 DAYS 03/04/17 Unknown Ascities Fluid Body Fluid Culture - Preliminary 02/28/17 11:40 Urine,[place] Urine Culture - Final Escherichia Coli 02/28/17 11:15 Peripheral/Venous Blood Culture - Final Escherichia Coli
[2017-03-06] MEDS: ATIVAN IV PRN (19:27)
--- NOTE | 2017-03-06 20:29 | XRay Report ---
FINAL REPORT PROCEDURE: XR ABDOMEN 1V AP TECHNIQUE: Abdominal radiograph, single supine AP view. HISTORY: dobhoff placement COMPARISON: 03/05/2017 FINDINGS: The Dobhoff tube is curled in the proximal stomach, with the tip directed superiorly towards the gastric fundus. Visualized bowel loops do not appear dilated. No abnormal calcifications are seen. IMPRESSION: Dobhoff tube is curled in the proximal stomach, with the tip directed superiorly towards the gastric fundus
[2017-03-07] MEDS: MERREM 1,000 MG in NACL 0.9% 100 ML IV SCH ×3 (02:26→19:10)
[2017-03-07] MEDS: MORPHINE IV PRN ×3 (02:27→17:30)
[2017-03-07] MEDS: VANCOMYCIN/NS 1 GM/250 ML 1 GM/250 ML BAG IV SCH ×3 (02:27→19:50)
[2017-03-07] MEDS: LASIX IV SCH ×2 (05:13→17:30)
[2017-03-07] MEDS: ATIVAN IV PRN ×4 (05:14→22:00)
[2017-03-07] MEDS: SYNTHROID PO SCH (05:14)
[2017-03-07] MEDS: DUONEB *Not for PRN Use IH SCH ×4 (08:21→20:07)
[2017-03-07] MEDS: LOVENOX SUB-Q SCH (09:06)
--- NOTE | 2017-03-07 09:15 | XRay Report ---
FINAL REPORT EXAM: XR ABDOMEN 1V AP HISTORY: dobhoff placement TECHNIQUE: Portable semi upright abdomen PRIORS: 03/06/2017 FINDINGS: Feeding tube terminates in the stomach. Bowel gas pattern is nonspecific and nonobstructive with air located nondilated small bowel loops and colon. There is some a left lower lobe airspace disease and probable pleural effusions bilaterally. IMPRESSION: Feeding tube terminates in the stomach. Airspace disease and pleural effusions noted in the lower hemithoraces. Nonspecific, nonobstructive abdomen.
--- NOTE | 2017-03-07 09:15 | XRay Report ---
Single view chest: Compared to 03/05/17. History: Cardiomyopathy. Findings: No significant interval change noted cardiopulmonary findings. Again bilateral pleural effusion is noted with stable support system. Tip of feeding tube in the stomach. Tip of right PICC line in MID superior vena cava. Impression: No significant interval change.
[2017-03-07 09:18] LABS: Hematocrit 27.5 % (30.3-42.9); Hemoglobin 8.9 gm/dl (10.1-14.3); Mean Corpuscular HGB Conc 32 % (30-34); Mean Corpuscular Hemoglobin 29 pg (28-32); Mean Corpuscular Volume 88 fl (79-97); Platelet Count 138 K/mm3 (140-440); Red Blood Count 3.12 M/mm3 (3.65-5.03); Red Cell Distribution Width 14.5 % (13.2-15.2); White Blood Count 11.8 K/mm3 (4.5-11.0)
[2017-03-07 09:34] LABS: Alanine Aminotransferase 119 units/L (7-56); Albumin 2.8 g/dL (3.9-5); Alkaline Phosphatase 113 units/L (35-129); Anion Gap 15 mmol/L; Blood Urea Nitrogen 18 mg/dL (7-17); Calcium 7.4 mg/dL (8.4-10.2); Carbon Dioxide 31 mmol/L (22-30); Chloride 102.5 mmol/L (98-107); Glucose 102 mg/dL (65-100); Potassium 3.4 mmol/L (3.6-5.0); Sodium 145 mmol/L (137-145); Total Protein 5.7 g/dL (6.3-8.2)
--- NOTE | 2017-03-07 11:06 | Cat Scan Report ---
CT scan of head without and with IV contrast: History: Septic shock. Findings: Ventricles are normal in size and midline in location. Normal cortical sulci and gyri. No evidence of acute ischemia, hemorrhage or mass. The vessels of [place] which are visualized appear patent. No extra-axial fluid collection. Normal brainstem and cerebellum. Retention cyst or polyp measuring 1.5 cm and the second polyp measuring 7 mm in diameter in the left maxillary sinus. Mucosal thickening of the right maxillary sinus. Impression: No acute intracranial abnormality. Sinus disease.
--- NOTE | 2017-03-07 11:11 | Cat Scan Report ---
CTA neck: History: Septic shock. Venous thrombosis. Findings: The origin and course of right and left common carotid, and vertebral, and subclavian arteries appears normal. The origin and proximal aspect and course of the right and left internal carotid artery and the external carotid artery appears normal. The visualized internal and external jugular vessels in the visualized portion of the sinuses appears unremarkable. Impression: Essentially negative study.
[2017-03-07 11:22] LABS: Anisocytosis 1+; Basophils % (Manual) 0 % (0.0-1.8); Blastocytes % (Manual) 0 %; Eosinophils % (Manual) 0 % (0.0-4.3)
[2017-03-07 11:23] LABS: Diff Status Complete; Platelet Estimate Consistent w Auto
--- NOTE | 2017-03-07 12:53 | Progress Note ---
Assessment and Plan Assessment and plan: 26 YO Female with Hypothyroidism presents to ED for evaluation. Pt states that she has experienced nausea, vomiting, and multiple episodes of loose stools over 5 days with worsening symptoms over the past 8 hours. She was admitted for sepsis, aspirin her cousin she was not compliant with Synthroid at home because she does not have insurance. Her Cousin believes she has a history of polysubstance abuse, including etoh Severev Gram-negative septicemia/UTI * ID input appreciated, continue broad-spectrum antibiotics and antifungals * Blood and urine cx growing Ecoli which is sens to meropenam which patient is on * mononucleosis screen negative * CT head and CTA neck negative * For LP tomorow * Will discuss case with ID, as patient is improving, * RIVER positive, titer was 1:80, with speckled pattern, consider autoimmune contributor to severe sepsis Septic shock * Continue IV fluids, was weaned off pressors Shock Liver. Abdominal pain * Continue IV fluids, continue supportive care continue bowel rest * pancreatitis ruled out- lipase was negative * Viral Hepatitis serologies negative, HIV negative * GI consult appreciated * CT abdomen and pelvis; Large pleural effusions and moderate ascites. Right pyelonephritis seen. Proximal colon is thickened consistent with nonspecific colitis. FEN Hypokalemia, and Hypophosphatemia replete IV Ascites * Status post paracentesis on 03/04, appeared to be a traumatic tap, but absolute neutrophil count is only 82 dear for not consistent with SBP, and not a contributor to sepsis. Fluid overload continue lasix Delirium tremens/alcohol withdrawal * Continue CIWA protocol Metabolic encephalopathy * Most likely due to sepsis and delirium tremens, continue supportive care Severe hypothyroidism * Continue thyroid replacement therapy Severe Metabolic Acidosis * improved sp Sodium bicarb Recent * pelvic and transvaginal ultrasound were performed and did not show any remnants, therefore not a contributor to sepsis Severe malnutrition * dietitian consults * continue tube feeding via NGT Electrolyte derrangement- Hypokalemia, Hypocalcemia, hypomagnesemia * Continue to replete electrolytes as necessary daily, and medically rx * pseudohypocalcemia due to low albumin, corrected Ca is 8.1 Acute Kidney Injury * Resolved with IVF. secondary to vasomotor nephropathy Hypoglycemia * resolved with dextrose * Prognosis guarded, case discussed with her cousin Karla Darden, her phone number is [phone]. Her parents are in [place] and not currently reachable The high probability of a clinically significant, sudden or life threatening deterioration of the [VASCULAR, ENDOCRINE, GI ] system(s) required my full and direct attention, intervention and personal management. The aggregate critical care time was [35] minutes. This time is in addition to time spent performing reported procedures but includes the following: [X] Data Review and interpretation [X] Patient assessment and monitoring of vital signs [X] Documentation [X] Medication orders and management History Interval history: She's pleasant and calm today states that she feels a lot better she has no complaint except for weakness Hospitalist Physical - Physical exam Narrative exam: General: Appears well HEENT: MMM, EOMI, scleral icterus has now resolved cardiac: S1-S2 heard lungs: clear to auscultation, abdomen: soft, nontender, moderately distended with shifting dullness bowel sounds positive extremities: Nonpitting, doughy edema of lower extremities Skin: no rash or lesion Neuro: no gross focal deficit, oriented 3 Psych, obeys commands, pleasant. - Constitutional Vitals: Temp Pulse Resp BP Pulse Ox 98.4 F 84 18 110/76 100 03/07/17 12:00 03/07/17 08:21 03/07/17 08:21 03/07/17 06:00 03/07/17 08:22 General appearance: Present: no acute distress, other (in 4-point restraints) Results - Labs CBC & Chem 7: 03/07/17 08:58 03/07/17 08:58 Labs: Laboratory Last Values WBC 11.8 K/mm3 (4.5-11.0) H 03/07/17 08:58 RBC 3.12 M/mm3 (3.65-5.03) L 03/07/17 08:58 Hgb 8.9 gm/dl (10.1-14.3) L 03/07/17 08:58 Hct 27.5 % (30.3-42.9) L 03/07/17 08:58 MCV 88 fl (79-97) 03/07/17 08:58 MCH 29 pg (28-32) 03/07/17 08:58 MCHC 32 % (30-34) 03/07/17 08:58 RDW 14.5 % (13.2-15.2) 03/07/17 08:58 Plt Count 138 K/mm3 (140-440) L 03/07/17 08:58 Lymph % (Auto) 22.8 % (13.4-35.0) 02/28/17 12:03 [place] % (Auto) 2.2 % (0.0-7.3) 02/28/17 12:03 Eos % (Auto) 1.2 % (0.0-4.3) 02/28/17 12:03 Baso % (Auto) 0.2 % (0.0-1.8) 02/28/17 12:03 Lymph # 1.2 K/mm3 (1.2-5.4) 02/28/17 12:03 [place] # 0.1 K/mm3 (0.0-0.8) 02/28/17 12:03 Eos # 0.1 K/mm3 (0.0-0.4) 02/28/17 12:03 Baso # 0.0 K/mm3 (0.0-0.1) 02/28/17 12:03 Add Manual Diff Complete 03/07/17 08:58 Total Counted 100 03/07/17 08:58 Seg Neutrophils % [employer] Att[employer] 03/07/17 08:58 Seg Neuts % (Manual) 87.0 % (40.0-70.0) H 03/07/17 08:58 Band Neutrophils % 4.0 % 03/07/17 08:58 Lymphocytes % (Manual) 5.0 % (13.4-35.0) L 03/07/17 08:58 Reactive Lymphs % (Man) 0 % 03/07/17 08:58 Monocytes % (Manual) 4.0 % (0.0-7.3) 03/07/17 08:58 Eosinophils % (Manual) 0 % (0.0-4.3) 03/07/17 08:58 Basophils % (Manual) 0 % (0.0-1.8) 03/07/17 08:58 Metamyelocytes % 0 % 03/07/17 08:58 Myelocytes % 0 % 03/07/17 08:58 Promyelocytes % 0 % 03/07/17 08:58 Blast Cells % 0 % 03/07/17 08:58 Nucleated RBC % 1.0 % (0.0-0.9) H 03/07/17 08:58 Seg Neutrophils # 3.8 K/mm3 (1.8-7.7) 02/28/17 12:03 Seg Neutrophils # Man 10.3 K/mm3 (1.8-7.7) H 03/07/17 08:58 Band Neutrophils # 0.5 K/mm3 03/07/17 08:58 Lymphocytes # (Manual) 0.6 K/mm3 (1.2-5.4) L 03/07/17 08:58 Abs React Lymphs (Man) 0.0 K/mm3 03/07/17 08:58 Monocytes # (Manual) 0.5 K/mm3 (0.0-0.8) 03/07/17 08:58 Eosinophils # (Manual) 0.0 K/mm3 (0.0-0.4) 03/07/17 08:58 Basophils # (Manual) 0.0 K/mm3 (0.0-0.1) 03/07/17 08:58 Metamyelocytes # 0.0 K/mm3 03/07/17 08:58 Myelocytes # 0.0 K/mm3 03/07/17 08:58 Promyelocytes # 0.0 K/mm3 03/07/17 08:58 Blast Cells # 0.0 K/mm3 03/07/17 08:58 WBC Morphology Not Reportable 03/07/17 08:58 Hypersegmented Neuts Not Reportable 03/07/17 08:58 Hyposegmented Neuts Not Reportable 03/07/17 08:58 Hypogranular Neuts Not Reportable 03/07/17 08:58 Smudge Cells Not Reportable 03/07/17 08:58 Toxic Granulation Not Reportable 03/07/17 08:58 Toxic Vacuolation Not Reportable 03/07/17 08:58 Dohle Bodies Not Reportable 03/07/17 08:58 Pelger-Huet Anomaly Not Reportable 03/07/17 08:58 Linda Rods Not Reportable 03/07/17 08:58 Platelet Estimate Consistent w auto 03/07/17 08:58 Clumped Platelets Not Reportable 03/07/17 08:58 Plt Clumps, EDTA Not Reportable 03/07/17 08:58 Large Platelets Not Reportable 03/07/17 08:58 Giant Platelets Not Reportable 03/07/17 08:58 Platelet Satelliting Not Reportable 03/07/17 08:58 Plt Morphology Comment Not Reportable 03/07/17 08:58 RBC Morphology Not Reportable 03/07/17 08:58 Dimorphic RBCs Not Reportable 03/07/17 08:58 Polychromasia Not Reportable 03/07/17 08:58 Hypochromasia Not Reportable 03/07/17 08:58 Poikilocytosis Not Reportable 03/07/17 08:58 Anisocytosis 1+ 03/07/17 08:58 Microcytosis Not Reportable 03/07/17 08:58 Macrocytosis Not Reportable 03/07/17 08:58 Spherocytes Not Reportable 03/07/17 08:58 Pappenheimer Bodies Not Reportable 03/07/17 08:58 Sickle Cells Not Reportable 03/07/17 08:58 Target Cells Not Reportable 03/07/17 08:58 Tear Drop Cells Not Reportable 03/07/17 08:58 Ovalocytes Not Reportable 03/07/17 08:58 Stomatocytes Few 03/06/17 05:55 Helmet Cells Not Reportable 03/07/17 08:58 [place] Bodies Not Reportable 03/07/17 08:58 [place] Rings Not Reportable 03/07/17 08:58 Teri Cells Not Reportable 03/07/17 08:58 Bite Cells Not Reportable 03/07/17 08:58 Crenated Cell Not Reportable 03/07/17 08:58 Elliptocytes Not Reportable 03/07/17 08:58 Acanthocytes (Spur) Not Reportable 03/07/17 08:58 Rouleaux Not Reportable 03/07/17 08:58 Hemoglobin C Crystals Not Reportable 03/07/17 08:58 Schistocytes Not Reportable 03/07/17 08:58 Malaria parasites Not Reportable 03/07/17 08:58 Charlie Bodies Not Reportable 03/07/17 08:58 Hem Pathologist Commnt No 03/07/17 08:58 PT 16.5 Sec. (12.2-14.9) H 03/05/17 06:25 INR 1.34 (0.87-1.13) H 03/05/17 06:25 APTT 28.2 Sec. (24.2-36.6) 03/05/17 06:25 Fibrinogen 556 mg/dl (211-480) H 03/03/17 16:38 POC ABG pH 7.530 (7.35-7.45) H 03/05/17 16:18 POC ABG pCO2 36.0 (35-45) 03/05/17 16:18 POC ABG pO2 65 (80-105) L 03/05/17 16:18 POC ABG HCO3 30.1 03/05/17 16:18 POC ABG Total CO2 31 03/05/17 16:18 POC ABG O2 Sat 95 03/05/17 16:18 POC ABG Base Excess 7 03/05/17 16:18 FiO2 21 % 03/05/17 16:18 Sodium 145 mmol/L (137-145) 03/07/17 08:58 Potassium 3.4 mmol/L (3.6-5.0) L 03/07/17 08:58 Chloride 102.5 mmol/L (98-107) 03/07/17 08:58 Carbon Dioxide 31 mmol/L (22-30) H 03/07/17 08:58 Anion Gap 15 mmol/L 03/07/17 08:58 BUN 18 mg/dL (7-17) H 03/07/17 08:58 Creatinine 0.2 mg/dL (0.7-1.2) L 03/07/17 08:58 Estimated GFR > 60 ml/min 03/07/17 08:58 BUN/Creatinine Ratio 90.00 % 03/07/17 08:58 Glucose 102 mg/dL (65-100) H 03/07/17 08:58 POC Glucose 100 (70-105) 03/07/17 11:40 Lactic Acid 2.30 mmol/L (0.7-2.0) H* 03/02/17 05:00 Calcium 7.4 mg/dL (8.4-10.2) L 03/07/17 08:58 Phosphorus 2.00 mg/dL (2.5-4.5) L 03/07/17 08:58 Magnesium 1.20 mg/dL (1.7-2.3) L 03/07/17 08:58 Iron 19 ug/dL (37-170) L 03/02/17 12:15 TIBC 96 mcg/dL (250-450) L 03/02/17 12:15 Ferritin 1802.0 ng/mL (13.0-400.0) H 03/02/17 12:15 Total Bilirubin 1.50 mg/dL (0.1-1.2) H 03/07/17 08:58 Direct Bilirubin 2.9 mg/dL (0-0.2) H 03/04/17 11:22 Indirect Bilirubin 1.1 mg/dL 03/04/17 11:22 AST 99 units/L (5-40) H 03/07/17 08:58 ALT 119 units/L (7-56) H 03/07/17 08:58 Alkaline Phosphatase 113 units/L (35-129) 03/07/17 08:58 Total Creatine Kinase 56 units/L (30-135) 02/28/17 12:03 CK-MB (CK-2) 1.4 ng/mL (0.0-4.0) 02/28/17 12:03 CK-MB (CK-2) Rel Index 2.5 (0-4) 02/28/17 12:03 Troponin T < 0.010 ng/mL (0.00-0.029) 02/28/17 12:03 C-Reactive Protein 22.50 mg/dL (0.00-1.30) H 03/03/17 04:00 NT-Pro-B Natriuret Pep 18689 pg/mL (0-450) H 03/06/17 12:32 Total Protein 5.7 g/dL (6.3-8.2) L 03/07/17 08:58 Albumin 2.8 g/dL (3.9-5) L 03/07/17 08:58 Albumin/Globulin Ratio 1.0 % 03/07/17 08:58 [id number] 257 mg/dL (83-199) H 03/02/17 12:15 Ceruloplasmin 32 mg/dL (18-53) 03/02/17 12:15 Lipase 7 units/L (13-60) L 03/03/17 04:00 TSH 58.000 mlU/mL (0.270-4.200) H 02/28/17 12:03 Free T4 0.41 ng/dL (0.76-1.46) L 02/28/17 12:03 HCG, Qual Negative (Negative) 02/28/17 12:03 Urine Color Yellow (Yellow) 02/28/17 11:40 Urine Turbidity Cloudy (Clear) 02/28/17 11:40 Urine pH 5.0 (5.0-7.0) 02/28/17 11:40 Ur Specific [place] 1.015 (1.003-1.030) 02/28/17 11:40 Urine Protein 100 mg/dl mg/dL (Negative) 02/28/17 11:40 Urine Glucose (UA) Neg mg/dL (Negative) 02/28/17 11:40 Urine Ketones Neg mg/dL (Negative) 02/28/17 11:40 Urine Blood Sm (Negative) 02/28/17 11:40 Urine Nitrite Neg (Negative) 02/28/17 11:40 Urine Bilirubin Neg (Negative) 02/28/17 11:40 Urine Urobilinogen < 2.0 mg/dL (<2.0) 02/28/17 11:40 Ur Leukocyte Esterase Lg (Negative) 02/28/17 11:40 Urine WBC (Auto) 80.0 /HPF (0.0-6.0) H 02/28/17 11:40 Urine RBC (Auto) 4.0 /HPF (0.0-6.0) 02/28/17 11:40 U Epithel Cells (Auto) 1.0 /HPF (0-13.0) 02/28/17 11:40 Urine Bacteria (Auto) 1+ /HPF (Negative) 02/28/17 11:40 Urine Mucus 1+ /HPF 02/28/17 11:40 Fluid Type Ascitic 03/04/17 Unknown Fluid Color Yellow 03/04/17 Unknown Fluid Appearance Hazy 03/04/17 Unknown Fluid WBC 485 /mm3 03/04/17 Unknown Fluid RBC 1950 /mm3 03/04/17 Unknown Fluid Seg Neutrophils 82.0 % 03/04/17 Unknown Fluid Lymphocytes 6.0 % 03/04/17 Unknown Fluid Reactive Lymphs 0 % 03/04/17 Unknown Fluid Monocytes 12.0 % 03/04/17 Unknown Fluid Eosinophils 0 % 03/04/17 Unknown Fluid Basophils 0 % 03/04/17 Unknown Vancomycin Trough 19.3 ug/mL (5.0-20.0) 03/06/17 18:25 Random Vancomycin 5.7 ug/mL (0-40.0) 03/01/17 12:53 Urine Opiates Screen Presumptive negative 03/05/17 02:55 Urine Methadone Screen Presumptive negative 03/05/17 02:55 Ur Barbiturates Screen Presumptive negative 03/05/17 02:55 Ur Phencyclidine Scrn Presumptive negative 03/05/17 02:55 Ur Amphetamines Screen Presumptive negative 03/05/17 02:55 U Benzodiazepines Scrn Presumptive negative 03/05/17 02:55 Urine Cocaine Screen Presumptive negative 03/05/17 02:55 U Marijuana (THC) Screen Presumptive negative 03/05/17 02:55 Drugs of Abuse Note Disclamer 03/05/17 02:55 RIVER Screen Positive (Negative) H 03/02/17 12:15 RIVER Titer 1:80 (Negative) 03/02/17 12:15 RIVER Pattern Speckled 03/02/17 12:15 Actin IgG Antibody <20 U (<20) 03/02/17 12:15 Hep Bs Antigen Non-reactive (Negative) 03/02/17 12:15 Hep B Core Total Ab Nonreactive (Nonreactive) 03/02/17 12:15 Hepatitis C Antibody Non-reactive (NonReactive) 03/02/17 12:15 Monoscreen Negative (Negative) 03/05/17 06:25 HIV 1&2 Antibody Rapid Non react (Non React) 03/04/17 19:18 HIV P24 Antigen Non react (Non React) 03/04/17 19:18 Miscellaneous Test Flexitest 1 03/02/17 12:22 Blood Type O POSITIVE 02/28/17 12:03 Antibody Screen TNR 02/28/17 12:03 TEJAL Antibody Screen Negative 02/28/17 12:03 Crossmatch See Detail 02/28/17 12:03
[2017-03-07] MEDS ORDERED: KPHOS 30 MMOL in NACL 0.9% 500 ML 500 ML IV ONE (13:30)
--- NOTE | 2017-03-07 13:39 | Progress Note ---
Assessment and Plan UTI/pyelonephritis Sepsis shock episode secondary to Escherichia coli bacteremia .Completing ABX.See ID comments Lactic acidosis.Controlled Hyperkalemia, improving SHAHID, better Hypocalcemia. Improving Hypoglycemia, better Stress Cardiomyopathy ? high BNP, prior echo w low EF Metabolic/toxic encephalopathy- DTs/meth withdrawal Thrombocytopenia, prob 2/2 sepsis/zosyn/liver failure Hepatic failure Ascites Methamphetamine and EtOH abuse. On CIWA protocol Hypernatremia. Improving Recomendations Continue antibiotics Monitor hemodynamics and intake and output Monitor serial electrolytes and replace/correct as needed Continue monitoring mental status and watch for withdrawal symptoms Continue free water replacement, 250 mL boluses if sodium remains over 150 If possible,Incentive spirometry. Gentle diuretics Cardiology evaluation No family available Critical care time was 31 minutes of [id number] evaluation and coordination of care. Subjective Date of service: 03/07/17 Principal diagnosis: Septic Shock; E coli Bacteremia Interval history: No cheest complains. remains confused , but able to redirect Objective Vital Signs - 12hr 03/07/17 03/07/17 03/07/17 01:46 02:00 02:16 Temperature Pulse Rate 84 110 H 118 H Pulse Rate [ Bilateral Throughout] Respiratory 14 22 21 Rate Respiratory Rate [Bilateral Throughout] Blood Pressure 110/77 111/64 111/64 O2 Sat by Pulse 100 99 100 Oximetry 03/07/17 03/07/17 03/07/17 02:27 02:30 02:46 Temperature Pulse Rate 87 82 Pulse Rate [ Bilateral Throughout] Respiratory 20 14 14 Rate Respiratory Rate [Bilateral Throughout] Blood Pressure 111/64 111/64 O2 Sat by Pulse 98 100 Oximetry 03/07/17 03/07/17 03/07/17 03:00 03:16 03:30 Temperature Pulse Rate 105 H 85 82 Pulse Rate [ Bilateral Throughout] Respiratory 22 15 15 Rate Respiratory Rate [Bilateral Throughout] Blood Pressure 112/71 112/71 112/71 O2 Sat by Pulse 100 100 100 Oximetry 03/07/17 03/07/17 03/07/17 03:46 04:00 04:11 Temperature 98.3 F 98.3 F Pulse Rate 78 94 H Pulse Rate [ Bilateral Throughout] Respiratory 15 15 Rate Respiratory Rate [Bilateral Throughout] Blood Pressure 112/71 116/78 O2 Sat by Pulse 100 88 Oximetry 03/07/17 03/07/17 03/07/17 04:16 04:30 04:46 Temperature Pulse Rate 117 H 78 84 Pulse Rate [ Bilateral Throughout] Respiratory 32 H 16 18 Rate Respiratory Rate [Bilateral Throughout] Blood Pressure 116/78 116/78 116/78 O2 Sat by Pulse 91 100 100 Oximetry 03/07/17 03/07/17 03/07/17 05:00 05:16 05:30 Temperature Pulse Rate 93 H 97 H 95 H Pulse Rate [ Bilateral Throughout] Respiratory 16 22 19 Rate Respiratory Rate [Bilateral Throughout] Blood Pressure 120/89 120/89 120/89 O2 Sat by Pulse 100 100 Oximetry 03/07/17 03/07/17 03/07/17 05:46 06:00 08:00 Temperature 97.8 F Pulse Rate 91 H 86 Pulse Rate [ Bilateral Throughout] Respiratory 17 19 Rate Respiratory Rate [Bilateral Throughout] Blood Pressure 120/89 110/76 O2 Sat by Pulse 98 98 Oximetry 03/07/17 03/07/17 03/07/17 08:21 08:22 12:00 Temperature 98.4 F Pulse Rate Pulse Rate [ 84 Bilateral Throughout] Respiratory Rate Respiratory 18 Rate [Bilateral Throughout] Blood Pressure O2 Sat by Pulse 100 Oximetry Constitutional: no acute distress, asleep Eyes: non-icteric ENT: oropharynx moist Effort: mildly labored Ascultation: Bilateral: clear, rhonchi (scattered at bases) Cardiovascular: other Gastrointestinal: normoactive bowel sounds, soft, non-distended Integumentary: normal Extremities: no cyanosis, no edema, pink and warm Neurologic: non-focal exam, pupils equal and round, CN II-XII normal, other ( mild confused,able to answer some questions in Bulgarian) Psychiatric: depressed CBC and BMP: 03/07/17 08:58 03/07/17 08:58 ABG, PT/INR, D-dimer: ABG POC ABG pH 7.530 (7.35-7.45) H 03/05/17 16:18 POC ABG pCO2 36.0 (35-45) 03/05/17 16:18 POC ABG pO2 65 (80-105) L 03/05/17 16:18 POC ABG HCO3 30.1 03/05/17 16:18 POC ABG Total CO2 31 03/05/17 16:18 POC ABG O2 Sat 95 03/05/17 16:18 PT/INR, D-dimer PT 16.5 Sec. (12.2-14.9) H 03/05/17 06:25 INR 1.34 (0.87-1.13) H 03/05/17 06:25 Abnormal lab findings: Abnormal Labs 02/28/17 02/28/17 03/01/17 20:00 Unknown 10:20 WBC 28.6 H RBC Hgb Hct MCHC Plt Count Seg Neuts % (Manual) Lymphocytes % (Manual) 2.5 L Monocytes % (Manual) Nucleated RBC % Seg Neutrophils # Man 16.6 H Lymphocytes # (Manual) 0.7 L Monocytes # (Manual) 1.4 H PT INR Fibrinogen POC ABG pH POC ABG pCO2 POC ABG pO2 Sodium Potassium Chloride Carbon Dioxide BUN Creatinine Glucose POC Glucose Lactic Acid 3.50 H* 2.60 H* Calcium Phosphorus Magnesium Iron TIBC Ferritin Total Bilirubin Direct Bilirubin AST ALT Alkaline Phosphatase C-Reactive Protein NT-Pro-B Natriuret Pep Total Protein Albumin Gfqbd-4-Vsstlhoxcst Lipase RIVER Screen 03/01/17 03/01/17 03/01/17 10:20 11:15 12:17 WBC RBC Hgb Hct MCHC Plt Count Seg Neuts % (Manual) Lymphocytes % (Manual) Monocytes % (Manual) Nucleated RBC % Seg Neutrophils # Man Lymphocytes # (Manual) Monocytes # (Manual) PT INR Fibrinogen POC ABG pH POC ABG pCO2 POC ABG pO2 Sodium Potassium 5.2 H D Chloride 109.6 H Carbon Dioxide 11 L BUN 28 H Creatinine 1.3 H Glucose 29 L* POC Glucose < 40 L 129 H Lactic Acid Calcium 6.0 L Phosphorus Magnesium Iron TIBC Ferritin Total Bilirubin 4.80 H Direct Bilirubin AST 89 H ALT Alkaline Phosphatase C-Reactive Protein NT-Pro-B Natriuret Pep Total Protein 5.4 L D Albumin 2.3 L Bzgvi-4-Yihscjxbwpc Lipase RIVER Screen 03/01/17 03/01/17 03/01/17 15:30 15:36 21:15 WBC RBC Hgb Hct MCHC Plt Count Seg Neuts % (Manual) Lymphocytes % (Manual) Monocytes % (Manual) Nucleated RBC % Seg Neutrophils # Man Lymphocytes # (Manual) Monocytes # (Manual) PT INR Fibrinogen POC ABG pH POC ABG pCO2 POC ABG pO2 Sodium Potassium Chloride Carbon Dioxide 10 L BUN 28 H Creatinine Glucose POC Glucose 210 H Lactic Acid 2.40 H* Calcium 5.9 L* Phosphorus Magnesium Iron TIBC Ferritin Total Bilirubin 5.50 H Direct Bilirubin AST 135 H ALT Alkaline Phosphatase C-Reactive Protein NT-Pro-B Natriuret Pep Total Protein 5.1 L Albumin 2.1 L Tpzos-6-Dvsaiitcfrp Lipase RIVER Screen 03/01/17 03/01/17 03/02/17 22:08 23:53 04:40 WBC RBC Hgb Hct MCHC Plt Count Seg Neuts % (Manual) Lymphocytes % (Manual) Monocytes % (Manual) Nucleated RBC % Seg Neutrophils # Man Lymphocytes # (Manual) Monocytes # (Manual) PT INR Fibrinogen POC ABG pH 7.140 L POC ABG pCO2 29.9 L POC ABG pO2 149 H Sodium Potassium Chloride Carbon Dioxide BUN Creatinine Glucose POC Glucose 125 H 147 H Lactic Acid Calcium Phosphorus Magnesium Iron TIBC Ferritin Total Bilirubin Direct Bilirubin AST ALT Alkaline Phosphatase C-Reactive Protein NT-Pro-B Natriuret Pep Total Protein Albumin Tgtim-1-Bzyoixwkfah Lipase RIVER Screen 03/02/17 03/02/17 03/02/17 05:00 05:00 05:00 WBC 23.5 H RBC Hgb Hct MCHC Plt Count 139 L Seg Neuts % (Manual) 34.0 L Lymphocytes % (Manual) 13.0 L Monocytes % (Manual) Nucleated RBC % Seg Neutrophils # Man 8.0 H Lymphocytes # (Manual) Monocytes # (Manual) 0.9 H PT INR Fibrinogen POC ABG pH POC ABG pCO2 POC ABG pO2 Sodium Potassium Chloride 111.2 H Carbon Dioxide 13 L BUN 33 H Creatinine Glucose 148 H POC Glucose Lactic Acid 2.30 H* Calcium 6.6 L Phosphorus Magnesium 1.30 L Iron TIBC Ferritin Total Bilirubin 5.90 H Direct Bilirubin AST 159 H ALT Alkaline Phosphatase C-Reactive Protein NT-Pro-B Natriuret Pep Total Protein 4.3 L Albumin 2.1 L Eozme-9-Xdedvggjbse Lipase RIVER Screen 03/02/17 03/02/17 03/02/17 07:57 11:41 12:15 WBC RBC Hgb Hct MCHC Plt Count Seg Neuts % (Manual) Lymphocytes % (Manual) Monocytes % (Manual) Nucleated RBC % Seg Neutrophils # Man Lymphocytes # (Manual) Monocytes # (Manual) PT INR Fibrinogen POC ABG pH POC ABG pCO2 POC ABG pO2 Sodium Potassium Chloride Carbon Dioxide BUN Creatinine Glucose POC Glucose 135 H 146 H Lactic Acid Calcium Phosphorus Magnesium Iron TIBC Ferritin 1802.0 H Total Bilirubin Direct Bilirubin AST ALT Alkaline Phosphatase C-Reactive Protein NT-Pro-B Natriuret Pep Total Protein Albumin Gqnve-7-Agbfawubluh Lipase RIVER Screen 03/02/17 03/02/17 03/02/17 12:15 12:15 12:15 WBC RBC Hgb Hct MCHC Plt Count Seg Neuts % (Manual) Lymphocytes % (Manual) Monocytes % (Manual) Nucleated RBC % Seg Neutrophils # Man Lymphocytes # (Manual) Monocytes # (Manual) PT INR Fibrinogen POC ABG pH POC ABG pCO2 POC ABG pO2 Sodium Potassium Chloride Carbon Dioxide BUN Creatinine Glucose POC Glucose Lactic Acid Calcium Phosphorus Magnesium Iron 19 L TIBC 96 L Ferritin Total Bilirubin Direct Bilirubin AST ALT Alkaline Phosphatase C-Reactive Protein NT-Pro-B Natriuret Pep Total Protein Albumin Gaefw-4-Cmgjzhdxzyb 257 H Lipase RIVER Screen Positive H 03/02/17 03/02/17 03/02/17 13:34 15:42 20:22 WBC RBC Hgb Hct MCHC Plt Count Seg Neuts % (Manual) Lymphocytes % (Manual) Monocytes % (Manual) Nucleated RBC % Seg Neutrophils # Man Lymphocytes # (Manual) Monocytes # (Manual) PT INR Fibrinogen POC ABG pH 7.232 L POC ABG pCO2 POC ABG pO2 127 H Sodium Potassium Chloride Carbon Dioxide BUN Creatinine Glucose POC Glucose 159 H 161 H Lactic Acid Calcium Phosphorus Magnesium Iron TIBC Ferritin Total Bilirubin Direct Bilirubin AST ALT Alkaline Phosphatase C-Reactive Protein NT-Pro-B Natriuret Pep Total Protein Albumin Muija-3-Oapwibahriq Lipase RIVER Screen 03/02/17 03/03/17 03/03/17 23:27 03:59 04:00 WBC RBC Hgb Hct MCHC Plt Count Seg Neuts % (Manual) Lymphocytes % (Manual) Monocytes % (Manual) Nucleated RBC % Seg Neutrophils # Man Lymphocytes # (Manual) Monocytes # (Manual) PT INR Fibrinogen POC ABG pH POC ABG pCO2 POC ABG pO2 Sodium Potassium Chloride Carbon Dioxide BUN Creatinine Glucose POC Glucose 166 H 161 H Lactic Acid Calcium Phosphorus Magnesium Iron TIBC Ferritin Total Bilirubin Direct Bilirubin AST ALT Alkaline Phosphatase C-Reactive Protein 22.50 H NT-Pro-B Natriuret Pep Total Protein Albumin Lcwqs-0-Htckuurqxqo Lipase 7 L RIVER Screen 03/03/17 03/03/17 03/03/17 04:00 04:00 06:22 WBC 12.9 H RBC 3.27 L Hgb 9.5 L Hct 27.9 L D MCHC Plt Count 97 L Seg Neuts % (Manual) 77.0 H Lymphocytes % (Manual) 6.0 L Monocytes % (Manual) Nucleated RBC % Seg Neutrophils # Man 9.9 H Lymphocytes # (Manual) 0.8 L Monocytes # (Manual) 0.9 H PT 16.8 H INR 1.29 H Fibrinogen POC ABG pH POC ABG pCO2 POC ABG pO2 Sodium Potassium 2.7 L* D Chloride 97.7 L Carbon Dioxide 33 H D BUN 31 H Creatinine 0.6 L Glucose POC Glucose Lactic Acid Calcium 6.0 L Phosphorus Magnesium Iron TIBC Ferritin Total Bilirubin 4.50 H Direct Bilirubin AST 398 H ALT 154 H Alkaline Phosphatase 198 H C-Reactive Protein NT-Pro-B Natriuret Pep Total Protein 4.4 L Albumin 2.0 L Dtsry-8-Xmeepndbkky Lipase RIVER Screen 03/03/17 03/03/17 03/03/17 06:37 08:11 11:42 WBC RBC Hgb Hct MCHC Plt Count Seg Neuts % (Manual) Lymphocytes % (Manual) Monocytes % (Manual) Nucleated RBC % Seg Neutrophils # Man Lymphocytes # (Manual) Monocytes # (Manual) PT INR Fibrinogen POC ABG pH POC ABG pCO2 POC ABG pO2 Sodium Potassium 3.5 L D Chloride 108.2 H Carbon Dioxide 20 L D BUN 35 H Creatinine Glucose 167 H POC Glucose 156 H 163 H Lactic Acid Calcium 6.8 L Phosphorus Magnesium Iron TIBC Ferritin Total Bilirubin Direct Bilirubin AST ALT Alkaline Phosphatase C-Reactive Protein NT-Pro-B Natriuret Pep Total Protein Albumin Tcelc-5-Nsehscszswp Lipase RIVER Screen 03/03/17 03/03/17 03/03/17 16:38 17:06 21:48 WBC RBC Hgb Hct MCHC Plt Count Seg Neuts % (Manual) Lymphocytes % (Manual) Monocytes % (Manual) Nucleated RBC % Seg Neutrophils # Man Lymphocytes # (Manual) Monocytes # (Manual) PT INR Fibrinogen 556 H POC ABG pH POC ABG pCO2 POC ABG pO2 Sodium Potassium Chloride Carbon Dioxide BUN Creatinine Glucose POC Glucose 124 H 126 H Lactic Acid Calcium Phosphorus Magnesium Iron TIBC Ferritin Total Bilirubin Direct Bilirubin AST ALT Alkaline Phosphatase C-Reactive Protein NT-Pro-B Natriuret Pep Total Protein Albumin Lyuco-3-Dhcfwksbxim Lipase RIVER Screen 03/04/17 03/04/17 03/04/17 01:56 05:41 09:54 WBC RBC Hgb Hct MCHC Plt Count Seg Neuts % (Manual) Lymphocytes % (Manual) Monocytes % (Manual) Nucleated RBC % Seg Neutrophils # Man Lymphocytes # (Manual) Monocytes # (Manual) PT INR Fibrinogen POC ABG pH POC ABG pCO2 POC ABG pO2 Sodium Potassium Chloride Carbon Dioxide BUN Creatinine Glucose POC Glucose 128 H 118 H 127 H Lactic Acid Calcium Phosphorus Magnesium Iron TIBC Ferritin Total Bilirubin Direct Bilirubin AST ALT Alkaline Phosphatase C-Reactive Protein NT-Pro-B Natriuret Pep Total Protein Albumin Wbsbp-0-Qwhbfkkbwhn Lipase RIVER Screen 03/04/17 03/04/17 03/04/17 11:22 11:22 20:16 WBC RBC Hgb Hct MCHC Plt Count Seg Neuts % (Manual) Lymphocytes % (Manual) Monocytes % (Manual) Nucleated RBC % Seg Neutrophils # Man Lymphocytes # (Manual) Monocytes # (Manual) PT 16.2 H INR 1.31 H Fibrinogen POC ABG pH POC ABG pCO2 POC ABG pO2 Sodium Potassium Chloride Carbon Dioxide BUN Creatinine Glucose POC Glucose 113 H Lactic Acid Calcium Phosphorus Magnesium Iron TIBC Ferritin Total Bilirubin 4.00 H Direct Bilirubin 2.9 H AST 312 H ALT 202 H Alkaline Phosphatase 187 H C-Reactive Protein NT-Pro-B Natriuret Pep Total Protein 5.7 L Albumin 2.5 L Dmwpt-1-Pmhcwxeffbw Lipase RIVER Screen 03/04/17 03/04/17 03/04/17 23:32 Unknown Unknown WBC RBC 3.51 L Hgb Hct 30.1 L MCHC 35 H Plt Count 95 L Seg Neuts % (Manual) 88.0 H Lymphocytes % (Manual) 5.0 L Monocytes % (Manual) Nucleated RBC % 1.0 H Seg Neutrophils # Man 8.8 H Lymphocytes # (Manual) 0.5 L Monocytes # (Manual) PT INR Fibrinogen POC ABG pH POC ABG pCO2 POC ABG pO2 Sodium 146 H Potassium 3.4 L Chloride Carbon Dioxide BUN 26 H Creatinine 0.4 L Glucose 117 H POC Glucose 138 H Lactic Acid Calcium 7.1 L Phosphorus Magnesium Iron TIBC Ferritin Total Bilirubin 4.00 H Direct Bilirubin AST 332 H ALT 197 H Alkaline Phosphatase 207 H C-Reactive Protein NT-Pro-B Natriuret Pep Total Protein 5.4 L D Albumin 2.4 L Fjrda-8-Mzcqasxmuoa Lipase RIVER Screen 03/05/17 03/05/17 03/05/17 04:04 06:25 06:25 WBC RBC Hgb Hct MCHC Plt Count Seg Neuts % (Manual) Lymphocytes % (Manual) Monocytes % (Manual) Nucleated RBC % Seg Neutrophils # Man Lymphocytes # (Manual) Monocytes # (Manual) PT 16.5 H INR 1.34 H Fibrinogen POC ABG pH POC ABG pCO2 POC ABG pO2 Sodium 151 H Potassium 3.4 L Chloride 110.4 H Carbon Dioxide BUN 21 H Creatinine 0.3 L Glucose 121 H POC Glucose 154 H Lactic Acid Calcium 6.9 L Phosphorus Magnesium Iron TIBC Ferritin Total Bilirubin 2.80 H Direct Bilirubin AST 170 H ALT 153 H Alkaline Phosphatase 144 H C-Reactive Protein NT-Pro-B Natriuret Pep Total Protein 5.0 L Albumin 2.5 L Seung-6-Ejsfirkuufc Lipase RIVER Screen 03/05/17 03/05/17 03/05/17 07:38 11:42 16:18 WBC RBC Hgb Hct MCHC Plt Count Seg Neuts % (Manual) Lymphocytes % (Manual) Monocytes % (Manual) Nucleated RBC % Seg Neutrophils # Man Lymphocytes # (Manual) Monocytes # (Manual) PT INR Fibrinogen POC ABG pH 7.530 H POC ABG pCO2 POC ABG pO2 65 L Sodium Potassium Chloride Carbon Dioxide BUN Creatinine Glucose POC Glucose 135 H 136 H Lactic Acid Calcium Phosphorus Magnesium Iron TIBC Ferritin Total Bilirubin Direct Bilirubin AST ALT Alkaline Phosphatase C-Reactive Protein NT-Pro-B Natriuret Pep Total Protein Albumin Meucv-3-Vvayukzjybv Lipase RIVER Screen 03/05/17 03/05/17 03/06/17 17:15 21:45 05:55 WBC 11.1 H RBC 3.34 L Hgb 9.6 L Hct 29.3 L MCHC Plt Count 121 L Seg Neuts % (Manual) 79.0 H Lymphocytes % (Manual) 8.0 L Monocytes % (Manual) 9.0 H Nucleated RBC % 5.0 H Seg Neutrophils # Man 8.8 H Lymphocytes # (Manual) 0.9 L Monocytes # (Manual) 1.0 H PT INR Fibrinogen POC ABG pH POC ABG pCO2 POC ABG pO2 Sodium Potassium Chloride Carbon Dioxide BUN Creatinine Glucose POC Glucose 157 H 160 H Lactic Acid Calcium Phosphorus Magnesium Iron TIBC Ferritin Total Bilirubin Direct Bilirubin AST ALT Alkaline Phosphatase C-Reactive Protein NT-Pro-B Natriuret Pep Total Protein Albumin Qjugr-9-Qtygvyssrvd Lipase RIVER Screen 03/06/17 03/06/17 03/06/17 07:54 12:32 12:32 WBC RBC Hgb Hct MCHC Plt Count Seg Neuts % (Manual) Lymphocytes % (Manual) Monocytes % (Manual) Nucleated RBC % Seg Neutrophils # Man Lymphocytes # (Manual) Monocytes # (Manual) PT INR Fibrinogen POC ABG pH POC ABG pCO2 POC ABG pO2 Sodium Potassium 3.2 L Chloride Carbon Dioxide BUN Creatinine 0.3 L Glucose 122 H POC Glucose 116 H Lactic Acid Calcium 7.4 L Phosphorus Magnesium Iron TIBC Ferritin Total Bilirubin 1.60 H Direct Bilirubin AST 102 H ALT 123 H Alkaline Phosphatase C-Reactive Protein NT-Pro-B Natriuret Pep 73176 H Total Protein 5.3 L Albumin 2.6 L Vgwxk-0-Pylkbigfgxs Lipase RIVER Screen 03/06/17 03/06/17 03/06/17 12:48 15:48 23:18 WBC RBC Hgb Hct MCHC Plt Count Seg Neuts % (Manual) Lymphocytes % (Manual) Monocytes % (Manual) Nucleated RBC % Seg Neutrophils # Man Lymphocytes # (Manual) Monocytes # (Manual) PT INR Fibrinogen POC ABG pH POC ABG pCO2 POC ABG pO2 Sodium Potassium Chloride Carbon Dioxide BUN Creatinine Glucose POC Glucose 124 H 132 H 113 H Lactic Acid Calcium Phosphorus Magnesium Iron TIBC Ferritin Total Bilirubin Direct Bilirubin AST ALT Alkaline Phosphatase C-Reactive Protein NT-Pro-B Natriuret Pep Total Protein Albumin Htwug-5-Usbbmdpehbl Lipase RIVER Screen 03/07/17 03/07/17 03/07/17 05:31 08:58 08:58 WBC 11.8 H RBC 3.12 L Hgb 8.9 L Hct 27.5 L MCHC Plt Count 138 L Seg Neuts % (Manual) 87.0 H Lymphocytes % (Manual) 5.0 L Monocytes % (Manual) Nucleated RBC % 1.0 H Seg Neutrophils # Man 10.3 H Lymphocytes # (Manual) 0.6 L Monocytes # (Manual) PT INR Fibrinogen POC ABG pH POC ABG pCO2 POC ABG pO2 Sodium Potassium 3.4 L Chloride Carbon Dioxide 31 H BUN 18 H Creatinine 0.2 L Glucose 102 H POC Glucose 113 H Lactic Acid Calcium 7.4 L Phosphorus 2.00 L Magnesium 1.20 L Iron TIBC Ferritin Total Bilirubin 1.50 H Direct Bilirubin AST 99 H ALT 119 H Alkaline Phosphatase C-Reactive Protein NT-Pro-B Natriuret Pep Total Protein 5.7 L Albumin 2.8 L Fhcmg-0-Wedhbzcfagp Lipase RIVER Screen Additional Studies: Laboratory Tests 03/06/17 12:32 NT-Pro-B Natriuret Pep [id number] H
--- NOTE | 2017-03-07 16:22 | Consultation ---
History of Present Illness - Reason for Consult Consult date: 03/07/17 Reason for consult: psychiatric evaluation - Chief Complaint Chief complaint: agitation 26 YO Female seen in the intensive care unit for psychiatric evaluation. It was reported that she has been agitated and restless. The record indicates a concern with alcohol use disorder or polysubstance use. Collateral reports indicate no previous psychiatric history or treatment and a possibility of alcohol use. She has been in restraints and is lethargic on interview. She thought she was in [place] and apologized when she was told she is in [place]. She briefly mentioned having a hard time going on [with daily life] sometimes but that she pushes herself for her children. She is on [facility] protocol. She has been in the hospital since 02/28/17 and is being treated for sepsis. Medications and Allergies Allergies Allergy/AdvReac Type Severity Reaction Status Date / Time No Known Allergies Allergy Verified 07/26/15 20:16 Home Medications Medication Instructions Recorded Confirmed Last Taken Type Acetaminophen/Codeine [Tylenol #3] 1 tab PO Q6H PRN #30 tab 07/27/15 Unknown Rx Cephalexin [Keflex] 500 mg PO Q8HR #42 cap 07/27/15 Unknown Rx Active Meds: Active Medications Albuterol/Ipratropium (Duoneb *Not For Prn Use*) 1 ampul IH QIDRT [facility] Last Admin: 03/07/17 14:43 Dose: 1 ampul Lipase/Protease/Amylase (Pancreaze Dr 10,500 Unit) 1 each FEEDTUBE PRN PRN PRN Reason: For Clogged Feeding Tube Bisacodyl (Dulcolax) 10 mg VA QDAY PRN PRN Reason: constipation unrelieved by MOM Dextrose (D50w (25gm)) 25 gm IV PRN PRN PRN Reason: Hypoglycemia Enoxaparin Sodium (Lovenox) 40 mg SUB-Q DAILY NICOLE Last Admin: 03/07/17 09:06 Dose: 40 mg Furosemide (Lasix) 20 mg IV 0600,1800 NICOLE Last Admin: 03/07/17 05:13 Dose: 20 mg Hydrocortisone Sodium Succinate (Solu-Cortef) 50 mg IV Q8H NICOLE Last Admin: 03/07/17 14:06 Dose: 50 mg Vasopressin 20 unit/ Sodium (Chloride) 101 mls @ 9.09 mls/hr IV TITR NICOLE; 0.03 UNITS/MIN PRN Reason: Protocol Last Titration: 03/03/17 08:00 Dose: 0 units/min, 0 mls/hr Norepinephrine 8 mg/ Sodium (Chloride) 250 mls @ 3.75 mls/hr IV TITR NICOLE; 2 MCG /MIN PRN Reason: Protocol Last Titration: 03/05/17 04:05 Dose: 0 mcg/min, 0 mls/hr Meropenem 1,000 mg/ Sodium (Chloride) 100 mls @ 100 mls/hr IV Q8H NICOLE PRN Reason: Protocol Last Admin: 03/07/17 10:05 Dose: 100 mls/hr Vancomycin HCl (Vancomycin/Ns 1 Gm/250 Ml) 1 gm in 250 mls @ 166.667 mls/hr IV Q8H NICOLE Last Admin: 03/07/17 10:06 Dose: 166.667 mls/hr Potassium Phosphate 30 mmol/ (Sodium Chloride) 510 mls @ 83 mls/hr IV ONCE ONE Stop: 03/07/17 19:38 Last Admin: 03/07/17 13:57 Dose: 83 mls/hr Levothyroxine Sodium (Synthroid) 150 mcg PO DAILY@0600 NICOLE Last Admin: 03/07/17 05:14 Dose: 150 mcg Lorazepam (Ativan) 1 mg IV Q4H PRN PRN Reason: Agitation Last Admin: 03/07/17 05:14 Dose: 1 mg Lorazepam (Ativan) 2 mg IV Q1HR PRN PRN Reason: CIWA-Ar 8-15 Last Admin: 03/07/17 09:06 Dose: 2 mg Lorazepam (Ativan) 4 mg IV Q1HR PRN PRN Reason: CIWA-Ar 16-25 Last Admin: 03/05/17 02:55 Dose: 4 mg Lorazepam (Ativan) 4 mg IV Q15MIN PRN PRN Reason: CIWA-Ar >25 Magnesium Hydroxide (Milk Of Magnesia) 30 ml PO Q4H PRN PRN Reason: Constipation Morphine Sulfate (Morphine) 2 mg IV Q4H PRN PRN Reason: Pain, Moderate (4-6) Last Admin: 03/07/17 10:03 Dose: 2 mg Ondansetron HCl (Zofran) 4 mg IV Q4H PRN PRN Reason: Nausea Simple Syrup (Simple Syrup) 15 ml FEEDTUBE PRN PRN PRN Reason: Hypoglycemia Simple Syrup (Simple Syrup) 30 ml FEEDTUBE PRN PRN PRN Reason: Hypoglycemia Sodium Bicarbonate (Sodium Bicarbonate) 325 mg FEEDTUBE PRN PRN PRN Reason: For Clogged Feeding Tube Last Admin: 03/07/17 09:06 Dose: 325 mg Past psychiatric history - Past Medical History Past Medical History: hypothyroidism - past Psychiatric treatment and history psychiatric treatment history: none known - Social History Social history: lives with family (has 3 children 9, 10, and 4) Mental Status Exam - Vital signs Last Vital Signs Temp 98.4 F 03/07/17 12:00 Pulse 87 03/07/17 14:00 Resp 21 03/07/17 14:00 BP 110/76 03/07/17 06:00 Pulse Ox 100 03/07/17 08:22 - Exam Orientation: person Affect: flat Thought content: other (no SI, impoverished) Thought Process: Disoriented Perceptions: other (unk) Speech: slurring Concentration: unable to pay attention Motor activity: lethargic Level of consciousness: confused Memory: Recent Impaired Sleep Symptoms: Restless Interaction: cooperative Results Result Diagrams: 03/07/17 08:58 03/07/17 08:58 Abnormal lab results 03/06/17 03/07/17 03/07/17 Range/Units 23:18 05:31 08:58 WBC 11.8 H (4.5-11.0) K/mm3 RBC 3.12 L (3.65-5.03) M/mm3 Hgb 8.9 L (10.1-14.3) gm/dl Hct 27.5 L (30.3-42.9) % Plt Count 138 L (140-440) K/mm3 Seg Neuts % (Manual) 87.0 H (40.0-70.0) % Lymphocytes % (Manual) 5.0 L (13.4-35.0) % Nucleated RBC % 1.0 H (0.0-0.9) % Seg Neutrophils # Man 10.3 H (1.8-7.7) K/mm3 Lymphocytes # (Manual) 0.6 L (1.2-5.4) K/mm3 Potassium (3.6-5.0) mmol/L Carbon Dioxide (22-30) mmol/L BUN (7-17) mg/dL Creatinine (0.7-1.2) mg/dL Glucose (65-100) mg/dL POC Glucose 113 H 113 H (70-105) Calcium (8.4-10.2) mg/dL Phosphorus (2.5-4.5) mg/dL Magnesium (1.7-2.3) mg/dL Total Bilirubin (0.1-1.2) mg/dL AST (5-40) units/L ALT (7-56) units/L Total Protein (6.3-8.2) g/dL Albumin (3.9-5) g/dL 03/07/17 Range/Units 08:58 WBC (4.5-11.0) K/mm3 RBC (3.65-5.03) M/mm3 Hgb (10.1-14.3) gm/dl Hct (30.3-42.9) % Plt Count (140-440) K/mm3 Seg Neuts % (Manual) (40.0-70.0) % Lymphocytes % (Manual) (13.4-35.0) % Nucleated RBC % (0.0-0.9) % Seg Neutrophils # Man (1.8-7.7) K/mm3 Lymphocytes # (Manual) (1.2-5.4) K/mm3 Potassium 3.4 L (3.6-5.0) mmol/L Carbon Dioxide 31 H (22-30) mmol/L BUN 18 H (7-17) mg/dL Creatinine 0.2 L (0.7-1.2) mg/dL Glucose 102 H (65-100) mg/dL POC Glucose (70-105) Calcium 7.4 L (8.4-10.2) mg/dL Phosphorus 2.00 L (2.5-4.5) mg/dL Magnesium 1.20 L (1.7-2.3) mg/dL Total Bilirubin 1.50 H (0.1-1.2) mg/dL AST 99 H (5-40) units/L ALT 119 H (7-56) units/L Total Protein 5.7 L (6.3-8.2) g/dL Albumin 2.8 L (3.9-5) g/dL All other labs normal. Assessment and Plan Assessment and plan: Impression: encephalopathy related to current medical condition Alcohol withdrawal is not likely given the amount of time she has been in the hospital DDX: DTs once alert and oriented, evaluation of depression and substance use disorder is recommended Urine drug screen was negative An alcohol level was not available from her initial treatment in the ER. Recommendations: 1013 not recommended avoid ativan. use haldol 2.5mg IV q 4hours prn agitation The following are recommended for reduction of symptoms of delirium: 1. Frequently reorient patient and involve him/her in their care (simple explanations of procedures, tests, medications). 2. Lights on and shades open during daytime hours. 3. Try to avoid unnecessary interruptions to sleep during nighttime hours. 4. Obtain glasses, hearing aids from home if patient uses these at baseline. 5. Avoid medications that may exacerbate delirium (especially narcotics, benzodiazepines, barbiturates, ambien, lunesta, and medications with excessive anticholinergic properties).
[2017-03-07] MEDS ORDERED: HALDOL IV PRN (16:24)
[2017-03-08] MEDS: ATIVAN IV PRN (02:16)
[2017-03-08] MEDS: MERREM 1,000 MG in NACL 0.9% 100 ML IV SCH ×2 (03:27→10:38)
[2017-03-08] MEDS: VANCOMYCIN/NS 1 GM/250 ML 1 GM/250 ML BAG IV SCH ×2 (03:27→10:49)
--- NOTE | 2017-03-08 03:39 | XRay Report ---
FINAL REPORT PROCEDURE: XR ABDOMEN 1V AP TECHNIQUE: AP supine portable radiograph of the abdomen was obtained at 03/08/2017 02:55 (EST) . HISTORY: Dobhoff placement COMPARISON: No prior studies are available for comparison. FINDINGS: Bowel gas pattern: Nonobstructive. Masses or calcifications: None. Bony structures: Normal. Other: NG tube is in the stomach.. IMPRESSION: NG tube is in the stomach.
[2017-03-08] MEDS: SYNTHROID PO SCH (05:36)
[2017-03-08] MEDS: LASIX IV SCH ×2 (05:36→16:59)
[2017-03-08] MEDS: DUONEB *Not for PRN Use IH SCH ×3 (07:32→20:12)
[2017-03-08] MEDS ORDERED: PROVENTIL IH PRN (07:39)
[2017-03-08 09:22] LABS: INR 1.32 (0.87-1.13)
[2017-03-08 10:08] LABS: Anion Gap 15 mmol/L; BUN/Creatinine Ratio 53.33; Blood Urea Nitrogen 16 mg/dL (7-17); Calcium 7.4 mg/dL (8.4-10.2); Carbon Dioxide 32 mmol/L (22-30); Chloride 102.7 mmol/L (98-107); Glucose 116 mg/dL (65-100); Sodium 147 mmol/L (137-145)
[2017-03-08] MEDS: LOVENOX SUB-Q SCH (10:40)
--- NOTE | 2017-03-08 10:58 | Progress Note ---
Assessment and Plan Assessment and plan: 26 YO Female with Hypothyroidism presents to ED for evaluation. Pt states that she has experienced nausea, vomiting, and multiple episodes of loose stools over 5 days with worsening symptoms over the past 8 hours. She was admitted for sepsis, aspirin her cousin she was not compliant with Synthroid at home because she does not have insurance. Her Cousin believes she has a history of polysubstance abuse, including etoh Severe Gram-negative septicemia/UTI * ID input appreciated, continue broad-spectrum antibiotics and antifungals * Blood and urine cx growing Ecoli which is sens to meropenam which patient is on * mononucleosis screen negative * CT head and CTA neck negative * For LP today * Will discuss case with ID, as patient is improving, * RIVER positive, titer was 1:80, with speckled pattern, consider autoimmune contributor to severe sepsis Septic shock * Continue IV fluids, was weaned off pressors Shock Liver. Abdominal pain * resolving, jaudice resolving * pancreatitis ruled out- lipase was negative * Viral Hepatitis serologies negative, HIV negative * GI consult appreciated * CT abdomen and pelvis; Large pleural effusions and moderate ascites. Right pyelonephritis seen. Proximal colon is thickened consistent with nonspecific colitis. Ascites * Status post paracentesis on 03/04, appeared to be a traumatic tap, but absolute neutrophil count is only 82 dear for not consistent with SBP, and not a contributor to sepsis. Fluid overload continue lasix Delirium tremens/alcohol withdrawal * Continue CIWA protocol Metabolic encephalopathy * Most likely due to sepsis and delirium tremens, continue supportive care, improving * psych input appreciated, Ativan is likely making her delirium worse. She has been transitioned to Haldol when necessary agitation. Severe hypothyroidism * Continue thyroid replacement therapy Severe Metabolic Acidosis * improved sp Sodium bicarb Recent * pelvic and transvaginal ultrasound were performed and did not show any remnants, therefore not a contributor to sepsis Severe malnutrition * dietitian consults * continue tube feeding via NGT Electrolyte derrangement- Hypokalemia, Hypocalcemia, hypomagnesemia, Hypophosphatemia * Continue to replete electrolytes as necessary daily, and medically rx * pseudohypocalcemia due to low albumin, corrected Ca is 8.1 Acute Kidney Injury * Resolved with IVF. secondary to vasomotor nephropathy Hypoglycemia * resolved with dextrose * Prognosis guarded, case discussed with her cousin Karla Darden, her phone number is [phone]. Her parents are in [place] and not currently reachable. I have provided letters for her father and mother to take to the consulate so that they may obtain these at the common visit their daughter The high probability of a clinically significant, sudden or life threatening deterioration of the [VASCULAR, ENDOCRINE, GI ] system(s) required my full and direct attention, intervention and personal management. The aggregate critical care time was [35] minutes. This time is in addition to time spent performing reported procedures but includes the following: [X] Data Review and interpretation [X] Patient assessment and monitoring of vital signs [X] Documentation [X] Medication orders and management History Interval history: she was agitated, and received ativan, now sedated Hospitalist Physical - Physical exam Narrative exam: General: somnolent HEENT: MMM, EOMI, scleral icterus has now resolved cardiac: S1-S2 heard lungs: clear to auscultation, abdomen: soft, nontender, moderately distended with shifting dullness bowel sounds positive extremities: Nonpitting, doughy edema of lower extremities Skin: no rash or lesion Neuro: somnolent, moans, but asleep Psych, somnolent - Constitutional Vitals: Temp Pulse Resp BP Pulse Ox 97.8 F 84 20 119/78 98 03/08/17 08:00 03/08/17 08:00 03/08/17 08:00 03/08/17 08:00 03/08/17 08:00 General appearance: Present: no acute distress, other (in 4-point restraints) Results - Labs CBC & Chem 7: 03/07/17 08:58 03/08/17 09:38 Labs: Laboratory Last Values WBC 11.8 K/mm3 (4.5-11.0) H 03/07/17 08:58 RBC 3.12 M/mm3 (3.65-5.03) L 03/07/17 08:58 Hgb 8.9 gm/dl (10.1-14.3) L 03/07/17 08:58 Hct 27.5 % (30.3-42.9) L 03/07/17 08:58 MCV 88 fl (79-97) 03/07/17 08:58 MCH 29 pg (28-32) 03/07/17 08:58 MCHC 32 % (30-34) 03/07/17 08:58 RDW 14.5 % (13.2-15.2) 03/07/17 08:58 Plt Count 138 K/mm3 (140-440) L 03/07/17 08:58 Lymph % (Auto) 22.8 % (13.4-35.0) 02/28/17 12:03 [place] % (Auto) 2.2 % (0.0-7.3) 02/28/17 12:03 Eos % (Auto) 1.2 % (0.0-4.3) 02/28/17 12:03 Baso % (Auto) 0.2 % (0.0-1.8) 02/28/17 12:03 Lymph # 1.2 K/mm3 (1.2-5.4) 02/28/17 12:03 [place] # 0.1 K/mm3 (0.0-0.8) 02/28/17 12:03 Eos # 0.1 K/mm3 (0.0-0.4) 02/28/17 12:03 Baso # 0.0 K/mm3 (0.0-0.1) 02/28/17 12:03 Add Manual Diff Complete 03/07/17 08:58 Total Counted 100 03/07/17 08:58 Seg Neutrophils % Care Asst 03/07/17 08:58 Seg Neuts % (Manual) 87.0 % (40.0-70.0) H 03/07/17 08:58 Band Neutrophils % 4.0 % 03/07/17 08:58 Lymphocytes % (Manual) 5.0 % (13.4-35.0) L 03/07/17 08:58 Reactive Lymphs % (Man) 0 % 03/07/17 08:58 Monocytes % (Manual) 4.0 % (0.0-7.3) 03/07/17 08:58 Eosinophils % (Manual) 0 % (0.0-4.3) 03/07/17 08:58 Basophils % (Manual) 0 % (0.0-1.8) 03/07/17 08:58 Metamyelocytes % 0 % 03/07/17 08:58 Myelocytes % 0 % 03/07/17 08:58 Promyelocytes % 0 % 03/07/17 08:58 Blast Cells % 0 % 03/07/17 08:58 Nucleated RBC % 1.0 % (0.0-0.9) H 03/07/17 08:58 Seg Neutrophils # 3.8 K/mm3 (1.8-7.7) 02/28/17 12:03 Seg Neutrophils # Man 10.3 K/mm3 (1.8-7.7) H 03/07/17 08:58 Band Neutrophils # 0.5 K/mm3 03/07/17 08:58 Lymphocytes # (Manual) 0.6 K/mm3 (1.2-5.4) L 03/07/17 08:58 Abs React Lymphs (Man) 0.0 K/mm3 03/07/17 08:58 Monocytes # (Manual) 0.5 K/mm3 (0.0-0.8) 03/07/17 08:58 Eosinophils # (Manual) 0.0 K/mm3 (0.0-0.4) 03/07/17 08:58 Basophils # (Manual) 0.0 K/mm3 (0.0-0.1) 03/07/17 08:58 Metamyelocytes # 0.0 K/mm3 03/07/17 08:58 Myelocytes # 0.0 K/mm3 03/07/17 08:58 Promyelocytes # 0.0 K/mm3 03/07/17 08:58 Blast Cells # 0.0 K/mm3 03/07/17 08:58 WBC Morphology Not Reportable 03/07/17 08:58 Hypersegmented Neuts Not Reportable 03/07/17 08:58 Hyposegmented Neuts Not Reportable 03/07/17 08:58 Hypogranular Neuts Not Reportable 03/07/17 08:58 Smudge Cells Not Reportable 03/07/17 08:58 Toxic Granulation Not Reportable 03/07/17 08:58 Toxic Vacuolation Not Reportable 03/07/17 08:58 Dohle Bodies Not Reportable 03/07/17 08:58 Pelger-Huet Anomaly Not Reportable 03/07/17 08:58 Linda Rods Not Reportable 03/07/17 08:58 Platelet Estimate Consistent w auto 03/07/17 08:58 Clumped Platelets Not Reportable 03/07/17 08:58 Plt Clumps, EDTA Not Reportable 03/07/17 08:58 Large Platelets Not Reportable 03/07/17 08:58 Giant Platelets Not Reportable 03/07/17 08:58 Platelet Satelliting Not Reportable 03/07/17 08:58 Plt Morphology Comment Not Reportable 03/07/17 08:58 RBC Morphology Not Reportable 03/07/17 08:58 Dimorphic RBCs Not Reportable 03/07/17 08:58 Polychromasia Not Reportable 03/07/17 08:58 Hypochromasia Not Reportable 03/07/17 08:58 Poikilocytosis Not Reportable 03/07/17 08:58 Anisocytosis 1+ 03/07/17 08:58 Microcytosis Not Reportable 03/07/17 08:58 Macrocytosis Not Reportable 03/07/17 08:58 Spherocytes Not Reportable 03/07/17 08:58 Pappenheimer Bodies Not Reportable 03/07/17 08:58 Sickle Cells Not Reportable 03/07/17 08:58 Target Cells Not Reportable 03/07/17 08:58 Tear Drop Cells Not Reportable 03/07/17 08:58 Ovalocytes Not Reportable 03/07/17 08:58 Stomatocytes Few 03/06/17 05:55 Helmet Cells Not Reportable 03/07/17 08:58 [place] Bodies Not Reportable 03/07/17 08:58 [place] Rings Not Reportable 03/07/17 08:58 Teri Cells Not Reportable 03/07/17 08:58 Bite Cells Not Reportable 03/07/17 08:58 Crenated Cell Not Reportable 03/07/17 08:58 Elliptocytes Not Reportable 03/07/17 08:58 Acanthocytes (Spur) Not Reportable 03/07/17 08:58 Rouleaux Not Reportable 03/07/17 08:58 Hemoglobin C Crystals Not Reportable 03/07/17 08:58 Schistocytes Not Reportable 03/07/17 08:58 Malaria parasites Not Reportable 03/07/17 08:58 Charlie Bodies Not Reportable 03/07/17 08:58 Hem Pathologist Commnt No 03/07/17 08:58 PT 16.3 Sec. (12.2-14.9) H 03/08/17 08:00 INR 1.32 (0.87-1.13) H 03/08/17 08:00 APTT 31.0 Sec. (24.2-36.6) 03/08/17 08:00 Fibrinogen 556 mg/dl (211-480) H 03/03/17 16:38 POC ABG pH 7.530 (7.35-7.45) H 03/05/17 16:18 POC ABG pCO2 36.0 (35-45) 03/05/17 16:18 POC ABG pO2 65 (80-105) L 03/05/17 16:18 POC ABG HCO3 30.1 03/05/17 16:18 POC ABG Total CO2 31 03/05/17 16:18 POC ABG O2 Sat 95 03/05/17 16:18 POC ABG Base Excess 7 03/05/17 16:18 FiO2 21 % 03/05/17 16:18 Sodium 147 mmol/L (137-145) H 03/08/17 09:38 Potassium 3.0 mmol/L (3.6-5.0) L 03/08/17 09:38 Chloride 102.7 mmol/L (98-107) 03/08/17 09:38 Carbon Dioxide 32 mmol/L (22-30) H 03/08/17 09:38 Anion Gap 15 mmol/L 03/08/17 09:38 BUN 16 mg/dL (7-17) 03/08/17 09:38 Creatinine 0.3 mg/dL (0.7-1.2) L 03/08/17 09:38 Estimated GFR > 60 ml/min 03/08/17 09:38 BUN/Creatinine Ratio 53.33 % 03/08/17 09:38 Glucose 116 mg/dL (65-100) H 03/08/17 09:38 POC Glucose 133 (70-105) H 03/08/17 05:44 Lactic Acid 2.30 mmol/L (0.7-2.0) H* 03/02/17 05:00 Calcium 7.4 mg/dL (8.4-10.2) L 03/08/17 09:38 Phosphorus 2.70 mg/dL (2.5-4.5) D 03/08/17 09:38 Magnesium 1.20 mg/dL (1.7-2.3) L 03/08/17 09:38 Iron 19 ug/dL (37-170) L 03/02/17 12:15 TIBC 96 mcg/dL (250-450) L 03/02/17 12:15 Ferritin 1802.0 ng/mL (13.0-400.0) H 03/02/17 12:15 Total Bilirubin 1.50 mg/dL (0.1-1.2) H 03/07/17 08:58 Direct Bilirubin 2.9 mg/dL (0-0.2) H 03/04/17 11:22 Indirect Bilirubin 1.1 mg/dL 03/04/17 11:22 AST 99 units/L (5-40) H 03/07/17 08:58 ALT 119 units/L (7-56) H 03/07/17 08:58 Alkaline Phosphatase 113 units/L (35-129) 03/07/17 08:58 Total Creatine Kinase 56 units/L (30-135) 02/28/17 12:03 CK-MB (CK-2) 1.4 ng/mL (0.0-4.0) 02/28/17 12:03 CK-MB (CK-2) Rel Index 2.5 (0-4) 02/28/17 12:03 Troponin T < 0.010 ng/mL (0.00-0.029) 02/28/17 12:03 C-Reactive Protein 22.50 mg/dL (0.00-1.30) H 03/03/17 04:00 NT-Pro-B Natriuret Pep 02982 pg/mL (0-450) H 03/06/17 12:32 Total Protein 5.7 g/dL (6.3-8.2) L 03/07/17 08:58 Albumin 2.8 g/dL (3.9-5) L 03/07/17 08:58 Albumin/Globulin Ratio 1.0 % 03/07/17 08:58 Bdmaw-0-Osikfroopdn 257 mg/dL (83-199) H 03/02/17 12:15 Ceruloplasmin 32 mg/dL (18-53) 03/02/17 12:15 Lipase 7 units/L (13-60) L 03/03/17 04:00 TSH 58.000 mlU/mL (0.270-4.200) H 02/28/17 12:03 Free T4 0.41 ng/dL (0.76-1.46) L 02/28/17 12:03 HCG, Qual Negative (Negative) 02/28/17 12:03 Urine Color Yellow (Yellow) 02/28/17 11:40 Urine Turbidity Cloudy (Clear) 02/28/17 11:40 Urine pH 5.0 (5.0-7.0) 02/28/17 11:40 Ur Specific [place] 1.015 (1.003-1.030) 02/28/17 11:40 Urine Protein 100 mg/dl mg/dL (Negative) 02/28/17 11:40 Urine Glucose (UA) Neg mg/dL (Negative) 02/28/17 11:40 Urine Ketones Neg mg/dL (Negative) 02/28/17 11:40 Urine Blood Sm (Negative) 02/28/17 11:40 Urine Nitrite Neg (Negative) 02/28/17 11:40 Urine Bilirubin Neg (Negative) 02/28/17 11:40 Urine Urobilinogen < 2.0 mg/dL (<2.0) 02/28/17 11:40 Ur Leukocyte Esterase Lg (Negative) 02/28/17 11:40 Urine WBC (Auto) 80.0 /HPF (0.0-6.0) H 02/28/17 11:40 Urine RBC (Auto) 4.0 /HPF (0.0-6.0) 02/28/17 11:40 U Epithel Cells (Auto) 1.0 /HPF (0-13.0) 02/28/17 11:40 Urine Bacteria (Auto) 1+ /HPF (Negative) 02/28/17 11:40 Urine Mucus 1+ /HPF 02/28/17 11:40 Fluid Type Ascitic 03/04/17 Unknown Fluid Color Yellow 03/04/17 Unknown Fluid Appearance Hazy 03/04/17 Unknown Fluid WBC 485 /mm3 03/04/17 Unknown Fluid RBC 1950 /mm3 03/04/17 Unknown Fluid Seg Neutrophils 82.0 % 03/04/17 Unknown Fluid Lymphocytes 6.0 % 03/04/17 Unknown Fluid Reactive Lymphs 0 % 03/04/17 Unknown Fluid Monocytes 12.0 % 03/04/17 Unknown Fluid Eosinophils 0 % 03/04/17 Unknown Fluid Basophils 0 % 03/04/17 Unknown Vancomycin Trough 19.3 ug/mL (5.0-20.0) 03/06/17 18:25 Random Vancomycin 5.7 ug/mL (0-40.0) 03/01/17 12:53 Urine Opiates Screen Presumptive negative 03/05/17 02:55 Urine Methadone Screen Presumptive negative 03/05/17 02:55 Ur Barbiturates Screen Presumptive negative 03/05/17 02:55 Ur Phencyclidine Scrn Presumptive negative 03/05/17 02:55 Ur Amphetamines Screen Presumptive negative 03/05/17 02:55 U Benzodiazepines Scrn Presumptive negative 03/05/17 02:55 Urine Cocaine Screen Presumptive negative 03/05/17 02:55 U Marijuana (THC) Screen Presumptive negative 03/05/17 02:55 Drugs of Abuse Note Disclamer 03/05/17 02:55 RIVER Screen Positive (Negative) H 03/02/17 12:15 RIVER Titer 1:80 (Negative) 03/02/17 12:15 RIVER Pattern Speckled 03/02/17 12:15 Actin IgG Antibody <20 U (<20) 03/02/17 12:15 Hep Bs Antigen Non-reactive (Negative) 03/02/17 12:15 Hep B Core Total Ab Nonreactive (Nonreactive) 03/02/17 12:15 Hepatitis C Antibody Non-reactive (NonReactive) 03/02/17 12:15 Monoscreen Negative (Negative) 03/05/17 06:25 HIV 1&2 Antibody Rapid Non react (Non React) 03/04/17 19:18 HIV P24 Antigen Non react (Non React) 03/04/17 19:18 Miscellaneous Test Flexitest 1 03/02/17 12:22 Blood Type O POSITIVE 02/28/17 12:03 Antibody Screen TNR 02/28/17 12:03 TEJAL Antibody Screen Negative 02/28/17 12:03 Crossmatch See Detail 02/28/17 12:03
[2017-03-08] MEDS: POTASSIUM CHLORIDE FEEDTUBE SCH ×2 (11:13→21:51)
--- NOTE | 2017-03-08 11:25 | Progress Note ---
Subjective - Reason for Consult Consult date: 03/08/17 Reason for consult: Psychiatry Follow-up - Chief Complaint Chief complaint: "Hello" 26 YO Female seen in the intensive care unit for psychiatric evaluation. It was reported that she has been agitated and restless. Today patient is calm during the assessment. She was able to answer a couple questions asked of her. She wasn't able to recall 3 numbers (2, 7, 10) within 5 mins or ID the current [place] President. She denies alcohol use and recreational drug use. She stated that she live with a friend and have children. She denies SI/HI's and AVH's. Per her assigned RN, no behavioral disturbance on her shift so far. Mental Status Exam - Vital signs Last Vital Signs Temp 97.8 F 03/08/17 08:00 Pulse 84 03/08/17 08:00 Resp 20 03/08/17 08:00 BP 119/78 03/08/17 08:00 Pulse Ox 98 03/08/17 08:00 - Exam Narrative exam: MSE: Appearance: calm, cooperative Behavior: regular eye contact Speech: regular rate and tone Mood: "don't feel well" Affect: labile Thought Process: circumstantial Thought Content: denies SI/HI's and AVH's, disorganized Motor Activity: lying in bed Cognition: A/Ox 2 Insight: impaired Judgment: impaired Assessment and Plan Impression: Encephalopathy related to current medical condition. Today patient is calm during the assessment. Alcohol withdrawal is not likely given the amount of time she has been in the hospital. UDS negative. No initial alcohol serum available while in the ER. Elevated AST/ALT's. Recommendations: Once alert and oriented, evaluation for depression and substance use disorder. 1013 not recommended. Avoid ativan and D/C CIWA ( patient been hospitalized since 02/28/2017). Modified Haldol to 2.5 IM Q4hrs PRN for agitation. The following are recommended for reduction of symptoms of delirium: 1. Frequently reorient patient and involve him/her in their care (simple explanations of procedures, tests, medications). 2. Lights on and shades open during daytime hours. 3. Try to avoid unnecessary interruptions to sleep during nighttime hours. 4. Obtain glasses, hearing aids from home if patient uses these at baseline. 5. Avoid medications that may exacerbate delirium (especially narcotics ( morphine) - use alternative medication for pain if possible, benzodiazepines, barbiturates, ambien, lunesta, and medications with excessive anticholinergic properties).
--- NOTE | 2017-03-08 11:39 | Progress Note ---
Assessment and Plan 26 y/o female, admitted with sepsis, with shock, thought secondary to urinary source, now with persistent altered mental status. 1. Follow up LP 2. Hemodynamically stable but, not safe for floor 3. Replace electrolytes aggressive, especially with changes in mental state. 4. Nutrition 5. overall prognosis is guarded. Subjective Date of service: 03/08/17 Principal diagnosis: Septic Shock; E coli Bacteremia Interval history: patient remains confused. In 4 point restraints. Labs not done this am. Per nursing, scheduled for LP given persistent change in mental status. Objective - Constitutional Vitals: Vital Signs - 12hr 03/07/17 03/08/17 03/08/17 23:45 00:00 00:15 Temperature 97.8 F Pulse Rate 101 H 96 H 99 H Pulse Rate [ Bilateral Throughout] Pulse Rate [ 110 H From Monitor] Pulse Rate [ Radial] Respiratory 18 16 19 Rate Respiratory Rate [Abdomen] Respiratory Rate [Bilateral Throughout] Blood Pressure 117/84 115/75 115/75 O2 Sat by Pulse 100 99 99 Oximetry 03/08/17 03/08/17 03/08/17 00:31 00:45 01:00 Temperature Pulse Rate 100 H 97 H 111 H Pulse Rate [ Bilateral Throughout] Pulse Rate [ From Monitor] Pulse Rate [ Radial] Respiratory 18 19 21 Rate Respiratory Rate [Abdomen] Respiratory Rate [Bilateral Throughout] Blood Pressure 115/75 115/75 99/65 O2 Sat by Pulse 99 100 97 Oximetry 03/08/17 03/08/17 03/08/17 01:15 01:31 01:45 Temperature Pulse Rate 119 H 101 H 119 H Pulse Rate [ Bilateral Throughout] Pulse Rate [ From Monitor] Pulse Rate [ Radial] Respiratory 32 H 23 18 Rate Respiratory Rate [Abdomen] Respiratory Rate [Bilateral Throughout] Blood Pressure 115/75 115/75 99/65 O2 Sat by Pulse 100 96 Oximetry 03/08/17 03/08/17 03/08/17 02:00 02:19 02:31 Temperature Pulse Rate 117 H 104 H Pulse Rate [ Bilateral Throughout] Pulse Rate [ From Monitor] Pulse Rate [ Radial] Respiratory 27 H 20 Rate Respiratory Rate [Abdomen] Respiratory Rate [Bilateral Throughout] Blood Pressure 99/65 99/65 99/65 O2 Sat by Pulse 74 L 100 Oximetry 03/08/17 03/08/17 03/08/17 02:45 03:01 03:15 Temperature Pulse Rate 111 H 110 H 102 H Pulse Rate [ Bilateral Throughout] Pulse Rate [ From Monitor] Pulse Rate [ Radial] Respiratory 23 17 23 Rate Respiratory Rate [Abdomen] Respiratory Rate [Bilateral Throughout] Blood Pressure 99/65 99/65 99/65 O2 Sat by Pulse 100 100 100 Oximetry 03/08/17 03/08/17 03/08/17 03:31 03:45 04:00 Temperature 98.0 F Pulse Rate 92 H 90 Pulse Rate [ Bilateral Throughout] Pulse Rate [ From Monitor] Pulse Rate [ Radial] Respiratory 18 21 Rate Respiratory Rate [Abdomen] Respiratory Rate [Bilateral Throughout] Blood Pressure 99/65 99/65 O2 Sat by Pulse 100 100 Oximetry 03/08/17 03/08/17 03/08/17 04:01 04:15 04:31 Temperature Pulse Rate 92 H 92 H 90 Pulse Rate [ Bilateral Throughout] Pulse Rate [ From Monitor] Pulse Rate [ Radial] Respiratory 20 20 18 Rate Respiratory Rate [Abdomen] Respiratory Rate [Bilateral Throughout] Blood Pressure 99/65 99/65 99/65 O2 Sat by Pulse 100 100 100 Oximetry 03/08/17 03/08/17 03/08/17 04:45 05:01 05:15 Temperature Pulse Rate 88 88 94 H Pulse Rate [ Bilateral Throughout] Pulse Rate [ From Monitor] Pulse Rate [ Radial] Respiratory 20 19 17 Rate Respiratory Rate [Abdomen] Respiratory Rate [Bilateral Throughout] Blood Pressure 99/65 99/65 99/65 O2 Sat by Pulse 100 99 100 Oximetry 03/08/17 03/08/17 03/08/17 05:31 05:45 06:01 Temperature Pulse Rate 99 H 104 H 110 H Pulse Rate [ Bilateral Throughout] Pulse Rate [ From Monitor] Pulse Rate [ Radial] Respiratory 27 H 24 20 Rate Respiratory Rate [Abdomen] Respiratory Rate [Bilateral Throughout] Blood Pressure 99/65 99/65 99/65 O2 Sat by Pulse 100 100 100 Oximetry 03/08/17 03/08/17 03/08/17 06:15 06:31 06:45 Temperature Pulse Rate 90 89 108 H Pulse Rate [ Bilateral Throughout] Pulse Rate [ From Monitor] Pulse Rate [ Radial] Respiratory 22 24 17 Rate Respiratory Rate [Abdomen] Respiratory Rate [Bilateral Throughout] Blood Pressure 99/65 99/65 99/65 O2 Sat by Pulse 100 100 100 Oximetry 03/08/17 03/08/17 03/08/17 07:01 07:15 07:31 Temperature Pulse Rate 84 87 98 H Pulse Rate [ Bilateral Throughout] Pulse Rate [ From Monitor] Pulse Rate [ Radial] Respiratory 18 19 19 Rate Respiratory Rate [Abdomen] Respiratory Rate [Bilateral Throughout] Blood Pressure 99/65 99/65 99/65 O2 Sat by Pulse 100 100 100 Oximetry 03/08/17 03/08/17 03/08/17 07:32 07:33 07:36 Temperature Pulse Rate Pulse Rate [ 101 H Bilateral Throughout] Pulse Rate [ From Monitor] Pulse Rate [ Radial] Respiratory Rate Respiratory Rate [Abdomen] Respiratory 20 Rate [Bilateral Throughout] Blood Pressure O2 Sat by Pulse 100 100 Oximetry 03/08/17 03/08/17 03/08/17 07:42 07:45 08:00 Temperature 97.8 F Pulse Rate 114 H 112 H Pulse Rate [ 105 H Bilateral Throughout] Pulse Rate [ From Monitor] Pulse Rate [ 84 Radial] Respiratory 21 25 H Rate Respiratory Rate [Abdomen] Respiratory 24 Rate [Bilateral Throughout] Blood Pressure 119/78 115/67 O2 Sat by Pulse 100 100 Oximetry 03/08/17 03/08/17 03/08/17 08:15 08:31 08:45 Temperature Pulse Rate 113 H 106 H 107 H Pulse Rate [ Bilateral Throughout] Pulse Rate [ From Monitor] Pulse Rate [ Radial] Respiratory 23 25 H 36 H Rate Respiratory Rate [Abdomen] Respiratory Rate [Bilateral Throughout] Blood Pressure 115/67 115/67 115/67 O2 Sat by Pulse 100 98 97 Oximetry 03/08/17 03/08/17 03/08/17 09:00 09:15 09:31 Temperature Pulse Rate 112 H 99 H 95 H Pulse Rate [ Bilateral Throughout] Pulse Rate [ From Monitor] Pulse Rate [ Radial] Respiratory 19 28 H 19 Rate Respiratory Rate [Abdomen] Respiratory Rate [Bilateral Throughout] Blood Pressure 102/71 102/71 102/71 O2 Sat by Pulse 96 100 100 Oximetry 03/08/17 03/08/17 03/08/17 09:45 10:00 10:15 Temperature Pulse Rate 95 H 90 93 H Pulse Rate [ Bilateral Throughout] Pulse Rate [ From Monitor] Pulse Rate [ Radial] Respiratory 18 23 17 Rate Respiratory 20 Rate [Abdomen] Respiratory Rate [Bilateral Throughout] Blood Pressure 102/71 110/67 110/67 O2 Sat by Pulse 100 99 99 Oximetry 03/08/17 03/08/17 03/08/17 10:31 10:45 11:00 Temperature Pulse Rate 93 H 94 H 89 Pulse Rate [ Bilateral Throughout] Pulse Rate [ From Monitor] Pulse Rate [ Radial] Respiratory 17 19 27 H Rate Respiratory Rate [Abdomen] Respiratory Rate [Bilateral Throughout] Blood Pressure 110/67 110/67 114/76 O2 Sat by Pulse 100 99 100 Oximetry 03/08/17 11:15 Temperature Pulse Rate 89 Pulse Rate [ Bilateral Throughout] Pulse Rate [ From Monitor] Pulse Rate [ Radial] Respiratory 18 Rate Respiratory Rate [Abdomen] Respiratory Rate [Bilateral Throughout] Blood Pressure 114/76 O2 Sat by Pulse 100 Oximetry General appearance: Present: no acute distress - EENT ENT: hearing intact - Neck Neck: supple - Respiratory Respiratory effort: normal Respiratory: bilateral: CTA - Breasts Breasts: deferred - Cardiovascular Rhythm: regular Extremities: no ischemia - Gastrointestinal General gastrointestinal: Present: deferred Rectal Exam: deferred - Genitourinary Female genitourinary: deferred - Labs CBC & Chem 7: 03/07/17 08:58 03/08/17 09:38 Labs: Abnormal lab results 03/07/17 03/08/17 03/08/17 Range/Units 23:51 05:44 08:00 PT 16.3 H (12.2-14.9) Sec. INR 1.32 H (0.87-1.13) Sodium (137-145) mmol/L Potassium (3.6-5.0) mmol/L Carbon Dioxide (22-30) mmol/L Creatinine (0.7-1.2) mg/dL Glucose (65-100) mg/dL POC Glucose 116 H 133 H (70-105) Calcium (8.4-10.2) mg/dL Magnesium (1.7-2.3) mg/dL 03/08/17 Range/Units 09:38 PT (12.2-14.9) Sec. INR (0.87-1.13) Sodium 147 H (137-145) mmol/L Potassium 3.0 L (3.6-5.0) mmol/L Carbon Dioxide 32 H (22-30) mmol/L Creatinine 0.3 L (0.7-1.2) mg/dL Glucose 116 H (65-100) mg/dL POC Glucose (70-105) Calcium 7.4 L (8.4-10.2) mg/dL Magnesium 1.20 L (1.7-2.3) mg/dL
[2017-03-08] MEDS ORDERED: HALDOL IM PRN (11:41)
[2017-03-08] MEDS ORDERED: MAGNESIUM SULFATE 4GM/100ML 4 GM/100 ML BAG IV ONE ×2 (12:00→18:00)
--- NOTE | 2017-03-08 12:15 | Progress Note ---
Assessment and Plan - Patient Problems (1) Bacteremia due to Escherichia coli Current Visit: Yes Status: Acute Plan to address problem: 1. Will change to oral Levaquin to complete course through March 14, 2017. Levaquin has adequate oral bioavailability. 2. I will sign off. Please call again if there are additional questions or concerns. (2) Septic shock Current Visit: Yes Status: Acute Plan to address problem: Resolved. Off pressors. (3) Delirium Current Visit: Yes Status: Acute Plan to address problem: Resolved. Question crystal meth vs. alcohol delirium. Cancelling lumbar puncture. Subjective Date of service: 03/08/17 Principal diagnosis: Septic Shock; E coli Bacteremia Interval history: Remains in ICU. Level of alertness and orientation are improved and resolved to normal. Objective - Constitutional Vitals: Vital Signs Temp Pulse Resp BP Pulse Ox 98.7 F 96 H 29 H 114/76 99 03/08/17 11:32 03/08/17 11:45 03/08/17 11:45 03/08/17 11:45 03/08/17 11:45 Temperature -Last 24 Hours Temperature 98.7 F Temperature 97.8 F Temperature 98.0 F Temperature 97.8 F Temperature 97.8 F Temperature 98.7 F General appearance: Present: no acute distress, other (non-toxic appearance) - EENT ENT: other (Dobhoff tube replaced) - Neck Neck: supple - Respiratory Respiratory effort: other (mild retractions noted bilat) Respiratory: bilateral: rhonchi (mild) - Cardiovascular Rhythm: regular Heart Sounds: Present: S1 & S2 Extremities: No edema - Gastrointestinal General gastrointestinal: Present: soft, non-tender, non-distended - Genitourinary Female genitourinary: normal ([place] with yellow urine) - Integumentary Integumentary: jaundice, no rash - Neurologic Neurologic: moves all extremities - Additional findings Additional findings: PICC right arm without surrounding inflammation - Labs CBC & Chem 7: 03/07/17 08:58 03/08/17 09:38 Labs: Abnormal lab results 03/07/17 03/08/17 03/08/17 Range/Units 23:51 05:44 08:00 PT 16.3 H (12.2-14.9) Sec. INR 1.32 H (0.87-1.13) Sodium (137-145) mmol/L Potassium (3.6-5.0) mmol/L Carbon Dioxide (22-30) mmol/L Creatinine (0.7-1.2) mg/dL Glucose (65-100) mg/dL POC Glucose 116 H 133 H (70-105) Calcium (8.4-10.2) mg/dL Magnesium (1.7-2.3) mg/dL 03/08/17 03/08/17 Range/Units 09:38 11:53 PT (12.2-14.9) Sec. INR (0.87-1.13) Sodium 147 H (137-145) mmol/L Potassium 3.0 L (3.6-5.0) mmol/L Carbon Dioxide 32 H (22-30) mmol/L Creatinine 0.3 L (0.7-1.2) mg/dL Glucose 116 H (65-100) mg/dL POC Glucose 146 H (70-105) Calcium 7.4 L (8.4-10.2) mg/dL Magnesium 1.20 L (1.7-2.3) mg/dL Microbiology 03/04/17 Unknown Ascities Fluid Body Fluid Culture - Final 03/02/17 14:55 Peripheral/Venous Blood Culture - Final NO GROWTH AFTER 5 DAYS 03/02/17 14:48 Peripheral/Venous Blood Culture - Final NO GROWTH AFTER 5 DAYS 02/28/17 23:15 Peripheral/Venous Blood Culture - Final NO GROWTH AFTER 5 DAYS 02/28/17 11:40 Urine,[place] Port Urine Culture - Final Escherichia Coli 02/28/17 11:15 Peripheral/Venous Blood Culture - Final Escherichia Coli
[2017-03-08] MEDS: LEVAQUIN PO SCH (13:12)
[2017-03-08] MEDS: MORPHINE IV PRN (16:58)
[2017-03-08] MEDS ORDERED: POTASSIUM CHLORIDE FEEDTUBE ONE (22:00)
[2017-03-08 23:45] LABS: Total Protein,Body Fluid < 3.0 (15.0-45.0)
[2017-03-09] MEDS: SYNTHROID PO SCH (06:00)
[2017-03-09 06:17] LABS: Anion Gap 14 mmol/L; Blood Urea Nitrogen 15 mg/dL (7-17); Calcium 7.8 mg/dL (8.4-10.2); Carbon Dioxide 29 mmol/L (22-30); Chloride 107.1 mmol/L (98-107); Glucose 90 mg/dL (65-100); Potassium 3.3 mmol/L (3.6-5.0); Sodium 147 mmol/L (137-145)
[2017-03-09] MEDS: LASIX IV SCH ×2 (08:31→18:52)
[2017-03-09] MEDS: DUONEB *Not for PRN Use IH SCH ×3 (09:24→20:12)
[2017-03-09] MEDS: LOVENOX SUB-Q SCH (09:40)
[2017-03-09] MEDS ORDERED: MAGNESIUM SULFATE 4GM/100ML 4 GM/100 ML BAG IV ONE (10:00)
[2017-03-09] MEDS ORDERED: KPHOS 45 MMOL in NACL 0.9% 500 ML 500 ML IV ONE ×2 (10:00→10:27)
[2017-03-09] MEDS ORDERED: MAGNESIUM SULFATE 1 GM in NACL 0.9% 50 ML IV ONE (10:27)
--- NOTE | 2017-03-09 10:27 | Progress Note ---
Assessment and Plan Assessment and plan: 26 YO Female with Hypothyroidism presents to ED for evaluation. Pt states that she has experienced nausea, vomiting, and multiple episodes of loose stools over 5 days with worsening symptoms over the past 8 hours. She was admitted for sepsis, aspirin her cousin she was not compliant with Synthroid at home because she does not have insurance. Her Cousin believes she has a history of polysubstance abuse, including etoh Severe Gram-negative septicemia/UTI * ID input appreciated, continue broad-spectrum antibiotics and antifungals * Blood and urine cx growing Ecoli which is sens to levaquin which patient is on , continue till 03/14 * mononucleosis screen negative * CT head and CTA neck negative * case discussed with ID * RIVER positive, titer was 1:80, with speckled pattern, will need outpatient fup Septic shock * improved, and was weaned off pressors Shock Liver. Abdominal pain * resolving, jaudice resolving * pancreatitis ruled out- lipase was negative * Viral Hepatitis serologies negative, HIV negative * GI consult appreciated * CT abdomen and pelvis; Large pleural effusions and moderate ascites. Right pyelonephritis seen. Proximal colon is thickened consistent with nonspecific colitis. Ascites * Status post paracentesis on 03/04, appeared to be a traumatic tap, but absolute neutrophil count is only 82 dear for not consistent with SBP, and not a contributor to sepsis. Fluid overload continue lasix Delirium tremens/alcohol withdrawal * resolving, continue ciwa protocol with haldol, avoid benzos Metabolic encephalopathy * Most likely due to sepsis and delirium tremens, continue supportive care, improving * psych input appreciated, Ativan is likely making her delirium worse. She has been transitioned to Haldol when necessary for agitation. Severe hypothyroidism * Continue thyroid replacement therapy * recheck TFTs today Severe Metabolic Acidosis * improved sp Sodium bicarb Recent * pelvic and transvaginal ultrasound were performed and did not show any remnants, therefore not a contributor to sepsis Severe malnutrition * has passed bedside swallow eval, start pureed diet * speech and swallow consult Electrolyte derrangement- Hypokalemia, Hypocalcemia, hypomagnesemia, Hypophosphatemia * Continue to replete electrolytes as necessary daily, and medically rx * pseudohypocalcemia due to low albumin, corrected Ca is 8.1 Acute Kidney Injury * Resolved with IVF. secondary to vasomotor nephropathy Hypoglycemia * resolved with dextrose * Prognosis is fair, case discussed with her cousin Karla Darden, her phone number is [phone]. Her parents are in [place] and not currently reachable. I have provided letters for her father and mother to take to the consulate so that they may obtain visas to visit their daughter The high probability of a clinically significant, sudden or life threatening deterioration of the [VASCULAR, ENDOCRINE, GI ] system(s) required my full and direct attention, intervention and personal management. The aggregate critical care time was [35] minutes. This time is in addition to time spent performing reported procedures but includes the following: [X] Data Review and interpretation [X] Patient assessment and monitoring of vital signs [X] Documentation [X] Medication orders and management History Interval history: The patient is awake alert oriented to person and place, pleasant and apparently pulled out her NG tube. She wants to eat food Hospitalist Physical - Physical exam Narrative exam: General: somnolent HEENT: MMM, EOMI, scleral icterus has now resolved cardiac: S1-S2 heard lungs: clear to auscultation, abdomen: soft, nontender, moderately distended with shifting dullness bowel sounds positive extremities: Nonpitting, doughy edema of lower extremities Skin: no rash or lesion Neuro: Awake alert oriented 2, pleasant and cooperative. Moves all extremities , no focal deficits Psych, pleasant and cooperative - Constitutional Vitals: Temp Pulse Resp BP Pulse Ox 98.3 F 96 H 23 109/71 100 03/09/17 08:00 03/09/17 09:00 03/09/17 09:00 03/09/17 09:00 03/09/17 08:31 General appearance: Present: no acute distress, other (in 4-point restraints) Results - Labs CBC & Chem 7: 03/07/17 08:58 03/09/17 05:30 Labs: Laboratory Last Values WBC 11.8 K/mm3 (4.5-11.0) H 03/07/17 08:58 RBC 3.12 M/mm3 (3.65-5.03) L 03/07/17 08:58 Hgb 8.9 gm/dl (10.1-14.3) L 03/07/17 08:58 Hct 27.5 % (30.3-42.9) L 03/07/17 08:58 MCV 88 fl (79-97) 03/07/17 08:58 MCH 29 pg (28-32) 03/07/17 08:58 MCHC 32 % (30-34) 03/07/17 08:58 RDW 14.5 % (13.2-15.2) 03/07/17 08:58 Plt Count 138 K/mm3 (140-440) L 03/07/17 08:58 Lymph % (Auto) 22.8 % (13.4-35.0) 02/28/17 12:03 [place] % (Auto) 2.2 % (0.0-7.3) 02/28/17 12:03 Eos % (Auto) 1.2 % (0.0-4.3) 02/28/17 12:03 Baso % (Auto) 0.2 % (0.0-1.8) 02/28/17 12:03 Lymph # 1.2 K/mm3 (1.2-5.4) 02/28/17 12:03 [place] # 0.1 K/mm3 (0.0-0.8) 02/28/17 12:03 Eos # 0.1 K/mm3 (0.0-0.4) 02/28/17 12:03 Baso # 0.0 K/mm3 (0.0-0.1) 02/28/17 12:03 Add Manual Diff Complete 03/07/17 08:58 Total Counted 100 03/07/17 08:58 Seg Neutrophils % History Card Clerk 03/07/17 08:58 Seg Neuts % (Manual) 87.0 % (40.0-70.0) H 03/07/17 08:58 Band Neutrophils % 4.0 % 03/07/17 08:58 Lymphocytes % (Manual) 5.0 % (13.4-35.0) L 03/07/17 08:58 Reactive Lymphs % (Man) 0 % 03/07/17 08:58 Monocytes % (Manual) 4.0 % (0.0-7.3) 03/07/17 08:58 Eosinophils % (Manual) 0 % (0.0-4.3) 03/07/17 08:58 Basophils % (Manual) 0 % (0.0-1.8) 03/07/17 08:58 Metamyelocytes % 0 % 03/07/17 08:58 Myelocytes % 0 % 03/07/17 08:58 Promyelocytes % 0 % 03/07/17 08:58 Blast Cells % 0 % 03/07/17 08:58 Nucleated RBC % 1.0 % (0.0-0.9) H 03/07/17 08:58 Seg Neutrophils # 3.8 K/mm3 (1.8-7.7) 02/28/17 12:03 Seg Neutrophils # Man 10.3 K/mm3 (1.8-7.7) H 03/07/17 08:58 Band Neutrophils # 0.5 K/mm3 03/07/17 08:58 Lymphocytes # (Manual) 0.6 K/mm3 (1.2-5.4) L 03/07/17 08:58 Abs React Lymphs (Man) 0.0 K/mm3 03/07/17 08:58 Monocytes # (Manual) 0.5 K/mm3 (0.0-0.8) 03/07/17 08:58 Eosinophils # (Manual) 0.0 K/mm3 (0.0-0.4) 03/07/17 08:58 Basophils # (Manual) 0.0 K/mm3 (0.0-0.1) 03/07/17 08:58 Metamyelocytes # 0.0 K/mm3 03/07/17 08:58 Myelocytes # 0.0 K/mm3 03/07/17 08:58 Promyelocytes # 0.0 K/mm3 03/07/17 08:58 Blast Cells # 0.0 K/mm3 03/07/17 08:58 WBC Morphology Not Reportable 03/07/17 08:58 Hypersegmented Neuts Not Reportable 03/07/17 08:58 Hyposegmented Neuts Not Reportable 03/07/17 08:58 Hypogranular Neuts Not Reportable 03/07/17 08:58 Smudge Cells Not Reportable 03/07/17 08:58 Toxic Granulation Not Reportable 03/07/17 08:58 Toxic Vacuolation Not Reportable 03/07/17 08:58 Dohle Bodies Not Reportable 03/07/17 08:58 Pelger-Huet Anomaly Not Reportable 03/07/17 08:58 Linda Rods Not Reportable 03/07/17 08:58 Platelet Estimate Consistent w auto 03/07/17 08:58 Clumped Platelets Not Reportable 03/07/17 08:58 Plt Clumps, EDTA Not Reportable 03/07/17 08:58 Large Platelets Not Reportable 03/07/17 08:58 Giant Platelets Not Reportable 03/07/17 08:58 Platelet Satelliting Not Reportable 03/07/17 08:58 Plt Morphology Comment Not Reportable 03/07/17 08:58 RBC Morphology Not Reportable 03/07/17 08:58 Dimorphic RBCs Not Reportable 03/07/17 08:58 Polychromasia Not Reportable 03/07/17 08:58 Hypochromasia Not Reportable 03/07/17 08:58 Poikilocytosis Not Reportable 03/07/17 08:58 Anisocytosis 1+ 03/07/17 08:58 Microcytosis Not Reportable 03/07/17 08:58 Macrocytosis Not Reportable 03/07/17 08:58 Spherocytes Not Reportable 03/07/17 08:58 Pappenheimer Bodies Not Reportable 03/07/17 08:58 Sickle Cells Not Reportable 03/07/17 08:58 Target Cells Not Reportable 03/07/17 08:58 Tear Drop Cells Not Reportable 03/07/17 08:58 Ovalocytes Not Reportable 03/07/17 08:58 Stomatocytes Few 03/06/17 05:55 Helmet Cells Not Reportable 03/07/17 08:58 Sal-Sachse Bodies Not Reportable 03/07/17 08:58 [place] Rings Not Reportable 03/07/17 08:58 Teri Cells Not Reportable 03/07/17 08:58 Bite Cells Not Reportable 03/07/17 08:58 Crenated Cell Not Reportable 03/07/17 08:58 Elliptocytes Not Reportable 03/07/17 08:58 Acanthocytes (Spur) Not Reportable 03/07/17 08:58 Rouleaux Not Reportable 03/07/17 08:58 Hemoglobin C Crystals Not Reportable 03/07/17 08:58 Schistocytes Not Reportable 03/07/17 08:58 Malaria parasites Not Reportable 03/07/17 08:58 Charlie Bodies Not Reportable 03/07/17 08:58 Hem Pathologist Commnt No 03/07/17 08:58 PT 16.3 Sec. (12.2-14.9) H 03/08/17 08:00 INR 1.32 (0.87-1.13) H 03/08/17 08:00 APTT 31.0 Sec. (24.2-36.6) 03/08/17 08:00 Fibrinogen 556 mg/dl (211-480) H 03/03/17 16:38 POC ABG pH 7.530 (7.35-7.45) H 03/05/17 16:18 POC ABG pCO2 36.0 (35-45) 03/05/17 16:18 POC ABG pO2 65 (80-105) L 03/05/17 16:18 POC ABG HCO3 30.1 03/05/17 16:18 POC ABG Total CO2 31 03/05/17 16:18 POC ABG O2 Sat 95 03/05/17 16:18 POC ABG Base Excess 7 03/05/17 16:18 FiO2 21 % 03/05/17 16:18 Sodium 147 mmol/L (137-145) H 03/09/17 05:30 Potassium 3.3 mmol/L (3.6-5.0) L 03/09/17 05:30 Chloride 107.1 mmol/L (98-107) H 03/09/17 05:30 Carbon Dioxide 29 mmol/L (22-30) 03/09/17 05:30 Anion Gap 14 mmol/L 03/09/17 05:30 BUN 15 mg/dL (7-17) 03/09/17 05:30 Creatinine 0.2 mg/dL (0.7-1.2) L 03/09/17 05:30 Estimated GFR > 60 ml/min 03/09/17 05:30 BUN/Creatinine Ratio 75.00 % 03/09/17 05:30 Glucose 90 mg/dL (65-100) 03/09/17 05:30 POC Glucose 105 (70-105) 03/09/17 05:33 Lactic Acid 2.30 mmol/L (0.7-2.0) H* 03/02/17 05:00 Calcium 7.8 mg/dL (8.4-10.2) L 03/09/17 05:30 Phosphorus 2.00 mg/dL (2.5-4.5) L D 03/09/17 05:30 Magnesium 1.70 mg/dL (1.7-2.3) 03/09/17 05:30 Iron 19 ug/dL (37-170) L 03/02/17 12:15 TIBC 96 mcg/dL (250-450) L 03/02/17 12:15 Ferritin 1802.0 ng/mL (13.0-400.0) H 03/02/17 12:15 Total Bilirubin 1.50 mg/dL (0.1-1.2) H 03/07/17 08:58 Direct Bilirubin 2.9 mg/dL (0-0.2) H 03/04/17 11:22 Indirect Bilirubin 1.1 mg/dL 03/04/17 11:22 AST 99 units/L (5-40) H 03/07/17 08:58 ALT 119 units/L (7-56) H 03/07/17 08:58 Alkaline Phosphatase 113 units/L (35-129) 03/07/17 08:58 Total Creatine Kinase 56 units/L (30-135) 02/28/17 12:03 CK-MB (CK-2) 1.4 ng/mL (0.0-4.0) 02/28/17 12:03 CK-MB (CK-2) Rel Index 2.5 (0-4) 02/28/17 12:03 Troponin T < 0.010 ng/mL (0.00-0.029) 02/28/17 12:03 C-Reactive Protein 22.50 mg/dL (0.00-1.30) H 03/03/17 04:00 NT-Pro-B Natriuret Pep 24009 pg/mL (0-450) H 03/06/17 12:32 Total Protein 5.7 g/dL (6.3-8.2) L 03/07/17 08:58 Albumin 2.8 g/dL (3.9-5) L 03/07/17 08:58 Albumin/Globulin Ratio 1.0 % 03/07/17 08:58 Peskd-3-[id number] 257 mg/dL (83-199) H 03/02/17 12:15 Ceruloplasmin 32 mg/dL (18-53) 03/02/17 12:15 Lipase 7 units/L (13-60) L 03/03/17 04:00 TSH 58.000 mlU/mL (0.270-4.200) H 02/28/17 12:03 Free T4 0.41 ng/dL (0.76-1.46) L 02/28/17 12:03 HCG, Qual Negative (Negative) 02/28/17 12:03 Urine Color Yellow (Yellow) 02/28/17 11:40 Urine Turbidity Cloudy (Clear) 02/28/17 11:40 Urine pH 5.0 (5.0-7.0) 02/28/17 11:40 Ur Specific [place] 1.015 (1.003-1.030) 02/28/17 11:40 Urine Protein 100 mg/dl mg/dL (Negative) 02/28/17 11:40 Urine Glucose (UA) Neg mg/dL (Negative) 02/28/17 11:40 Urine Ketones Neg mg/dL (Negative) 02/28/17 11:40 Urine Blood Sm (Negative) 02/28/17 11:40 Urine Nitrite Neg (Negative) 02/28/17 11:40 Urine Bilirubin Neg (Negative) 02/28/17 11:40 Urine Urobilinogen < 2.0 mg/dL (<2.0) 02/28/17 11:40 Ur Leukocyte Esterase Lg (Negative) 02/28/17 11:40 Urine WBC (Auto) 80.0 /HPF (0.0-6.0) H 02/28/17 11:40 Urine RBC (Auto) 4.0 /HPF (0.0-6.0) 02/28/17 11:40 U Epithel Cells (Auto) 1.0 /HPF (0-13.0) 02/28/17 11:40 Urine Bacteria (Auto) 1+ /HPF (Negative) 02/28/17 11:40 Urine Mucus 1+ /HPF 02/28/17 11:40 Fluid Type Ascitic 03/04/17 Unknown Fluid Color Yellow 03/04/17 Unknown Fluid Appearance Hazy 03/04/17 Unknown Fluid WBC 485 /mm3 03/04/17 Unknown Fluid RBC 1950 /mm3 03/04/17 Unknown Fluid Seg Neutrophils 82.0 % 03/04/17 Unknown Fluid Lymphocytes 6.0 % 03/04/17 Unknown Fluid Reactive Lymphs 0 % 03/04/17 Unknown Fluid Monocytes 12.0 % 03/04/17 Unknown Fluid Eosinophils 0 % 03/04/17 Unknown Fluid Basophils 0 % 03/04/17 Unknown Fluid Total Protein < 3.0 (15.0-45.0) L 03/04/17 Unknown Fluid Albumin 1.2 g/dL 03/04/17 Unknown Vancomycin Trough 19.3 ug/mL (5.0-20.0) 03/06/17 18:25 Random Vancomycin 5.7 ug/mL (0-40.0) 03/01/17 12:53 Urine Opiates Screen Presumptive negative 03/05/17 02:55 Urine Methadone Screen Presumptive negative 03/05/17 02:55 Ur Barbiturates Screen Presumptive negative 03/05/17 02:55 Ur Phencyclidine Scrn Presumptive negative 03/05/17 02:55 Ur Amphetamines Screen Presumptive negative 03/05/17 02:55 U Benzodiazepines Scrn Presumptive negative 03/05/17 02:55 Urine Cocaine Screen Presumptive negative 03/05/17 02:55 U Marijuana (THC) Screen Presumptive negative 03/05/17 02:55 Drugs of Abuse Note Disclamer 03/05/17 02:55 RIVER Screen Positive (Negative) H 03/02/17 12:15 RIVER Titer 1:80 (Negative) 03/02/17 12:15 RIVER Pattern Speckled 03/02/17 12:15 Actin IgG Antibody <20 U (<20) 03/02/17 12:15 Hep Bs Antigen Non-reactive (Negative) 03/02/17 12:15 Hep B Core Total Ab Nonreactive (Nonreactive) 03/02/17 12:15 Hepatitis C Antibody Non-reactive (NonReactive) 03/02/17 12:15 Monoscreen Negative (Negative) 03/05/17 06:25 HIV 1&2 Antibody Rapid Non react (Non React) 03/04/17 19:18 HIV P24 Antigen Non react (Non React) 03/04/17 19:18 Miscellaneous Test Flexitest 1 03/02/17 12:22 Blood Type O POSITIVE 02/28/17 12:03 Antibody Screen TNR 02/28/17 12:03 TEJAL Antibody Screen Negative 02/28/17 12:03 Crossmatch See Detail 02/28/17 12:03
--- NOTE | 2017-03-09 11:32 | Progress Note ---
Assessment and Plan 26 y/o female, admitted with sepsis, with shock, thought secondary to urinary source, now with persistent altered mental status. 1. If ok with psych, would suggest increasing haldol to 5 and change frequency to q6 2. Bedside swallow evaluation, if passes, will feed 3. Replace electrolytes aggressive, especially with changes in mental state. Will give free water as well but if eating will be able to drink 4. Stable for transfer to floor. Will sign off once out of unit. Subjective Date of service: 03/09/17 Principal diagnosis: Septic Shock; E coli Bacteremia Interval history: No acute events. Mental status is better. Psych has added PRN haldol Objective - Constitutional Vitals: Vital Signs - 12hr 03/08/17 03/08/17 03/09/17 23:31 23:45 00:00 Temperature 99.7 F H Pulse Rate 89 96 H 93 H Respiratory 17 19 20 Rate Respiratory Rate [Abdomen] Blood Pressure 104/66 104/66 102/69 O2 Sat by Pulse Oximetry 03/09/17 03/09/17 03/09/17 00:02 00:15 00:31 Temperature Pulse Rate 103 H 94 H 91 H Respiratory 18 21 19 Rate Respiratory 20 Rate [Abdomen] Blood Pressure 102/69 102/69 O2 Sat by Pulse 98 100 Oximetry 03/09/17 03/09/17 03/09/17 00:45 01:00 01:15 Temperature Pulse Rate 108 H 118 H 119 H Respiratory 28 H 22 31 H Rate Respiratory Rate [Abdomen] Blood Pressure 102/69 110/74 110/74 O2 Sat by Pulse Oximetry 03/09/17 03/09/17 03/09/17 01:31 01:45 02:00 Temperature Pulse Rate 114 H 99 H 119 H Respiratory 30 H 19 24 Rate Respiratory Rate [Abdomen] Blood Pressure 110/74 110/74 110/74 O2 Sat by Pulse Oximetry 03/09/17 03/09/17 03/09/17 02:15 02:31 02:45 Temperature Pulse Rate 104 H 95 H 93 H Respiratory 23 20 45 H Rate Respiratory Rate [Abdomen] Blood Pressure 114/62 110/74 110/74 O2 Sat by Pulse Oximetry 03/09/17 03/09/17 03/09/17 03:01 03:47 03:55 Temperature Pulse Rate 90 111 H 111 H Respiratory 20 20 Rate Respiratory Rate [Abdomen] Blood Pressure 114/62 114/62 O2 Sat by Pulse Oximetry 03/09/17 03/09/17 03/09/17 04:00 04:01 04:15 Temperature 98.7 F Pulse Rate 90 91 H Respiratory 22 22 Rate Respiratory Rate [Abdomen] Blood Pressure 114/62 114/62 O2 Sat by Pulse 100 100 Oximetry 03/09/17 03/09/17 03/09/17 04:30 04:45 05:01 Temperature Pulse Rate 87 84 83 Respiratory 22 21 19 Rate Respiratory Rate [Abdomen] Blood Pressure 114/62 114/62 114/62 O2 Sat by Pulse 100 100 100 Oximetry 03/09/17 03/09/17 03/09/17 05:15 05:31 05:33 Temperature Pulse Rate 82 94 H 82 Respiratory 17 25 H 26 H Rate Respiratory Rate [Abdomen] Blood Pressure 114/62 114/82 O2 Sat by Pulse 100 100 Oximetry 03/09/17 03/09/17 03/09/17 05:45 06:00 06:15 Temperature Pulse Rate 79 84 83 Respiratory 18 21 19 Rate Respiratory Rate [Abdomen] Blood Pressure 114/82 103/67 103/67 O2 Sat by Pulse 100 100 100 Oximetry 03/09/17 03/09/17 03/09/17 06:31 06:42 06:45 Temperature Pulse Rate 83 83 79 Respiratory 20 18 Rate Respiratory 20 Rate [Abdomen] Blood Pressure 103/67 103/67 O2 Sat by Pulse 100 100 100 Oximetry 03/09/17 03/09/17 03/09/17 07:00 07:15 07:31 Temperature Pulse Rate 81 82 76 Respiratory 17 21 16 Rate Respiratory Rate [Abdomen] Blood Pressure 105/71 105/71 105/71 O2 Sat by Pulse 100 100 100 Oximetry 03/09/17 03/09/17 03/09/17 07:45 08:00 08:15 Temperature 98.3 F Pulse Rate 106 H 102 H 96 H Respiratory 24 28 H 26 H Rate Respiratory Rate [Abdomen] Blood Pressure 105/71 115/73 115/73 O2 Sat by Pulse 100 100 100 Oximetry 03/09/17 03/09/17 03/09/17 08:31 08:45 09:00 Temperature Pulse Rate 97 H 79 96 H Respiratory 19 21 23 Rate Respiratory Rate [Abdomen] Blood Pressure 115/73 115/73 109/71 O2 Sat by Pulse 100 Oximetry 03/09/17 03/09/17 03/09/17 09:15 09:31 09:45 Temperature Pulse Rate 103 H 116 H 110 H Respiratory 30 H 23 25 H Rate Respiratory Rate [Abdomen] Blood Pressure 109/71 109/71 109/71 O2 Sat by Pulse Oximetry 03/09/17 03/09/17 03/09/17 10:00 10:15 10:31 Temperature Pulse Rate 98 H 99 H 113 H Respiratory 21 25 H 21 Rate Respiratory Rate [Abdomen] Blood Pressure 113/73 109/71 109/75 O2 Sat by Pulse Oximetry 03/09/17 03/09/17 03/09/17 10:45 11:00 11:15 Temperature Pulse Rate 106 H 102 H 100 H Respiratory 24 21 17 Rate Respiratory Rate [Abdomen] Blood Pressure 105/68 96/69 105/71 O2 Sat by Pulse 100 98 Oximetry - Labs CBC & Chem 7: 03/07/17 08:58 03/09/17 05:30 Labs: Abnormal lab results 03/04/17 03/08/17 03/08/17 Range/Units Unknown 11:53 23:52 Sodium (137-145) mmol/L Potassium (3.6-5.0) mmol/L Chloride (98-107) mmol/L Creatinine (0.7-1.2) mg/dL POC Glucose 146 H 135 H (70-105) Calcium (8.4-10.2) mg/dL Phosphorus (2.5-4.5) mg/dL Fluid Total Protein < 3.0 L (15.0-45.0) 03/09/17 Range/Units 05:30 Sodium 147 H (137-145) mmol/L Potassium 3.3 L (3.6-5.0) mmol/L Chloride 107.1 H (98-107) mmol/L Creatinine 0.2 L (0.7-1.2) mg/dL POC Glucose (70-105) Calcium 7.8 L (8.4-10.2) mg/dL Phosphorus 2.00 L D (2.5-4.5) mg/dL Fluid Total Protein (15.0-45.0)
[2017-03-09] MEDS: LEVAQUIN PO SCH (13:23)
[2017-03-09] MEDS ORDERED: HALDOL IV PRN (14:21)
[2017-03-09] MEDS ORDERED: IMODIUM PO PRN (14:21)
[2017-03-09] MEDS ORDERED: HALDOL IM PRN (14:30)
--- NOTE | 2017-03-09 14:32 | Progress Note ---
Subjective - Reason for Consult Consult date: 03/09/17 Reason for consult: Psychiatry Follow-up - Chief Complaint Chief complaint: "How are you" 26 YO Female seen in the intensive care unit for psychiatric evaluation. It was reported that she has been agitated and restless. Today patient is calm and cooperative during the assessment. I spoke with her cousin Mariely Darden who was at the bedside and she stated that she think her cousin (the patient) may have a drinking problem (etoh). The patient denied that she drink alcohol (etoh) yesterday during our conversation, but stated today that she started consuming a lot more alcohol (etoh) than normal 3 yrs ago after she had an . She stated that she feels "sad" when she think about the . She denies seeing a psychiatrist or taking an antidepressant in the past. She denies SI/HI's and AVH's. She denies sleep disturbance. Mental Status Exam - Vital signs Last Vital Signs Temp 98.4 F 03/09/17 12:00 Pulse 93 H 03/09/17 14:00 Resp 16 03/09/17 14:00 BP 96/69 03/09/17 12:31 Pulse Ox 98 03/09/17 11:00 - Exam Narrative exam: MSE: Appearance: calm, cooperative Behavior: regular eye contact Speech: regular rate and tone Mood: "okay" Affect: labile Thought Process: circumstantial Thought Content: denies SI/HI's and AVH's Motor Activity: lying in bed Cognition: A/Ox 2 Insight: variable Judgment: variable Assessment and Plan Impression: MDD. Today patient is calm and cooperative during the assessment. Elevated AST/ALT's. Patient in restraints. TSH 14.3. Delirium is resolving Recommendations: Continue Haldol to 2.5 IM Q4hrs PRN for agitation. Discussed with patient the risk/benefit of medication therapy for depression. She stated that she does not want to take a pill at this time for depression. She would like to try therapy. The following are recommended for reduction of symptoms of delirium: 1. Frequently reorient patient and involve him/her in their care (simple explanations of procedures, tests, medications). 2. Lights on and shades open during daytime hours. 3. Try to avoid unnecessary interruptions to sleep during nighttime hours. 4. Obtain glasses, hearing aids from home if patient uses these at baseline. 5. Avoid medications that may exacerbate delirium (especially narcotics, benzodiazepines, barbiturates, ambien, lunesta, and medications with excessive anticholinergic properties). 6. D/C restraints when not indicated.
[2017-03-09] MEDS: PHOS-NAK PO SCH ×2 (15:59→21:55)
[2017-03-10] MEDS: LASIX IV SCH ×2 (06:16→18:05)
[2017-03-10] MEDS: PHOS-NAK PO SCH ×3 (06:16→23:13)
[2017-03-10] MEDS: SYNTHROID PO SCH (06:16)
[2017-03-10] MEDS: DUONEB *Not for PRN Use IH SCH ×3 (08:23→19:53)
--- NOTE | 2017-03-10 09:23 | Progress Note ---
Assessment and Plan Assessment and plan: 26 YO Female with Hypothyroidism presents to ED for evaluation. Pt states that she has experienced nausea, vomiting, and multiple episodes of loose stools over 5 days with worsening symptoms over the past 8 hours. She was admitted for sepsis, aspirin her cousin she was not compliant with Synthroid at home because she does not have insurance. Her Cousin believes she has a history of polysubstance abuse, including etoh Severe Gram-negative septicemia/UTI * ID input appreciated, continue broad-spectrum antibiotics and antifungals * Blood and urine cx growing Ecoli which is sens to levaquin which patient is on , continue till 03/14 * mononucleosis screen negative * CT head and CTA neck negative * case discussed with ID * RIVER positive, titer was 1:80, with speckled pattern, will need outpatient fup Septic shock * improved, and was weaned off pressors Shock Liver. Abdominal pain * resolving, jaudice resolving * pancreatitis ruled out- lipase was negative * Viral Hepatitis serologies negative, HIV negative * GI consult appreciated * CT abdomen and pelvis; Large pleural effusions and moderate ascites. Right pyelonephritis seen. Proximal colon is thickened consistent with nonspecific colitis. Ascites * Status post paracentesis on 03/04, appeared to be a traumatic tap, but absolute neutrophil count is only 82 dear for not consistent with SBP, and not a contributor to sepsis. Fluid overload/ Pulmonary venous congestion continue lasix Delirium tremens/alcohol withdrawal * resolving, continue ciwa protocol with haldol, avoid benzos Metabolic encephalopathy * Most likely due to sepsis and delirium tremens, continue supportive care, improving * psych input appreciated, Ativan is likely making her delirium worse. She has been transitioned to Haldol when necessary for agitation. Severe hypothyroidism * Continue thyroid replacement therapy * recheck TFTs today Severe Metabolic Acidosis * improved sp Sodium bicarb Recent * pelvic and transvaginal ultrasound were performed and did not show any remnants, therefore not a contributor to sepsis Severe malnutrition * has passed bedside swallow eval, start pureed diet * speech and swallow consult Electrolyte derrangement- Hypokalemia, Hypocalcemia, hypomagnesemia, Hypophosphatemia * Continue to replete electrolytes as necessary daily, and medically rx * pseudohypocalcemia due to low albumin, corrected Ca is wnl Acute Kidney Injury * Resolved with IVF. secondary to vasomotor nephropathy Hypoglycemia * resolved with dextrose * Prognosis is fair, case discussed with her cousin Karla Darden, her phone number is [phone]. Her parents are in [place] and not currently reachable. I have provided letters for her father and mother to take to the consulate so that they may obtain visas to visit their daughter History Interval history: The patient is awake alert oriented to person and place, pleasant , tolerating diet Hospitalist Physical - Physical exam Narrative exam: General: no distress HEENT: MMM, EOMI, scleral icterus has now resolved cardiac: S1-S2 heard lungs: bibasilar crackles abdomen: soft, nontender, moderately distended with shifting dullness bowel sounds positive extremities: Nonpitting, doughy edema of lower extremities Skin: no rash or lesion Neuro: Awake alert oriented 3, pleasant and cooperative. Moves all extremities , no focal deficits Psych, pleasant and cooperative - Constitutional Vitals: Temp Pulse Resp BP Pulse Ox 100.2 F H 86 18 97/56 95 03/10/17 07:20 03/10/17 08:10 03/10/17 08:10 03/10/17 07:20 03/10/17 07:20 General appearance: Present: no acute distress, other (in 4-point restraints) Results - Labs CBC & Chem 7: 03/07/17 08:58 03/09/17 05:30 Labs: Laboratory Last Values WBC 11.8 K/mm3 (4.5-11.0) H 03/07/17 08:58 RBC 3.12 M/mm3 (3.65-5.03) L 03/07/17 08:58 Hgb 8.9 gm/dl (10.1-14.3) L 03/07/17 08:58 Hct 27.5 % (30.3-42.9) L 03/07/17 08:58 MCV 88 fl (79-97) 03/07/17 08:58 MCH 29 pg (28-32) 03/07/17 08:58 MCHC 32 % (30-34) 03/07/17 08:58 RDW 14.5 % (13.2-15.2) 03/07/17 08:58 Plt Count 138 K/mm3 (140-440) L 03/07/17 08:58 Lymph % (Auto) 22.8 % (13.4-35.0) 02/28/17 12:03 [place] % (Auto) 2.2 % (0.0-7.3) 02/28/17 12:03 Eos % (Auto) 1.2 % (0.0-4.3) 02/28/17 12:03 Baso % (Auto) 0.2 % (0.0-1.8) 02/28/17 12:03 Lymph # 1.2 K/mm3 (1.2-5.4) 02/28/17 12:03 [place] # 0.1 K/mm3 (0.0-0.8) 02/28/17 12:03 Eos # 0.1 K/mm3 (0.0-0.4) 02/28/17 12:03 Baso # 0.0 K/mm3 (0.0-0.1) 02/28/17 12:03 Add Manual Diff Complete 03/07/17 08:58 Total Counted 100 03/07/17 08:58 Seg Neutrophils % Career Technical Supervisor 03/07/17 08:58 Seg Neuts % (Manual) 87.0 % (40.0-70.0) H 03/07/17 08:58 Band Neutrophils % 4.0 % 03/07/17 08:58 Lymphocytes % (Manual) 5.0 % (13.4-35.0) L 03/07/17 08:58 Reactive Lymphs % (Man) 0 % 03/07/17 08:58 Monocytes % (Manual) 4.0 % (0.0-7.3) 03/07/17 08:58 Eosinophils % (Manual) 0 % (0.0-4.3) 03/07/17 08:58 Basophils % (Manual) 0 % (0.0-1.8) 03/07/17 08:58 Metamyelocytes % 0 % 03/07/17 08:58 Myelocytes % 0 % 03/07/17 08:58 Promyelocytes % 0 % 03/07/17 08:58 Blast Cells % 0 % 03/07/17 08:58 Nucleated RBC % 1.0 % (0.0-0.9) H 03/07/17 08:58 Seg Neutrophils # 3.8 K/mm3 (1.8-7.7) 02/28/17 12:03 Seg Neutrophils # Man 10.3 K/mm3 (1.8-7.7) H 03/07/17 08:58 Band Neutrophils # 0.5 K/mm3 03/07/17 08:58 Lymphocytes # (Manual) 0.6 K/mm3 (1.2-5.4) L 03/07/17 08:58 Abs React Lymphs (Man) 0.0 K/mm3 03/07/17 08:58 Monocytes # (Manual) 0.5 K/mm3 (0.0-0.8) 03/07/17 08:58 Eosinophils # (Manual) 0.0 K/mm3 (0.0-0.4) 03/07/17 08:58 Basophils # (Manual) 0.0 K/mm3 (0.0-0.1) 03/07/17 08:58 Metamyelocytes # 0.0 K/mm3 03/07/17 08:58 Myelocytes # 0.0 K/mm3 03/07/17 08:58 Promyelocytes # 0.0 K/mm3 03/07/17 08:58 Blast Cells # 0.0 K/mm3 03/07/17 08:58 WBC Morphology Not Reportable 03/07/17 08:58 Hypersegmented Neuts Not Reportable 03/07/17 08:58 Hyposegmented Neuts Not Reportable 03/07/17 08:58 Hypogranular Neuts Not Reportable 03/07/17 08:58 Smudge Cells Not Reportable 03/07/17 08:58 Toxic Granulation Not Reportable 03/07/17 08:58 Toxic Vacuolation Not Reportable 03/07/17 08:58 Dohle Bodies Not Reportable 03/07/17 08:58 Pelger-Huet Anomaly Not Reportable 03/07/17 08:58 Linda Rods Not Reportable 03/07/17 08:58 Platelet Estimate Consistent w auto 03/07/17 08:58 Clumped Platelets Not Reportable 03/07/17 08:58 Plt Clumps, EDTA Not Reportable 03/07/17 08:58 Large Platelets Not Reportable 03/07/17 08:58 Giant Platelets Not Reportable 03/07/17 08:58 Platelet Satelliting Not Reportable 03/07/17 08:58 Plt Morphology Comment Not Reportable 03/07/17 08:58 RBC Morphology Not Reportable 03/07/17 08:58 Dimorphic RBCs Not Reportable 03/07/17 08:58 Polychromasia Not Reportable 03/07/17 08:58 Hypochromasia Not Reportable 03/07/17 08:58 Poikilocytosis Not Reportable 03/07/17 08:58 Anisocytosis 1+ 03/07/17 08:58 Microcytosis Not Reportable 03/07/17 08:58 Macrocytosis Not Reportable 03/07/17 08:58 Spherocytes Not Reportable 03/07/17 08:58 Pappenheimer Bodies Not Reportable 03/07/17 08:58 Sickle Cells Not Reportable 03/07/17 08:58 Target Cells Not Reportable 03/07/17 08:58 Tear Drop Cells Not Reportable 03/07/17 08:58 Ovalocytes Not Reportable 03/07/17 08:58 Stomatocytes Few 03/06/17 05:55 Helmet Cells Not Reportable 03/07/17 08:58 Sal-Ten Sleep Bodies Not Reportable 03/07/17 08:58 Bath Rings Not Reportable 03/07/17 08:58 Teri Cells Not Reportable 03/07/17 08:58 Bite Cells Not Reportable 03/07/17 08:58 Crenated Cell Not Reportable 03/07/17 08:58 Elliptocytes Not Reportable 03/07/17 08:58 Acanthocytes (Spur) Not Reportable 03/07/17 08:58 Rouleaux Not Reportable 03/07/17 08:58 Hemoglobin C Crystals Not Reportable 03/07/17 08:58 Schistocytes Not Reportable 03/07/17 08:58 Malaria parasites Not Reportable 03/07/17 08:58 Charlie Bodies Not Reportable 03/07/17 08:58 Hem Pathologist Commnt No 03/07/17 08:58 PT 16.3 Sec. (12.2-14.9) H 03/08/17 08:00 INR 1.32 (0.87-1.13) H 03/08/17 08:00 APTT 31.0 Sec. (24.2-36.6) 03/08/17 08:00 Fibrinogen 556 mg/dl (211-480) H 03/03/17 16:38 POC ABG pH 7.530 (7.35-7.45) H 03/05/17 16:18 POC ABG pCO2 36.0 (35-45) 03/05/17 16:18 POC ABG pO2 65 (80-105) L 03/05/17 16:18 POC ABG HCO3 30.1 03/05/17 16:18 POC ABG Total CO2 31 03/05/17 16:18 POC ABG O2 Sat 95 03/05/17 16:18 POC ABG Base Excess 7 03/05/17 16:18 FiO2 21 % 03/05/17 16:18 Sodium 147 mmol/L (137-145) H 03/09/17 05:30 Potassium 3.3 mmol/L (3.6-5.0) L 03/09/17 05:30 Chloride 107.1 mmol/L (98-107) H 03/09/17 05:30 Carbon Dioxide 29 mmol/L (22-30) 03/09/17 05:30 Anion Gap 14 mmol/L 03/09/17 05:30 BUN 15 mg/dL (7-17) 03/09/17 05:30 Creatinine 0.2 mg/dL (0.7-1.2) L 03/09/17 05:30 Estimated GFR > 60 ml/min 03/09/17 05:30 BUN/Creatinine Ratio 75.00 % 03/09/17 05:30 Glucose 90 mg/dL (65-100) 03/09/17 05:30 POC Glucose 98 (70-105) 03/10/17 07:45 Lactic Acid 2.30 mmol/L (0.7-2.0) H* 03/02/17 05:00 Calcium 7.8 mg/dL (8.4-10.2) L 03/09/17 05:30 Phosphorus 2.00 mg/dL (2.5-4.5) L D 03/09/17 05:30 Magnesium 1.70 mg/dL (1.7-2.3) 03/09/17 05:30 Iron 19 ug/dL (37-170) L 03/02/17 12:15 TIBC 96 mcg/dL (250-450) L 03/02/17 12:15 Ferritin 1802.0 ng/mL (13.0-400.0) H 03/02/17 12:15 Total Bilirubin 1.50 mg/dL (0.1-1.2) H 03/07/17 08:58 Direct Bilirubin 2.9 mg/dL (0-0.2) H 03/04/17 11:22 Indirect Bilirubin 1.1 mg/dL 03/04/17 11:22 AST 99 units/L (5-40) H 03/07/17 08:58 ALT 119 units/L (7-56) H 03/07/17 08:58 Alkaline Phosphatase 113 units/L (35-129) 03/07/17 08:58 Total Creatine Kinase 56 units/L (30-135) 02/28/17 12:03 CK-MB (CK-2) 1.4 ng/mL (0.0-4.0) 02/28/17 12:03 CK-MB (CK-2) Rel Index 2.5 (0-4) 02/28/17 12:03 Troponin T < 0.010 ng/mL (0.00-0.029) 02/28/17 12:03 C-Reactive Protein 22.50 mg/dL (0.00-1.30) H 03/03/17 04:00 NT-Pro-B Natriuret Pep 01497 pg/mL (0-450) H 03/06/17 12:32 Total Protein 5.7 g/dL (6.3-8.2) L 03/07/17 08:58 Albumin 2.8 g/dL (3.9-5) L 03/07/17 08:58 Albumin/Globulin Ratio 1.0 % 03/07/17 08:58 [id number] 257 mg/dL (83-199) H 03/02/17 12:15 Ceruloplasmin 32 mg/dL (18-53) 03/02/17 12:15 Lipase 7 units/L (13-60) L 03/03/17 04:00 TSH 14.320 mlU/mL (0.270-4.200) H 03/09/17 10:52 Free T4 1.00 ng/dL (0.76-1.46) 03/09/17 10:52 Thyroxine (T4) 6.1 ug/dL (4.0-12.0) 03/09/17 10:52 HCG, Qual Negative (Negative) 02/28/17 12:03 Urine Color Yellow (Yellow) 02/28/17 11:40 Urine Turbidity Cloudy (Clear) 02/28/17 11:40 Urine pH 5.0 (5.0-7.0) 02/28/17 11:40 Ur Specific [place] 1.015 (1.003-1.030) 02/28/17 11:40 Urine Protein 100 mg/dl mg/dL (Negative) 02/28/17 11:40 Urine Glucose (UA) Neg mg/dL (Negative) 02/28/17 11:40 Urine Ketones Neg mg/dL (Negative) 02/28/17 11:40 Urine Blood Sm (Negative) 02/28/17 11:40 Urine Nitrite Neg (Negative) 02/28/17 11:40 Urine Bilirubin Neg (Negative) 02/28/17 11:40 Urine Urobilinogen < 2.0 mg/dL (<2.0) 02/28/17 11:40 Ur Leukocyte Esterase Lg (Negative) 02/28/17 11:40 Urine WBC (Auto) 80.0 /HPF (0.0-6.0) H 02/28/17 11:40 Urine RBC (Auto) 4.0 /HPF (0.0-6.0) 02/28/17 11:40 U Epithel Cells (Auto) 1.0 /HPF (0-13.0) 02/28/17 11:40 Urine Bacteria (Auto) 1+ /HPF (Negative) 02/28/17 11:40 Urine Mucus 1+ /HPF 02/28/17 11:40 Fluid Type Ascitic 03/04/17 Unknown Fluid Color Yellow 03/04/17 Unknown Fluid Appearance Hazy 03/04/17 Unknown Fluid WBC 485 /mm3 03/04/17 Unknown Fluid RBC 1950 /mm3 03/04/17 Unknown Fluid Seg Neutrophils 82.0 % 03/04/17 Unknown Fluid Lymphocytes 6.0 % 03/04/17 Unknown Fluid Reactive Lymphs 0 % 03/04/17 Unknown Fluid Monocytes 12.0 % 03/04/17 Unknown Fluid Eosinophils 0 % 03/04/17 Unknown Fluid Basophils 0 % 03/04/17 Unknown Fluid Total Protein < 3.0 (15.0-45.0) L 03/04/17 Unknown Fluid Albumin 1.2 g/dL 03/04/17 Unknown Vancomycin Trough 19.3 ug/mL (5.0-20.0) 03/06/17 18:25 Random Vancomycin 5.7 ug/mL (0-40.0) 03/01/17 12:53 Urine Opiates Screen Presumptive negative 03/05/17 02:55 Urine Methadone Screen Presumptive negative 03/05/17 02:55 Ur Barbiturates Screen Presumptive negative 03/05/17 02:55 Ur Phencyclidine Scrn Presumptive negative 03/05/17 02:55 Ur Amphetamines Screen Presumptive negative 03/05/17 02:55 U Benzodiazepines Scrn Presumptive negative 03/05/17 02:55 Urine Cocaine Screen Presumptive negative 03/05/17 02:55 U Marijuana (THC) Screen Presumptive negative 03/05/17 02:55 Drugs of Abuse Note Disclamer 03/05/17 02:55 RIVER Screen Positive (Negative) H 03/02/17 12:15 RIVER Titer 1:80 (Negative) 03/02/17 12:15 RIVER Pattern Speckled 03/02/17 12:15 Actin IgG Antibody <20 U (<20) 03/02/17 12:15 Hep Bs Antigen Non-reactive (Negative) 03/02/17 12:15 Hep B Core Total Ab Nonreactive (Nonreactive) 03/02/17 12:15 Hepatitis C Antibody Non-reactive (NonReactive) 03/02/17 12:15 Monoscreen Negative (Negative) 03/05/17 06:25 HIV 1&2 Antibody Rapid Non react (Non React) 03/04/17 19:18 HIV P24 Antigen Non react (Non React) 03/04/17 19:18 Miscellaneous Test Flexitest 1 03/02/17 12:22 Blood Type O POSITIVE 02/28/17 12:03 Antibody Screen TNR 02/28/17 12:03 TEJAL Antibody Screen Negative 02/28/17 12:03 Crossmatch See Detail 02/28/17 12:03 - Imaging and Cardiology Chest x-ray: image reviewed (Pulmonary venous congestion and bilateral effusions )
[2017-03-10] MEDS: LOVENOX SUB-Q SCH (10:07)
--- NOTE | 2017-03-10 10:42 | XRay Report ---
ROUTINE CHEST, TWO VIEWS: HISTORY: Cough. Compared to 03/07/17. Mild cardiomegaly, mild pulmonary venous congestion and moderate bilateral pleural effusions are evident. There is compressive atelectasis throughout most of the lower lobes. No pneumothorax. Right arm PICC terminates in the lower SVC. IMPRESSION: CHF. Given differences in positioning of the patient, no significant change is appreciated since the exam 2 days ago.
[2017-03-10] MEDS ORDERED: LASIX IV SCH (11:25)
[2017-03-10] MEDS ORDERED: LASIX IV ONE (12:00)
[2017-03-11] MEDS: SYNTHROID PO SCH (06:24)
[2017-03-11] MEDS: PHOS-NAK PO SCH ×2 (06:24→14:05)
[2017-03-11] MEDS: LASIX IV SCH (06:25)
[2017-03-11] MEDS: DUONEB *Not for PRN Use IH SCH ×2 (08:33→13:47)
[2017-03-11 09:07] VITALS: BP 92/56
--- NOTE | 2017-03-11 10:30 | Discharge Summary ---
Providers - Providers Date of Admission: 02/28/17 13:56 Attending physician: PATRICIA HOOD MD 03/01/17 16:30 Consult to Physician [CONS] Routine Consulting Provider: JUANA CARBAJAL Reason For Exam: persistent nausea with vomiting Place consult to:: Dr Horace Carbajal Notified:: yes Phone number called:: [phone] Was contact made?: Yes If yes, spoke with:: marlene perez service Time called:: 20:00 03/02/17 10:52 Consult to Physician [CONS] Routine Consulting Provider: RAFY IZQUIERDO Reason For Exam: septic shock Place consult to:: lola Notified:: yes Was contact made?: Yes If yes, spoke with:: lola Time called:: 09:21 03/02/17 11:55 Consult to PICC Line RN [CONS] Routine Reason For Exam: Sepsis Type Line:: PICC 03/05/17 12:15 Consult to Dietitian/Nutrition [CONS] Routine Physician Instructions: Reason For Exam: Reason for Consult: Write/Manage Tube Feeding 03/06/17 16:17 Consult to Mental Health [CONS] Routine Reason For Exam: behavioral disturbance Place consult to:: ED Crisis Notified:: yes Phone number called:: [phone] Was contact made?: Yes Time called:: 11:14 03/07/17 06:12 Consult to Mental Health [CONS] Routine Reason For Exam: behavioral disturbance Place consult to:: ED Crisis Notified:: yes Phone number called:: [phone] Was contact made?: Yes Time called:: 11:15 03/07/17 16:16 Physical Therapy Evaluation and Treat [CONS] Routine Comment: Reason For Exam: debility 03/09/17 15:42 Speech Therapy Evaluation and Treat [CONS] Routine Reason For Exam: dysphagia Primary care physician: REGISTERED CLINICAL DIETITIAN Hospitalization Condition: Serious Hospital course: 26 YO Female with Hypothyroidism presents to ED for evaluation. Pt states that she has experienced nausea, vomiting, and multiple episodes of loose stools over 5 days with worsening symptoms over the past 8 hours. She was admitted for sepsis, aspirin her cousin she was not compliant with Synthroid at home because she does not have insurance. Her Cousin believes she has a history of polysubstance abuse, including etoh and crystal meth. The patient had apparently come to the ER some days prior and was waiting in the waiting area got tired of waiting and walked out without being seen by a physician or nurse. This time she was admitted with hypotension sepsis altered mental status, metabolic encephalopathy. Patient had extensive infectious workup done. She was found to have a UTI due to Escherichia coli and septicemia, gram-negative septicemia. She was seen in conjunction with ID, she was treated with antibiotics at the bacteria in her bloody urine is sensitive to. She also had an extensive workup which included a CT of her head CT of her neck which were negative, HIV screening, viral hepatitis screening, paracentesis, where also all negative. There was concern that she had a recent , therefore she had ridging of her uterus that's showed an empty uterus and no evidence of retained products. She did have septic shock requiring pressors for multiple days, she improved antibiotics and was successfully weaned off pressors. After being in ICU and getting aggressive IV fluid hydration, patient did have fluid overload with pulmonary venous congestion and ascites. Therefore she was put on diuresis. She had shortness of breath due to pulmonary venous congestion that improved with diuresis. She also had severe hypothyroidism, she was Thyroid replacement therapy. Thryoid Function tests were repeated prior to discharge and improvement was seen. She suffered from delirium while in hospital, and delirium tremens. She was initially treated with Ativan and CIWA protocol, she was seen by mental health who suggested that ativan was likely contributing agitation. She was transitioned to Haldol as needed. Her mentation improved she was no longer confused, and was no longer needing Haldol. She also had hypoglycemia, electrolyte deficiencies and acute kidney injury. Acute kidney injury is most likely due to ATN given hypotension. All her electrolytes were repleted, patient clinically improved. Her renal function and improved to normal after she was resuscitated with IV fluids. She was advised that she was improve her compliance, she was counseled about polysubstance abuse. She was instructed that she must complete all her antibiotics. She was also counseled about poor compliance with Synthroid as it can cause severe morbidity or mortality. Patient verbalized understanding and stated that she would do more to take care of her health in the future. The family members were very supportive. Discharge diagnoses Severe gram-negative sepsis Bacterial UTI Septic shock Shock liver/transaminitis Ascites Pulmonary venous congestion Fluid overload Delirium tremens Metabolic encephalopathy Myxedema coma Severe hypothyroidism Severe metabolic acidosis Severe malnutrition Hypokalemia Hypocalcemia Hypomagnesemia Hypophosphatemia Acute kidney injury/ATN Hypoglycemia Disposition: [id number]/TX-[id number] HOME [facility] Time spent for discharge: 32 minutes Core Measure Documentation - Palliative Care Palliative Care/ Comfort Measures: Not Applicable - Core Measures Any of the following diagnoses?: none Exam - Constitutional Vitals: Temp Pulse Resp BP Pulse Ox 99.2 F 95 H 15 92/56 99 03/11/17 07:00 03/11/17 08:45 03/11/17 08:45 03/11/17 07:00 03/11/17 08:34 General appearance: Present: no acute distress, well-nourished - EENT Eyes: Present: PERRL ENT: hearing intact, clear oral mucosa - Neck Neck: Present: supple, normal ROM - Respiratory Respiratory effort: normal Respiratory: bilateral: CTA - Cardiovascular Heart Sounds: Present: S1 & S2. Absent: rub, click - Extremities Extremities: pulses symmetrical, No edema Peripheral Pulses: within normal limits - Abdominal General gastrointestinal: Present: soft, non-tender, non-distended, normal bowel sounds Female genitourinary: Present: normal - Integumentary Integumentary: Present: clear, warm, dry - Musculoskeletal Musculoskeletal: gait normal, strength equal bilaterally - Psychiatric Psychiatric: appropriate mood/affect, intact judgment & insight - Neurologic Neurologic: CNII-XII intact, moves all extremities Plan Follow up with: PRIMARY CARE, [Primary Care Provider] - 3-5 Days [facility] [Outside] - 7 Days Prescriptions: Acetaminophen/Codeine [Tylenol /Codeine # 3 tab] 1 tab PO Q6H PRN #14 tab PRN Reason: Pain Benzocaine/Menthol [Cepacol Sore Throat Lozenge] 1 each MM Q4H #30 lozenge Furosemide [Lasix TAB] 40 mg PO BID #14 tablet Levofloxacin [Levaquin] 750 mg PO QDAY #3 tablet Levothyroxine [Synthroid] 150 mcg PO DAILY@0600 #30 tablet Pot Phosphate/Na Phosphate [Phos-Nak] 1 each PO Q8HR #20 powd.pack
[2017-03-11] MEDS ORDERED: TRIPLE ANTIBIOTIC TP ONE ×2 (11:33→15:00)
--- NOTE | 2017-03-11 11:42 | Progress Note ---
Subjective - Reason for Consult Consult date: 03/11/17 Reason for consult: Psychiatry Follow-up - Chief Complaint Chief complaint: "Hello there" 26 YO Female seen in the intensive care unit for psychiatric evaluation. It was reported that she has been agitated and restless. Today patient is calm and cooperative during the assessment. She stated that she feels much better today and look forward to being discharged. She stated that she took her last drink (etoh) 3 months ago. Per our previous conversation, she admit to having a drinking problem (etoh) a couple years ago. Also, she admit to having "sad" moments about her 3 yrs ago and the fact her parents live in [place]. She denies SI/HI's, AVH's, and depression. She stated that she would like information about seeing a therapist. Mental Status Exam - Vital signs Last Vital Signs Temp 99.2 F 03/11/17 07:00 Pulse 95 H 03/11/17 08:45 Resp 15 03/11/17 08:45 BP 92/56 03/11/17 07:00 Pulse Ox 99 03/11/17 08:34 - Exam Narrative exam: MSE: Appearance: calm, cooperative Behavior: regular eye contact Speech: regular rate and tone Mood: "much better" Affect: congruent to mood Thought Process: linear Thought Content: denies SI/HI's and AVH's Motor Activity: lying in bed Cognition: A/Ox 3 Insight: fair Judgment: fair Assessment and Plan Impression: MDD. Possible Alcohol Use DO. Today patient is calm and cooperative during the assessment. Patient not in restraints. Delirium resolved. Recommendations: Discussed with patient the risk/benefit of medication therapy for depression. Patient will be given outpatient psy services information for [facility]. She prefer therapy at this time. Discussed the importance to abstain from excessive alcohol consumption. Discussed generalized coping skills with patient.
[2017-03-11] MEDS: LOVENOX SUB-Q SCH (12:07)
[2017-03-11] MEDS ORDERED: CHLORASEPTIC MM PRN (12:43)
== END 2017-03-11 16:00 | disposition home health service (06) | DRG 871 ==
LOC: ED 11:05 → CC1 13:56 → 3A 03-09 13:02
PROVIDERS: ADMIT Internal Medicine; ATTEND Internal Medicine
PROC: 30233N1 Transfusion of Nonautologous Red Blood Cells into Peripheral Vein, Percutaneous Approach (ICD-10-PCS; 2017-02-28)
PROC: 4A033R1 Measurement of Arterial Saturation, Peripheral, Percutaneous Approach (ICD-10-PCS; principal; 2017-03-01)
PROC: 02HV33Z Insertion of Infusion Device into Superior Vena Cava, Percutaneous Approach (ICD-10-PCS; 2017-03-02)
PROC: 0W9G30Z Drainage of Peritoneal Cavity with Drainage Device, Percutaneous Approach (ICD-10-PCS; 2017-03-04)
DX: A41.51 Sepsis due to Escherichia coli [E. coli] (principal); E03.5 Myxedema coma; G93.41 Metabolic encephalopathy; E43 Unspecified severe protein-calorie malnutrition; R65.21 Severe sepsis with septic shock; K85.90 Acute pancreatitis without necrosis or infection, unspecified; N17.0 Acute kidney failure with tubular necrosis; K72.00 Acute and subacute hepatic failure without coma; N30.00 Acute cystitis without hematuria; F10.231 Alcohol dependence with withdrawal delirium; R18.8 Other ascites; E87.0 Hyperosmolality and hypernatremia; E03.9 Hypothyroidism, unspecified; E83.51 Hypocalcemia; E16.2 Hypoglycemia, unspecified; D69.6 Thrombocytopenia, unspecified; E86.0 Dehydration; D64.9 Anemia, unspecified; E87.6 Hypokalemia; E83.42 Hypomagnesemia; E83.39 Other disorders of phosphorus metabolism; Z82.49 Family history of ischemic heart disease and other diseases of the circulatory system; Z68.22 Body mass index [BMI] 22.0-22.9, adult
CPT/HCPCS: 36415; 36600; 49083; 70470; 70498; 71010; 71020; 74000; 74020; 74176; 74177; 76700; 76830; 76856; 80048; 80053; 80074; 80202; 80307; 81001; 82040; 82103; 82106; 82140; 82390; 82550; 82553; 82728; 82803; 82962; 83516; 83550; 83690; 83735; 83880; 84100; 84160; 84436; 84439; 84443; 84484; 84703; 85007; 85025; 85384; 85610; 85730; 86038; 86140; 86308; 86705; 86706; 86709; 86803; 86850; 86900; 86901; 86920; 87040; 87076; 87086; 87116; 87186; 87806; 88112; 88305; 89051; 93005; 93010; 93306; 94640; 94660; 94760; 96361; 96365; 96375; 99291; A6250; J0610; J0696; J1170; J1265; J1630; J1650; J1720; J1940; J1956; J2060; J2185; J2270; J2405; J2543; J2765; J3010; J3370; J3475; J3480; J7030; J7040; J7042; J7050; J7070; P9016; Q9967